=== PATIENT | female | born 1950 | race Caucasian/White ===

== ENCOUNTER 2018-01-06 13:26 | Outpatient (RCR) | payer MEDICARE, OTHER, SELFPAY ==
[2018-01-06] MEDS: Normal Saline Flush 10 ML SYR IVP (13:45)
[2018-01-06 13:49] LABS: Abs Immature Grans 0.01 k/cumm (0.0-0.09); Absolute Basophil Count 0.04 k/cumm (0.0-0.2); Absolute Eosinophil Count 0.12 k/cumm (0.0-0.7); Absolute Lymphocyte Count 2.13 k/cumm (1.2-3.4); Absolute Monocyte Count 0.65 k/cumm (0.11-0.7); Absolute Neutrophil Count 2.18 k/cumm (1.2-6.7); Basophils % 0.8; Eosinophils % 2.3; HCT 39.6 % (36.0-46.0); HGB 12.9 g/dL (12.0-15.5); Immature Grans % 0.2; Lymphocytes % 41.5; Mean Corp. HGB Concentration 32.6 g/dL (32.0-36.0); Mean Corpuscular Volume 98.3 fL (80-95); Monocytes % 12.7; Neutrophils % 42.5; Platelet Count 333 x1000/uL (130-400); RBC 4.03 m/cumm (4.00-5.20); RBC Distribution Width 14.2 % (11.7-14.6); White Blood Cell Count 5.13 k/cumm (4.4-10.8)
[2018-01-06 14:01] LABS: ALT 20 U/L (12-78); AST 14 U/L (15-37); Albumin 3.8 g/dL (3.4-5.0); Alkaline Phosphatase 64 U/L (46-116); Anion Gap 8.3 mmol/L (3-11); BUN 12 mg/dL (7-18); Bilirubin, Total 0.4 mg/dL (0.2-1.0); CO2 28.7 mmol/L (21.0-32.0); CREATININE 0.87 mg/dL (0.55-1.02); Chloride 105 mmol/L (98-107); Glucose 98 mg/dL (70-100); Sodium 142 mmol/L (136-145); Total Protein 7.3 g/dL (6.4-8.2)
== END 2018-01-30 ==
LOC: INF 13:26
PROVIDERS: PCP Nurse Practitioner; Visit Provider Internal Medicine Medical Oncology
DX: C34.2 Malignant neoplasm of middle lobe, bronchus or lung (principal); Z45.2 Encounter for adjustment and management of vascular access device
CPT/HCPCS: 36591; 80053; 85025

== ENCOUNTER 2018-02-26 01:37 | Outpatient (RCR) | payer MEDICARE, OTHER, SELFPAY ==
[2018-02-05] MEDS: Normal Saline Flush 10 ML SYR IVP (07:55)
[2018-02-05 08:24] LABS: Abs Immature Grans 0.01 k/cumm (0.0-0.09); Absolute Basophil Count 0.03 k/cumm (0.0-0.2); Absolute Eosinophil Count 0.26 k/cumm (0.0-0.7); Absolute Lymphocyte Count 2.38 k/cumm (1.2-3.4); Absolute Monocyte Count 0.54 k/cumm (0.11-0.7); Basophils % 0.5; Eosinophils % 4.6; HCT 40.7 % (36.0-46.0); HGB 13.2 g/dL (12.0-15.5); Immature Grans % 0.2; Lymphocytes % 42.3; Mean Corp. HGB Concentration 32.4 g/dL (32.0-36.0); Mean Corpuscular Hemoglobin 32.4 pg (27.0-33.0); Mean Corpuscular Volume 99.8 fL (80-95); Mean Platelet Volume 11.1 fL (8.0-11.0); Monocytes % 9.6; Neutrophils % 42.8; Platelet Count 269 x1000/uL (130-400); RBC 4.08 m/cumm (4.00-5.20); RBC Distribution Width 14.1 % (11.7-14.6); White Blood Cell Count 5.62 k/cumm (4.4-10.8)
[2018-02-05 08:36] LABS: ALT 18 U/L (12-78); AST 14 U/L (15-37); Albumin 3.7 g/dL (3.4-5.0); Alkaline Phosphatase 68 U/L (46-116); Anion Gap 6.4 mmol/L (3-11); BUN 12 mg/dL (7-18); Bilirubin, Total 0.4 mg/dL (0.2-1.0); CO2 28.6 mmol/L (21.0-32.0); CREATININE 0.97 mg/dL (0.55-1.02); Calcium 8.8 mg/dL (8.5-10.1); Chloride 105 mmol/L (98-107); Estimated GFR 56.94 (mL/min/1.73m2); Glucose 133 mg/dL (70-100); Potassium 3.7 mmol/L (3.5-5.1); Sodium 140 mmol/L (136-145); Total Protein 7.3 g/dL (6.4-8.2)
[2018-02-26] MEDS: Normal Saline Flush 10 ML SYR IVP (09:25)
[2018-02-26 09:44] LABS: Abs Immature Grans 0.01 k/cumm (0.0-0.09); Absolute Basophil Count 0.04 k/cumm (0.0-0.2); Absolute Eosinophil Count 0.15 k/cumm (0.0-0.7); Absolute Lymphocyte Count 2.06 k/cumm (1.2-3.4); Absolute Monocyte Count 0.52 k/cumm (0.11-0.7); Absolute Neutrophil Count 2.44 k/cumm (1.2-6.7); Basophils % 0.8; Eosinophils % 2.9; HCT 39.3 % (36.0-46.0); HGB 12.8 g/dL (12.0-15.5); Immature Grans % 0.2; Lymphocytes % 39.5; Mean Corp. HGB Concentration 32.6 g/dL (32.0-36.0); Mean Corpuscular Hemoglobin 32.4 pg (27.0-33.0); Mean Corpuscular Volume 99.5 fL (80-95); Mean Platelet Volume 10.7 fL (8.0-11.0); Neutrophils % 46.6; Platelet Count 382 x1000/uL (130-400); RBC 3.95 m/cumm (4.00-5.20); RBC Distribution Width 13.7 % (11.7-14.6); White Blood Cell Count 5.22 k/cumm (4.4-10.8)
[2018-02-26 10:08] LABS: ALT 18 U/L (12-78); AST 16 U/L (15-37); Albumin 3.7 g/dL (3.4-5.0); Alkaline Phosphatase 64 U/L (46-116); Anion Gap 8.2 mmol/L (3-11); BUN 13 mg/dL (7-18); Bilirubin, Total 0.5 mg/dL (0.2-1.0); CO2 28.8 mmol/L (21.0-32.0); CREATININE 1.06 mg/dL (0.55-1.02); Calcium 8.9 mg/dL (8.5-10.1); Chloride 105 mmol/L (98-107); Estimated GFR 51.25 (mL/min/1.73m2); Glucose 126 mg/dL (70-100); Potassium 3.9 mmol/L (3.5-5.1); Sodium 142 mmol/L (136-145); Total Protein 7.2 g/dL (6.4-8.2)
== END 2018-03-01 23:59 | disposition home or self-care (01) ==
LOC: INF 01:37
PROVIDERS: PCP Nurse Practitioner; Visit Provider Internal Medicine Medical Oncology
DX: C34.2 Malignant neoplasm of middle lobe, bronchus or lung (principal); Z45.2 Encounter for adjustment and management of vascular access device
CPT/HCPCS: 36591; 80053; 85025

== ENCOUNTER 2018-03-19 01:59 | Outpatient (RCR) | payer MEDICARE, SELFPAY ==
[2018-03-19] MEDS: Normal Saline Flush 10 ML SYR IVP (08:40)
[2018-03-19 09:12] LABS: Abs Immature Grans 0.08 k/cumm (0.0-0.09); Absolute Basophil Count 0.03 k/cumm (0.0-0.2); Absolute Eosinophil Count 0.04 k/cumm (0.0-0.7); Absolute Lymphocyte Count 3.18 k/cumm (1.2-3.4); Absolute Neutrophil Count 8.49 k/cumm (1.2-6.7); Basophils % 0.2; Eosinophils % 0.3; HCT 39.7 % (36.0-46.0); HGB 12.9 g/dL (12.0-15.5); Immature Grans % 0.6; Lymphocytes % 24.8; Mean Corp. HGB Concentration 32.5 g/dL (32.0-36.0); Mean Corpuscular Hemoglobin 32.2 pg (27.0-33.0); Mean Platelet Volume 11.1 fL (8.0-11.0); Monocytes % 7.8; Neutrophils % 66.3; Platelet Count 373 x1000/uL (130-400); RBC 4.01 m/cumm (4.00-5.20); RBC Distribution Width 14.3 % (11.7-14.6); White Blood Cell Count 12.81 k/cumm (4.4-10.8)
[2018-03-19 09:31] LABS: ALT 22 U/L (12-78); AST 11 U/L (15-37); Albumin 3.4 g/dL (3.4-5.0); Alkaline Phosphatase 57 U/L (46-116); Anion Gap 10.2 mmol/L (3-11); BUN 21 mg/dL (7-18); Bilirubin, Total 0.3 mg/dL (0.2-1.0); CO2 29.8 mmol/L (21.0-32.0); CREATININE 0.92 mg/dL (0.55-1.02); Calcium 9.1 mg/dL (8.5-10.1); Chloride 103 mmol/L (98-107); Glucose 128 mg/dL (70-100); Potassium 3.2 mmol/L (3.5-5.1); Sodium 143 mmol/L (136-145); Total Protein 6.8 g/dL (6.4-8.2)
== END 2018-04-01 23:59 | disposition home or self-care (01) ==
LOC: INF 01:59
PROVIDERS: PCP Nurse Practitioner; Visit Provider Internal Medicine Medical Oncology
DX: C34.2 Malignant neoplasm of middle lobe, bronchus or lung (principal); Z45.2 Encounter for adjustment and management of vascular access device
CPT/HCPCS: 36591; 80053; 85025

== ENCOUNTER 2018-04-30 02:08 | Outpatient (RCR) | payer MEDICARE, SELFPAY ==
[2018-04-09] MEDS: Normal Saline Flush 10 ML SYR IVP (07:55)
[2018-04-09 08:11] LABS: Abs Immature Grans 0.01 k/cumm (0.0-0.09); Absolute Basophil Count 0.02 k/cumm (0.0-0.2); Absolute Eosinophil Count 0.16 k/cumm (0.0-0.7); Absolute Lymphocyte Count 1.79 k/cumm (1.2-3.4); Absolute Monocyte Count 0.45 k/cumm (0.11-0.7); Absolute Neutrophil Count 1.46 k/cumm (1.2-6.7); Basophils % 0.5; Eosinophils % 4.1; HGB 13.1 g/dL (12.0-15.5); Immature Grans % 0.3; Mean Corp. HGB Concentration 32.8 g/dL (32.0-36.0); Mean Corpuscular Hemoglobin 32.8 pg (27.0-33.0); Mean Corpuscular Volume 100.3 fL (80-95); Mean Platelet Volume 10.7 fL (8.0-11.0); Monocytes % 11.6; Neutrophils % 37.5; Platelet Count 313 x1000/uL (130-400); RBC 3.99 m/cumm (4.00-5.20); RBC Distribution Width 14.2 % (11.7-14.6); White Blood Cell Count 3.89 k/cumm (4.4-10.8)
[2018-04-09 08:23] LABS: ALT 22 U/L (12-78); AST 16 U/L (15-37); Albumin 3.7 g/dL (3.4-5.0); Alkaline Phosphatase 63 U/L (46-116); Anion Gap 11.2 mmol/L (3-11); BUN 15 mg/dL (7-18); Bilirubin, Total 0.4 mg/dL (0.2-1.0); CO2 27.8 mmol/L (21.0-32.0); CREATININE 1.08 mg/dL (0.55-1.02); Chloride 104 mmol/L (98-107); Estimated GFR 50.16 (mL/min/1.73m2); Glucose 145 mg/dL (70-100); Potassium 3.6 mmol/L (3.5-5.1); Sodium 143 mmol/L (136-145); Total Protein 7.1 g/dL (6.4-8.2)
[2018-04-30] MEDS: Normal Saline Flush 10 ML SYR IVP (10:25)
[2018-04-30 10:45] LABS: Abs Immature Grans 0.01 k/cumm (0.0-0.09); Absolute Basophil Count 0.04 k/cumm (0.0-0.2); Absolute Eosinophil Count 0.09 k/cumm (0.0-0.7); Absolute Lymphocyte Count 1.96 k/cumm (1.2-3.4); Absolute Monocyte Count 0.55 k/cumm (0.11-0.7); Absolute Neutrophil Count 2.69 k/cumm (1.2-6.7); Basophils % 0.7; Eosinophils % 1.7; HCT 41.6 % (36.0-46.0); HGB 13.5 g/dL (12.0-15.5); Immature Grans % 0.2; Lymphocytes % 36.7; Mean Corp. HGB Concentration 32.5 g/dL (32.0-36.0); Mean Corpuscular Hemoglobin 32.5 pg (27.0-33.0); Mean Platelet Volume 10.9 fL (8.0-11.0); Monocytes % 10.3; Neutrophils % 50.4; Platelet Count 319 x1000/uL (130-400); RBC 4.16 m/cumm (4.00-5.20); RBC Distribution Width 14.3 % (11.7-14.6); White Blood Cell Count 5.34 k/cumm (4.4-10.8)
[2018-04-30 11:00] LABS: ALT 22 U/L (12-78); AST 19 U/L (15-37); Albumin 3.8 g/dL (3.4-5.0); Alkaline Phosphatase 64 U/L (46-116); Anion Gap 10.4 mmol/L (3-11); BUN 16 mg/dL (7-18); Bilirubin, Total 0.3 mg/dL (0.2-1.0); CO2 28.6 mmol/L (21.0-32.0); CREATININE 0.94 mg/dL (0.55-1.02); Calcium 9.6 mg/dL (8.5-10.1); Chloride 104 mmol/L (98-107); Estimated GFR 58.87 (mL/min/1.73m2); Glucose 123 mg/dL (70-100); Potassium 3.7 mmol/L (3.5-5.1); Sodium 143 mmol/L (136-145); Total Protein 7.5 g/dL (6.4-8.2)
== END 2018-05-01 23:59 | disposition home or self-care (01) ==
LOC: INF 02:08
PROVIDERS: PCP Nurse Practitioner; Visit Provider Internal Medicine Medical Oncology
DX: C34.2 Malignant neoplasm of middle lobe, bronchus or lung (principal); Z45.2 Encounter for adjustment and management of vascular access device
CPT/HCPCS: 36591; 80053; 85025

== ENCOUNTER 2018-05-21 02:41 | Outpatient (RCR) | payer MEDICARE, SELFPAY ==
[2018-05-21 11:30] LABS: Abs Immature Grans 0.01 k/cumm (0.0-0.09); Absolute Basophil Count 0.03 k/cumm (0.0-0.2); Absolute Eosinophil Count 0.11 k/cumm (0.0-0.7); Absolute Lymphocyte Count 1.92 k/cumm (1.2-3.4); Absolute Monocyte Count 0.64 k/cumm (0.11-0.7); Absolute Neutrophil Count 2.17 k/cumm (1.2-6.7); Basophils % 0.6; Eosinophils % 2.3; HCT 40.5 % (36.0-46.0); HGB 13.2 g/dL (12.0-15.5); Immature Grans % 0.2; Lymphocytes % 39.3; Mean Corp. HGB Concentration 32.6 g/dL (32.0-36.0); Mean Corpuscular Hemoglobin 32.4 pg (27.0-33.0); Mean Corpuscular Volume 99.3 fL (80-95); Mean Platelet Volume 11.1 fL (8.0-11.0); Monocytes % 13.1; Neutrophils % 44.5; Platelet Count 324 x1000/uL (130-400); RBC 4.08 m/cumm (4.00-5.20); RBC Distribution Width 14.5 % (11.7-14.6); White Blood Cell Count 4.88 k/cumm (4.4-10.8)
[2018-05-21] MEDS: Normal Saline Flush 10 ML SYR IVP (11:39)
[2018-05-21 12:01] LABS: ALT 20 U/L (12-78); AST 19 U/L (15-37); Albumin 3.8 g/dL (3.4-5.0); Alkaline Phosphatase 67 U/L (46-116); Anion Gap 11.1 mmol/L (3-11); BUN 9 mg/dL (7-18); Bilirubin, Total 0.4 mg/dL (0.2-1.0); CO2 28.9 mmol/L (21.0-32.0); CREATININE 0.96 mg/dL (0.55-1.02); Calcium 9.6 mg/dL (8.5-10.1); Chloride 104 mmol/L (98-107); Estimated GFR 57.46 (mL/min/1.73m2); Glucose 77 mg/dL (70-100); Potassium 3.9 mmol/L (3.5-5.1); Sodium 144 mmol/L (136-145); Total Protein 7.3 g/dL (6.4-8.2)
== END 2018-06-01 23:59 | disposition home or self-care (01) ==
LOC: INF 02:41
PROVIDERS: PCP Nurse Practitioner; Visit Provider Internal Medicine Hematology & Oncology
DX: C34.2 Malignant neoplasm of middle lobe, bronchus or lung (principal); Z45.2 Encounter for adjustment and management of vascular access device
CPT/HCPCS: 36591; 80053; 85025

== ENCOUNTER 2018-06-04 02:58 | Outpatient (CLI) | payer MEDICARE, SELFPAY ==
[2018-06-04 10:49] LABS: CREATININE 1.08 mg/dL (0.55-1.02); Estimated GFR 50.16 (mL/min/1.73m2)
--- NOTE | 2018-06-04 11:39 | DI.CT_ITS ---
SYMPTOMS/DIAGNOSIS: F/U LUNG CANCER, C34.2, MALIGNANT NEOPLASM OF MIDDLE LOBE OF RT LUNG CT SCAN OF THE CHEST: CT scan of the chest was performed following the uneventful administration of intravenous contrast material. Comparison chest x-ray is 03/31/15. The thoracic aorta is of normal caliber. The heart size is within normal limits. No significant pericardial effusion is present. No thoracic adenopathy or pleural effusion is seen. There are central lobar emphysematous changes in the lungs. There is a soft tissue mass seen in the medial aspect of the right middle lobe measuring 3.1 cm AP x 3.1 cm transverse x 2.6 cm craniocaudally. This compares with 2.3 cm AP x 2.4 cm transverse x 2.2 cm craniocaudally on the examination from 03/31/15. The nodular density previously noted in the left upper lobe was not visualized on the current examination. No other pulmonary nodules are seen. The tracheobronchial tree is unremarkable. No acute abnormalities are seen in the upper abdomen. Degenerative changes are seen in the spine. There is an area of sclerosis in the anterolateral aspect of the left fifth rib. Orthopedic hardware is again seen in the left proximal humerus. There are thyroid nodules present. The largest is seen in the left lobe. IMPRESSION: 1. Interval increase in size of the right middle lobe mass since 03/31/15. 2. Central lobular emphysema. 3. Sclerotic focus involving the anterolateral aspect of the left fifth rib. Bone scan may be considered for further evaluation.
[2018-06-04] MEDS: Omnipaque 350 MG/ML 100 ML BTL 70 ML IJ (11:42)
== END 2018-06-04 03:18 ==
PROVIDERS: PCP Nurse Practitioner; Visit Provider Internal Medicine Hematology & Oncology
DX: C34.2 Malignant neoplasm of middle lobe, bronchus or lung (principal); C79.89 Secondary malignant neoplasm of other specified sites; J43.9 Emphysema, unspecified; E04.2 Nontoxic multinodular goiter; R93.7 Abnormal findings on diagnostic imaging of other parts of musculoskeletal system
CPT/HCPCS: 36591; 71260; 82565; J3490

== ENCOUNTER 2018-07-02 01:30 | Outpatient (RCR) | payer MEDICARE, SELFPAY ==
[2018-06-04] MEDS: Normal Saline Flush 10 ML SYR IVP (10:25)
[2018-06-04] MEDS: Heparin 500 UNITS/5 ML SYRINGE IV (10:25)
[2018-06-11] MEDS: Normal Saline Flush 10 ML SYR IVP (10:30)
[2018-06-11 10:39] LABS: Abs Immature Grans 0.01 k/cumm (0.0-0.09); Absolute Basophil Count 0.04 k/cumm (0.0-0.2); Absolute Eosinophil Count 0.16 k/cumm (0.0-0.7); Absolute Lymphocyte Count 2.16 k/cumm (1.2-3.4); Absolute Monocyte Count 0.78 k/cumm (0.11-0.7); Basophils % 0.6; Eosinophils % 2.4; HCT 40.2 % (36.0-46.0); HGB 13.2 g/dL (12.0-15.5); Immature Grans % 0.2; Lymphocytes % 32.5; Mean Corp. HGB Concentration 32.8 g/dL (32.0-36.0); Mean Corpuscular Hemoglobin 32.8 pg (27.0-33.0); Mean Platelet Volume 10.5 fL (8.0-11.0); Monocytes % 11.7; Neutrophils % 52.6; Platelet Count 403 x1000/uL (130-400); RBC 4.02 m/cumm (4.00-5.20); RBC Distribution Width 13.9 % (11.7-14.6); White Blood Cell Count 6.65 k/cumm (4.4-10.8)
[2018-06-11 10:49] LABS: ALT 18 U/L (12-78); AST 15 U/L (15-37); Albumin 3.7 g/dL (3.4-5.0); Alkaline Phosphatase 69 U/L (46-116); Anion Gap 10.9 mmol/L (3-11); BUN 10 mg/dL (7-18); Bilirubin, Total 0.4 mg/dL (0.2-1.0); CO2 29.1 mmol/L (21.0-32.0); CREATININE 1.08 mg/dL (0.55-1.02); Calcium 9.7 mg/dL (8.5-10.1); Chloride 102 mmol/L (98-107); Estimated GFR 50.16 (mL/min/1.73m2); Glucose 107 mg/dL (70-100); Potassium 3.8 mmol/L (3.5-5.1); Sodium 142 mmol/L (136-145); Total Protein 7.5 g/dL (6.4-8.2)
[2018-07-02] MEDS: Normal Saline Flush 10 ML SYR IVP (11:45)
[2018-07-02 12:09] LABS: Abs Immature Grans 0.01 k/cumm (0.0-0.09); Absolute Basophil Count 0.02 k/cumm (0.0-0.2); Absolute Eosinophil Count 0.33 k/cumm (0.0-0.7); Absolute Lymphocyte Count 1.53 k/cumm (1.2-3.4); Absolute Monocyte Count 0.84 k/cumm (0.11-0.7); Absolute Neutrophil Count 3.51 k/cumm (1.2-6.7); Basophils % 0.3; Eosinophils % 5.3; HCT 38.6 % (36.0-46.0); HGB 12.7 g/dL (12.0-15.5); Immature Grans % 0.2; Lymphocytes % 24.5; Mean Corp. HGB Concentration 32.9 g/dL (32.0-36.0); Mean Corpuscular Hemoglobin 32.6 pg (27.0-33.0); Mean Platelet Volume 10.7 fL (8.0-11.0); Monocytes % 13.5; Neutrophils % 56.2; Platelet Count 365 x1000/uL (130-400); RBC Distribution Width 13.6 % (11.7-14.6); White Blood Cell Count 6.24 k/cumm (4.4-10.8)
[2018-07-02 12:22] LABS: ALT 17 U/L (12-78); AST 17 U/L (15-37); Albumin 3.5 g/dL (3.4-5.0); Alkaline Phosphatase 72 U/L (46-116); Anion Gap 9.4 mmol/L (3-11); BUN 11 mg/dL (7-18); Bilirubin, Total 0.4 mg/dL (0.2-1.0); CO2 29.6 mmol/L (21.0-32.0); Calcium 9.6 mg/dL (8.5-10.1); Chloride 103 mmol/L (98-107); Glucose 116 mg/dL (70-100); Potassium 3.7 mmol/L (3.5-5.1); Sodium 142 mmol/L (136-145); Total Protein 7.7 g/dL (6.4-8.2)
== END 2018-07-02 23:59 | disposition home or self-care (01) ==
LOC: INF 01:30
PROVIDERS: PCP Nurse Practitioner; Visit Provider Internal Medicine Hematology & Oncology
DX: C34.2 Malignant neoplasm of middle lobe, bronchus or lung (principal); Z45.2 Encounter for adjustment and management of vascular access device
CPT/HCPCS: 36591; 80053; 85025

== ENCOUNTER 2018-07-23 00:53 | Outpatient (RCR) | payer MEDICARE, SELFPAY ==
[2018-07-23 12:13] LABS: Abs Immature Grans 0.01 k/cumm (0.0-0.09); Absolute Basophil Count 0.04 k/cumm (0.0-0.2); Absolute Lymphocyte Count 1.82 k/cumm (1.2-3.4); Absolute Monocyte Count 0.68 k/cumm (0.11-0.7); Absolute Neutrophil Count 2.62 k/cumm (1.2-6.7); Basophils % 0.7; Eosinophils % 3.7; HCT 38.3 % (36.0-46.0); HGB 12.5 g/dL (12.0-15.5); Immature Grans % 0.2; Lymphocytes % 33.9; Mean Corp. HGB Concentration 32.6 g/dL (32.0-36.0); Mean Corpuscular Hemoglobin 32.4 pg (27.0-33.0); Mean Corpuscular Volume 99.2 fL (80-95); Mean Platelet Volume 10.9 fL (8.0-11.0); Monocytes % 12.7; Neutrophils % 48.8; Platelet Count 361 x1000/uL (130-400); RBC 3.86 m/cumm (4.00-5.20); RBC Distribution Width 14.1 % (11.7-14.6); White Blood Cell Count 5.37 k/cumm (4.4-10.8)
[2018-07-23] MEDS: Normal Saline Flush 10 ML SYR IVP (12:22)
[2018-07-23 12:23] LABS: ALT 17 U/L (12-78); AST 16 U/L (15-37); Albumin 3.5 g/dL (3.4-5.0); Alkaline Phosphatase 68 U/L (46-116); Anion Gap 10.5 mmol/L (3-11); BUN 15 mg/dL (7-18); Bilirubin, Total 0.4 mg/dL (0.2-1.0); CO2 27.5 mmol/L (21.0-32.0); Calcium 9.3 mg/dL (8.5-10.1); Chloride 106 mmol/L (98-107); Glucose 91 mg/dL (70-100); Potassium 3.7 mmol/L (3.5-5.1); Sodium 144 mmol/L (136-145); Total Protein 7.4 g/dL (6.4-8.2)
== END 2018-07-30 23:59 | disposition home or self-care (01) ==
LOC: INF 00:53
PROVIDERS: PCP Nurse Practitioner; Visit Provider Internal Medicine Hematology & Oncology
DX: C34.2 Malignant neoplasm of middle lobe, bronchus or lung (principal); Z45.2 Encounter for adjustment and management of vascular access device
CPT/HCPCS: 36591; 80053; 85025

== ENCOUNTER 2018-08-13 01:49 | Outpatient (RCR) | payer MEDICARE, SELFPAY ==
[2018-08-13] MEDS: Normal Saline Flush 10 ML SYR IVP (09:55)
[2018-08-13 10:18] LABS: Abs Immature Grans 0.01 k/cumm (0.0-0.09); Absolute Basophil Count 0.02 k/cumm (0.0-0.2); Absolute Eosinophil Count 0.16 k/cumm (0.0-0.7); Absolute Lymphocyte Count 1.54 k/cumm (1.2-3.4); Absolute Monocyte Count 0.59 k/cumm (0.11-0.7); Basophils % 0.5; Eosinophils % 3.8; HCT 39.3 % (36.0-46.0); HGB 12.9 g/dL (12.0-15.5); Immature Grans % 0.2; Lymphocytes % 36.5; Mean Corp. HGB Concentration 32.8 g/dL (32.0-36.0); Mean Corpuscular Hemoglobin 32.7 pg (27.0-33.0); Mean Corpuscular Volume 99.7 fL (80-95); Mean Platelet Volume 10.9 fL (8.0-11.0); Platelet Count 349 x1000/uL (130-400); RBC 3.94 m/cumm (4.00-5.20); RBC Distribution Width 14.4 % (11.7-14.6); White Blood Cell Count 4.22 k/cumm (4.4-10.8)
[2018-08-13 10:29] LABS: ALT 20 U/L (12-78); AST 16 U/L (15-37); Albumin 3.7 g/dL (3.4-5.0); Alkaline Phosphatase 69 U/L (46-116); Anion Gap 12.9 mmol/L (3-11); BUN 15 mg/dL (7-18); Bilirubin, Total 0.4 mg/dL (0.2-1.0); CO2 28.1 mmol/L (21.0-32.0); CREATININE 0.96 mg/dL (0.55-1.02); Calcium 9.4 mg/dL (8.5-10.1); Chloride 104 mmol/L (98-107); Estimated GFR 57.46 (mL/min/1.73m2); Glucose 131 mg/dL (70-100); Potassium 3.4 mmol/L (3.5-5.1); Sodium 145 mmol/L (136-145); Total Protein 7.5 g/dL (6.4-8.2)
== END 2018-08-30 23:59 | disposition home or self-care (01) ==
LOC: INF 01:49
PROVIDERS: PCP Nurse Practitioner; Visit Provider Internal Medicine Hematology & Oncology
DX: C34.2 Malignant neoplasm of middle lobe, bronchus or lung (principal); Z45.2 Encounter for adjustment and management of vascular access device
CPT/HCPCS: 36591; 80053; 85025

== ENCOUNTER 2018-09-24 02:15 | Outpatient (RCR) | payer MEDICARE, SELFPAY ==
[2018-09-03] MEDS: Normal Saline Flush 10 ML SYR IVP (12:20)
[2018-09-03 12:49] LABS: Abs Immature Grans 0.01 k/cumm (0.0-0.09); Absolute Basophil Count 0.03 k/cumm (0.0-0.2); Absolute Eosinophil Count 0.11 k/cumm (0.0-0.7); Absolute Lymphocyte Count 1.91 k/cumm (1.2-3.4); Absolute Monocyte Count 0.59 k/cumm (0.11-0.7); Absolute Neutrophil Count 2.88 k/cumm (1.2-6.7); Basophils % 0.5; HCT 40.7 % (36.0-46.0); HGB 13.2 g/dL (12.0-15.5); Immature Grans % 0.2; Lymphocytes % 34.5; Mean Corp. HGB Concentration 32.4 g/dL (32.0-36.0); Mean Corpuscular Hemoglobin 32.6 pg (27.0-33.0); Mean Corpuscular Volume 100.5 fL (80-95); Mean Platelet Volume 10.5 fL (8.0-11.0); Monocytes % 10.7; Neutrophils % 52.1; Platelet Count 406 x1000/uL (130-400); RBC 4.05 m/cumm (4.00-5.20); RBC Distribution Width 15.2 % (11.7-14.6); White Blood Cell Count 5.53 k/cumm (4.4-10.8)
[2018-09-03 13:00] LABS: ALT 28 U/L (12-78); AST 25 U/L (15-37); Albumin 3.8 g/dL (3.4-5.0); Alkaline Phosphatase 83 U/L (46-116); Anion Gap 10.7 mmol/L (3-11); BUN 11 mg/dL (7-18); Bilirubin, Total 0.4 mg/dL (0.2-1.0); CO2 28.3 mmol/L (21.0-32.0); CREATININE 0.99 mg/dL (0.55-1.02); Calcium 9.5 mg/dL (8.5-10.1); Chloride 102 mmol/L (98-107); Estimated GFR 55.45 (mL/min/1.73m2); Glucose 107 mg/dL (70-100); Potassium 3.7 mmol/L (3.5-5.1); Sodium 141 mmol/L (136-145); Total Protein 7.7 g/dL (6.4-8.2)
[2018-09-24] MEDS: Normal Saline Flush 10 ML SYR IVP (12:10)
[2018-09-24 12:35] LABS: ALT 19 U/L (12-78); AST 15 U/L (15-37); Albumin 3.4 g/dL (3.4-5.0); Alkaline Phosphatase 76 U/L (46-116); Anion Gap 9.2 mmol/L (3-11); BUN 11 mg/dL (7-18); Bilirubin, Total 0.4 mg/dL (0.2-1.0); CO2 28.8 mmol/L (21.0-32.0); Calcium 9.5 mg/dL (8.5-10.1); Chloride 104 mmol/L (98-107); Estimated GFR 54.81 (mL/min/1.73m2); Glucose 99 mg/dL (70-100); Potassium 3.8 mmol/L (3.5-5.1); Sodium 142 mmol/L (136-145); Total Protein 7.3 g/dL (6.4-8.2)
[2018-09-24 12:40] LABS: Abs Immature Grans 0.01 k/cumm (0.0-0.09); Absolute Basophil Count 0.03 k/cumm (0.0-0.2); Absolute Eosinophil Count 0.12 k/cumm (0.0-0.7); Absolute Lymphocyte Count 1.72 k/cumm (1.2-3.4); Absolute Monocyte Count 0.61 k/cumm (0.11-0.7); Absolute Neutrophil Count 2.59 k/cumm (1.2-6.7); Basophils % 0.6; Eosinophils % 2.4; HCT 39.3 % (36.0-46.0); HGB 12.6 g/dL (12.0-15.5); Immature Grans % 0.2; Lymphocytes % 33.9; Mean Corp. HGB Concentration 32.1 g/dL (32.0-36.0); Mean Corpuscular Hemoglobin 31.8 pg (27.0-33.0); Mean Corpuscular Volume 99.2 fL (80-95); Mean Platelet Volume 11.1 fL (8.0-11.0); Neutrophils % 50.9; Platelet Count 339 x1000/uL (130-400); RBC 3.96 m/cumm (4.00-5.20); RBC Distribution Width 14.4 % (11.7-14.6); White Blood Cell Count 5.08 k/cumm (4.4-10.8)
== END 2018-09-29 23:59 | disposition home or self-care (01) ==
LOC: INF 02:15
PROVIDERS: PCP Nurse Practitioner; Visit Provider Internal Medicine Hematology & Oncology
DX: C34.2 Malignant neoplasm of middle lobe, bronchus or lung (principal); Z45.2 Encounter for adjustment and management of vascular access device
CPT/HCPCS: 36591; 80053; 85025

== ENCOUNTER 2018-10-02 14:01 | Emergency (ER) | payer MEDICARE, SELFPAY ==
[2018-10-02 14:04] VITALS: BP 137/69; PULSE 68; RESP 16; TEMP 36.2; O2SAT 98
[2018-10-02 14:25] VITALS: RESP 16
--- NOTE | 2018-10-02 14:27 | ED.GENADUL_ITS ---
Discharge Plan Disposition Patient Disposition: HOME Condition: Improving Discharge Details Chief Complaint: Dizzy/Sync Clinical Impression: Peripheral vertigo Primary Care Provider: Clara Shipman ED Provider: Delfino Vivar Home Meds and New Rx's Prescriptions: Continued meclizine 12.5 mg tablet 12.5 mg PO TID PRNRF: 0 multivitamin [Daily Multi-Vitamin] 1 EACH tablet 1 ea PO DAILY RF: 0 levetiracetam [Roweepra] 500 MG tablet 500 mg PO BID RF: 0 lamotrigine 25 MG tablet 50 mg PO BID RF: 0 cannabis TID RF: 0 tumeric RF: 0 vitamin b6 50 mg PO DAILY RF: 0 calcium carbonate-vitamin D3 1 EACH tablet 1 ea PO DAILY RF: 0 esomeprazole magnesium [Nexium] 20 MG capsule,delayed release(DR/EC) 20 mg PO DAILY@0730 RF: 0 docusate sodium [Colace] 100 MG capsule 500 mg PO DAILY RF: 0 diltiazem HCl 240 MG capsule,ext.rel 24h degradable 120 mg PO DAILY RF: 0 ascorbate calcium 500 MG tablet 240 mg PO DAILY RF: 0 cranberry 400 MG capsule 500 mg PO DAILY RF: 0 folic acid 1 MG tablet 1 mg PO DAILY RF: 0 cholecalciferol (vitamin D3) [Vitamin D3] 2,000 UNIT capsule 2,000 unit PO DAILY RF: 0 magnesium oxide 400 MG capsule 500 mg PO DAILY RF: 0 Probiotic 1 EACH capsule, sprinkle 1 cap PO DAILY RF: 0 cyanocobalamin (vitamin B-12) 2,500 MCG tablet,chewable 1,000 mcg PO DAILY RF: 0 aspirin [Aspirin Low Dose] 81 mg Tablet,Delayed Release (Dr/Ec) 81 mg PO DAILY RF: 0 folic acid 1 mg Tablet 1 mg PO DAILY RF: 0 diphenhydramine-acetaminophen [Tylenol PM Extra Strength] 25-500 mg Tablet 1 tab PO QHS PRNRF: 0 Discharge Instructions Additional Instructions: Please follow-up with physical therapy for teaching of repositioning exercises for your vertigo. Sleep with head of the bed elevated 2-3 pillows for the next 2 nights. May continue to use of meclizine, as previously prescribed, if needed. Small, frequent sips of fluids to maintain hydration. Your levetiracetam level was a send out and should be followed up at your next appointment in clinic with Dr. Hays. Return to the emergency department for any acute concerns. Please follow-up with [facility] as planned. Medical Decision Making 68-year-old female with a history of vertigo, actively undergoing maintenance chemotherapy for lung cancer, states she has had 5 days of vertiginous symptoms that seem to improve with position and home Nicolasa maneuvers. Last night while looking at her tablet she had transient visual field changes of the left eye which she describes as similar to the aura of a migraine. It lasted approximate 20 minutes and dissipated on its own and has not recurred. She arrives to the emergency department normal vital signs. Cranial nerves are intact without deficit and her visual son are intact to confrontation. Differential diagnosis includes breakthrough partial focal seizure, brain mass or bleed, vertigo, migrainous vertigo. Patient IV access established, given 0.5 mg of Ativan, referred for screening laboratories and CT scan of the head. CT does not reveal any acute intracranial findings. Labs reveal leukopenia which she has had pre-standing, no neutropenia. Chemistries are unremarkable. Following intervention and a period of observation, the patient is nearly completely improved. Discussed with her home management. She requested referral to physical therapy for repositioning exercises of possible otoliths. She is stable and improved, appropriate for discharge home at this time. She has pre-standing follow-up in optometry October 07. Lab Data Lab results reviewed: Yes I reviewed the patient's lab results. Laboratory Results - last 24 hr 10/02/18 10/02/18 14:45 14:45 WBC 3.73 L RBC 3.97 L Hgb 12.8 Hct 39.1 MCV 98.5 H MCH 32.2 MCHC 32.7 RDW 13.9 Plt Count 284 MPV 10.7 Immature Gran % 0.3 Neutrophils % 49.9 Lymphocytes % 34.0 Monocytes % 13.7 Eosinophils % 1.6 Basophils % 0.5 Absolute Neutrophils 1.86 Absolute Lymphocytes 1.27 Absolute Monocytes 0.51 Absolute Eosinophils 0.06 Absolute Basophils 0.02 Sodium 140 Potassium 3.5 Chloride 103 Carbon Dioxide 28.2 Anion Gap 8.8 BUN 14 Creatinine 1.00 Estimated GFR/1.73 m2 54.81 Glucose 130 H Calcium 9.4 HPI General Mode of arrival: ambulatory . Date/Time Provider Initiated Documentation: 10/02/18 14:02 . Limitations to Documentation: no limitations . Information obtained by: patient and family . History of Present Illness 68 year old F presents to the emergency department with the chief complaint of Vertigo, transient left vision changes that are improved, described as mild and similar to prior episodes, Quality is described as dull and constant, and is localized to the head. Patient reports no radiation. Patient started experiencing this day(s) and it has been intermittent. No relieving factors improve symptom(s), No exacerbating factors reported . Patient notes denies fever/chills, headaches, loss of appetite, nausea/vomiting and syncope. Patient did receive the following treatments prior to arrival, other (Meclizine) Related Data Home Medications Medication Instructions Recorded Confirmed calcium carbonate-vitamin D3 1 ea PO DAILY 08/03/12 10/02/18 docusate sodium [Colace] 500 mg PO DAILY 05/17/16 10/02/18 esomeprazole magnesium [Nexium] 20 mg PO DAILY@0730 05/17/16 10/02/18 Probiotic 1 cap PO DAILY 05/10/17 10/02/18 ascorbate calcium 240 mg PO DAILY 05/10/17 10/02/18 cholecalciferol (vitamin D3) 2,000 unit PO DAILY 05/10/17 10/02/18 [Vitamin D3] cranberry 500 mg PO DAILY 05/10/17 10/02/18 cyanocobalamin (vitamin B-12) 1,000 mcg PO DAILY 05/10/17 10/02/18 diltiazem HCl 120 mg PO DAILY 05/10/17 10/02/18 folic acid 1 mg PO DAILY 05/10/17 10/02/18 magnesium oxide 500 mg PO DAILY 05/10/17 10/02/18 Cannabis TID 11/11/17 05/12/18 Tumeric 11/11/17 05/12/18 Vitamin B6 50 mg PO DAILY 11/11/17 10/02/18 lamotrigine 50 mg PO BID 11/11/17 10/02/18 levetiracetam [Roweepra] 500 mg PO BID 11/11/17 10/02/18 multivitamin [Daily Multi-Vitamin] 1 ea PO DAILY 11/11/17 10/02/18 meclizine 12.5 mg tablet 12.5 mg PO TID PRN 05/12/18 10/02/18 aspirin [Aspirin Low Dose] 81 mg PO DAILY 10/02/18 10/02/18 diphenhydramine-acetaminophen 1 tab PO QHS PRN 10/02/18 10/02/18 [Tylenol PM Extra Strength] folic acid 1 mg PO DAILY 10/02/18 10/02/18 Allergies Allergy/AdvReac Type Severity Reaction Status Date / Time codeine [Codeine] AdvReac Intermediate Nausea Unverified 11/11/17 10:55 tramadol AdvReac Intermediate delerium Unverified 05/10/17 16:44 General Stated Complaint: Dizzy/Sync VIVEK: 3 Review of Systems Review of Systems No recent fall or injury. Currently on chemotherapy for lung cancer. 8 systems reviewed and otherwise negative [facility] Medical History Dizziness (Acute) Seizures (Acute) Essential hypertension History of lung cancer History of ovarian cancer History of pulmonary embolism Hyperlipidemia Surgical History Abdominal hysterectomy Appendectomy Arthroscopy, Shoulder Colonoscopy - IV Sedation Colonoscopy - MAC (07/26/16) Oophrectomy, Left Reduction mammoplasty Family History Other Diabetes Heart disease Social History Smoking/Tobacco Use Status: Former Tobacco Use Alcohol Intake: current Alcohol Intake frequency: holidays/special occasions only Drug use: Daily Substance use type: marijuana Details: daily medical marijuana Caregiver/Support person: Yes Household members: spouse Housing: house What is your relationship status?: How often do you talk on the phone with friends or family?: three or more times per week How often do you get together with friends or relatives?: three or more times per week Panel score (0-1 are the most socially isolated patients): 2 What type of physical activity do you participate in: walking Do you feel safe at home: Yes Do you feel safe in your relationship?: Yes Exam Narrative Exam Narrative: GEN: awake, alert, oriented 3. Pleasant, well groomed, interactive. HEAD: Normocephalic, atraumatic ENT: Mucous membranes moist, oropharynx unremarkable, External ear exam unremarkable EYES: PERRL, EOMI. visual son intact to confrontation in all quadrants. NECK: Full ROM, no LE, no menigismus CHEST/RESP: Nontender, clear to auscultation bilateral, no wheeze/rhonchi/rales CARDIOVASCULAR: RRR, no murmur, rub enedina. 2+ Rad pulse bilateral ABDOMEN: Soft, nontender, no mass. +Bowel sounds EXT: Full ROM, no edema, no rash Neuro: Grossly normal neurologic exam, cranial nerves II through XII intact, conversant, interactive. Psych: Speech fluent, thoughts congruent, affect normal Course Vital Signs Temperature 36.2 C L 10/02/18 14:04 Pulse 68 10/02/18 14:04 Respiratory Rate 16 10/02/18 14:04 Blood Pressure 137/69 10/02/18 14:04 Pulse Oximetry 98 10/02/18 14:04 Temperature 36.2 C L 10/02/18 14:04 Temperature Source Skin 10/02/18 14:04 Pulse 68 10/02/18 14:04 Respiratory Rate 16 10/02/18 14:04 Respiratory Effort Non-Labored 10/02/18 14:09 Blood Pressure 137/69 10/02/18 14:04 Blood Pressure Position Sitting 10/02/18 14:04 Pulse Oximetry 98 10/02/18 14:04 Oxygen Delivery Method Room Air 10/02/18 14:04 Oxygen Flow Rate 0 10/02/18 14:04
[2018-10-02 14:58] LABS: Abs Immature Grans 0.01 k/cumm (0.0-0.09); Absolute Basophil Count 0.02 k/cumm (0.0-0.2); Absolute Eosinophil Count 0.06 k/cumm (0.0-0.7); Absolute Lymphocyte Count 1.27 k/cumm (1.2-3.4); Absolute Monocyte Count 0.51 k/cumm (0.11-0.7); Absolute Neutrophil Count 1.86 k/cumm (1.2-6.7); Basophils % 0.5; Eosinophils % 1.6; HCT 39.1 % (36.0-46.0); HGB 12.8 g/dL (12.0-15.5); Immature Grans % 0.3; Mean Corp. HGB Concentration 32.7 g/dL (32.0-36.0); Mean Corpuscular Hemoglobin 32.2 pg (27.0-33.0); Mean Corpuscular Volume 98.5 fL (80-95); Mean Platelet Volume 10.7 fL (8.0-11.0); Monocytes % 13.7; Neutrophils % 49.9; Platelet Count 284 x1000/uL (130-400); RBC 3.97 m/cumm (4.00-5.20); RBC Distribution Width 13.9 % (11.7-14.6); White Blood Cell Count 3.73 k/cumm (4.4-10.8)
--- NOTE | 2018-10-02 15:05 | DI.CT_ITS ---
SYMPTOMS/DIAGNOSIS: VERTIGO, PREVIOUS CEREBROVASCULAR ACCIDENT, LEFT VISION CHANGES CRANIAL CT: A noncontrast cranial CT was performed. The ventricular system is normal in appearance. There is no evidence of an intracranial mass lesion. There is no evidence of a subdural or epidural hematoma. No focal areas of decreased attenuation are seen. CONCLUSION: Normal noncontrast cranial CT.
[2018-10-02 15:11] LABS: Anion Gap 8.8 mmol/L (3-11); BUN 14 mg/dL (7-18); CO2 28.2 mmol/L (21.0-32.0); Calcium 9.4 mg/dL (8.5-10.1); Chloride 103 mmol/L (98-107); Estimated GFR 54.81 (mL/min/1.73m2); Glucose 130 mg/dL (70-100); Potassium 3.5 mmol/L (3.5-5.1); Sodium 140 mmol/L (136-145)
[2018-10-02 15:38] VITALS: BP 128/60; PULSE 56; RESP 12; O2SAT 98
[2018-10-05 13:57] LABS: Levetiracetam 29.6 mcg/mL
== END 2018-10-02 16:04 | disposition home or self-care (01) ==
PROVIDERS: Emergency Provider Emergency Medicine; PCP Nurse Practitioner
DX: H81.392 Other peripheral vertigo, left ear (principal); D72.9 Disorder of white blood cells, unspecified; I10 Essential (primary) hypertension
CPT/HCPCS: 80048; 96374; 99284; 70450; 80177; 85025

== ENCOUNTER 2018-10-23 00:28 | Outpatient (CLI) | payer MEDICARE, SELFPAY ==
--- NOTE | 2018-10-23 13:35 | DI.CT_ITS ---
SYMPTOMS/DIAGNOSIS: RIGHT LUNG CA, C34.2, RESTAGING EXAM CHEST CT: Comparison is made with June,. A post contrast exam was performed. There has been no significant change in size or appearance of the previously noted mass adjacent to the right heart border, in the right middle lobe. The mass abuts the pleura and extends to the hilar vessels. There has been interval increase in size of the right lower lobe nodule abutting the major fissure, now measuring 1.8 x 0.8 cm. There are now multiple nodules seen posteriorly and above the right diaphragm, along with irregular pleural thickening and tiny right pleural effusion. A few other tiny nodules are seen, one on the right upper lobe above the minor fissure and a few other tiny nodules seen laterally in the right middle lobe. There are multiple small nodules seen below the main mass in the epicardial fat. No pleural effusion is seen. There is no hilar or mediastinal adenopathy. No axillary adenopathy is seen. There is a port over the right chest. There is some nodular pleural thickening seen posteriorly in the left lower lobe, which appears new when compared with the previous exam. Underlying emphysematous changes are again noted. The nodular pleural thickening extends medially to the spine; however, there is no bony erosion. No suspicious bony abnormalities are seen. The previously questioned area of sclerosis in the anterior left 5th rib is no longer seen. The visualized portions of the upper abdominal organs are unremarkable. IMPRESSION: Interval increase in number of multiple small pulmonary nodules, as well as multiple pleural-based nodules and pleural thickening seen mainly at the right lung base. There has been no significant change in size of the main mass, measuring 3 cm in diameter adjacent to the right heart border.
[2018-10-23] MEDS: Omnipaque 350 MG/ML 100 ML BTL IJ (13:50)
== END 2018-10-23 00:48 ==
PROVIDERS: PCP Nurse Practitioner; Visit Provider Internal Medicine Hematology & Oncology
DX: C34.2 Malignant neoplasm of middle lobe, bronchus or lung (principal); R91.8 Other nonspecific abnormal finding of lung field
CPT/HCPCS: 80053; 96523; 71260; 85025; J3490

== ENCOUNTER 2018-10-23 00:48 | Outpatient (RCR) | payer MEDICARE, SELFPAY ==
[2018-10-15] MEDS: Normal Saline Flush 10 ML SYR IVP (12:05)
[2018-10-15 12:25] LABS: Absolute Basophil Count 0.03 k/cumm (0.0-0.2); Absolute Eosinophil Count 0.14 k/cumm (0.0-0.7); Absolute Lymphocyte Count 1.61 k/cumm (1.2-3.4); Absolute Monocyte Count 0.52 k/cumm (0.11-0.7); Absolute Neutrophil Count 2.99 k/cumm (1.2-6.7); Basophils % 0.6; Eosinophils % 2.6; HCT 39.4 % (36.0-46.0); HGB 12.7 g/dL (12.0-15.5); Lymphocytes % 30.4; Mean Corp. HGB Concentration 32.2 g/dL (32.0-36.0); Mean Corpuscular Volume 99.2 fL (80-95); Mean Platelet Volume 11.1 fL (8.0-11.0); Monocytes % 9.8; Neutrophils % 56.6; Platelet Count 336 x1000/uL (130-400); RBC 3.97 m/cumm (4.00-5.20); RBC Distribution Width 13.9 % (11.7-14.6); White Blood Cell Count 5.29 k/cumm (4.4-10.8)
[2018-10-15 12:47] LABS: ALT 24 U/L (12-78); AST 16 U/L (15-37); Albumin 3.6 g/dL (3.4-5.0); Alkaline Phosphatase 76 U/L (46-116); Anion Gap 10.2 mmol/L (3-11); BUN 10 mg/dL (7-18); Bilirubin, Total 0.4 mg/dL (0.2-1.0); CO2 27.8 mmol/L (21.0-32.0); CREATININE 1.03 mg/dL (0.55-1.02); Calcium 9.4 mg/dL (8.5-10.1); Chloride 105 mmol/L (98-107); Estimated GFR 52.98 (mL/min/1.73m2); Glucose 111 mg/dL (70-100); Potassium 3.8 mmol/L (3.5-5.1); Sodium 143 mmol/L (136-145); Total Protein 7.4 g/dL (6.4-8.2)
[2018-10-23 13:11] LABS: Absolute Basophil Count 0.02 k/cumm (0.0-0.2); Absolute Lymphocyte Count 1.66 k/cumm (1.2-3.4); Absolute Monocyte Count 0.41 k/cumm (0.11-0.7); Absolute Neutrophil Count 1.15 k/cumm (1.2-6.7); Basophils % 0.6; HCT 37.5 % (36.0-46.0); HGB 12.3 g/dL (12.0-15.5); Lymphocytes % 49.7; Mean Corp. HGB Concentration 32.8 g/dL (32.0-36.0); Mean Corpuscular Hemoglobin 32.7 pg (27.0-33.0); Mean Corpuscular Volume 99.7 fL (80-95); Mean Platelet Volume 10.9 fL (8.0-11.0); Monocytes % 12.3; Neutrophils % 34.4; Platelet Count 246 x1000/uL (130-400); RBC 3.76 m/cumm (4.00-5.20); RBC Distribution Width 13.5 % (11.7-14.6); White Blood Cell Count 3.34 k/cumm (4.4-10.8)
[2018-10-23 13:28] LABS: ALT 23 U/L (12-78); AST 19 U/L (15-37); Albumin 3.6 g/dL (3.4-5.0); Alkaline Phosphatase 72 U/L (46-116); Anion Gap 9.7 mmol/L (3-11); BUN 17 mg/dL (7-18); Bilirubin, Total 0.3 mg/dL (0.2-1.0); CO2 28.3 mmol/L (21.0-32.0); CREATININE 0.95 mg/dL (0.55-1.02); Calcium 9.4 mg/dL (8.5-10.1); Chloride 104 mmol/L (98-107); Estimated GFR 58.16 (mL/min/1.73m2); Glucose 117 mg/dL (70-100); Potassium 3.8 mmol/L (3.5-5.1); Sodium 142 mmol/L (136-145); Total Protein 7.5 g/dL (6.4-8.2)
== END 2018-10-30 23:59 | disposition home or self-care (01) ==
LOC: INF 00:48
PROVIDERS: PCP Nurse Practitioner; Visit Provider Internal Medicine Hematology & Oncology
DX: C34.2 Malignant neoplasm of middle lobe, bronchus or lung (principal); Z45.2 Encounter for adjustment and management of vascular access device
CPT/HCPCS: 36591; 80053; 96523; 85025

== ENCOUNTER 2018-11-26 01:18 | Outpatient (RCR) | payer MEDICARE, SELFPAY ==
[2018-11-05] MEDS: Normal Saline Flush 10 ML SYR IVP (09:50)
[2018-11-05 10:27] LABS: Abs Immature Grans 0.01 k/cumm (0.0-0.09); Absolute Basophil Count 0.03 k/cumm (0.0-0.2); Absolute Eosinophil Count 0.13 k/cumm (0.0-0.7); Absolute Lymphocyte Count 1.55 k/cumm (1.2-3.4); Absolute Monocyte Count 0.69 k/cumm (0.11-0.7); Basophils % 0.7; Eosinophils % 3.1; HCT 38.3 % (36.0-46.0); HGB 12.9 g/dL (12.0-15.5); Immature Grans % 0.2; Lymphocytes % 37.3; Mean Corp. HGB Concentration 33.7 g/dL (32.0-36.0); Mean Corpuscular Hemoglobin 33.1 pg (27.0-33.0); Mean Corpuscular Volume 98.2 fL (80-95); Mean Platelet Volume 10.9 fL (8.0-11.0); Monocytes % 16.6; Neutrophils % 42.1; Platelet Count 391 x1000/uL (130-400); RBC Distribution Width 14.1 % (11.7-14.6); White Blood Cell Count 4.15 k/cumm (4.4-10.8)
[2018-11-05 10:35] LABS: Absolute Neutrophil Count 1.75 k/cumm (1.2-6.7)
[2018-11-05 10:42] LABS: ALT 19 U/L (12-78); AST 14 U/L (15-37); Albumin 3.6 g/dL (3.4-5.0); Alkaline Phosphatase 71 U/L (46-116); BUN 17 mg/dL (7-18); Bilirubin, Total 0.3 mg/dL (0.2-1.0); CREATININE 1.01 mg/dL (0.55-1.02); Calcium 9.3 mg/dL (8.5-10.1); Chloride 102 mmol/L (98-107); Estimated GFR 54.19 (mL/min/1.73m2); Glucose 123 mg/dL (70-100); Potassium 4.1 mmol/L (3.5-5.1); Sodium 140 mmol/L (136-145); Total Protein 7.5 g/dL (6.4-8.2)
[2018-11-26] MEDS: Normal Saline Flush 10 ML SYR IVP (10:00)
[2018-11-26 10:25] LABS: Abs Immature Grans 0.01 k/cumm (0.0-0.09); Absolute Basophil Count 0.03 k/cumm (0.0-0.2); Absolute Eosinophil Count 0.13 k/cumm (0.0-0.7); Absolute Monocyte Count 0.61 k/cumm (0.11-0.7); Absolute Neutrophil Count 2.87 k/cumm (1.2-6.7); Basophils % 0.6; Eosinophils % 2.4; HCT 39.5 % (36.0-46.0); Immature Grans % 0.2; Lymphocytes % 31.8; Mean Corp. HGB Concentration 32.9 g/dL (32.0-36.0); Mean Corpuscular Hemoglobin 32.7 pg (27.0-33.0); Mean Corpuscular Volume 99.2 fL (80-95); Mean Platelet Volume 11.1 fL (8.0-11.0); Monocytes % 11.4; Neutrophils % 53.6; Platelet Count 328 x1000/uL (130-400); RBC 3.98 m/cumm (4.00-5.20); RBC Distribution Width 14.4 % (11.7-14.6); White Blood Cell Count 5.35 k/cumm (4.4-10.8)
[2018-11-26 10:40] LABS: ALT 17 U/L (12-78); AST 12 U/L (15-37); Albumin 3.6 g/dL (3.4-5.0); Alkaline Phosphatase 77 U/L (46-116); Anion Gap 10.8 mmol/L (3-11); BUN 11 mg/dL (7-18); Bilirubin, Total 0.5 mg/dL (0.2-1.0); CO2 28.2 mmol/L (21.0-32.0); Calcium 9.4 mg/dL (8.5-10.1); Chloride 105 mmol/L (98-107); Estimated GFR 54.81 (mL/min/1.73m2); Glucose 123 mg/dL (70-100); Sodium 144 mmol/L (136-145); Total Protein 7.5 g/dL (6.4-8.2)
== END 2018-11-29 23:59 | disposition home or self-care (01) ==
LOC: INF 01:18
PROVIDERS: PCP Nurse Practitioner; Visit Provider Internal Medicine Hematology & Oncology
DX: C34.2 Malignant neoplasm of middle lobe, bronchus or lung (principal); Z45.2 Encounter for adjustment and management of vascular access device
CPT/HCPCS: 36591; 80053; 85025

== ENCOUNTER 2018-12-17 01:36 | Outpatient (RCR) | payer MEDICARE, SELFPAY ==
[2018-12-17] MEDS: Normal Saline Flush 10 ML SYR IVP (10:37)
[2018-12-17 10:55] LABS: Absolute Basophil Count 0.02 k/cumm (0.0-0.2); Absolute Eosinophil Count 0.13 k/cumm (0.0-0.7); Absolute Lymphocyte Count 1.51 k/cumm (1.2-3.4); Absolute Monocyte Count 0.52 k/cumm (0.11-0.7); Absolute Neutrophil Count 2.42 k/cumm (1.2-6.7); Basophils % 0.4; Eosinophils % 2.8; HCT 38.4 % (36.0-46.0); HGB 12.4 g/dL (12.0-15.5); Lymphocytes % 32.8; Mean Corp. HGB Concentration 32.3 g/dL (32.0-36.0); Mean Corpuscular Hemoglobin 32.1 pg (27.0-33.0); Mean Corpuscular Volume 99.5 fL (80-95); Monocytes % 11.3; Neutrophils % 52.7; Platelet Count 350 x1000/uL (130-400); RBC 3.86 m/cumm (4.00-5.20); RBC Distribution Width 14.4 % (11.7-14.6)
[2018-12-17 11:16] LABS: ALT 23 U/L (12-78); AST 20 U/L (15-37); Albumin 3.6 g/dL (3.4-5.0); Alkaline Phosphatase 74 U/L (46-116); Anion Gap 9.4 mmol/L (3-11); BUN 18 mg/dL (7-18); Bilirubin, Total 0.4 mg/dL (0.2-1.0); CO2 27.6 mmol/L (21.0-32.0); Calcium 9.2 mg/dL (8.5-10.1); Chloride 106 mmol/L (98-107); Glucose 104 mg/dL (70-100); Sodium 143 mmol/L (136-145); Total Protein 7.1 g/dL (6.4-8.2)
== END 2018-12-30 23:59 | disposition home or self-care (01) ==
LOC: INF 01:36
PROVIDERS: PCP Nurse Practitioner; Visit Provider Internal Medicine Hematology & Oncology
DX: C34.2 Malignant neoplasm of middle lobe, bronchus or lung (principal); C34.91 Malignant neoplasm of unspecified part of right bronchus or lung; Z45.2 Encounter for adjustment and management of vascular access device
CPT/HCPCS: 36591; 80053; 85025

== ENCOUNTER 2019-01-07 02:04 | Outpatient (RCR) | payer MEDICARE, SELFPAY ==
[2019-01-07] MEDS: Normal Saline Flush 10 ML SYR IVP (09:30)
[2019-01-07 09:57] LABS: Abs Immature Grans 0.02 k/cumm (0.0-0.09); Absolute Basophil Count 0.02 k/cumm (0.0-0.2); Absolute Lymphocyte Count 1.65 k/cumm (1.2-3.4); Absolute Monocyte Count 0.69 k/cumm (0.11-0.7); Absolute Neutrophil Count 5.61 k/cumm (1.2-6.7); Basophils % 0.2; Eosinophils % 2.4; HCT 39.4 % (36.0-46.0); HGB 12.8 g/dL (12.0-15.5); Immature Grans % 0.2; Lymphocytes % 20.1; Mean Corp. HGB Concentration 32.5 g/dL (32.0-36.0); Mean Corpuscular Hemoglobin 32.2 pg (27.0-33.0); Mean Corpuscular Volume 99.2 fL (80-95); Mean Platelet Volume 10.7 fL (8.0-11.0); Monocytes % 8.4; Neutrophils % 68.7; Platelet Count 385 x1000/uL (130-400); RBC 3.97 m/cumm (4.00-5.20); RBC Distribution Width 14.7 % (11.7-14.6); White Blood Cell Count 8.19 k/cumm (4.4-10.8)
[2019-01-07 10:04] LABS: ALT 21 U/L (12-78); AST 16 U/L (15-37); Albumin 3.7 g/dL (3.4-5.0); Alkaline Phosphatase 78 U/L (46-116); Anion Gap 10.7 mmol/L (3-11); BUN 15 mg/dL (7-18); Bilirubin, Total 0.5 mg/dL (0.2-1.0); CO2 27.3 mmol/L (21.0-32.0); CREATININE 1.07 mg/dL (0.55-1.02); Calcium 9.2 mg/dL (8.5-10.1); Chloride 104 mmol/L (98-107); Glucose 128 mg/dL (70-100); Potassium 3.9 mmol/L (3.5-5.1); Sodium 142 mmol/L (136-145); Total Protein 7.5 g/dL (6.4-8.2)
== END 2019-01-30 23:59 | disposition home or self-care (01) ==
LOC: INF 02:04
PROVIDERS: PCP Nurse Practitioner; Visit Provider Internal Medicine Hematology & Oncology
DX: C34.2 Malignant neoplasm of middle lobe, bronchus or lung (principal); Z45.2 Encounter for adjustment and management of vascular access device
CPT/HCPCS: 36591; 80053; 85025

== ENCOUNTER 2019-01-07 10:06 | Outpatient (CLI) | payer MEDICARE, SELFPAY ==
[2019-01-07 10:50] LABS: Bilirubin Negative (Negative); Blood Trace-intact (Negative); Clarity Sl Cloudy (Clear); Glucose Negative (Negative); Ketones Negative (Negative); Leukocyte Esterase Moderate (Negative); Nitrite Negative (Negative); Specific Gravity 1.015 (1.005-1.025); Urobilinogen 0.2 EU/dL (Up TO 0.2)
[2019-01-07 11:45] LABS: Bacteria Few HPF (Negative); C & S Indicated? Yes; Casts Negative LPF (Negative); Crystals Negative HPF (Negative); Epithelial Cells Negative HPF (Negative); Mucus Negative (Negative); RBC 0-2 (0-2); WBC 20-50 HPF (0-5)
== END 2019-01-07 10:26 ==
PROVIDERS: PCP Nurse Practitioner; Visit Provider Internal Medicine Hematology & Oncology
DX: C34.2 Malignant neoplasm of middle lobe, bronchus or lung (principal); Z87.440 Personal history of urinary (tract) infections
CPT/HCPCS: 36591; 80053; 81003; 81015; 85025; 87086

== ENCOUNTER 2019-02-25 10:04 | Outpatient (RCR) | payer MEDICARE, SELFPAY ==
[2019-02-04] MEDS: Normal Saline Flush 10 ML SYR IVP (10:00)
[2019-02-04 10:21] LABS: Abs Immature Grans 0.01 k/cumm (0.0-0.09); Absolute Basophil Count 0.04 k/cumm (0.0-0.2); Absolute Eosinophil Count 0.24 k/cumm (0.0-0.7); Absolute Lymphocyte Count 1.69 k/cumm (1.2-3.4); Absolute Monocyte Count 0.57 k/cumm (0.11-0.7); Absolute Neutrophil Count 3.03 k/cumm (1.2-6.7); Basophils % 0.7; Eosinophils % 4.3; HCT 39.2 % (36.0-46.0); HGB 12.8 g/dL (12.0-15.5); Immature Grans % 0.2; Lymphocytes % 30.3; Mean Corp. HGB Concentration 32.7 g/dL (32.0-36.0); Mean Corpuscular Hemoglobin 32.8 pg (27.0-33.0); Mean Corpuscular Volume 100.5 fL (80-95); Mean Platelet Volume 11.3 fL (8.0-11.0); Monocytes % 10.2; Neutrophils % 54.3; Platelet Count 332 x1000/uL (130-400); RBC Distribution Width 14.2 % (11.7-14.6); White Blood Cell Count 5.58 k/cumm (4.4-10.8)
[2019-02-04 10:35] LABS: ALT 18 U/L (14-59); AST 17 U/L (15-37); Albumin 3.7 g/dL (3.4-5.0); Alkaline Phosphatase 82 U/L (46-116); Anion Gap 7.6 mmol/L (3-11); BUN 14 mg/dL (7-18); Bilirubin, Total 0.3 mg/dL (0.2-1.0); CO2 27.4 mmol/L (21.0-32.0); CREATININE 0.98 mg/dL (0.55-1.02); Calcium 9.1 mg/dL (8.5-10.1); Chloride 106 mmol/L (98-107); Estimated GFR 56.11 (mL/min/1.73m2); Glucose 112 mg/dL (70-100); Sodium 141 mmol/L (136-145); Total Protein 7.3 g/dL (6.4-8.2)
[2019-02-25] MEDS: Normal Saline Flush 10 ML SYR IVP (10:38)
[2019-02-25 10:51] LABS: Absolute Basophil Count 0.04 k/cumm (0.0-0.2); Absolute Eosinophil Count 0.25 k/cumm (0.0-0.7); Absolute Lymphocyte Count 1.93 k/cumm (1.2-3.4); Absolute Monocyte Count 0.66 k/cumm (0.11-0.7); Absolute Neutrophil Count 3.29 k/cumm (1.2-6.7); Basophils % 0.6; Eosinophils % 4.1; HCT 39.7 % (36.0-46.0); HGB 12.9 g/dL (12.0-15.5); Lymphocytes % 31.3; Mean Corp. HGB Concentration 32.5 g/dL (32.0-36.0); Mean Corpuscular Hemoglobin 32.3 pg (27.0-33.0); Mean Corpuscular Volume 99.3 fL (80-95); Mean Platelet Volume 11.2 fL (8.0-11.0); Monocytes % 10.7; Neutrophils % 53.3; Platelet Count 433 x1000/uL (130-400); RBC Distribution Width 13.9 % (11.7-14.6); White Blood Cell Count 6.17 k/cumm (4.4-10.8)
[2019-02-25 11:07] LABS: ALT 19 U/L (14-59); AST 17 U/L (15-37); Albumin 3.7 g/dL (3.4-5.0); Alkaline Phosphatase 77 U/L (46-116); Anion Gap 9.4 mmol/L (3-11); BUN 17 mg/dL (7-18); Bilirubin, Total 0.5 mg/dL (0.2-1.0); CO2 26.6 mmol/L (21.0-32.0); CREATININE 1.04 mg/dL (0.55-1.02); Calcium 9.3 mg/dL (8.5-10.1); Chloride 104 mmol/L (98-107); Estimated GFR 52.24 (mL/min/1.73m2); Glucose 112 mg/dL (70-100); Potassium 3.9 mmol/L (3.5-5.1); Sodium 140 mmol/L (136-145); Total Protein 7.5 g/dL (6.4-8.2)
== END 2019-03-01 23:59 | disposition home or self-care (01) ==
LOC: INF 10:04
PROVIDERS: PCP Nurse Practitioner; Visit Provider Internal Medicine Hematology & Oncology
DX: C34.2 Malignant neoplasm of middle lobe, bronchus or lung (principal); Z45.2 Encounter for adjustment and management of vascular access device
CPT/HCPCS: 36591; 80053; 85025

== ENCOUNTER 2019-03-08 01:01 | Outpatient (CLI) | payer MEDICARE, SELFPAY ==
--- NOTE | 2019-03-08 10:14 | DI.RAD_ITS ---
EXAM: XR CHEST 2V PA LATERAL INDICATION: F/U METS TO RT LUNG, C34.2. COMPARISON: LEFT RIBS TO INCLUDE CXR from 11/23/2015 ABD FLAT UPRIGHT PA CHEST from 05/17/2016 TECHNIQUE: 2D digital imaging was performed. FINDINGS: PA and lateral views were obtained. There is Port-A-Cath the tip of which lies in the superior portio n of the SVC. The heart is not enlarged. Lungs appear grossly clear except for previously noted right medial infrahilar mass seen on prior chest CT.. No pleural effusion seen. IMPRESSION: No evidence of acute process. Previously noted lung mass should be evaluated by CT if you wish to jo luate progress.
== END 2019-03-08 01:21 ==
PROVIDERS: PCP Nurse Practitioner; Visit Provider Internal Medicine Hematology & Oncology
DX: C34.2 Malignant neoplasm of middle lobe, bronchus or lung (principal)
CPT/HCPCS: 71046

== ENCOUNTER 2019-03-18 00:52 | Outpatient (RCR) | payer MEDICARE, SELFPAY ==
[2019-03-18] MEDS: Normal Saline Flush 10 ML SYR IVP (09:30)
[2019-03-18 09:45] LABS: Absolute Basophil Count 0.04 k/cumm (0.0-0.2); Absolute Eosinophil Count 0.28 k/cumm (0.0-0.7); Absolute Lymphocyte Count 1.62 k/cumm (1.2-3.4); Absolute Monocyte Count 0.54 k/cumm (0.11-0.7); Absolute Neutrophil Count 3.38 k/cumm (1.2-6.7); Basophils % 0.7; Eosinophils % 4.8; HCT 39.5 % (36.0-46.0); Lymphocytes % 27.6; Mean Corp. HGB Concentration 32.9 g/dL (32.0-36.0); Mean Corpuscular Hemoglobin 32.7 pg (27.0-33.0); Mean Corpuscular Volume 99.5 fL (80-95); Mean Platelet Volume 10.7 fL (8.0-11.0); Monocytes % 9.2; Neutrophils % 57.7; Platelet Count 371 x1000/uL (130-400); RBC 3.97 m/cumm (4.00-5.20); RBC Distribution Width 13.7 % (11.7-14.6); White Blood Cell Count 5.86 k/cumm (4.4-10.8)
[2019-03-18 09:58] LABS: ALT 15 U/L (14-59); AST 16 U/L (15-37); Albumin 3.7 g/dL (3.4-5.0); Alkaline Phosphatase 83 U/L (46-116); Anion Gap 8.1 mmol/L (3-11); BUN 15 mg/dL (7-18); Bilirubin, Total 0.5 mg/dL (0.2-1.0); CO2 28.9 mmol/L (21.0-32.0); CREATININE 1.08 mg/dL (0.55-1.02); Calcium 9.2 mg/dL (8.5-10.1); Chloride 105 mmol/L (98-107); Estimated GFR 50.01 (mL/min/1.73m2); Glucose 118 mg/dL (70-100); Potassium 3.9 mmol/L (3.5-5.1); Sodium 142 mmol/L (136-145); Total Protein 7.8 g/dL (6.4-8.2)
== END 2019-04-01 23:59 | disposition home or self-care (01) ==
LOC: INF 00:52
PROVIDERS: PCP Nurse Practitioner; Visit Provider Internal Medicine Hematology & Oncology
DX: C34.2 Malignant neoplasm of middle lobe, bronchus or lung (principal); Z45.2 Encounter for adjustment and management of vascular access device
CPT/HCPCS: 36591; 80053; 85025

== ENCOUNTER 2019-04-22 02:34 | Outpatient (RCR) | payer MEDICARE, SELFPAY ==
[2019-04-08 10:17] LABS: Abs Immature Grans 0.01 k/cumm (0.0-0.09); Absolute Basophil Count 0.04 k/cumm (0.0-0.2); Absolute Eosinophil Count 0.21 k/cumm (0.0-0.7); Absolute Lymphocyte Count 1.61 k/cumm (1.2-3.4); Absolute Monocyte Count 0.59 k/cumm (0.11-0.7); Absolute Neutrophil Count 2.61 k/cumm (1.2-6.7); Basophils % 0.8; Eosinophils % 4.1; HCT 38.5 % (36.0-46.0); HGB 12.5 g/dL (12.0-15.5); Immature Grans % 0.2; Lymphocytes % 31.8; Mean Corp. HGB Concentration 32.5 g/dL (32.0-36.0); Mean Corpuscular Hemoglobin 32.4 pg (27.0-33.0); Mean Corpuscular Volume 99.7 fL (80-95); Mean Platelet Volume 10.8 fL (8.0-11.0); Monocytes % 11.6; Neutrophils % 51.5; Platelet Count 405 x1000/uL (130-400); RBC 3.86 m/cumm (4.00-5.20); RBC Distribution Width 13.8 % (11.7-14.6); White Blood Cell Count 5.07 k/cumm (4.4-10.8)
[2019-04-08 10:31] LABS: ALT 19 U/L (14-59); AST 16 U/L (15-37); Albumin 3.8 g/dL (3.4-5.0); Alkaline Phosphatase 77 U/L (46-116); Anion Gap 9.4 mmol/L (3-11); BUN 14 mg/dL (7-18); Bilirubin, Total 0.4 mg/dL (0.2-1.0); CO2 27.6 mmol/L (21.0-32.0); CREATININE 0.96 mg/dL (0.55-1.02); Calcium 9.2 mg/dL (8.5-10.1); Chloride 105 mmol/L (98-107); Estimated GFR 57.29 (mL/min/1.73m2); Glucose 94 mg/dL (70-100); Sodium 142 mmol/L (136-145); Total Protein 7.6 g/dL (6.4-8.2)
[2019-04-08] MEDS: Normal Saline Flush 10 ML SYR IVP (11:07)
== END 2019-05-01 23:59 | disposition home or self-care (01) ==
LOC: INF 02:34
PROVIDERS: PCP Nurse Practitioner; Visit Provider Internal Medicine Hematology & Oncology
DX: C34.2 Malignant neoplasm of middle lobe, bronchus or lung (principal); Z45.2 Encounter for adjustment and management of vascular access device
CPT/HCPCS: 36591; 80053; 85025

== ENCOUNTER 2019-05-06 02:07 | Outpatient (RCR) | payer MEDICARE, SELFPAY ==
[2019-05-06] MEDS: Normal Saline Flush 10 ML SYR IVP (08:35)
[2019-05-06 08:47] LABS: Absolute Basophil Count 0.04 k/cumm (0.0-0.2); Absolute Eosinophil Count 0.21 k/cumm (0.0-0.7); Absolute Lymphocyte Count 1.61 k/cumm (1.2-3.4); Absolute Monocyte Count 0.44 k/cumm (0.11-0.7); Absolute Neutrophil Count 2.88 k/cumm (1.2-6.7); Basophils % 0.8; Eosinophils % 4.1; HGB 12.9 g/dL (12.0-15.5); Lymphocytes % 31.1; Mean Corp. HGB Concentration 33.1 g/dL (32.0-36.0); Mean Corpuscular Hemoglobin 32.8 pg (27.0-33.0); Mean Corpuscular Volume 99.2 fL (80-95); Mean Platelet Volume 10.6 fL (8.0-11.0); Monocytes % 8.5; Neutrophils % 55.5; Platelet Count 344 x1000/uL (130-400); RBC 3.93 m/cumm (4.00-5.20); RBC Distribution Width 13.7 % (11.7-14.6); White Blood Cell Count 5.18 k/cumm (4.4-10.8)
[2019-05-06 08:59] LABS: ALT 15 U/L (14-59); AST 18 U/L (15-37); Albumin 3.6 g/dL (3.4-5.0); Alkaline Phosphatase 80 U/L (46-116); Anion Gap 8.3 mmol/L (3-11); BUN 16 mg/dL (7-18); Bilirubin, Total 0.4 mg/dL (0.2-1.0); CO2 28.7 mmol/L (21.0-32.0); Calcium 9.4 mg/dL (8.5-10.1); Chloride 106 mmol/L (98-107); Estimated GFR 48.96 (mL/min/1.73m2); Glucose 122 mg/dL (74-106); Potassium 3.8 mmol/L (3.5-5.1); Sodium 143 mmol/L (136-145); Total Protein 7.5 g/dL (6.4-8.2)
== END 2019-06-01 23:59 | disposition home or self-care (01) ==
LOC: INF 02:07
PROVIDERS: PCP Nurse Practitioner; Visit Provider Internal Medicine Hematology & Oncology
DX: C34.2 Malignant neoplasm of middle lobe, bronchus or lung (principal); Z45.2 Encounter for adjustment and management of vascular access device
CPT/HCPCS: 36591; 80053; 85025

== ENCOUNTER 2019-06-23 11:22 | Outpatient (CLI) | payer MEDICARE, SELFPAY ==
--- NOTE | 2019-06-23 11:04 | DI.RAD_ITS ---
EXAM: XR SHOULDER LT COMPLETE 2+V INDICATION: LT SHOULDER PAIN M25.512. COMPARISON: LEFT SHOULDER COMPLETE from 01/24/2013 LEFT RIBS TO INCLUDE CXR from 11/23/2015 XR CHEST 2V PA LATERAL from 03/08/2019 TECHNIQUE: 2D digital imaging was performed. FINDINGS: There are again seen side plates and screws in the proximal left humerus. No change in alignment of the orthopedic hardware is seen. No evidence of hardware failure is present. There are degenerative changes seen in the acromioclavicular joint and the glenohumeral joint. The bones appear osteopenic . The soft tissues are unremarkable. IMPRESSION: Degenerative changes of the left shoulder as described above.
== END 2019-06-23 11:42 ==
PROVIDERS: PCP Nurse Practitioner; Visit Provider Nurse Practitioner
DX: M25.512 Pain in left shoulder (principal); M85.88 Other specified disorders of bone density and structure, other site; M19.012 Primary osteoarthritis, left shoulder; Z47.89 Encounter for other orthopedic aftercare
CPT/HCPCS: 73030

== ENCOUNTER 2019-06-24 01:47 | Outpatient (RCR) | payer MEDICARE, SELFPAY ==
[2019-06-03 08:24] LABS: Abs Immature Grans 0.01 k/cumm (0.0-0.09); Absolute Basophil Count 0.02 k/cumm (0.0-0.2); Absolute Eosinophil Count 0.32 k/cumm (0.0-0.7); Absolute Lymphocyte Count 2.05 k/cumm (1.2-3.4); Absolute Monocyte Count 0.65 k/cumm (0.11-0.7); Absolute Neutrophil Count 3.38 k/cumm (1.2-6.7); Basophils % 0.3; HCT 40.9 % (36.0-46.0); HGB 13.3 g/dL (12.0-15.5); Immature Grans % 0.2; Lymphocytes % 31.9; Mean Corp. HGB Concentration 32.5 g/dL (32.0-36.0); Mean Corpuscular Hemoglobin 32.6 pg (27.0-33.0); Mean Corpuscular Volume 100.2 fL (80-95); Mean Platelet Volume 10.4 fL (8.0-11.0); Monocytes % 10.1; Neutrophils % 52.5; Platelet Count 368 x1000/uL (130-400); RBC 4.08 m/cumm (4.00-5.20); White Blood Cell Count 6.43 k/cumm (4.4-10.8)
[2019-06-03] MEDS: Normal Saline Flush 10 ML SYR IVP (08:26)
[2019-06-03 09:02] LABS: ALT 14 U/L (14-59); AST 16 U/L (15-37); Albumin 3.7 g/dL (3.4-5.0); Alkaline Phosphatase 84 U/L (46-116); BUN 15 mg/dL (7-18); Bilirubin, Total 0.4 mg/dL (0.2-1.0); CREATININE 0.95 mg/dL (0.55-1.02); Calcium 9.6 mg/dL (8.5-10.1); Chloride 104 mmol/L (98-107); Estimated GFR 57.99 (mL/min/1.73m2); Glucose 121 mg/dL (74-106); Potassium 3.8 mmol/L (3.5-5.1); Sodium 142 mmol/L (136-145); Total Protein 7.7 g/dL (6.4-8.2)
[2019-06-24 08:21] LABS: Abs Immature Grans 0.01 k/cumm (0.0-0.09); Absolute Basophil Count 0.03 k/cumm (0.0-0.2); Absolute Eosinophil Count 0.17 k/cumm (0.0-0.7); Absolute Lymphocyte Count 1.89 k/cumm (1.2-3.4); Absolute Monocyte Count 0.64 k/cumm (0.11-0.7); Absolute Neutrophil Count 2.83 k/cumm (1.2-6.7); Basophils % 0.5; Eosinophils % 3.1; HCT 39.5 % (36.0-46.0); HGB 12.8 g/dL (12.0-15.5); Immature Grans % 0.2 %; Lymphocytes % 33.9; Mean Corp. HGB Concentration 32.4 g/dL (32.0-36.0); Mean Corpuscular Hemoglobin 32.5 pg (27.0-33.0); Mean Corpuscular Volume 100.3 fL (80-95); Mean Platelet Volume 10.3 fL (8.0-11.0); Monocytes % 11.5; Neutrophils % 50.8; Platelet Count 482 x1000/uL (130-400); RBC 3.94 m/cumm (4.00-5.20); White Blood Cell Count 5.57 k/cumm (4.4-10.8)
[2019-06-24 08:41] LABS: ALT 18 U/L (14-59); AST 20 U/L (15-37); Albumin 3.8 g/dL (3.4-5.0); Alkaline Phosphatase 82 U/L (46-116); Anion Gap 10.8 mmol/L (3-11); BUN 26 mg/dL (7-18); Bilirubin, Total 0.4 mg/dL (0.2-1.0); CO2 28.2 mmol/L (21.0-32.0); CREATININE 1.01 mg/dL (0.55-1.02); Calcium 8.8 mg/dL (8.5-10.1); Chloride 105 mmol/L (98-107); Estimated GFR 54.03 (mL/min/1.73m2); Glucose 116 mg/dL (74-106); Sodium 144 mmol/L (136-145); Total Protein 7.5 g/dL (6.4-8.2)
[2019-06-24] MEDS: Normal Saline Flush 10 ML SYR IVP (08:52)
== END 2019-07-02 23:59 | disposition home or self-care (01) ==
LOC: INF 01:47
PROVIDERS: PCP Nurse Practitioner; Visit Provider Internal Medicine Hematology & Oncology
DX: C34.2 Malignant neoplasm of middle lobe, bronchus or lung (principal); Z45.2 Encounter for adjustment and management of vascular access device
CPT/HCPCS: 36591; 80053; 85025

== ENCOUNTER 2019-08-02 08:58 | Outpatient (REF) | payer MEDICARE, SELFPAY ==
[2019-08-02 13:51] LABS: C-Reactive Protein 1.21 mg/dL (0.0-0.3); TSH (W/Ref FT4) 3.81 uIU/mL (0.36-3.74)
[2019-08-02 14:22] LABS: FREE T4 1.39 ng/dL (0.76-1.46)
[2019-08-02 14:49] LABS: ESR 53 mm/hr (0-30)
[2019-08-02 21:40] LABS: Rheumatoid Factor <8.6 IU/mL (<12.0)
[2019-08-03 14:20] LABS: ANA Interpretation Negative (Negative)
== END 2019-08-02 09:18 ==
LOC: NCHCN 08:58
PROVIDERS: PCP Nurse Practitioner; Visit Provider Nurse Practitioner
DX: M25.50 Pain in unspecified joint (principal); I10 Essential (primary) hypertension
CPT/HCPCS: 85652; 84439; 84443; 86038; 86140; 86431

== ENCOUNTER 2019-08-03 02:11 | Outpatient (CLI) | payer MEDICARE, SELFPAY ==
--- NOTE | 2019-08-03 | DI.RAD_ITS ---
EXAM: XR HIP RT COMPLETE AP PELVIS INDICATION: RT HIP PAIN M25.551. COMPARISON: No exams were available for comparison TECHNIQUE: 2D digital imaging was performed. FINDINGS: There is mild bilateral acetabular spurring. The joint spaces are well maintained. There is mild de generative change at the SI joints. Advanced degenerative changes are seen in the lower lumbar spine . IMPRESSION: Mild degenerative changes of both hips. DATA REPOSITORY: RADIATION DOSE DELIVERED:
== END 2019-08-03 02:31 ==
PROVIDERS: PCP Nurse Practitioner; Visit Provider Nurse Practitioner
DX: M25.551 Pain in right hip (principal); M53.3 Sacrococcygeal disorders, not elsewhere classified; M16.0 Bilateral primary osteoarthritis of hip
CPT/HCPCS: 73502

== ENCOUNTER 2019-08-06 11:00 | Emergency (ER) | payer MEDICARE, SELFPAY ==
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
[2019-08-06 11:12] VITALS: BP 135/75; PULSE 72; RESP 18; TEMP 36.4; O2SAT 96
--- NOTE | 2019-08-06 11:15 | DI.CT_ITS ---
EXAM: CT CERVICAL SPINE WO CLINICAL HISTORY: fall, 3 months ago, worsening left sided pain TECHNIQUE: Noncontrast COMPARISON: No exams were available for comparison FINDINGS: There is a mass seen on the left side of the neck low laterally at the C4-C5 level measuring approxi mately 2 cm. There is bony destruction of the left facet at C4 and some erosion into the superior f acet of C5. There is no extension into the central canal or neural foramen. There is expansion and abnormal increased lucency of the transverse process of C7 on the left. No enlarged lymph nodes are seen. No fractures are identified. There are mild degenerative disc changes. Facet degenerative sarmad nges are also present. The parotid and submandibular glands are unremarkable. The airway appears int act. IMPRESSION: 2 centimeter mass at the left lamina of C4 and C5 causing bony destruction but no extension into the central canal. Additional metastatic lesion to the left transverse process at C7.
--- NOTE | 2019-08-06 12:00 | DI.CT_ITS ---
EXAM: CT CHEST/ABD/PEL W CLINICAL HISTORY: Recommended by oncology for reassessment of cancer TECHNIQUE: Post IV contrast. Without oral contrast. COMPARISON: ABD PELVIS WITH CONTRAST from 05/17/2016 CT CHEST ABDOMEN PELVIS W CONTRAST (GENERIC) from 10/24/2016 CT CHEST W from 02/24/2018 CT CHEST W from 10/23/2018 CT CERVICAL SPINE WO from 08/06/2019 FINDINGS: Chest CT: A port is seen over the right pectoral muscle. The pulmonary arteries are well opacified with IV contrast and no pulmonary artery filling defects are seen. There is no evidence of aortic d issection. There is a left shoulder prosthesis causing some artifact. There has been interval decre ase in size of previously noted mass near the right heart border, in the right middle lobe, now measu ring 2.3 x 2.8 cm compared with 3 cm on the previous exam. Multiple small nodules are again noted pe ripherally in the right lung base. There are linear areas of scarring. No new masses are identified . There has been interval increase in size of a right pleural effusion, small. There are underlying emphysematous changes. No new masses are seen. The bones appear osteoporotic. There are flowing osteophytes. There is a new lytic lesion seen in the left side of the T12 vertebral body extending in to the left transverse process and proximal portion of the left rib. An additional mass is seen on th e right side of the T12 vertebral body. Additional metastatic lesion is seen involving the lateral le ft 7th rib. Abdomen and pelvic CT: There is a stable tiny hypodensity in the superior aspect of the liver. Galls tones are again noted. There is no gallbladder thickening or biliary dilatation. The spleen, pancre as and adrenals are unremarkable. There are bilateral renal cysts. The bladder is unremarkable. Th ere is no bowel dilatation or inflammatory change. A fatty containing hernia is noted in the lower a bdominal wall. This appears unchanged. The aorta shows calcification and is normal in diameter. A l esion with soft tissue component is seen at S2. IMPRESSION: Interval decrease in size of right middle lobe mass. Mild interval increase in small right pleural e ffusion. New bony metastatic lesions to the left 7th rib, T12 and left transverse process as well as S2.
[2019-08-06 12:09] LABS: Abs Immature Grans 0.02 k/cumm (0.0-0.09); Absolute Basophil Count 0.02 k/cumm (0.0-0.2); Absolute Eosinophil Count 0.22 k/cumm (0.0-0.7); Absolute Monocyte Count 1.19 k/cumm (0.11-0.7); Absolute Neutrophil Count 7.17 k/cumm (1.2-6.7); Basophils % 0.2; Eosinophils % 1.9; HCT 39.3 % (36.0-46.0); HGB 12.7 g/dL (12.0-15.5); Immature Grans % 0.2 %; Lymphocytes % 25.8; Mean Corp. HGB Concentration 32.3 g/dL (32.0-36.0); Mean Corpuscular Hemoglobin 32.6 pg (27.0-33.0); Mean Platelet Volume 10.2 fL (8.0-11.0); Monocytes % 10.2; Neutrophils % 61.7; Platelet Count 367 x1000/uL (130-400); RBC 3.89 m/cumm (4.00-5.20); RBC Distribution Width 14.5 % (11.7-14.6); White Blood Cell Count 11.62 k/cumm (4.4-10.8)
[2019-08-06] MEDS: Lidocaine 5% Patch 1 PATCH TP (12:19)
[2019-08-06 12:26] LABS: ALT 17 U/L (14-59); AST 10 U/L (15-37); Albumin 3.3 g/dL (3.4-5.0); Alkaline Phosphatase 75 U/L (46-116); Anion Gap 7.8 mmol/L (3-11); BUN 25 mg/dL (7-18); Bilirubin, Total 0.3 mg/dL (0.2-1.0); CO2 30.2 mmol/L (21.0-32.0); CREATININE 0.93 mg/dL (0.55-1.02); Calcium 8.8 mg/dL (8.5-10.1); Chloride 105 mmol/L (98-107); Estimated GFR 59.43 (mL/min/1.73m2); Glucose 97 mg/dL (74-106); Lipase 185 U/L (73-393); Potassium 3.5 mmol/L (3.5-5.1); Sodium 143 mmol/L (136-145)
[2019-08-06 12:29] LABS: Troponin I < 0.05 ng/Ml (<0.06)
[2019-08-06 12:39] VITALS: RESP 18
[2019-08-06 13:07] VITALS: BP 154/61; PULSE 64; RESP 18; TEMP 36.5; O2SAT 99
[2019-08-06] MEDS: Omnipaque 350 MG/ML 100 ML BTL IJ (14:12)
[2019-08-06 14:13] VITALS: BP 151/67; PULSE 57; RESP 16; TEMP 36.6; O2SAT 99
[2019-08-06] MEDS: Acetaminophen 500 MG TAB 1000 MG PO (15:22)
[2019-08-06 15:39] VITALS: BP 139/70; PULSE 54; RESP 20; TEMP 36.6; O2SAT 95
[2019-08-06 16:36] VITALS: BP 129/61; PULSE 66; RESP 18; TEMP 36.4; O2SAT 97
[2019-08-06] MEDS: Heparin 500 UNITS/5 ML SYRINGE (16:36)
== END 2019-08-06 16:37 | disposition home or self-care (01) ==
PROVIDERS: Emergency Provider Student in an Organized Health Care Education/Training Program; PCP Nurse Practitioner
DX: M54.2 Cervicalgia (principal); C79.51 Secondary malignant neoplasm of bone; M79.2 Neuralgia and neuritis, unspecified; R93.7 Abnormal findings on diagnostic imaging of other parts of musculoskeletal system; Z95.828 Presence of other vascular implants and grafts; I10 Essential (primary) hypertension; C34.90 Malignant neoplasm of unspecified part of unspecified bronchus or lung; Z79.899 Other long term (current) drug therapy
CPT/HCPCS: 36591; 74177; 80053; 83690; 93005; 99285; 71260; 72125; 84484; 85025; 93010; J3490

== ENCOUNTER 2019-08-26 01:19 | Outpatient (RCR) | payer MEDICARE, SELFPAY ==
[2019-08-05 10:45] LABS: Abs Immature Grans 0.05 k/cumm (0.0-0.09); Absolute Basophil Count 0.02 k/cumm (0.0-0.2); Absolute Eosinophil Count 0.05 k/cumm (0.0-0.7); Absolute Lymphocyte Count 1.49 k/cumm (1.2-3.4); Absolute Monocyte Count 0.37 k/cumm (0.11-0.7); Absolute Neutrophil Count 13.59 k/cumm (1.2-6.7); Basophils % 0.1; Eosinophils % 0.3; HCT 41.8 % (36.0-46.0); HGB 13.5 g/dL (12.0-15.5); Immature Grans % 0.3 %; Lymphocytes % 9.6; Mean Corp. HGB Concentration 32.3 g/dL (32.0-36.0); Mean Corpuscular Hemoglobin 32.3 pg (27.0-33.0); Mean Platelet Volume 10.5 fL (8.0-11.0); Monocytes % 2.4; Neutrophils % 87.3; Platelet Count 387 x1000/uL (130-400); RBC 4.18 m/cumm (4.00-5.20); RBC Distribution Width 14.4 % (11.7-14.6); White Blood Cell Count 15.57 k/cumm (4.4-10.8)
[2019-08-05] MEDS: Normal Saline Flush 10 ML SYR IVP (10:53)
[2019-08-05 11:16] LABS: ALT 16 U/L (14-59); AST 12 U/L (15-37); Albumin 3.7 g/dL (3.4-5.0); Alkaline Phosphatase 82 U/L (46-116); Anion Gap 11.5 mmol/L (3-11); BUN 21 mg/dL (7-18); Bilirubin, Total 0.4 mg/dL (0.2-1.0); CO2 25.5 mmol/L (21.0-32.0); CREATININE 1.09 mg/dL (0.55-1.02); Calcium 9.2 mg/dL (8.5-10.1); Chloride 105 mmol/L (98-107); Estimated GFR 49.48 (mL/min/1.73m2); Glucose 171 mg/dL (74-106); Potassium 3.6 mmol/L (3.5-5.1); Sodium 142 mmol/L (136-145); Total Protein 7.8 g/dL (6.4-8.2)
== END 2019-08-31 23:59 | disposition home or self-care (01) ==
LOC: INF 01:19
PROVIDERS: PCP Nurse Practitioner; Visit Provider Internal Medicine Hematology & Oncology
DX: C34.2 Malignant neoplasm of middle lobe, bronchus or lung (principal)
CPT/HCPCS: 36591; 80053; 85025

== ENCOUNTER 2019-09-30 01:00 | Outpatient (RCR) | payer MEDICARE, SELFPAY ==
[2019-09-23] MEDS: Normal Saline Flush 10 ML SYR IVP (14:14)
[2019-09-23] MEDS: Heparin 500 UNITS/5 ML SYRINGE IV (14:14)
[2019-09-23 14:18] LABS: Abs Immature Grans 0.01 k/cumm (0.0-0.09); Absolute Basophil Count 0.01 k/cumm (0.0-0.2); Absolute Eosinophil Count 0.03 k/cumm (0.0-0.7); Absolute Lymphocyte Count 0.94 k/cumm (1.2-3.4); Absolute Monocyte Count 0.48 k/cumm (0.11-0.7); Absolute Neutrophil Count 2.14 k/cumm (1.2-6.7); Basophils % 0.3; Eosinophils % 0.8; HCT 39.7 % (36.0-46.0); HGB 13.8 g/dL (12.0-15.5); Immature Grans % 0.3 %; Mean Corp. HGB Concentration 34.8 g/dL (32.0-36.0); Mean Corpuscular Hemoglobin 35.1 pg (27.0-33.0); Mean Platelet Volume 9.3 fL (8.0-11.0); Monocytes % 13.3; Neutrophils % 59.3; Platelet Count 323 x1000/uL (130-400); RBC 3.93 m/cumm (4.00-5.20); RBC Distribution Width 15.9 % (11.7-14.6); White Blood Cell Count 3.61 k/cumm (4.4-10.8)
[2019-09-23 14:31] LABS: ALT 22 U/L (14-59); AST 15 U/L (15-37); Albumin 2.9 g/dL (3.4-5.0); Alkaline Phosphatase 76 U/L (46-116); Anion Gap 8.2 mmol/L (3-11); BUN 12 mg/dL (7-18); Bilirubin, Total 0.3 mg/dL (0.2-1.0); CO2 27.8 mmol/L (21.0-32.0); CREATININE 0.73 mg/dL (0.55-1.02); Calcium 8.9 mg/dL (8.5-10.1); Chloride 105 mmol/L (98-107); Glucose 113 mg/dL (74-106); Potassium 3.8 mmol/L (3.5-5.1); Sodium 141 mmol/L (136-145); Total Protein 6.8 g/dL (6.4-8.2)
[2019-09-30 09:14] LABS: Abs Immature Grans 0.09 k/cumm (0.0-0.09); Absolute Basophil Count 0.02 k/cumm (0.0-0.2); Absolute Eosinophil Count 0.03 k/cumm (0.0-0.7); Absolute Lymphocyte Count 1.31 k/cumm (1.2-3.4); Absolute Monocyte Count 0.69 k/cumm (0.11-0.7); Basophils % 0.4; Eosinophils % 0.6; HCT 41.8 % (36.0-46.0); HGB 13.8 g/dL (12.0-15.5); Immature Grans % 1.8 %; Lymphocytes % 26.5; Mean Corpuscular Hemoglobin 34.1 pg (27.0-33.0); Mean Corpuscular Volume 103.2 fL (80-95); Mean Platelet Volume 9.3 fL (8.0-11.0); Neutrophils % 56.7; Platelet Count 460 x1000/uL (130-400); RBC 4.05 m/cumm (4.00-5.20); RBC Distribution Width 16.8 % (11.7-14.6); White Blood Cell Count 4.94 k/cumm (4.4-10.8)
[2019-09-30 09:26] LABS: ALT 18 U/L (14-59); AST 17 U/L (15-37); Albumin 2.9 g/dL (3.4-5.0); Alkaline Phosphatase 87 U/L (46-116); Anion Gap 11.1 mmol/L (3-11); BUN 13 mg/dL (7-18); Bilirubin, Total 0.4 mg/dL (0.2-1.0); CO2 24.9 mmol/L (21.0-32.0); CREATININE 0.89 mg/dL (0.55-1.02); Calcium 9.4 mg/dL (8.5-10.1); Chloride 103 mmol/L (98-107); Glucose 126 mg/dL (74-106); Potassium 3.9 mmol/L (3.5-5.1); Sodium 139 mmol/L (136-145)
[2019-09-30] MEDS: Normal Saline Flush 10 ML SYR IVP (09:28)
== END 2019-09-30 23:59 | disposition home or self-care (01) ==
LOC: INF 01:00
PROVIDERS: PCP Nurse Practitioner; Visit Provider Internal Medicine Hematology & Oncology
DX: C34.2 Malignant neoplasm of middle lobe, bronchus or lung (principal); Z45.2 Encounter for adjustment and management of vascular access device
CPT/HCPCS: 36591; 80053; 96523; 85025

== ENCOUNTER 2019-10-28 03:02 | Outpatient (RCR) | payer MEDICARE, SELFPAY ==
[2019-10-07] MEDS: Normal Saline Flush 10 ML SYR IVP (10:35)
[2019-10-07 10:44] LABS: Abs Immature Grans 0.02 k/cumm (0.0-0.09); Absolute Basophil Count 0.01 k/cumm (0.0-0.2); Absolute Eosinophil Count 0.01 k/cumm (0.0-0.7); Absolute Monocyte Count 0.28 k/cumm (0.11-0.7); Absolute Neutrophil Count 2.74 k/cumm (1.2-6.7); Basophils % 0.2; Eosinophils % 0.2; HCT 37.2 % (36.0-46.0); HGB 12.7 g/dL (12.0-15.5); Immature Grans % 0.5 %; Lymphocytes % 24.6; Mean Corp. HGB Concentration 34.1 g/dL (32.0-36.0); Mean Corpuscular Hemoglobin 34.8 pg (27.0-33.0); Mean Corpuscular Volume 101.9 fL (80-95); Mean Platelet Volume 9.8 fL (8.0-11.0); Monocytes % 6.9; Neutrophils % 67.6; Platelet Count 315 x1000/uL (130-400); RBC 3.65 m/cumm (4.00-5.20); RBC Distribution Width 15.6 % (11.7-14.6); White Blood Cell Count 4.06 k/cumm (4.4-10.8)
[2019-10-07 11:06] LABS: ALT 20 U/L (14-59); AST 20 U/L (15-37); Albumin 2.8 g/dL (3.4-5.0); Alkaline Phosphatase 77 U/L (46-116); BUN 14 mg/dL (7-18); Bilirubin, Total 0.4 mg/dL (0.2-1.0); CREATININE 0.93 mg/dL (0.55-1.02); Calcium 9.3 mg/dL (8.5-10.1); Chloride 100 mmol/L (98-107); Estimated GFR 59.43 (mL/min/1.73m2); Glucose 122 mg/dL (74-106); Potassium 3.7 mmol/L (3.5-5.1); Sodium 138 mmol/L (136-145)
[2019-10-14 09:25] LABS: Abs Immature Grans 0.15 k/cumm (0.0-0.09); HCT 38.6 % (36.0-46.0); HGB 12.6 g/dL (12.0-15.5); Mean Corp. HGB Concentration 32.6 g/dL (32.0-36.0); Mean Corpuscular Hemoglobin 34.3 pg (27.0-33.0); Mean Corpuscular Volume 105.2 fL (80-95); Mean Platelet Volume 9.5 fL (8.0-11.0); Platelet Count 337 x1000/uL (130-400); RBC 3.67 m/cumm (4.00-5.20); RBC Distribution Width 16.9 % (11.7-14.6); White Blood Cell Count 3.13 k/cumm (4.4-10.8)
[2019-10-14 09:37] LABS: ALT 17 U/L (14-59); AST 13 U/L (15-37); Albumin 2.9 g/dL (3.4-5.0); Alkaline Phosphatase 71 U/L (46-116); Anion Gap 6.7 mmol/L (3-11); BUN 12 mg/dL (7-18); Bilirubin, Total 0.2 mg/dL (0.2-1.0); CO2 26.3 mmol/L (21.0-32.0); CREATININE 0.88 mg/dL (0.55-1.02); Calcium 8.9 mg/dL (8.5-10.1); Chloride 105 mmol/L (98-107); Glucose 122 mg/dL (74-106); Potassium 3.6 mmol/L (3.5-5.1); Sodium 138 mmol/L (136-145); Total Protein 6.7 g/dL (6.4-8.2)
[2019-10-14 09:39] LABS: Absolute Lymphocyte Count 1.19 k/cumm (1.2-3.4); Absolute Monocyte Count 0.53 k/cumm (0.11-0.7); Absolute Neutrophil Count 1.28 k/cumm (1.2-6.7); Atypical Lymphocytes % 3
[2019-10-14 09:40] LABS: Anisocytosis 2+; Diff Comment Manual Differential; Macrocytosis 2+; Nucleated RBC 1 /100WBC; Polychromasia Present
[2019-10-14] MEDS: Normal Saline Flush 10 ML SYR IVP (10:55)
[2019-10-21] MEDS: Normal Saline Flush 10 ML SYR IVP (08:25)
[2019-10-21 08:47] LABS: Abs Immature Grans 0.08 k/cumm (0.0-0.09); Absolute Basophil Count 0.02 k/cumm (0.0-0.2); Absolute Eosinophil Count 0.02 k/cumm (0.0-0.7); Absolute Lymphocyte Count 1.09 k/cumm (1.2-3.4); Absolute Monocyte Count 0.25 k/cumm (0.11-0.7); Basophils % 0.4; Eosinophils % 0.4; HGB 11.4 g/dL (12.0-15.5); Immature Grans % 1.6 %; Lymphocytes % 22.4; Mean Corp. HGB Concentration 32.6 g/dL (32.0-36.0); Mean Corpuscular Hemoglobin 34.3 pg (27.0-33.0); Mean Corpuscular Volume 105.4 fL (80-95); Mean Platelet Volume 9.9 fL (8.0-11.0); Monocytes % 5.1; Neutrophils % 70.1; Platelet Count 240 x1000/uL (130-400); RBC 3.32 m/cumm (4.00-5.20); RBC Distribution Width 16.1 % (11.7-14.6); White Blood Cell Count 4.86 k/cumm (4.4-10.8)
[2019-10-21 08:51] LABS: ALT 19 U/L (14-59); AST 14 U/L (15-37); Alkaline Phosphatase 67 U/L (46-116); Anion Gap 8.9 mmol/L (3-11); BUN 18 mg/dL (7-18); Bilirubin, Total 0.3 mg/dL (0.2-1.0); CO2 26.1 mmol/L (21.0-32.0); CREATININE 1.01 mg/dL (0.55-1.02); Calcium 9.1 mg/dL (8.5-10.1); Chloride 103 mmol/L (98-107); Estimated GFR 54.03 (mL/min/1.73m2); Glucose 106 mg/dL (74-106); Potassium 4.2 mmol/L (3.5-5.1); Sodium 138 mmol/L (136-145); Total Protein 6.7 g/dL (6.4-8.2)
[2019-10-21 10:35] LABS: Magnesium 1.7 mg/dL (1.8-2.4)
[2019-10-21 12:29] LABS: FREE T4 1.03 ng/dL (0.76-1.46)
[2019-10-28] MEDS: Normal Saline Flush 10 ML SYR IVP (09:12)
[2019-10-28 09:21] LABS: Absolute Basophil Count 0.01 k/cumm (0.0-0.2); Absolute Eosinophil Count 0.03 k/cumm (0.0-0.7); Absolute Neutrophil Count 0.62 k/cumm (1.2-6.7); Basophils % 0.5; Eosinophils % 1.6; HCT 33.8 % (36.0-46.0); HGB 11.1 g/dL (12.0-15.5); Lymphocytes % 59.1; Mean Corp. HGB Concentration 32.8 g/dL (32.0-36.0); Mean Corpuscular Hemoglobin 34.5 pg (27.0-33.0); Mean Platelet Volume 10.4 fL (8.0-11.0); Monocytes % 5.4; Neutrophils % 33.4; Platelet Count 244 x1000/uL (130-400); RBC 3.22 m/cumm (4.00-5.20); RBC Distribution Width 15.5 % (11.7-14.6)
[2019-10-28 09:42] LABS: White Blood Cell Count 1.86 k/cumm (4.4-10.8)
[2019-10-28 09:44] LABS: ALT 18 U/L (14-59); AST 12 U/L (15-37); Albumin 3.1 g/dL (3.4-5.0); Alkaline Phosphatase 58 U/L (46-116); BUN 13 mg/dL (7-18); Bilirubin, Total 0.4 mg/dL (0.2-1.0); CREATININE 0.82 mg/dL (0.55-1.02); Calcium 9.3 mg/dL (8.5-10.1); Chloride 104 mmol/L (98-107); Glucose 91 mg/dL (74-106); Sodium 138 mmol/L (136-145); Total Protein 6.6 g/dL (6.4-8.2)
[2019-10-28 09:46] LABS: Diff Comment Agrees w/ Instrument
[2019-10-28 09:47] LABS: RBC Morphology Normal
== END 2019-10-31 23:59 | disposition home or self-care (01) ==
LOC: INF 03:02
PROVIDERS: PCP Nurse Practitioner; Visit Provider Internal Medicine Hematology & Oncology
DX: C34.2 Malignant neoplasm of middle lobe, bronchus or lung (principal); Z45.2 Encounter for adjustment and management of vascular access device
CPT/HCPCS: 36591; 80053; 83735; 84439; 84443; 85025

== ENCOUNTER 2019-11-22 09:45 | Emergency (ER) | payer MEDICARE, SELFPAY ==
[2019-11-22] VITALS (20 sets, daily range): BP systolic 109–138; BP diastolic 54–88; PULSE 69–119; RESP 13–26; TEMP 36.4; O2SAT 97–99
--- NOTE | 2019-11-22 10:17 | ED.GENADUL_ITS ---
Discharge Plan Disposition Patient Disposition: HOME Condition: Stable Discharge Details Chief Complaint: GenMedical Clinical Impression: Hypomagnesemia, Acute UTI, General weakness Primary Care Provider: Clara Shipman ED Provider: Jose Hutton Home Meds and New Rx's Prescriptions: New magnesium hydroxide 400 mg/5 mL suspension 5 ml PO DAILY Qty: 3840 RF: 0 nitrofurantoin monohyd/m-cryst [Macrobid] 100 mg capsule 100 mg PO Q12H 5 Days Qty: 10 RF: 0 Continued cannabis TID RF: 0 calcium carbonate-vitamin D3 1 EACH tablet 1 ea PO DAILY RF: 0 ascorbate calcium (vitamin C) 500 MG tablet 240 mg PO DAILY RF: 0 cholecalciferol (vitamin D3) [Vitamin D3] 2,000 UNIT capsule 2,000 unit PO DAILY RF: 0 No Action meclizine 25 mg tablet 25 mg PO TID PRN (Reason: dizziness) Qty: 90 RF: 0 oxycodone 5 mg tablet 5 mg PO Q4H PRNRF: 0 fentanyl 12 mcg/hr patch 72 hour 1 patch TD Q72H MDD 24 mcg Qty: 10 RF: 0 multivitamin [Daily Multi-Vitamin] 1 EACH tablet 1 ea PO DAILY RF: 0 levetiracetam [Roweepra] 500 MG tablet 500 mg PO BID RF: 0 lamotrigine 25 MG tablet 50 mg PO BID RF: 0 tumeric RF: 0 vitamin b6 50 mg PO DAILY RF: 0 esomeprazole magnesium [Nexium] 20 MG capsule,delayed release(DR/EC) 20 mg PO DAILY@0730 RF: 0 docusate sodium [Colace] 100 MG capsule 500 mg PO DAILY RF: 0 cranberry 400 MG capsule 500 mg PO DAILY RF: 0 magnesium oxide 400 MG capsule 500 mg PO DAILY RF: 0 Probiotic 1 EACH capsule, sprinkle 1 cap PO DAILY RF: 0 cyanocobalamin (vitamin B-12) 2,500 MCG tablet,chewable 1,000 mcg PO DAILY RF: 0 folic acid 1 mg Tablet 1 mg PO DAILY RF: 0 diphenhydramine-acetaminophen [Tylenol PM Extra Strength] 25-500 mg Tablet 1 tab PO QHS PRNRF: 0 tramadol 50 mg Tablet 50 mg PO DAILY RF: 0 lidocaine [Lidoderm] 1 PATCH patch 1 patch Topical Q24H Qty: 4 RF: 0 Discharge Instructions Instructions: Urinary Tract Infection in Women (ED), Hypomagnesemia (ED) Additional Instructions: follow up with your oncologist as soon as possible if you feel more ill, have fevers, difficulty breathing or severe chest or abdominal pain return to the emergency department Medical Decision Making 69 yo female with hx of lung cancer with mets undergoing chemotherapy who comes in with several weeks of lack of appetite and general weakness. She denies fevers, dyspnea, chest pain, headaches, abdominal pain or n/v. She has no focal deficits, CN II-XII intact, soft nontender abdomen. I suspect her symptoms are primarily due to deconditioning and lack of oral intake. Will evaluate for anemia, electrolyte abnormalities and give IVF and also check UA for uti. Given lack of focal deficits and headaches do not feel head imaging indicated pt remains hd stable. she has evidence of uti and low magnesium on labs which is consistent with lack of oral intake. Discussed findings with pt and has stable exam. AFter discussion patient prefers outpatient tx for uti and follow up with oncology, return precautions given Differential Diagnosis Differential Diagnosis: anemia, deconditioning, chemotherapy side effects, electrolyte abnormalitie Medical Records Medical records reviewed: Yes I reviewed the patient's medical records. Lab Data Lab results reviewed: Yes I reviewed the patient's lab results. HPI General Mode of arrival: ambulatory . Date/Time Provider Initiated Documentation: 11/22/19 10:06 . Limitations to Documentation: no limitations . Information obtained by: patient . History of Present Illness 69 year old F presents to the emergency department with the chief complaint of weakness, described as moderate, and it has been constant. No relieving factors improve symptom(s), No exacerbating factors reported . Related Data Home Medications Medication Instructions Recorded Confirmed calcium carbonate-vitamin D3 1 ea PO DAILY 08/03/12 11/22/19 docusate sodium [Colace] 500 mg PO DAILY 05/17/16 11/22/19 esomeprazole magnesium [Nexium] 20 mg PO DAILY@0730 05/17/16 11/22/19 Probiotic 1 cap PO DAILY 05/10/17 11/22/19 ascorbate calcium (vitamin C) 240 mg PO DAILY 05/10/17 11/22/19 cholecalciferol (vitamin D3) 2,000 unit PO DAILY 05/10/17 11/22/19 [Vitamin D3] cranberry 500 mg PO DAILY 05/10/17 11/22/19 cyanocobalamin (vitamin B-12) 1,000 mcg PO DAILY 05/10/17 11/22/19 magnesium oxide 500 mg PO DAILY 05/10/17 11/22/19 Cannabis TID 11/11/17 11/09/19 Tumeric 11/11/17 11/09/19 Vitamin B6 50 mg PO DAILY 11/11/17 11/22/19 lamotrigine 50 mg PO BID 11/11/17 11/22/19 levetiracetam [Roweepra] 500 mg PO BID 11/11/17 11/22/19 multivitamin [Daily Multi-Vitamin] 1 ea PO DAILY 11/11/17 11/22/19 diphenhydramine-acetaminophen 1 tab PO QHS PRN 10/02/18 11/22/19 [Tylenol PM Extra Strength] folic acid 1 mg PO DAILY 10/02/18 11/22/19 meclizine 25 mg tablet 25 mg PO TID PRN #90 tab 05/11/19 11/22/19 lidocaine [Lidoderm] 1 patch TOPICAL Q24H #4 patch 08/06/19 11/22/19 tramadol 50 mg PO DAILY 08/06/19 11/09/19 fentanyl 12 mcg/hr transdermal 1 patch TD Q72H #10 each MDD 24 mcg 11/09/19 11/22/19 patch oxycodone 5 mg tablet 5 mg PO Q4H PRN 11/09/19 11/22/19 magnesium hydroxide 5 ml PO DAILY #3840 ml 11/22/19 nitrofurantoin monohyd/m-cryst 100 mg PO Q12H 5 Days #10 cap 11/22/19 [Macrobid] Previous Rx's Medication Instructions Recorded meclizine 25 mg tablet 25 mg PO TID PRN #90 tab 05/11/19 lidocaine [Lidoderm] 1 patch TOPICAL Q24H #4 patch 08/06/19 fentanyl 12 mcg/hr transdermal 1 patch TD Q72H #10 each MDD 24 mcg 11/09/19 patch magnesium hydroxide 5 ml PO DAILY #3840 ml 11/22/19 nitrofurantoin monohyd/m-cryst 100 mg PO Q12H 5 Days #10 cap 11/22/19 [Macrobid] Allergies Allergy/AdvReac Type Severity Reaction Status Date / Time codeine [Codeine] AdvReac Intermediate Nausea Verified 11/22/19 10:10 tramadol AdvReac Intermediate delerium Verified 11/22/19 10:10 General Stated Complaint: GenMedical VIVEK: 2 Review of Systems All systems reviewed & are unremarkable except as noted in HPI and below Constitutional Constitutional: Denies chills and Denies fever(s) Cardiovascular Cardiovascular: Denies chest pain and Denies dyspnea Respiratory Respiratory: Denies dyspnea Gastrointestinal Gastrointestinal: Denies abdominal pain, Denies nausea and Denies vomiting Integumentary/Breasts Skin/Breast: Denies rash [facility] Medical History (Updated 11/22/19 @ 11:34 by Jose Hutton MD) Anxiety associated with cancer diagnosis (Acute) Bone metastases (Acute) from lung ca axial skeleton, ribs, pelvis Cancer related pain (Acute) Colitis (Acute) Dizziness (Acute) Essential hypertension Ex-smoker (Chronic) History of lung cancer History of ovarian cancer History of pulmonary embolism History of radiation therapy (Acute) Hyperlipidemia Infectious gastroenteritis and colitis (Acute) Lung cancer (Chronic) Medical marijuana use (Chronic) Odynophagia (Acute) Palliative care patient (Chronic) Seizures (Acute) Tubulovillous adenoma (Acute 07/26/16) Unintentional weight loss (Acute) Vertigo (Acute) Surgical History Abdominal hysterectomy Appendectomy Arthroscopy, Shoulder Colonoscopy - IV Sedation Colonoscopy - MAC (07/26/16) Oophrectomy, Left Reduction mammoplasty Social History (Updated 11/09/19 @ 20:00 by Rhona Boucher MD) Smoking/Tobacco Use Status: Former Tobacco Use Tobacco: How many years used: 40 Alcohol Intake: current Alcohol Intake frequency: holidays/special occasions only Drug use: Daily Substance use type: marijuana Details: daily medical marijuana Caregiver/Support person: Yes Household members: spouse Housing: house Number of Children: 2 number of grandchildren: 4 Communication Needs: Corrective Lenses Education Level: high school Do you need help understanding health information?: Rarely current occupation: retired Pets and animals: Yes What is your relationship status?: How often do you talk on the phone with friends or family?: three or more times per week How often do you get together with friends or relatives?: three or more times per week Panel score (0-1 are the most socially isolated patients): 2 What type of physical activity do you participate in: walking Duration: < 15 minutes/day Frequency: 3-4 times per week Agree to transfusion: Yes Seatbelt use: always Working smoke detector in home: Yes Fire extinguisher in home: Yes Do you feel safe at home: Yes Do you feel safe in your relationship?: Yes Additional Social history: Very close and loving relationship with spouse. Bhavani still reeling about her cancer recurrence. Thought her remission would last years. Now back on chemo and new to immunotherapy. Anxious. Wants her cancer to go away. Discussed cancer as a chronic disease. To be managed rather than cured. Exam Const General: no acute distress Orientation: alert HENMT Head: normal to inspection Ears: external ears normal General nose exam: external nose normal Mouth: moist mucous membranes Eyes General: appearance normal, both eyes and all related structures Neck Neck: normal visual inspection Resp Effort & Inspection: normal respiratory effort and able to speak in complete sentences Cardio Rate: regular rate GI Palpation: soft and nontender Skin General skin exam: no rashes or lesions noted Neuro General: patient alert and patient oriented x3 Extrem General: normal to inspection Psych Mental Status: mental status grossly normal Course Vital Signs Vital signs: Vital Signs Temperature 36.4 C L 11/22/19 10:02 Pulse 115 H 11/22/19 10:02 Respiratory Rate 26 H 11/22/19 10:02 Blood Pressure 122/88 11/22/19 10:02 Pulse Oximetry 98 11/22/19 10:02 Temperature 36.4 C L 11/22/19 10:02 Temperature Source Skin 11/22/19 10:02 Pulse 115 H 11/22/19 10:02 Respiratory Rate 26 H 11/22/19 10:02 Respiratory Effort Non-Labored 11/22/19 10:02 Blood Pressure 122/88 11/22/19 10:02 Blood Pressure Position Supine 11/22/19 10:02 Pulse Oximetry 98 11/22/19 10:02 Oxygen Delivery Method Room Air 11/22/19 10:02 Oxygen Flow Rate 0 11/22/19 10:02 Pain Level 5 11/22/19 10:02 Comment 11/22/19 10:02
[2019-11-22] MEDS: Normal Saline 1,000 ML 1000 ML IV (10:30)
[2019-11-22 10:34] LABS: Bilirubin Negative (Negative); Blood Trace-lysed (Negative); Clarity Sl Cloudy (Clear); Glucose Negative (Negative); Ketones Negative (Negative); Leukocyte Esterase Moderate (Negative); Nitrite Negative (Negative); Specific Gravity 1.025 (1.005-1.025); Urobilinogen 0.2 EU/dL (Up TO 0.2); pH 5.5 (5-8)
[2019-11-22 10:44] LABS: Crystals Negative HPF (Negative); Epithelial Cells Few HPF (Negative); Mucus Trace (Negative); WBC >50 HPF (0-5)
[2019-11-22 10:45] LABS: C & S Indicated? Yes
[2019-11-22 10:48] LABS: Lactate 1.6 mmol/L (0.6-1.4)
[2019-11-22 10:49] LABS: BE (Venous) -0.8 mmol/L (-3-3); HCO3 (Venous) 24 mmol/L (22-28); O2 Sat (Venous) 67 % (70-80); TCO2 (Venous) 23 mmol/L (22-29); pCO2 (Venous) 40 mm/Hg (34-47); pH (Venous) 7.39 (7.35-7.45); pO2 (Venous) 37 mm/Hg (28-44)
[2019-11-22 10:54] LABS: Absolute Basophil Count 0.01 k/cumm (0.0-0.2); Absolute Eosinophil Count 0.05 k/cumm (0.0-0.7); Absolute Lymphocyte Count 0.48 k/cumm (1.2-3.4); Absolute Monocyte Count 0.13 k/cumm (0.11-0.7); Absolute Neutrophil Count 2.85 k/cumm (1.2-6.7); Basophils % 0.3; Eosinophils % 1.4; HCT 32.3 % (36.0-46.0); HGB 10.4 g/dL (12.0-15.5); Lymphocytes % 13.6; Mean Corp. HGB Concentration 32.2 g/dL (32.0-36.0); Mean Corpuscular Hemoglobin 35.3 pg (27.0-33.0); Mean Corpuscular Volume 109.5 fL (80-95); Mean Platelet Volume 10.1 fL (8.0-11.0); Monocytes % 3.7; Platelet Count 330 x1000/uL (130-400); RBC 2.95 m/cumm (4.00-5.20); RBC Distribution Width 14.5 % (11.7-14.6); White Blood Cell Count 3.52 k/cumm (4.4-10.8)
[2019-11-22] MEDS: Normal Saline Flush 10 ML SYR IVP (10:57)
[2019-11-22 11:04] LABS: INR 1.1 (0.9-1.1); PTT Activated 38.1 sec (21.0-31.4); Prothrombin Time 11.1 sec (9.3-11.0)
[2019-11-22 11:12] LABS: ALT 9 U/L (14-59); AST 14 U/L (15-37); Albumin 2.9 g/dL (3.4-5.0); Alkaline Phosphatase 73 U/L (46-116); Anion Gap 11.7 mmol/L (3-11); BUN 12 mg/dL (7-18); Bilirubin, Total 0.7 mg/dL (0.2-1.0); CO2 24.3 mmol/L (21.0-32.0); CREATININE 0.75 mg/dL (0.55-1.02); Chloride 103 mmol/L (98-107); Creatine Kinase 29 U/L (26-192); Glucose 116 mg/dL (74-106); Magnesium 1.3 mg/dL (1.8-2.4); Potassium 3.4 mmol/L (3.5-5.1); Sodium 139 mmol/L (136-145); TSH (W/Ref FT4) 2.45 uIU/mL (0.36-3.74); Total Protein 6.4 g/dL (6.4-8.2)
[2019-11-22 11:23] LABS: Diff Comment RBC Morph Reviewed
[2019-11-22 11:24] LABS: Macrocytosis 1+
[2019-11-22] MEDS: MacroBID 100 MG CAP PO (11:35)
[2019-11-22] MEDS: Heparin 500 UNITS/5 ML SYRINGE (11:40)
== END 2019-11-22 11:49 | disposition home or self-care (01) ==
PROVIDERS: Emergency Provider Emergency Medicine; PCP Nurse Practitioner
DX: N39.0 Urinary tract infection, site not specified (principal); B95.2 Enterococcus as the cause of diseases classified elsewhere; E83.42 Hypomagnesemia; R53.1 Weakness; Z95.828 Presence of other vascular implants and grafts; C34.90 Malignant neoplasm of unspecified part of unspecified bronchus or lung; Z79.899 Other long term (current) drug therapy; I10 Essential (primary) hypertension
CPT/HCPCS: 36591; 80053; 82550; 82805; 87077; 96360; 99284; 81003; 81015; 83605; 83735; 84443; 85025; 85610; 85730; 87086; 87186

== ENCOUNTER 2019-11-25 02:02 | Outpatient (RCR) | payer MEDICARE, SELFPAY ==
[2019-11-04] MEDS: Normal Saline Flush 10 ML SYR IVP (09:25)
[2019-11-04 09:42] LABS: Abs Immature Grans 0.03 k/cumm (0.0-0.09); Absolute Basophil Count 0.01 k/cumm (0.0-0.2); Absolute Eosinophil Count 0.02 k/cumm (0.0-0.7); Absolute Lymphocyte Count 1.53 k/cumm (1.2-3.4); Absolute Monocyte Count 0.82 k/cumm (0.11-0.7); Absolute Neutrophil Count 0.65 k/cumm (1.2-6.7); Basophils % 0.3; Eosinophils % 0.7; HCT 37.1 % (36.0-46.0); HGB 12.2 g/dL (12.0-15.5); Mean Corp. HGB Concentration 32.9 g/dL (32.0-36.0); Mean Corpuscular Volume 106.3 fL (80-95); Mean Platelet Volume 9.6 fL (8.0-11.0); Monocytes % 26.8; Neutrophils % 21.2; Platelet Count 372 x1000/uL (130-400); RBC 3.49 m/cumm (4.00-5.20); RBC Distribution Width 16.1 % (11.7-14.6); White Blood Cell Count 3.06 k/cumm (4.4-10.8)
[2019-11-04 09:53] LABS: ALT 14 U/L (14-59); AST 16 U/L (15-37); Albumin 3.2 g/dL (3.4-5.0); Alkaline Phosphatase 77 U/L (46-116); Anion Gap 12.1 mmol/L (3-11); BUN 13 mg/dL (7-18); Bilirubin, Total 0.5 mg/dL (0.2-1.0); CO2 23.9 mmol/L (21.0-32.0); CREATININE 1.15 mg/dL (0.55-1.02); Calcium 9.4 mg/dL (8.5-10.1); Chloride 102 mmol/L (98-107); Estimated GFR 46.52 (mL/min/1.73m2); Glucose 143 mg/dL (74-106); Potassium 3.9 mmol/L (3.5-5.1); Sodium 138 mmol/L (136-145); Total Protein 6.9 g/dL (6.4-8.2)
[2019-11-04 10:02] LABS: Diff Comment Agrees w/ Instrument; Macrocytosis 2+; Polychromasia Present
[2019-11-11 09:12] LABS: Abs Immature Grans 0.09 k/cumm (0.0-0.09); Absolute Basophil Count 0.03 k/cumm (0.0-0.2); Absolute Eosinophil Count 0.03 k/cumm (0.0-0.7); Absolute Lymphocyte Count 1.28 k/cumm (1.2-3.4); Absolute Monocyte Count 0.75 k/cumm (0.11-0.7); Absolute Neutrophil Count 2.97 k/cumm (1.2-6.7); Basophils % 0.6; Eosinophils % 0.6; HCT 34.3 % (36.0-46.0); HGB 11.8 g/dL (12.0-15.5); Immature Grans % 1.7 %; Lymphocytes % 24.9; Mean Corp. HGB Concentration 34.4 g/dL (32.0-36.0); Mean Corpuscular Hemoglobin 36.4 pg (27.0-33.0); Mean Corpuscular Volume 105.9 fL (80-95); Mean Platelet Volume 9.1 fL (8.0-11.0); Monocytes % 14.6; Neutrophils % 57.6; Platelet Count 361 x1000/uL (130-400); RBC 3.24 m/cumm (4.00-5.20); RBC Distribution Width 16.3 % (11.7-14.6); White Blood Cell Count 5.15 k/cumm (4.4-10.8)
[2019-11-11] MEDS: Normal Saline Flush 10 ML SYR IVP (09:25)
[2019-11-11 09:27] LABS: ALT 13 U/L (14-59); AST 16 U/L (15-37); Albumin 2.8 g/dL (3.4-5.0); Alkaline Phosphatase 76 U/L (46-116); Anion Gap 10.3 mmol/L (3-11); BUN 12 mg/dL (7-18); Bilirubin, Total 0.3 mg/dL (0.2-1.0); CO2 25.7 mmol/L (21.0-32.0); CREATININE 0.91 mg/dL (0.55-1.02); Calcium 8.9 mg/dL (8.5-10.1); Chloride 102 mmol/L (98-107); Glucose 100 mg/dL (74-106); Potassium 3.7 mmol/L (3.5-5.1); Sodium 138 mmol/L (136-145); Total Protein 6.5 g/dL (6.4-8.2)
[2019-11-11 10:15] LABS: FREE T4 1.13 ng/dL (0.76-1.46); TSH 2.44 uIU/mL (0.36-3.74)
[2019-11-18] MEDS: Normal Saline Flush 10 ML SYR IVP (09:11)
[2019-11-18 09:24] LABS: Abs Immature Grans 0.08 k/cumm (0.0-0.09); Absolute Basophil Count 0.02 k/cumm (0.0-0.2); Absolute Lymphocyte Count 1.43 k/cumm (1.2-3.4); Absolute Monocyte Count 0.41 k/cumm (0.11-0.7); Absolute Neutrophil Count 3.16 k/cumm (1.2-6.7); Basophils % 0.4; Eosinophils % 3.8; HCT 34.3 % (36.0-46.0); HGB 11.3 g/dL (12.0-15.5); Immature Grans % 1.5 %; Mean Corp. HGB Concentration 32.9 g/dL (32.0-36.0); Mean Corpuscular Hemoglobin 35.8 pg (27.0-33.0); Mean Corpuscular Volume 108.5 fL (80-95); Mean Platelet Volume 10.2 fL (8.0-11.0); Monocytes % 7.7; Neutrophils % 59.6; Platelet Count 391 x1000/uL (130-400); RBC 3.16 m/cumm (4.00-5.20); RBC Distribution Width 14.8 % (11.7-14.6)
[2019-11-18 09:29] LABS: ALT 8 U/L (14-59); AST 13 U/L (15-37); Alkaline Phosphatase 80 U/L (46-116); Anion Gap 14.4 mmol/L (3-11); BUN 12 mg/dL (7-18); Bilirubin, Total 0.4 mg/dL (0.2-1.0); CO2 23.6 mmol/L (21.0-32.0); CREATININE 1.12 mg/dL (0.55-1.02); Calcium 9.1 mg/dL (8.5-10.1); Chloride 100 mmol/L (98-107); Estimated GFR 47.96 (mL/min/1.73m2); Glucose 142 mg/dL (74-106); Potassium 3.8 mmol/L (3.5-5.1); Sodium 138 mmol/L (136-145); Total Protein 6.9 g/dL (6.4-8.2)
[2019-11-18 10:04] LABS: Diff Comment RBC Morph Reviewed; Macrocytosis 2+; Poikilocytes 1+
[2019-11-25] MEDS: Normal Saline Flush 10 ML SYR IVP (09:17)
[2019-11-25 09:19] LABS: Abs Immature Grans 0.04 k/cumm (0.0-0.09); Absolute Basophil Count 0.02 k/cumm (0.0-0.2); Absolute Eosinophil Count 0.06 k/cumm (0.0-0.7); Absolute Lymphocyte Count 1.14 k/cumm (1.2-3.4); Absolute Monocyte Count 0.31 k/cumm (0.11-0.7); Absolute Neutrophil Count 1.33 k/cumm (1.2-6.7); Basophils % 0.7; Eosinophils % 2.1; HCT 34.2 % (36.0-46.0); HGB 10.9 g/dL (12.0-15.5); Immature Grans % 1.4 %; Lymphocytes % 39.3; Mean Corp. HGB Concentration 31.9 g/dL (32.0-36.0); Monocytes % 10.7; Neutrophils % 45.8; Platelet Count 445 x1000/uL (130-400); RBC 3.11 m/cumm (4.00-5.20); RBC Distribution Width 14.7 % (11.7-14.6)
[2019-11-25 09:38] LABS: ALT 10 U/L (14-59); AST 10 U/L (15-37); Albumin 3.1 g/dL (3.4-5.0); Alkaline Phosphatase 76 U/L (46-116); Anion Gap 14.5 mmol/L (3-11); BUN 7 mg/dL (7-18); Bilirubin, Total 0.4 mg/dL (0.2-1.0); CO2 23.5 mmol/L (21.0-32.0); CREATININE 1.02 mg/dL (0.55-1.02); Calcium 9.4 mg/dL (8.5-10.1); Chloride 103 mmol/L (98-107); Estimated GFR 53.42 (mL/min/1.73m2); Glucose 125 mg/dL (74-106); Potassium 3.8 mmol/L (3.5-5.1); Sodium 141 mmol/L (136-145); Total Protein 6.6 g/dL (6.4-8.2)
[2019-11-25 09:49] LABS: Diff Comment RBC Morph Reviewed; Macrocytosis 2+; Polychromasia Present
== END 2019-11-30 23:59 | disposition home or self-care (01) ==
LOC: INF 02:02
PROVIDERS: PCP Nurse Practitioner; Visit Provider Internal Medicine Hematology & Oncology
DX: C34.2 Malignant neoplasm of middle lobe, bronchus or lung (principal); Z45.2 Encounter for adjustment and management of vascular access device; E03.2 Hypothyroidism due to medicaments and other exogenous substances
CPT/HCPCS: 36591; 80053; 84439; 84443; 85025

== ENCOUNTER 2019-12-27 18:18 | Outpatient (REF) | payer MEDICARE, SELFPAY | END 2019-12-27 18:38 | LOC: NCHCN 18:18 | PROVIDERS: PCP Nurse Practitioner; Visit Provider Nurse Practitioner Family | DX: R82.998 Other abnormal findings in urine (principal) | CPT/HCPCS: 87077; 87086; 87186 ==

== ENCOUNTER 2019-12-30 01:58 | Outpatient (RCR) | payer MEDICARE, SELFPAY ==
[2019-12-02 09:20] LABS: Abs Immature Grans 0.06 k/cumm (0.0-0.09); Absolute Basophil Count 0.02 k/cumm (0.0-0.2); Absolute Eosinophil Count 0.01 k/cumm (0.0-0.7); Absolute Lymphocyte Count 1.03 k/cumm (1.2-3.4); Absolute Monocyte Count 0.34 k/cumm (0.11-0.7); Absolute Neutrophil Count 2.26 k/cumm (1.2-6.7); Basophils % 0.5; Eosinophils % 0.3; Immature Grans % 1.6 %; Lymphocytes % 27.7; Mean Corp. HGB Concentration 31.4 g/dL (32.0-36.0); Mean Corpuscular Hemoglobin 34.8 pg (27.0-33.0); Mean Corpuscular Volume 110.8 fL (80-95); Monocytes % 9.1; Neutrophils % 60.8; Platelet Count 469 x1000/uL (130-400); RBC 3.16 m/cumm (4.00-5.20); White Blood Cell Count 3.72 k/cumm (4.4-10.8)
[2019-12-02] MEDS: Normal Saline Flush 10 ML SYR IVP (09:29)
[2019-12-02 09:41] LABS: ALT 11 U/L (14-59); AST 13 U/L (15-37); Alkaline Phosphatase 75 U/L (46-116); Anion Gap 10.3 mmol/L (3-11); BUN 9 mg/dL (7-18); Bilirubin, Total 0.4 mg/dL (0.2-1.0); CO2 24.7 mmol/L (21.0-32.0); CREATININE 0.91 mg/dL (0.55-1.02); Calcium 9.4 mg/dL (8.5-10.1); Chloride 104 mmol/L (98-107); FREE T4 1.18 ng/dL (0.76-1.46); Glucose 118 mg/dL (74-106); Potassium 3.7 mmol/L (3.5-5.1); Sodium 139 mmol/L (136-145); TSH 1.93 uIU/mL (0.36-3.74); Total Protein 6.6 g/dL (6.4-8.2)
[2019-12-02 10:33] LABS: Diff Comment Diff Reviewed; Macrocytosis 2+; Polychromasia Present
[2019-12-09 09:40] LABS: Abs Immature Grans 0.05 k/cumm (0.0-0.09); Absolute Basophil Count 0.01 k/cumm (0.0-0.2); Absolute Eosinophil Count 0.03 k/cumm (0.0-0.7); Absolute Lymphocyte Count 0.89 k/cumm (1.2-3.4); Absolute Monocyte Count 0.27 k/cumm (0.11-0.7); Absolute Neutrophil Count 1.44 k/cumm (1.2-6.7); Basophils % 0.4; Eosinophils % 1.1; HCT 33.5 % (36.0-46.0); HGB 10.6 g/dL (12.0-15.5); Immature Grans % 1.9 %; Lymphocytes % 33.1; Mean Corp. HGB Concentration 31.6 g/dL (32.0-36.0); Mean Corpuscular Hemoglobin 35.5 pg (27.0-33.0); Mean Platelet Volume 9.7 fL (8.0-11.0); Neutrophils % 53.5; Platelet Count 402 x1000/uL (130-400); RBC 2.99 m/cumm (4.00-5.20); RBC Distribution Width 14.9 % (11.7-14.6); White Blood Cell Count 2.69 k/cumm (4.4-10.8)
[2019-12-09] MEDS: Normal Saline Flush 10 ML SYR IVP (09:44)
[2019-12-09 09:52] LABS: ALT 11 U/L (14-59); AST 13 U/L (15-37); Albumin 2.9 g/dL (3.4-5.0); Alkaline Phosphatase 68 U/L (46-116); Anion Gap 11.9 mmol/L (3-11); BUN 8 mg/dL (7-18); Bilirubin, Total 0.3 mg/dL (0.2-1.0); CO2 22.1 mmol/L (21.0-32.0); CREATININE 0.75 mg/dL (0.55-1.02); Chloride 104 mmol/L (98-107); Glucose 104 mg/dL (74-106); Potassium 3.9 mmol/L (3.5-5.1); Sodium 138 mmol/L (136-145); Total Protein 6.4 g/dL (6.4-8.2)
[2019-12-16] MEDS: Normal Saline Flush 10 ML SYR IVP (09:02)
[2019-12-16 09:13] LABS: Abs Immature Grans 0.04 k/cumm (0.0-0.09); Absolute Basophil Count 0.03 k/cumm (0.0-0.2); Absolute Eosinophil Count 0.03 k/cumm (0.0-0.7); Absolute Lymphocyte Count 0.77 k/cumm (1.2-3.4); Absolute Monocyte Count 0.26 k/cumm (0.11-0.7); Absolute Neutrophil Count 0.66 k/cumm (1.2-6.7); Basophils % 1.7; Eosinophils % 1.7; HCT 32.3 % (36.0-46.0); HGB 10.3 g/dL (12.0-15.5); Immature Grans % 2.2 %; Mean Corp. HGB Concentration 31.9 g/dL (32.0-36.0); Mean Corpuscular Hemoglobin 35.9 pg (27.0-33.0); Mean Corpuscular Volume 112.5 fL (80-95); Mean Platelet Volume 9.9 fL (8.0-11.0); Monocytes % 14.5; Neutrophils % 36.9; Platelet Count 389 x1000/uL (130-400); RBC 2.87 m/cumm (4.00-5.20); RBC Distribution Width 14.9 % (11.7-14.6)
[2019-12-16 09:27] LABS: ALT 9 U/L (14-59); AST 13 U/L (15-37); Albumin 2.7 g/dL (3.4-5.0); Alkaline Phosphatase 71 U/L (46-116); BUN 7 mg/dL (7-18); Bilirubin, Total 0.2 mg/dL (0.2-1.0); CREATININE 0.81 mg/dL (0.55-1.02); Calcium 8.3 mg/dL (8.5-10.1); Chloride 106 mmol/L (98-107); Glucose 104 mg/dL (74-106); Potassium 3.9 mmol/L (3.5-5.1); Sodium 141 mmol/L (136-145)
[2019-12-16 09:33] LABS: Diff Comment Diff Reviewed; Macrocytosis 3+; Polychromasia Present; White Blood Cell Count 1.79 k/cumm (4.4-10.8)
[2019-12-23 08:10] LABS: Abs Immature Grans 0.01 k/cumm (0.0-0.09); Absolute Basophil Count 0.01 k/cumm (0.0-0.2); Absolute Eosinophil Count 0.05 k/cumm (0.0-0.7); Absolute Lymphocyte Count 1.06 k/cumm (1.2-3.4); Absolute Monocyte Count 0.66 k/cumm (0.11-0.7); Absolute Neutrophil Count 1.38 k/cumm (1.2-6.7); Basophils % 0.3; Eosinophils % 1.6; HCT 35.7 % (36.0-46.0); HGB 11.1 g/dL (12.0-15.5); Immature Grans % 0.3 %; Lymphocytes % 33.4; Mean Corp. HGB Concentration 31.1 g/dL (32.0-36.0); Mean Corpuscular Hemoglobin 34.6 pg (27.0-33.0); Mean Corpuscular Volume 111.2 fL (80-95); Mean Platelet Volume 9.8 fL (8.0-11.0); Monocytes % 20.8; Neutrophils % 43.6; Platelet Count 424 x1000/uL (130-400); RBC 3.21 m/cumm (4.00-5.20); RBC Distribution Width 15.1 % (11.7-14.6); White Blood Cell Count 3.17 k/cumm (4.4-10.8)
[2019-12-23 08:24] LABS: Anisocytosis 2+; Diff Comment RBC Morph Reviewed; Hypochromasia 1+; Macrocytosis 3+; Polychromasia Present
[2019-12-23] MEDS: Normal Saline Flush 10 ML SYR IVP (08:30)
[2019-12-23 08:44] LABS: ALT 10 U/L (14-59); AST 14 U/L (15-37); Albumin 2.6 g/dL (3.4-5.0); Alkaline Phosphatase 77 U/L (46-116); Anion Gap 13.3 mmol/L (3-11); BUN 9 mg/dL (7-18); Bilirubin, Total 0.3 mg/dL (0.2-1.0); CO2 22.7 mmol/L (21.0-32.0); CREATININE 0.84 mg/dL (0.55-1.02); Calcium 8.4 mg/dL (8.5-10.1); Chloride 104 mmol/L (98-107); FREE T4 1.01 ng/dL (0.76-1.46); Glucose 102 mg/dL (74-106); Potassium 3.6 mmol/L (3.5-5.1); Sodium 140 mmol/L (136-145); TSH 4.55 uIU/mL (0.36-3.74); Total Protein 5.9 g/dL (6.4-8.2)
[2019-12-30] MEDS: Normal Saline Flush 10 ML SYR IVP (09:30)
[2019-12-30 10:01] LABS: Abs Immature Grans 0.08 10^3/uL (0.0-0.06); Absolute Basophil Count 0.03 10^3/uL (0.0-0.2); Absolute Eosinophil Count 0.07 10^3/uL (0.0-0.7); Absolute Lymphocyte Count 0.55 10^3/uL (1.2-3.4); Absolute Monocyte Count 0.29 10^3/uL (0.1-0.8); Absolute Neutrophil Count 3.75 10^3/uL (1.2-6.7); Basophils % 0.6; Eosinophils % 1.5; HGB 10.9 g/dL (11.2-15.7); Immature Grans % 1.7; Lymphocytes % 11.5; MCH 35.4 pg (27.0-33.0); MCHC 32.1 % (32.0-36.0); MCV 110.4 fL (80-95); MPV 10.4 fL (8.0-11.0); Monocytes % 6.1; Neutrophils % 78.6; Platelet Count 314 10^3/uL (130-400); RBC 3.08 10^6/uL (3.93-5.22); RDW 14.6 % (11.7-14.6); RDW-SD 59.5 fL; WBC 4.77 10^3/uL (4.4-10.8)
[2019-12-30 10:34] LABS: ALT 10 U/L (14-59); AST 15 U/L (15-37); Albumin 2.8 g/dL (3.4-5.0); Alkaline Phosphatase 70 U/L (46-116); Anion Gap 10.5 mmol/L (3-11); BUN 8 mg/dL (7-18); Bilirubin, Total 0.3 mg/dL (0.2-1.0); CO2 24.5 mmol/L (21.0-32.0); CREATININE 0.79 mg/dL (0.55-1.02); Calcium 8.8 mg/dL (8.5-10.1); Chloride 104 mmol/L (98-107); Glucose 106 mg/dL (74-106); Potassium 4.1 mmol/L (3.5-5.1); Sodium 139 mmol/L (136-145); Total Protein 6.2 g/dL (6.4-8.2)
[2019-12-30 10:37] LABS: Diff Comment RBC Morph Reviewed; Macrocytosis 2+
== END 2019-12-31 23:59 | disposition home or self-care (01) ==
LOC: INF 01:58
PROVIDERS: PCP Nurse Practitioner; Visit Provider Internal Medicine Hematology & Oncology
DX: C34.2 Malignant neoplasm of middle lobe, bronchus or lung (principal); Z45.2 Encounter for adjustment and management of vascular access device; E03.2 Hypothyroidism due to medicaments and other exogenous substances
CPT/HCPCS: 36591; 80053; 84439; 84443; 85025

== ENCOUNTER 2020-01-27 04:08 | Outpatient (RCR) | payer MEDICARE, SELFPAY ==
[2020-01-06] MEDS: Normal Saline Flush 10 ML SYR IVP (09:30)
[2020-01-06 09:55] LABS: Abs Immature Grans 0.03 10^3/uL (0.0-0.06); Absolute Basophil Count 0.02 10^3/uL (0.0-0.2); Absolute Eosinophil Count 0.04 10^3/uL (0.0-0.7); Absolute Lymphocyte Count 0.81 10^3/uL (1.2-3.4); Absolute Monocyte Count 0.24 10^3/uL (0.1-0.8); Absolute Neutrophil Count 1.39 10^3/uL (1.2-6.7); Basophils % 0.8; Eosinophils % 1.6; HCT 35.5 % (36.0-46.0); HGB 11.2 g/dL (11.2-15.7); Immature Grans % 1.2; MCH 35.1 pg (27.0-33.0); MCHC 31.5 % (32.0-36.0); MCV 111.3 fL (80-95); MPV 10.5 fL (8.0-11.0); Monocytes % 9.5; Neutrophils % 54.9; Nucleated RBC 0 %; Platelet Count 374 10^3/uL (130-400); RBC 3.19 10^6/uL (3.93-5.22); RDW 14.2 % (11.7-14.6); RDW-SD 58.4 fL; WBC 2.53 10^3/uL (4.4-10.8)
[2020-01-06 10:16] LABS: ALT 10 U/L (14-59); AST 17 U/L (15-37); Albumin 2.9 g/dL (3.4-5.0); Alkaline Phosphatase 68 U/L (46-116); Anion Gap 11.4 mmol/L (3-11); BUN 8 mg/dL (7-18); Bilirubin, Total 0.3 mg/dL (0.2-1.0); CO2 24.6 mmol/L (21.0-32.0); CREATININE 0.84 mg/dL (0.55-1.02); Calcium 8.9 mg/dL (8.5-10.1); Chloride 103 mmol/L (98-107); FREE T4 1.15 ng/dL (0.76-1.46); Glucose 111 mg/dL (74-106); Potassium 3.9 mmol/L (3.5-5.1); Sodium 139 mmol/L (136-145); TSH 2.52 uIU/mL (0.36-3.74); Total Protein 6.4 g/dL (6.4-8.2)
[2020-01-13 09:22] LABS: Abs Immature Grans 0.04 10^3/uL (0.0-0.06); Absolute Basophil Count 0.02 10^3/uL (0.0-0.2); Absolute Eosinophil Count 0.03 10^3/uL (0.0-0.7); Absolute Lymphocyte Count 0.91 10^3/uL (1.2-3.4); Absolute Monocyte Count 0.27 10^3/uL (0.1-0.8); Absolute Neutrophil Count 1.76 10^3/uL (1.2-6.7); Basophils % 0.7; HCT 34.9 % (36.0-46.0); HGB 11.2 g/dL (11.2-15.7); Immature Grans % 1.3; MCH 35.7 pg (27.0-33.0); MCHC 32.1 % (32.0-36.0); MCV 111.1 fL (80-95); MPV 10.2 fL (8.0-11.0); Monocytes % 8.9; Neutrophils % 58.1; Nucleated RBC 0 %; Platelet Count 365 10^3/uL (130-400); RBC 3.14 10^6/uL (3.93-5.22); RDW 14.2 % (11.7-14.6); RDW-SD 57.6 fL; WBC 3.03 10^3/uL (4.4-10.8)
[2020-01-13] MEDS: Normal Saline Flush 10 ML SYR IVP (09:31)
[2020-01-13 09:44] LABS: ALT 11 U/L (14-59); AST 16 U/L (15-37); Alkaline Phosphatase 68 U/L (46-116); Anion Gap 10.7 mmol/L (3-11); BUN 6 mg/dL (7-18); Bilirubin, Total 0.3 mg/dL (0.2-1.0); CO2 24.3 mmol/L (21.0-32.0); CREATININE 0.82 mg/dL (0.55-1.02); Calcium 8.5 mg/dL (8.5-10.1); Chloride 103 mmol/L (98-107); FREE T4 1.13 ng/dL (0.76-1.46); Glucose 128 mg/dL (74-106); Potassium 3.9 mmol/L (3.5-5.1); Sodium 138 mmol/L (136-145); TSH 3.87 uIU/mL (0.36-3.74); Total Protein 6.4 g/dL (6.4-8.2)
[2020-01-20 09:13] LABS: Abs Immature Grans 0.03 10^3/uL (0.0-0.06); Absolute Basophil Count 0.02 10^3/uL (0.0-0.2); Absolute Eosinophil Count 0.03 10^3/uL (0.0-0.7); Absolute Lymphocyte Count 0.67 10^3/uL (1.2-3.4); Absolute Monocyte Count 0.21 10^3/uL (0.1-0.8); Basophils % 0.7; Eosinophils % 1.1; HCT 34.6 % (36.0-46.0); HGB 10.8 g/dL (11.2-15.7); Immature Grans % 1.1; Lymphocytes % 24.3; MCHC 31.2 % (32.0-36.0); Monocytes % 7.6; Neutrophils % 65.2; Nucleated RBC 0 %; Platelet Count 295 10^3/uL (130-400); RBC 3.09 10^6/uL (3.93-5.22); RDW 14.6 % (11.7-14.6); RDW-SD 59.5 fL; WBC 2.76 10^3/uL (4.4-10.8)
[2020-01-20] MEDS: Normal Saline Flush 10 ML SYR IVP (09:21)
[2020-01-20 09:44] LABS: Diff Comment RBC Morph Reviewed; Macrocytosis 2+
[2020-01-20 09:45] LABS: Polychromasia Present
[2020-01-20 09:49] LABS: ALT 10 U/L (14-59); AST 14 U/L (15-37); Albumin 2.7 g/dL (3.4-5.0); Alkaline Phosphatase 63 U/L (46-116); Anion Gap 10.4 mmol/L (3-11); BUN 7 mg/dL (7-18); Bilirubin, Total 0.3 mg/dL (0.2-1.0); CO2 24.6 mmol/L (21.0-32.0); CREATININE 0.83 mg/dL (0.55-1.02); Calcium 8.4 mg/dL (8.5-10.1); Chloride 105 mmol/L (98-107); Glucose 96 mg/dL (74-106); Potassium 4.1 mmol/L (3.5-5.1); Sodium 140 mmol/L (136-145); TSH 3.48 uIU/mL (0.36-3.74); Total Protein 5.9 g/dL (6.4-8.2)
[2020-01-27] MEDS: Normal Saline Flush 10 ML SYR IVP (09:24)
[2020-01-27 09:33] LABS: Abs Immature Grans 0.05 10^3/uL (0.0-0.06); Absolute Basophil Count 0.02 10^3/uL (0.0-0.2); Absolute Eosinophil Count 0.03 10^3/uL (0.0-0.7); Absolute Lymphocyte Count 0.94 10^3/uL (1.2-3.4); Absolute Monocyte Count 0.26 10^3/uL (0.1-0.8); Absolute Neutrophil Count 0.93 10^3/uL (1.2-6.7); Basophils % 0.9; Eosinophils % 1.3; HCT 36.3 % (36.0-46.0); HGB 11.5 g/dL (11.2-15.7); Immature Grans % 2.2; Lymphocytes % 42.2; MCHC 31.7 % (32.0-36.0); MCV 110.3 fL (80-95); MPV 10.6 fL (8.0-11.0); Monocytes % 11.7; Neutrophils % 41.7; Nucleated RBC 0 %; Platelet Count 409 10^3/uL (130-400); RBC 3.29 10^6/uL (3.93-5.22); RDW 14.5 % (11.7-14.6); RDW-SD 58.8 fL; WBC 2.23 10^3/uL (4.4-10.8)
[2020-01-27 09:45] LABS: ALT 7 U/L (14-59); AST 13 U/L (15-37); Albumin 2.9 g/dL (3.4-5.0); Alkaline Phosphatase 67 U/L (46-116); Anion Gap 14.2 mmol/L (3-11); BUN 8 mg/dL (7-18); Bilirubin, Total 0.3 mg/dL (0.2-1.0); CO2 21.8 mmol/L (21.0-32.0); CREATININE 1.01 mg/dL (0.55-1.02); Calcium 8.6 mg/dL (8.5-10.1); Chloride 104 mmol/L (98-107); Estimated GFR 54.03 (mL/min/1.73m2); Glucose 131 mg/dL (74-106); Potassium 3.8 mmol/L (3.5-5.1); Sodium 140 mmol/L (136-145); Total Protein 6.3 g/dL (6.4-8.2)
[2020-01-27 10:06] LABS: Diff Comment Agrees w/ Instrument
[2020-01-27 10:07] LABS: Macrocytosis 2+; Polychromasia Present
[2020-01-27 10:08] LABS: Poikilocytes 1+
== END 2020-01-31 23:59 | disposition home or self-care (01) ==
LOC: INF 04:08
PROVIDERS: PCP Nurse Practitioner; Visit Provider Internal Medicine Hematology & Oncology
DX: C34.2 Malignant neoplasm of middle lobe, bronchus or lung (principal); Z45.2 Encounter for adjustment and management of vascular access device
CPT/HCPCS: 36591; 80053; 84439; 84443; 85025

== ENCOUNTER 2020-02-09 12:19 | Outpatient (REF) | payer MEDICARE, SELFPAY | END 2020-02-09 12:39 | LOC: NCHCN 12:19 | PROVIDERS: PCP Nurse Practitioner; Visit Provider Nurse Practitioner | DX: N39.0 Urinary tract infection, site not specified (principal) | CPT/HCPCS: 87077; 87086; 87186 ==

== ENCOUNTER 2020-02-24 02:24 | Outpatient (RCR) | payer MEDICARE, SELFPAY ==
[2020-02-03] MEDS: Normal Saline Flush 10 ML SYR IVP (09:00)
[2020-02-03 09:21] LABS: Abs Immature Grans 0.05 10^3/uL (0.0-0.06); Absolute Basophil Count 0.02 10^3/uL (0.0-0.2); Absolute Eosinophil Count 0.04 10^3/uL (0.0-0.7); Absolute Lymphocyte Count 0.81 10^3/uL (1.2-3.4); Absolute Monocyte Count 0.26 10^3/uL (0.1-0.8); Absolute Neutrophil Count 2.13 10^3/uL (1.2-6.7); Basophils % 0.6; Eosinophils % 1.2; HCT 34.8 % (36.0-46.0); HGB 11.2 g/dL (11.2-15.7); Immature Grans % 1.5; Lymphocytes % 24.5; MCHC 32.2 % (32.0-36.0); MCV 108.8 fL (80-95); MPV 10.5 fL (8.0-11.0); Monocytes % 7.9; Neutrophils % 64.3; Nucleated RBC 0 %; Platelet Count 370 10^3/uL (130-400); RDW 14.7 % (11.7-14.6); RDW-SD 58.8 fL; WBC 3.31 10^3/uL (4.4-10.8)
[2020-02-03 09:36] LABS: Diff Comment RBC Morph Reviewed; Macrocytosis 2+
[2020-02-03 09:48] LABS: ALT 9 U/L (14-59); AST 18 U/L (15-37); Albumin 2.8 g/dL (3.4-5.0); Alkaline Phosphatase 60 U/L (46-116); Anion Gap 11.8 mmol/L (3-11); BUN 4 mg/dL (7-18); Bilirubin, Total 0.3 mg/dL (0.2-1.0); CO2 23.2 mmol/L (21.0-32.0); CREATININE 0.87 mg/dL (0.55-1.02); Calcium 7.9 mg/dL (8.5-10.1); Chloride 104 mmol/L (98-107); FREE T4 1.26 ng/dL (0.76-1.46); Glucose 111 mg/dL (74-106); Potassium 3.5 mmol/L (3.5-5.1); Sodium 139 mmol/L (136-145); TSH 2.57 uIU/mL (0.36-3.74); Total Protein 6.3 g/dL (6.4-8.2)
[2020-02-10] MEDS: Normal Saline Flush 10 ML SYR IVP (09:35)
[2020-02-10 09:46] LABS: Abs Immature Grans 0.37 10^3/uL (0.0-0.06); Absolute Basophil Count 0.02 10^3/uL (0.0-0.2); Absolute Eosinophil Count 0.02 10^3/uL (0.0-0.7); Absolute Lymphocyte Count 0.81 10^3/uL (1.2-3.4); Basophils % 0.4; Eosinophils % 0.4; HCT 32.3 % (36.0-46.0); HGB 10.2 g/dL (11.2-15.7); MCH 35.1 pg (27.0-33.0); MCHC 31.6 % (32.0-36.0); MPV 10.3 fL (8.0-11.0); Nucleated RBC 2 %; Platelet Count 303 10^3/uL (130-400); RBC 2.91 10^6/uL (3.93-5.22); RDW 15.8 % (11.7-14.6); RDW-SD 63.7 fL; WBC 4.51 10^3/uL (4.4-10.8)
[2020-02-10 10:08] LABS: ALT 14 U/L (14-59); AST 15 U/L (15-37); Albumin 2.7 g/dL (3.4-5.0); Alkaline Phosphatase 50 U/L (46-116); Anion Gap 6.1 mmol/L (3-11); BUN 8 mg/dL (7-18); Bilirubin, Total 0.3 mg/dL (0.2-1.0); CO2 27.9 mmol/L (21.0-32.0); CREATININE 0.85 mg/dL (0.55-1.02); Calcium 8.3 mg/dL (8.5-10.1); Chloride 104 mmol/L (98-107); FREE T4 1.02 ng/dL (0.76-1.46); Glucose 81 mg/dL (74-106); Potassium 3.6 mmol/L (3.5-5.1); Sodium 138 mmol/L (136-145); TSH 2.38 uIU/mL (0.36-3.74); Total Protein 5.5 g/dL (6.4-8.2)
[2020-02-10 10:12] LABS: Absolute Neutrophil Count 3.16 10^3/uL (1.2-6.7); Bands % 4
[2020-02-10 10:13] LABS: Absolute Monocyte Count 0.27 10^3/uL (0.1-0.8)
[2020-02-10 10:14] LABS: Diff Comment Manual Differential; Macrocytosis 2+; Metamyelocytes % 2; Myelocytes % 2; Polychromasia Present; Promyelocytes % 1
[2020-02-17] MEDS: Normal Saline Flush 10 ML SYR IVP (08:18)
[2020-02-17 08:22] LABS: Abs Immature Grans 0.47 10^3/uL (0.0-0.06); HCT 33.9 % (36.0-46.0); HGB 10.7 g/dL (11.2-15.7); MCH 34.9 pg (27.0-33.0); MCHC 31.6 % (32.0-36.0); MCV 110.4 fL (80-95); MPV 10.6 fL (8.0-11.0); Platelet Count 324 10^3/uL (130-400); RBC 3.07 10^6/uL (3.93-5.22); RDW 15.9 % (11.7-14.6); RDW-SD 64.6 fL; WBC 6.95 10^3/uL (4.4-10.8)
[2020-02-17 08:44] LABS: ALT 18 U/L (14-59); AST 11 U/L (15-37); Albumin 3.1 g/dL (3.4-5.0); Alkaline Phosphatase 46 U/L (46-116); Anion Gap 8.9 mmol/L (3-11); BUN 13 mg/dL (7-18); Bilirubin, Total 0.3 mg/dL (0.2-1.0); CO2 25.1 mmol/L (21.0-32.0); CREATININE 0.87 mg/dL (0.55-1.02); Calcium 8.5 mg/dL (8.5-10.1); Chloride 103 mmol/L (98-107); FREE T4 0.98 ng/dL (0.76-1.46); Glucose 116 mg/dL (74-106); Potassium 4.1 mmol/L (3.5-5.1); Sodium 137 mmol/L (136-145); TSH 0.88 uIU/mL (0.36-3.74); Total Protein 5.9 g/dL (6.4-8.2)
[2020-02-17 08:53] LABS: Absolute Lymphocyte Count 0.97 10^3/uL (1.2-3.4); Absolute Neutrophil Count 4.93 10^3/uL (1.2-6.7); Bands % 1; Metamyelocytes % 3; Myelocytes % 2; Nucleated RBC 2 %
[2020-02-17 08:54] LABS: Diff Comment Manual Differential; Macrocytosis 3+; Poikilocytes 1+; Polychromasia Present
[2020-02-24] MEDS: Normal Saline Flush 10 ML SYR IVP (08:55)
[2020-02-24 09:04] LABS: Absolute Basophil Count 0.03 10^3/uL (0.0-0.2); Absolute Lymphocyte Count 0.79 10^3/uL (1.2-3.4); Absolute Monocyte Count 0.49 10^3/uL (0.1-0.8); Absolute Neutrophil Count 6.51 10^3/uL (1.2-6.7); Basophils % 0.4; HGB 11.3 g/dL (11.2-15.7); Immature Grans % 4.9; Lymphocytes % 9.6; MCH 34.7 pg (27.0-33.0); MCHC 31.4 % (32.0-36.0); MCV 110.4 fL (80-95); MPV 10.5 fL (8.0-11.0); Neutrophils % 79.1; Nucleated RBC 1 %; Platelet Count 273 10^3/uL (130-400); RBC 3.26 10^6/uL (3.93-5.22); RDW 15.8 % (11.7-14.6); RDW-SD 64.5 fL; WBC 8.22 10^3/uL (4.4-10.8)
[2020-02-24 09:24] LABS: ALT 25 U/L (14-59); AST 13 U/L (15-37); Albumin 3.3 g/dL (3.4-5.0); Alkaline Phosphatase 41 U/L (46-116); Anion Gap 9.7 mmol/L (3-11); BUN 14 mg/dL (7-18); Bilirubin, Total 0.4 mg/dL (0.2-1.0); CO2 25.3 mmol/L (21.0-32.0); CREATININE 0.76 mg/dL (0.55-1.02); Calcium 8.1 mg/dL (8.5-10.1); Chloride 103 mmol/L (98-107); Glucose 119 mg/dL (74-106); Potassium 4.2 mmol/L (3.5-5.1); Sodium 138 mmol/L (136-145); TSH 0.84 uIU/mL (0.36-3.74)
[2020-02-24 09:57] LABS: Anisocytosis 1+; Diff Comment RBC Morph Reviewed
[2020-02-24 09:58] LABS: Macrocytosis 3+; Polychromasia Present
[2020-02-24 09:59] LABS: Poikilocytes 1+
== END 2020-03-01 23:59 | disposition home or self-care (01) ==
LOC: INF 02:24
PROVIDERS: PCP Nurse Practitioner; Visit Provider Internal Medicine Hematology & Oncology
DX: E03.2 Hypothyroidism due to medicaments and other exogenous substances (principal); C34.2 Malignant neoplasm of middle lobe, bronchus or lung; Z45.2 Encounter for adjustment and management of vascular access device
CPT/HCPCS: 36591; 80053; 84439; 84443; 85025

== ENCOUNTER 2020-03-19 18:59 | Inpatient (IN) | payer MEDICARE, SELFPAY ==
[2020-03-19] VITALS (32 sets, daily range): BP systolic 126–150; BP diastolic 74–99; PULSE 52–67; RESP 30; TEMP 36.4; O2SAT 93–100
--- NOTE | 2020-03-19 19:30 | ED.GENADUL_ITS ---
Discharge Plan Discharge Details Chief Complaint: GenMedical Admit Date/Time: 03/19/20 23:32 Admit Provider: Babatunde Menchaca Attending Provider: Babatunde Menchaca Primary Care Provider: Clara Shipman ED Provider: Whitney Mcqueen Discharge Data Discharge Date/Time-TO BE ENTERED AT DEPARTURE: 03/20/20 01:20 Medical Decision Making 70-year-old female presents to the ED via EMS for right hip pain. Patient does have a history of stage 4 lung cancer with bone metastases with a history of tumor to the right hip area. She is undergoing chemotherapy at this time last dose was on . She reports that yesterday she began to have increased severe right hip pain, she stated that she thought that her hip was going to give out and it was painful to walk on. She reports that today she is unable to ambulate due to pain onto the hip. She did go to physical therapy on Friday and reports that she was sore at that time. She denies any falls or any other concerns to me. She does have a baseline of peripheral neuropathy to her bilateral lower extremities, she does state that this is somewhat worsened since the hip pain began yesterday and has increased to her right thigh. She is a palliative care patient and sees Dr. Rhona boucher, she is currently undergoing imm unotherapy. Exam: CT Abdomen And Pelvis With Contrast Exam date and time: 03/19/2020 9:01 PM Age: 70 years old Clinical indication: Pain and condition or disease; Cancer; Other: Lung, bone mets; Abdominal pain; Generalized; Primary cancer: Lung, metastases to bone; Prior surgery; Surgery date: 6+ months; Surgery type: Hysterectomy, appendectomy, tubal ligation; Patient HX: R hip pain, HX of lung CA with metastases to bone TECHNIQUE: COMPARISON: CT CHEST/ABD/PEL W 08/06/2019 1:47 PM FINDINGS: Lungs: A partially visualized nodule is seen along the right heart border, image 1. Liver: Stable subcentimeter hypodensity in the left hepatic lobe, image 13. There is fatty infiltration of the liver. Gallbladder and bile ducts: Cholelithiasis. The gallbladder is mildly distended. Pancreas: Unremarkable. Spleen: Unremarkable. Adrenals: Unremarkable. Kidneys and ureters: No hydronephrosis. There are multiple renal cysts. Stomach and bowel: No bowel obstruction. There is a moderate amount of stool w ithin the colon. Appendix: The appendix is not seen. Intraperitoneal space: No free air. No significant fluid collection. Vasculature: No aortic aneurysm. No aortic dissection. There are atherosclerotic calcifications of the aorta. Prominent left gonadal vein is similar to prior. Lymph nodes: No pathologically enlarged lymph nodes. Urinary bladder: The bladder is mildly distended. Reproductive: Prior hysterectomy. Bones/joints: There is increased sclerosis of the previously seen lesions in the ribs, spine and pelvis . There is a 2.5 cm blastic lesion in the right femoral head and neck, previou sly 2.1 cm. A linear lucency is seen along the inferior surface of the femoral neck (coronal image 48). This may represent a nondisplaced fracture. Soft tissues: Stable fat containing ventral hernia. IMPRESSION: 1. Multifocal osseous metastatic disease. Mild increase in size of a blastic lesion in the proximal right femur. Possible nondisplaced fracture of the right femoral neck. 2. Right lung nodule, partially visualized. 3. Cholelithiasis. 4. No other acute abnormality identified. 5. Additional incidental/non-emergent findings, as above. Thank you for allowing us to participate in the care of your patient. Dictated and Authenticated by: Luis Antonio Peck MD Discussed CT results with patient and family who verbalized understanding. elementary reading specialist health and wellness sales consultant Dr. Menchaca paged regarding possible pathologic hip fracture of right femoral neck. Discussed possible admission versus discharge at this time. Patient does have a walker at home, they do have about 5 steps to get up to their home which the states that he can get her up into the house. She does see Dr. Lynn with [facility] in [place]. Since patient stay in the ED she was able to transfer to bedside commode with assistance. 2236: Spoke with Dr. Menchaca orthopedic surgeon on-call regarding CT results, he states that he would like to speak with patient's oncologist tomorrow and discuss plan of care and options, he could schedule her for surgery as soon as Friday. I will discuss options of discharge home versus admission to the hospital with patient and . 2245: Discussed this with patient and family patient is requesting to be admitted due to fear of falling or reinjuring or injuring her hip more. Due to patient's complex medical history of metastatic bone cancer will page hospitalist for admission acceptance. At this time Dr. Menchaca orthopedic recommends admission for pain control, coordination of care with oncology and Ortho and possibly surgery. Hospitalist paged. 2315: Hospitalist Dr. White at this time does not feel there is any medical reason to admit patient in the hospital and is requesting this patient be admitted under the service of orthopedics. Relayed this information to Dr. Menchaca who is not in agreement. This patient does have comorbidities and is over the age of 65, she does require oncology consult, pain control and possible surgical intervention. 2330: I advised Dr. Krishnamurthy to speak with Dr. Menchaca directly or to come evaluate patient in person. He reports that he is not in the house at this time . I was informed that Dr. Menchaca will take as accepting physician. Preliminary admission orders in place. 0045: Patient transferred to floor by staff air tactical officer via stretcher. HPI General Mode of arrival: EMS . Date/Time Provider Initiated Documentation: 03/19/20 19:05 . Limitations to Documentation: no limitations . Information obtained by: patient . HPI Narrative: 70-year-old female presents to the ED via EMS for right hip pain. Patient does have a history of stage 4 lung cancer with bone metastases with a history of tumor to the right hip area. She is undergoing chemotherapy at this time last dose was on . She reports that yesterday she began to have increased severe right hip pain, she stated that she thought that her hip was going to give out and it was painful to walk on. She reports that today she is unable to ambulate due to pain onto the hip. She did go to physical therapy on Friday and reports that she was sore at that time. She denies any falls or any other concerns to me. She does have a baseline of peripheral neuropathy to her bilateral lower extremities, she does state that this is somewhat worsened since the hip pain began yesterday and has increased to her right thigh. She is a palliative care patient and sees Dr. Rhona boucher, she is currently undergoing immunotherapy. Related Data Home Medications Medication Instructions Recorded Confirmed docusate sodium [Colace] 500 mg PO DAILY PRN 05/17/16 03/19/20 Probiotic 1 cap PO DAILY 05/10/17 03/19/20 ascorbate calcium (vitamin C) 250 mg PO DAILY 05/10/17 03/19/20 cholecalciferol (vitamin D3) 2,000 unit PO DAILY 05/10/17 03/19/20 [Vitamin D3] cranberry 500 mg PO BID 05/10/17 03/19/20 magnesium oxide 500 mg PO BID 05/10/17 03/19/20 Cannabis PO HS 11/11/17 03/14/20 Tumeric 11/11/17 03/14/20 lamotrigine 50 mg PO BID 11/11/17 03/19/20 levetiracetam [Roweepra] 500 mg PO BID 11/11/17 03/19/20 multivitamin [Daily Multi-Vitamin] 1 ea PO DAILY 11/11/17 03/19/20 lidocaine [Lidoderm] 1 patch TOPICAL Q24H #4 patch 08/06/19 03/14/20 dexamethasone 4 mg tablet 4 mg PO DAILY 03/14/20 03/19/20 acetaminophen 500 mg PO Q6H PRN 03/19/20 03/19/20 esomeprazole magnesium [Nexium] 20 mg PO DAILY 03/19/20 03/19/20 gabapentin 100 mg PO HS 03/19/20 03/19/20 meclizine 25 mg PO DAILY 03/19/20 03/19/20 Previous Rx's Medication Instructions Recorded lidocaine [Lidoderm] 1 patch TOPICAL Q24H #4 patch 08/06/19 Allergies Allergy/AdvReac Type Severity Reaction Status Date / Time codeine [Codeine] AdvReac Intermediate Nausea Verified 03/14/20 13:01 fentanyl AdvReac Intermediate [place]/Vomi Verified 03/14/20 13:01 ting oxycodone AdvReac Intermediate Nausea Unverified 03/19/20 19:06 tramadol AdvReac Intermediate delerium Verified 03/14/20 13:01 General Stated Complaint: GenMedical VIVEK: 3 Review of Systems Narrative: Constitutional: Negative for weight loss, alert and oriented, well groomed, normal body habitus, appears comfortable. History of lung metastasized cancer to bones. HEENT: Denies trauma, headaches, blurry vision, nasal discharge, sore throat, trouble swallowing. Chest: Denies chest pain, palpitations, irregular rhythm, hypertension. Respiratory: Denies Shortness of breath, cough, hemoptysis. GI: Denies abdominal pain, nausea, vomiting, diarrhea, constipation. : Denies dysuria, hematuria, flank pain, rectal bleeding. Musculoskeletal: Right hip pain inability to ambulate. Neuro: Denies dizziness, blurry vision, weakness, syncope, headache or facial numbness. Hematologic: Denies easy bruising, intolerance to heat or cold, hair loss. [facility] Medical History (Updated 03/21/20 @ 21:11 by Rhona Boucher MD) Anxiety associated with cancer 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, ribs, pelvis Cancer related pain Colitis Dizziness DNI (do not intubate) DNR (do not resuscitate) Essential hypertension Ex-smoker Goals of care, counseling/discussion History of lung cancer History of ovarian cancer History of pulmonary embolism History of radiation therapy Hyperlipidemia Immunotherapy Infectious gastroenteritis and colitis Lung cancer Medical marijuana use helps with her appetitei Neuropathy due to chemotherapeutic drug Odynophagia Palliative care patient Physical deconditioning POLST (Physician Orders for Life-Sustaining Treatment) DNR/DNI 03/21/20 Seizure disorder Seizures Stage 4 lung cancer 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 Mother , from COPD End stage COPD Other Diabetes Heart disease Social History Smoking/Tobacco Use Status: Former Tobacco Use Tobacco: How many years used: 40 Alcohol Intake: current Alcohol Intake frequency: holidays/special occasions only Drug use: Daily Substance use type: marijuana Details: daily medical marijuana Caregiver/Support person: Yes Household members: spouse Housing: house Number of Children: 2 number of grandchildren: 4 Communication Needs: Corrective Lenses Education Level: high school Do you need help understanding health information?: Rarely current occupation: retired Pets and animals: Yes What is your relationship status?: How often do you talk on the phone with friends or family?: three or more times per week How often do you get together with friends or relatives?: three or more times per week Panel score (0-1 are the most socially isolated patients): 2 What type of physical activity do you participate in: walking Duration: < 15 minutes/day Frequency: 3-4 times per week Agree to transfusion: Yes Seatbelt use: always Working smoke detector in home: Yes Fire extinguisher in home: Yes Do you feel safe at home: Yes Do you feel safe in your relationship?: Yes Additional Social history: Very close and loving relationship with spouse. Bhavani still reeling about her cancer recurrence. Thought her remission would last years. Now back on chemo and new to immunotherapy. Anxious. Wants her cancer to go away. Discussed cancer as a chronic disease. To be managed rather than cured. Exam Narrative Exam Narrative: Constitutional: Alert and oriented x3. Appears stated age. Normal body habitus. Head: Normocephalic, no trauma. Eyes: Pupils PERRLA, Red reflex noted, EOM's intact. Eyelids symmetrical without lesions, discharge, or swelling. ENT: Bilateral TM's WNL, External ear normal to inspection, no mastoid TTP, swelling, or erythema, Nasal turbinates WNL, no nasal discharge. Normal dentition, Posterior pharynx WNL, no exudate. Chest: RRR, Normal S1, S2, distal pulses intact. Port-A-Cath noted to right anterior chest. Resp: Lungs clear to auscultation bilaterally, no wheezes, rales, or rhonchi. Musculoskeletal: Unable to assess gait at this time. Complaining of right hip pain. Anterior lateral tenderness with palpation. No obvious instability or deformity. Skin: No suspicious rashes or lesions. Capillary refill less than 2 sec. Neurologic: Cranial nerves II-XII intact. Alert and oriented x 3. DTR's intact. Hematologic/Lymphatic: No ecchymosis, no lymphadenopathy. Course Vital Signs Vital signs: Vital Signs Temperature 36.4 C L 03/19/20 18:58 Pulse 66 03/19/20 18:58 Respiratory Rate 30 H 03/19/20 18:58 Blood Pressure 130/77 03/19/20 18:58 Pulse Oximetry 100 03/19/20 18:58 Temperature 36.4 C L 03/19/20 18:58 Temperature Source Skin 03/19/20 18:58 Pulse 66 03/19/20 18:58 Respiratory Rate 30 H 03/19/20 18:58 Respiratory Effort 03/19/20 19:04 Blood Pressure 130/77 03/19/20 18:58 Blood Pressure Position Sitting 03/19/20 18:58 Pulse Oximetry 100 03/19/20 18:58 Oxygen Delivery Method Room Air 03/19/20 18:58 Oxygen Flow Rate 0 03/19/20 18:58 Pain Level 8 03/19/20 18:58
[2020-03-19] MEDS: HYDROmorphone 2 MG/ML VIAL 0.5 MG IVP (19:55)
[2020-03-19] MEDS: Normal Saline Flush 10 ML SYR IVP ×2 (19:55→21:23)
[2020-03-19 19:57] LABS: Abs Immature Grans 0.05 10^3/uL (0.0-0.06); Absolute Lymphocyte Count 0.49 10^3/uL (1.2-3.4); Absolute Monocyte Count 0.23 10^3/uL (0.1-0.8); Absolute Neutrophil Count 4.39 10^3/uL (1.2-6.7); HCT 34.6 % (36.0-46.0); HGB 11.2 g/dL (11.2-15.7); Lymphocytes % 9.5; MCH 34.9 pg (27.0-33.0); MCHC 32.4 % (32.0-36.0); MCV 107.8 fL (80-95); MPV 10.7 fL (8.0-11.0); Monocytes % 4.5; Nucleated RBC 1 %; Platelet Count 183 10^3/uL (130-400); RBC 3.21 10^6/uL (3.93-5.22); RDW 15.9 % (11.7-14.6); WBC 5.16 10^3/uL (4.4-10.8)
[2020-03-19 20:13] LABS: ALT 20 U/L (14-59); AST 13 U/L (15-37); Albumin 3.3 g/dL (3.4-5.0); Alkaline Phosphatase 40 U/L (46-116); Anion Gap 9.8 mmol/L (3-11); BUN 13 mg/dL (7-18); Bilirubin, Total 0.6 mg/dL (0.2-1.0); CO2 25.2 mmol/L (21.0-32.0); CREATININE 0.76 mg/dL (0.55-1.02); Calcium 8.8 mg/dL (8.5-10.1); Chloride 105 mmol/L (98-107); Glucose 122 mg/dL (74-106); Potassium 3.7 mmol/L (3.5-5.1); Sodium 140 mmol/L (136-145); Total Protein 5.9 g/dL (6.4-8.2)
[2020-03-19] MEDS: Ondansetron 4 MG/2 ML VIAL (20:53)
--- NOTE | 2020-03-19 21:15 | DI.CT_ITS ---
EXAM: CT ABDOMEN PELVIS W CLINICAL HISTORY: Hx of CA, Right hip pain. TECHNIQUE: Imaging Protocol: Axial computed tomography images with coronal and sagittal reformatted images were created and reviewed CONTRAST MATERIAL: Intravenous: Omnipaque 350 Contrast volume:84 cc Oral: no COMPARISON: CT CT CHEST/ABD/PEL W from 08/06/2019 CR,XR XR FEMUR RT from 03/19/2020 FINDINGS: ABDOMEN: Lung Bases: Partially visualized nodule near the right heart border. Resolution of previously noted right pleural effusion. Liver: Normal density. Stable tiny hypodensity in the superior left lobe. Gallbladder and biliary tract: Cholelithiasis. No gallbladder wall thickening or biliary dilatation. Pancreas: Normal density, no abnormal calcifications or inflammatory process. Spleen: Normal. Kidneys: Normal size, contour and axis. No radiodense stones or obstructive uropathy. Multiple cysts. Adrenal glands: No masses seen. Abdominal Aorta: Abdominal portion non-dilated. Stable fat containing ventral hernia. PELVIS: Bladder: Symmetric distention, no gross wall thickening. Bowel: No obstruction or bowel wall thickening. Peritoneal cavity: No ascites, collection or mesenteric inflammatory response. Bones: Increasing sclerosis in previously noted lesions in the lower ribs, spine and pelvis. Increas ed size of the lesion in the right femoral neck. Question of a nondisplaced fracture adjacent to the lesion. Reproductive organs: Status post hysterectomy. Lymph nodes: Unremarkable. Impression: Question a nondisplaced fracture adjacent to the previously noted sclerotic lesion in the right femor al neck. Interval increase in size of sclerotic bony lesions. RADIATION DOSE DELIVERED: 807.26mGy.cm Total DLP DATA REPOSITORY: All CT scans at this facility are submitted to the National Radiology Data Registry (NRDR) Dose Index Registry (DIR) with the [employer] ([employer]). RADIATION OPTIMIZATION: All CT scans at this facility use at least one of these dose optimization te chniques: automated exposure control; mA and/or kV adjustment per patient size (includes targeted exa ms where dose is matched to clinical indication); or iterative reconstruction.
[2020-03-19] MEDS: Omnipaque 350 MG/ML 100 ML BTL IJ (21:21)
[2020-03-19] MEDS: Normal Saline - Diluent 50 ML VIAL IV (21:23)
[2020-03-19 21:30] LABS: Bilirubin Negative (Negative); Blood Negative (Negative); Clarity Clear (Clear); Glucose Negative (Negative); Ketones Negative (Negative); Leukocyte Esterase Trace (Negative); Nitrite Negative (Negative); Specific Gravity <= 1.005 (1.005-1.025); Urobilinogen 0.2 EU/dL (Up TO 0.2)
[2020-03-19 21:43] LABS: Bacteria Rare HPF (Negative); C & S Indicated? Yes; Crystals Few Amorphous HPF (Negative); Epithelial Cells Negative HPF (Negative); Mucus Negative (Negative); Other Cells Rare Transitional (Negative); RBC Negative HPF (0-2)
[2020-03-19] MEDS: Ondansetron 4 MG/2 ML VIAL IVP (21:50)
--- NOTE | 2020-03-19 21:50 | DI.VRAD_ITS ---
PROCEDURE INFORMATION: Exam: CT Abdomen And Pelvis With Contrast Exam date and time: 03/19/2020 9:01 PM Age: 70 years old Clinical indication: Pain and condition or disease; Cancer; Other: Lung, bone mets; Abdominal pain; Generalized; Primary cancer: Lung, metastases to bone; Prior surgery; Surgery date: 6+ months; Surgery type: Hysterectomy, appendectomy, tubal ligation; Patient HX: R hip pain, HX of lung CA with metastases to bone TECHNIQUE: Imaging protocol: Computed tomography of the abdomen and pelvis with intravenous contrast. Radiation optimization: All CT scans at this facility use at least one of these dose optimization techniques: automated exposure control; mA and/or kV adjustment per patient size (includes targeted exams where dose is matched to clinical indication); or iterative reconstruction. Contrast material: OMNIPAQUE 350; Contrast volume: 84 ml; Contrast route: INTRAVENOUS (IV); COMPARISON: CT CHEST/ABD/PEL W 08/06/2019 1:47 PM FINDINGS: Lungs: A partially visualized nodule is seen along the right heart border, image 1. Liver: Stable subcentimeter hypodensity in the left hepatic lobe, image 13. There is fatty infiltration of the liver. Gallbladder and bile ducts: Cholelithiasis. The gallbladder is mildly distended. Pancreas: Unremarkable. Spleen: Unremarkable. Adrenals: Unremarkable. Kidneys and ureters: No hydronephrosis. There are multiple renal cysts. Stomach and bowel: No bowel obstruction. There is a moderate amount of stool within the colon. Appendix: The appendix is not seen. Intraperitoneal space: No free air. No significant fluid collection. Vasculature: No aortic aneurysm. No aortic dissection. There are atherosclerotic calcifications of the aorta. Prominent left gonadal vein is similar to prior. Lymph nodes: No pathologically enlarged lymph nodes. Urinary bladder: The bladder is mildly distended. Reproductive: Prior hysterectomy. Bones/joints: There is increased sclerosis of the previously seen lesions in the ribs, spine and pelvis . There is a 2.5 cm blastic lesion in the right femoral head and neck, previously 2.1 cm. A linear lucency is seen along the inferior surface of the femoral neck (coronal image 48). This may represent a nondisplaced fracture. Soft tissues: Stable fat containing ventral hernia. IMPRESSION: 1. Multifocal osseous metastatic disease. Mild increase in size of a blastic lesion in the proximal right femur. Possible nondisplaced fracture of the right femoral neck. 2. Right lung nodule, partially visualized. 3. Cholelithiasis. 4. No other acute abnormality identified. 5. Additional incidental/non-emergent findings, as above. Dictated and Authenticated by: Luis Antonio Peck MD. Ordering:LUC Olson MD
--- NOTE | 2020-03-19 22:30 | DI.RAD_ITS ---
EXAM: XR FEMUR RT CLINICAL HISTORY: fall, R/O fracture. TECHNIQUE: 2D digital imaging was performed. COMPARISON: CT CT ABDOMEN PELVIS W from 03/19/2020 FINDINGS: BONES: No acute fracture is present. There is a sclerotic area in the femoral neck region. There is a lytic lesion in the mid right femur. There are mild degenerative changes of the hip and knee. There is contrast in the bladder region related to recent CT. IMPRESSION: Bony metastases in the femoral neck and mid femoral shaft. No evidence of fracture. DATA REPOSITORY: RADIATION DOSE DELIVERED:
--- NOTE | 2020-03-19 23:27 | DI.VRAD_ITS ---
PROCEDURE INFORMATION: Exam: XR Right Femur Exam date and time: 03/19/2020 10:58 PM Age: 70 years old Clinical indication: Injury or trauma; Blunt trauma; Thigh or upper leg; Right; Injury date: 03/19/20; Injury details: Fall, pain, R/O FX, cancer PT. TECHNIQUE: Imaging protocol: XR Right femur. Views: 2 views. COMPARISON: No relevant prior studies available. FINDINGS: Bones/joints: There is generalized osteopenia. Sclerotic lesion is seen in the right femoral neck. There is a lytic lesion in the mid right femur with mild adjacent periosteal reaction. There is no displaced fracture or dislocation. The previously described possible nondisplaced femoral neck fracture is not visualized. Soft tissues: Unremarkable. Organs: There is contrast within the bladder. IMPRESSION: 1. Osseous metastatic disease. 2. No radiographic evidence of fracture. Dictated and Authenticated by: Luis Antonio Peck MD. Ordering:LUC Olson MD
[2020-03-19] MEDS: Ketorolac 15 MG/ML VIAL IVP (23:42)
[2020-03-20] VITALS (10 sets, daily range): BP systolic 105–156; BP diastolic 62–82; PULSE 51–73; RESP 16–20; TEMP 35.6–36.8; O2SAT 97–99
--- NOTE | 2020-03-20 | DI.RAD_ITS ---
EXAM: XR HIP RT 1V CLINICAL HISTORY: SIngle AP for surgical planning. TECHNIQUE: 2D digital imaging was performed. COMPARISON: CR,XR XR FEMUR RT from 03/19/2020 FINDINGS: Sclerosis is again noted in the femoral neck region. No fracture is visible which was question on CT . A lytic lesion is again noted in the cortex of the mid femoral shaft. DATA REPOSITORY: RADIATION DOSE DELIVERED:
[2020-03-20] MEDS: Normal Saline Flush 10 ML SYR IVP ×4 (01:10→20:21)
[2020-03-20] MEDS: HYDROmorphone 2 MG/ML VIAL 0.5 MG IVP ×2 (01:11→20:20)
--- NOTE | 2020-03-20 07:15 | OCONE_ITS ---
Date of service: 03/20/20 Time of Service: 07:15 History of Present Illness History of Present Illness Chief Complaint: Right Hip Pain, Difficulty Ambulating Narrative: Latha is a 70-year-old who has known stage IV lung adenocarcinoma. She has been making some progress in the last few months with a new treatment of atezolizumab and Abraxane. She has been developing some increasing neuropathy as a side effect in her dosing has been changed but otherwise was seemingly to do well. Her most recent PET scan done 1 year ago showed some improvements. She has started back with physical therapy as she is try to be more mobile. At one point she was limited to minimal ambulation and wheelchair transfers. However, she has made some improvements. She had a infusion on which went well. She then went to physical therapy on Friday where she noted to be more sore than she had been. However, on Friday she had increasing right hip pain with any weightbearing. On Friday, she was unable to bear weight on the right side and thus presented to the emergency department. She denies any specific trauma or falls. She has had a known lesion of her right femoral neck in addition to her cervical and thoracic spine as well as ribs. It seems like previous studies have identified a midshaft femur lesion as well although she w as not aware of this. She had received some radiation treatment with these were first diagnosed in August 2019. Since that time she has had some persistent right hip pain but is always been manageable and actually has improved with the most recent treatment that she has been going under. When she thinks about it, she feels that she has actually had some gradual pain about the right hip, groin, and thigh for the last 2 weeks slowly building until Friday through the weekend. She is a palliative care patient and meets regularly with Dr. Boucher in addition to her oncologist, Dr. Zaragoza, and Dali Sim. Consult Reason Pathologic fracture of right femoral neck with lytic femoral shaft lesion Assessment and Plan Assessment and plan (1) Pathologic fracture of neck of right femur: Status: Acute Qualifiers: Encounter type: initial encounter Qualified Code(s): M84.451A - Pathological fracture, right femur, initial encounter for fracture (2) Lytic bone lesion of right femur: Status: Acute Assessment and plan: Latha is a 70-year-old who has known stage IV lung adenocarcinoma. She has has a progressive right hip pain which has gotten to the point where she is unable to bear weight. Her CT scan of the right hip does show that she has an incomplete fracture through this blastic lesion of the femoral neck which have been previously irradiated. This is not a complete fracture but will fail with continued weightbearing. Therefore, she should be toe-touch weightbearing. She should use an assistive device. She is unable to manage these weightbearing restrictions on her own at home and due to pain was admitted for observation and surgical planning. I did discuss her case with her oncologist, Dr. Zaragoza, who thinks that she is as ready for surgery as possible. I also reviewed the PET scan which did show some decreased activity of the lesions throughout her body including that of the right femur. The lytic lesion of the right femoral shaft was present though in previous imaging although Latha is not aware of that lesion. This likely happened simply due to osteopenia and the lesion being in this area with radiation. The bone is likely more brittle and this represents a stress type fracture of the femoral neck. Nevertheless, it will fail with continued weightbearing which would require more urgent fixation with a complete hip fracture. The recommended fixation of this would be a cemented hemiarthroplasty, removing the femoral head with this lesion. However, the lytic lesion in the shaft of the femur presents a complication. The standard stem lengths would end just proximal to this lesion. She does have pain at the level of this lesion and based on Chele's criteria this would score at least an 8 which would indicate consideration of prophylactic fixation. Therefore, I think the best plan would be a long cemented stem hemiarthroplasty. Unfortunately, long stems do carry a slightly higher risk of intraoperative complications related to cementing the majority of the femur. I will reach out to [facility] to get opinions from the orthopedic oncology team. However, in order to allow Latha to return to weightbearing this needs to be done. We do have some time to make sure all of our options are examined and we move forward safely with surgery. I will consult palliative care as well as hospitalist team. We will consult physical therapy to go ahead and start with mobilization with toe-touch weightbearing of the right side. I will have to order in the long cemented stems. I reviewed the surgery in detail with Latha. I discussed the risk of the procedure to include bleeding, infection, pain, stiffness, dislocation or instability, fracture, need for repe at procedures, complications related to cementing including rash, cardiopulmonary demise, stroke, as well as blood clot and worsening of femoral lesions. I think is also reasonable to consider radiation treatment to the femoral shaft lesion since it has not been radiated in the past. Cementing this hemiarthroplasty would allow immediate weightbearing and radiation treatment. Latha does want to get back to walking and once her pain improved from the right hip. She asked appropriate questions and they were answered. After I discussed this case in more detail with her team at [facility] as well as orthopedic oncologist, I will further discuss this case but currently plan on proceeding to surgery on . This will allow enough time to obtain appropriate equipment. In the interim, we will work on pain control as this is challenging given her multiple medication sensitivities. Review of Systems All systems reviewed & are unremarkable except as noted in HPI and below PFSH Medical History Anxiety associated with cancer 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, ribs, pelvis Cancer related pain Colitis Dizziness Essential hypertension Ex-smoker History of lung cancer History of ovarian cancer History of pulmonary embolism History of radiation therapy Hyperlipidemia Immunotherapy Infectious gastroenteritis and colitis Lung cancer Medical marijuana use helps with her appetitei Neuropathy due to chemotherapeutic drug Odynophagia Palliative care patient Physical deconditioning Seizure disorder Seizures Stage 4 lung cancer 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 Mother , from COPD End stage COPD Other Diabetes Heart disease Social History Smoking/Tobacco Use Status: Former Tobacco Use Tobacco: How many years used: 40 Alcohol Intake: current Alcohol Intake frequency: holidays/special occasions only Drug use: Daily Substance use type: marijuana Details: daily medical marijuana Caregiver/Support person: Yes Household members: spouse Housing: house Number of Children: 2 number of grandchildren: 4 Communication Needs: Corrective Lenses Education Level: high school Do you need help understanding health information?: Rarely current occupation: retired Pets and animals: Yes What is your relationship status?: How often do you talk on the phone with friends or family?: three or more times per week How often do you get together with friends or relatives?: three or more times per week Panel score (0-1 are the most socially isolated patients): 2 What type of physical activity do you participate in: walking Duration: < 15 minutes/day Frequency: 3-4 times per week Agree to transfusion: Yes Seatbelt use: always Working smoke detector in home: Yes Fire extinguisher in home: Yes Do you feel safe at home: Yes Do you feel safe in your relationship?: Yes Additional Social history: Very close and loving relationship with spouse. Bhavani still reeling about her cancer recurrence. Thought her remission would last years. Now back on chemo and new to immunotherapy. Anxious. Wants her cancer to go away. Discussed cancer as a chronic disease. To be managed rather than cured. Exam Narrative Exam Narrative: Resting in the supine position up in the hospital bed. No acute distress. Alert on x3. Evaluation of the right lower extremity shows no overlying skin masses or lesions. No excoriations. The leg is normal appearance and positioning in the bed itself. She does tolerate some motion of the hip without significant pain. When I get her past 80 degrees of flexion she does report some pain in the posterior lateral aspect of hip as well as some in the groin. She also compl ains of pain with anterior aspect the thigh. However, this motion does not create the pain that she experienced when she weightbears, she reports. Attentive straight leg raise against resistance causes pain within the groin and the buttock. She has no pain to palpation around the knee. She has very mild pain distally in the thigh however, the midshaft, she does have pain with deep palpation. She is able to actively flex and abduct the hip although with some mild pain. She has intact ankle dorsiflexion, plantarflexion, great toe extension and great toe flexion. Sensation is diminished in the foot but still intact to light touch over the deep and superficial peroneal nerve and tibial ne rve. Intact PT and DP pulses. Results Last Vital Signs Temp 36.5 C 03/20/20 05:39 Pulse 61 03/20/20 05:39 Resp 16 03/20/20 05:39 BP 130/69 03/20/20 05:39 Pulse Ox 98 03/20/20 05:39 Labs Result diagrams: 03/19/20 19:43 03/19/20 19:43 Labs: Laboratory Results - last 24 hr 03/19/20 03/19/20 03/19/20 19:43 19:43 21:18 WBC 5.16 RBC 3.21 L Hgb 11.2 Hct 34.6 L MCV 107.8 H MCH 34.9 H MCHC 32.4 RDW 15.9 H Plt Count 183 MPV 10.7 Immature Gran % 1.0 Neutrophils % 85.0 Lymphocytes % 9.5 Monocytes % 4.5 Eosinophils % 0.0 Basophils % 0.0 Nucleated RBC % 1 Absolute Neutrophils 4.39 Absolute Lymphocytes 0.49 L Absolute Monocytes 0.23 Absolute Eosinophils 0.00 Absolute Basophils 0.00 Sodium 140 Potassium 3.7 Chloride 105 Carbon Dioxide 25.2 Anion Gap 9.8 BUN 13 Creatinine 0.76 Estimated GFR/1.73 m2 >= 60.00 Glucose 122 H Calcium 8.8 Total Bilirubin 0.6 AST 13 L ALT 20 Alkaline Phosphatase 40 L Total Protein 5.9 L Albumin 3.3 L Urine Color Yellow Urine Clarity Clear Urine pH 6.0 Ur Specific [place] <= 1.005 Urine Protein Negative Urine Ketones Negative Urine Blood Negative Urine Nitrite Negative Urine Bilirubin Negative Urine Urobilinogen 0.2 Ur Leukocyte Esterase Trace H Urine RBC Negative Urine WBC 5-10 Ur Epithelial Cells Negative Urine Crystals Few amorphous Urine Bacteria Rare Urine Mucus Negative Urine Other Rare transitional Ur Culture Indicated? Yes Urine Glucose Negative Imaging Imaging Studies: Imaging was reviewed both here from [facility] as well as [facility]. X-ray of the right femur shows a lytic lesion in the midportion of the right femoral shaft. There is also previously seen mixed blastic lesion seen at the head neck junction over the inferior femoral neck cortex. This seems largely unchanged from previous CT scans. The midshaft lesion is lytic in nature involving just over one third of the cortical width but without fracture. CT scan of the right femur and hip show a breach of the inferior cortex of the femoral neck extending into the distal aspect of the femoral neck lesion. This crack is seen both on the axial cuts as well as the coronal cuts and at this point is incomplete.
[2020-03-20] MEDS: Dexamethasone 4 MG TAB PO (08:24)
[2020-03-20] MEDS: levETIRAcetam 500 MG TAB PO ×2 (08:24→20:22)
[2020-03-20] MEDS: Magnesium Oxide 400 MG TAB PO ×2 (08:24→20:22)
[2020-03-20] MEDS: Esomeprazole 20 MG CAPCR PO (08:24)
[2020-03-20] MEDS: Lactobacillus Acidophilus CAP 1 CAP PO (08:24)
[2020-03-20] MEDS: Multivitamin TAB 1 TAB PO (08:24)
[2020-03-20] MEDS: Cholecalciferol (Vitamin D3) 1,000 UNIT TAB 2000 UNITS PO (08:24)
[2020-03-20] MEDS: Ascorbic Acid 500 MG TAB PO (08:24)
[2020-03-20] MEDS: lamoTRIgine 25 MG TAB 50 MG PO ×2 (08:25→20:21)
[2020-03-20] MEDS: Ketorolac 15 MG/ML VIAL IVP ×2 (08:36→20:20)
--- NOTE | 2020-03-20 08:52 | IN_ITS ---
Date of service: 03/20/20 Time of Service: 08:52 PT Notes Visit Reasons: RIGHT HIP FRACTURE Physical Therapy Inpatient Initial Evaluation Date: 03/20/2020 Referring Doctor: Babatunde Menchaca MD PT Orders: PT CONSULT: Right Pathologic Hip Fracture, TTWB R LE Precautions: Fall. Standard. TTWB R LE. Patient Profile/Admitting Diagnosis: Latha is a 70-year-old female with known stage 4 lung adenocarcinoma with bony metastases to the right hip area who presented to the ED on 03/19/2020 with complaints of inability to walk due to pain and sensation of giving out in the right hip. Patient is diagnosed with pathologic fracture of the right femoral neck with lytic bone lesion of R femur. 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 He states that they have a rampt as well. Melvin takes care of meals and all house chores. Bhavani is CGA with single point cane for indoor and outdoor ambulation. PACKING ROOM WORKER by for transfers and short distance ambulation. Supervision with bathing and set up with dressing with occasional hand held assist from who is always there with her every time she is out of bed. Prior PT services: Started OP PT services as referred by oncologist for core strengthening and balance retraining. Has had 4 PT sessions as of 03/06/2020. Equipment Owned/DME: FWW, SPC Subjective: Latha is agreeable to mobility assessment, education, and training on safe techniques while awaiting potential surgery. She states that she has 5- 6/10 pain in the R hip at rest and with movement. She denies headache, dizziness, and chest pain throughout session. She indicated that her last dose of chemotherapy at [facility] was last and that she was able to attend her 4th physical therapy session last Friday but was a little shaky right after. It was on Friday morning while she was walking that she felt significant pain in her R hip right after hearing something snap. Her MELVIN insisted that she went to the ED same day. Bhavani and are anxious about the decision over whether she is going to have surgery and where it will be done. They both stated that Dr. Menchaca is working on it and that they will be updated as soon as he has something. Objective: General Observation: Supine in bed. Antithromboembolic pumps to B legs. Mental Status: Alert and oriented x 4 Pain: 5?6/10 in the right hip with rest and with movement ROM: Right Upper Extremity: Shoulder Flexion WFL. Shoulder abduction WFL. Elbow flexion WFL. Wrist flexion WFL. Opening and closing of hand WFL. Left Upper Extremity: Shoulder Flexion WFL. Shoulder abduction WFL. Elbow flexion WFL. Wrist flexion WFL. Opening and closing of hand WFL. Right Lower Extremity: Hip flexion has 50% available range of motion limited by pain. Hip abduction has 50% available range of motion limited by pain. Knee flexion WFL. Ankle dorsiflexion WFL. Ankle plantarflexion WFL. Left Lower Extremity: Hip flexion WFL. Hip abduction WFL. Knee flexion WFL. Ankle dorsiflexion WFL. Ankle plantarflexion WFL. Strength: Right Upper Extremity: Shoulder flexors 4-/5. Shoulder abductors 4-/5. Elbow flexors 4-/5. Elbow extensors 4-/5. Protective Services Social Worker strong. Left Upper Extremity: Shoulder flexors 4-/5. Shoulder abductors 4-/5. Elbow flexors 4-/5. Elbow extensors 4-/5. Protective Services Social Worker strong. Right Lower Extremity: Hip flexors 3-/5. Hip abductors 3-/5. Knee flexors 3+/5. Knee extensors 3+/5. Ankle dorsiflexors 3/5. Ankle plantarflexors 4-/5. Left Lower Extremity: Hip flexors 3/5. Hip abductors 4-/5. Knee flexors 3+/5. Knee extensors 3+/5. Ankle dorsiflexors 3/5. Ankle plantarflexors 4-/5. Sensation: Since a month ago, complains of numbness in toes in B sides that spreads to fingers in B hands at night. Bed Mobility/Transfers: Rolling standby assist Supine to sit standby assist Sit to supine standby assist Sit to stand contact-guard assist Stand to sit standby assist Bed to chair contact-guard assist Chair to bed contact-guard assist Gait: Contact-guard assist for 3-5 steps from bedside to bedside commode and vice versa using front wheeled walker with minimal verbal cueing required for placement and toe touch weight bearing precaution for the R LE. No increase in left pain reported. Balance: Static Sitting: Normal Dynamic Sitting: Normal Static Standing: Fair Dynamic Standing: Fair Special Tests: Mobility Limitations Standardized Measure [facility] 6 clicks Basic Mobility Inpatient Short Form: Raw Score: 18 CMS Score: 47% deficit ASSESSMENT: Latha demonstrates generalized weakness in B UE/LE with LE<<UE, core weakness, balance impairment, decreased activity tolerance, and increased risk for falls due to pathologic fracture of the right femoral neck with lytic bone lesion of R femur impacting her ability to perform mobility ADLs safely and limit ability to return home. Will plan on educating and training patient with safe transfer technique and will re-evaluate for re-initiation of services once surgery is performed and another order for PT is requested. Latha presents with clinical signs and symptoms consistent with current/admitting diagnoses that have resulted to mobility limitations, gait instability, generalized weakness, and impairment of motor control as demonstrated by the following impairment level findings: 1. Decreased ROM on R LE due to pathologic fracture of R femoral neck and lytic lesion of the R femur 2. Decreased strength to B UE/LE major muscle groups 2. Impaired standing balance 3. TTWB precaution on the R LE per orthopod 4. Impaired activity tolerance 5. Decreased core strength Impairments are continuing to contribute to the following functional limitations: 1. Inability to safely ambulate without assistive device and physical assistance 2. Increase completion time for mobility ADL performance 3. Increased fall risk 4. Inability to negotiate steps alone safely 5. Dependent transfers Patient is assessed as a 08809 high complexity based on the following: History: 70-year-old female with impairment level findings, functional limitations, and past medical history as indicated above Examination: Demonstrable impairment in strength, balance, and mobility level wi th underlying impairments and functional limitations as documented above Presentation:Evolving Decision Makin high complexity Goals: N/A. PT eval and 1 treatment session only with patient and for safe transfers using front-wheeled walker bedside<>commode and bedside<>bedside chair. Plan of Care/Treatment Plan: N/A. Will plan to re-evaluate patient after surgery and when new referral for services are received. DISCHARGE RECOMMENDATIONS: No skilled services are needed at this time as patient has good awareness of WB precaution during all transfer techniques using the FWW. Patient to be assisted by one nursing staff for all bed<>bedside commode transfers and bed<>chair transfers with toe-touch weight bearing and contact guard assist. Up on the chair only for meals or for toileting tasks until surgery date. TREATMENT CODE/TIME: 96076 x 33 minutes beginning at 8:52 AM. Thank you for the opportunity to participate in the care of this patient. Carole Anna PT, DPT, CLT [facility] [place], [place]
--- NOTE | 2020-03-20 10:16 | INITIAL_ITS ---
- If Service Date Differs Date of service: 03/20/20 Time of Service: 10:16 Care Management Initial Assess REASON FOR HOSPITALIZATION:: Right Hip Fracture PAST MEDICAL HISTORY/PAST SURGICAL HISTORY:: Medical History. Anxiety associated with cancer diagnosis. Bone metastases. from lung ca. axial skeleton, ribs, pelvis. Cancer related pain. Colitis. Dizziness. Essential hypertension. Ex-smoker. History of lung cancer. History of ovarian cancer. History of pulmonary embolism. History of radiation therapy. Hyperlipidemia. Immunotherapy. Infectious gastroenteritis and colitis. Lung cancer. Medical marijuana use. helps with her appetitei. Neuropathy due to chemotherapeutic drug. Odynophagia. Palliative care patient. Physical deconditioning. Seizure disorder. Seizures. Stage 4 lung cancer. 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 Unintentional weight loss. Vertigo. Weight loss of more than 10% body weight. lost 27 lbs in last 6 months. holding steady now. Surgical History. Abdominal hysterectomy. Appendectomy. Arthroscopy, Shoulder. Colonoscopy - IV Sedation. Colonoscopy - MAC (07/26/16). Oophrectomy, Left. Reduction mammoplasty PREVIOUS FUNCTIONAL STATUS/SOCIAL/FAMILY SUPPORTS:: Latha lives with her , Melvin in [facility]. They have been for 37 years. Pt retired at age 60 from [employer]. The couple has three children, one of which lives locally. They also have 4 grandchildren who they adore. Pt is very independent, still drives and manages ADLs with her . CURRENT FUNCTIONAL STATUS:: Latha was sitting up in her chair when CM met with her. Her Melvin was in the room visiting. She reported that she was feeling ok, but she is not able to put any weight on her right leg at this time. She is working with PT to transfer while awaiting a determination regarding surgery. She reported that the surgeon will be discussing her [place] [facility] [place] will impact her plan of care. She is pleasant and engaged, and awaiting news from the MD. CM will continue to follow. ADVANCE DIRECTIVES:: None on file. CM will offer blank forms, if agreeable. Has patient been provided with info about the portal/API?: Yes Did the patient sign up for the portal?: No CODE STATUS:: Full Code INSURANCE COVERAGE / FINANCIAL ISSUES:: [facility] [place] CURRENT HOME/COMMUNITY SERVICES/EQUIPMENT:: FWW, Cane, crutches. No current services. PRIMARY CARE PHYSICIAN:: Clara Shipman POTENTIAL DISCHARGE NEEDS:: Evaluations for further needs, follow up appointments PATIENT/FAMILY EDUCATION NEEDS:: Review discharge instructions regarding activity levels and medications, discussion of self care needs including ask me three. ANTICIPATED BARRIERS TO DISCHARGE:: None identified at this time. TRANSPORTATION:: Via private vehicle by family. PLAN:: Latha is waiting to hear if she will have surgery at [facility] [place]. Anticipate Latha will return home when medically cleared, services to be determined by further evaluation. She will be driven home via private vehicle when ready. She will follow up with her PCP and discharge plan of care. CM will continue to follow.
[2020-03-20] MEDS: Acetaminophen 500 MG TAB PO ×2 (11:21→20:22)
[2020-03-20] MEDS: Docusate Sodium 100 MG CAP 500 MG PO (11:26)
[2020-03-20 13:06] LABS: COVID-19 RT-PCR UVMMC Result Negative (Negative)
--- NOTE | 2020-03-20 14:47 | CHAPLAIN ---
Latha was resting in bed when I visited. She opened her eyes when I knocked. I introduced myself and explained my role. Latha was looking like she wanted to sleep and I offered to return later. She said she hadn't slept much last night after being admitted. I will visit another time.
--- NOTE | 2020-03-20 15:27 | W.MEDCONSULT ---
Date of service: 03/20/20 Time of Service: 15:28 Assessment and Plan Assessment and plan (1) Pathologic fracture of neck of right femur: Status: Acute Assessment and plan: Per my discussion with Dr. Menchaca he intended to discuss her case with her oncologist Dr. Rodrigez but intends to perform surgery this . She apparently has not only a pathologic fracture of her femoral neck but also has a lytic lesion in the mid femur and therefore will need complicated repair to stabilize both areas. Presently her pain seems to be reasonably controlled with ketorolac and hydromorphone. Qualifiers: Encounter type: initial encounter Qualified Code(s): M84.451A - Pathological fracture, right femur, initial encounter for fracture (2) Neuropathy due to chemotherapeutic drug: Status: Acute Assessment and plan: Continue her gabapentin 100 mg nightly. (3) Stage 4 lung cancer: Status: Acute (4) Constipation: Status: Acute Assessment and plan: Patient's been started on Colace. I have added senna and will give her MiraLAX as well. If she is not having an adequate bowel movement then I will try magnesium citrate and also consider Relistor. (5) DVT prophylaxis: Status: Acute Assessment and plan: Patient is not currently on any DVT prophylaxis. I will start her on enoxaparin since her surgery will be for a couple more days. History of Present Illness History of Present Illness Chief Complaint: right hip pain; pathologic fracture Narrative: 70-year-old female with metastatic adenocarcinoma of the lung first diagnosed in May 2015 treated with chemotherapy with Alimta and reportedly had been stable until August 2019 when she was found to have progressive disease with bone metastasis to C2 and T12 and right femoral head for which she received radiation therapy in September 2019 and since that time was treated with carboplatinum, dexamethasone, Abraxane and atezolizumab. Carboplatinum was discontinued after cycle 2 due to infusional reaction. Follow-up PET scan in February 2020 showed improvement in her disease burden. 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 In spite of this she had been doing reasonably well recently even returning to physical therapy but noted that she was more sore in her right thigh on Friday when she went to therapy. She presented to the emergency department at [facility] last night because of severe right hip pain and inability to ambulate the began Friday morning and when she was unable to ambulate all weekend her urged her to come to the emergency department. Work-up last night in the emergency department included a CT scan of her abdomen and pelvis and a right femur x-ray. X-ray of her right femur demonstrated bony metastasis in the femoral neck and mid femoral shaft with lytic lesion in the right mid femur and sclerotic area in the femoral neck region but no overt fracture was seen. Therefore CT scan was performed this demonstrated increased sclerosis and previously noted lesions in her lower ribs spine and pelvis and an increased size of the lesion in her right femoral neck and a question of a nondisplaced fracture adjacent to the lesion. Patient was admitted to the hospital for pain control and orthopedic consultation for surgical stabilization of her pathologic fracture. Dr. Menchaca admitted the patient last night and spoke with me this morning requesting hospital consultation. Per my discussion with the patient she has had no chronic lung disease. She is a former smoker who quit smoking in 1994. Her lung cancer was discussed discovered incidentally in May 2015. Her cancer came out of remission and August 2019 at which time she began treatment as noted above. She denies any COPD and has no exertional dyspnea. She denies any underlying coronary heart disease or cardiac arrhythmias or congestive heart failure and has had no symptoms referrable to the same. Her other medical issues include hypertension hyperlipidemia and remote pulmonary embolism as well as previous history of colitis and remote history of ovarian cancer. She has a remote history of a subdural hemorrhage that she sustained in a fall that led to seizures. However she has had no active seizures and she is currently followed by neurologist in [facility]. Her seizures have been under control with Keppra and Lamictal. Her oncologist recently started on gabapentin to help with her peripheral neuropathy. Review of Systems All systems reviewed & are unremarkable except as noted in HPI and below Constitutional Constitutional: Denies body ache(s), Denies chills, Denies fever(s) and Reports poor appetite Cardiovascular Cardiovascular: Reports system reviewed and no additional complaints, except as documented Respiratory Respiratory: Reports system reviewed and no additional complaints, except as documented Gastrointestinal Gastrointestinal: Denies abdominal pain and Reports constipation (Reportedly no bowel movement since March 17, 2020) Genitourinary Genitourinary: Reports system reviewed and no additional complaints, except as documented Musculoskeletal Musculoskeletal: Reports as per HPI Neurologic Neurologic: Reports sensory deficit and Reports paresthesias (Fingers of both hands, toes of both feet, dorsum of both feet) Endocrine Endocrine: Reports system reviewed and no additional complaints, except as documented Hematologic/Lymphatic Hematologic/Lymphatic: Reports system reviewed and no additional complaints, except as documented PFSH Medical History Anxiety associated with cancer 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, ribs, pelvis Cancer related pain Colitis Dizziness Essential hypertension Ex-smoker History of lung cancer History of ovarian cancer History of pulmonary embolism History of radiation therapy Hyperlipidemia Immunotherapy Infectious gastroenteritis and colitis Lung cancer Medical marijuana use helps with her appetitei Neuropathy due to chemotherapeutic drug Odynophagia Palliative care patient Physical deconditioning Seizure disorder Seizures Stage 4 lung cancer 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 Mother , from COPD End stage COPD Other Diabetes Heart disease Social History Smoking/Tobacco Use Status: Former Tobacco Use Tobacco: How many years used: 40 Alcohol Intake: current Alcohol Intake frequency: holidays/special occasions only Drug use: Daily Substance use type: marijuana Details: daily medical marijuana Caregiver/Support person: Yes Household members: spouse Housing: house Number of Children: 2 number of grandchildren: 4 Communication Needs: Corrective Lenses Education Level: high school Do you need help understanding health information?: Rarely current occupation: retired Pets and animals: Yes What is your relationship status?: How often do you talk on the phone with friends or family?: three or more times per week How often do you get together with friends or relatives?: three or more times per week Panel score (0-1 are the most socially isolated patients): 2 What type of physical activity do you participate in: walking Duration: < 15 minutes/day Frequency: 3-4 times per week Agree to transfusion: Yes Seatbelt use: always Working smoke detector in home: Yes Fire extinguisher in home: Yes Do you feel safe at home: Yes Do you feel safe in your relationship?: Yes Additional Social history: Very close and loving relationship with spouse. Bhavani still reeling about her cancer recurrence. Thought her remission would last years. Now back on chemo and new to immunotherapy. Anxious. Wants her cancer to go away. Discussed cancer as a chronic disease. To be managed rather than cured. Exam Narrative Exam Narrative: female alert and oriented person place time circumstance. Sitting up in bed talking with her . HEENT is unremarkable. Neck is supple nontender no thyromegaly no cervical lymphadenopathy no JVD Lungs are clear to auscultation Heart is regular rate and rhythm without murmur rub or gallop. Abdomen is soft and nontender nondistended normal bowel sounds. Right hip is tender to palpation of the femoral neck. I did not do range of motion testing as this is already been done both by the ER attending as well as Dr. Menchaca. Examination of the rest of her lower extremities reveals no calf tenderness or swelling no pedal edema. She has normal pedal pulses. She does have diminished sensation over the dorsum of both feet and her toes but is able to feel light touch. Results Last Vital Signs Temp 36.4 C L 03/20/20 11:18 Pulse 73 03/20/20 11:18 Resp 20 03/20/20 11:18 BP 119/69 03/20/20 11:18 Pulse Ox 98 03/20/20 11:18 Labs Result diagrams: 03/19/20 19:43 03/19/20 19:43 Labs: Laboratory Results - last 24 hr 03/19/20 03/19/20 03/19/20 19:43 19:43 21:18 WBC 5.16 RBC 3.21 L Hgb 11.2 Hct 34.6 L MCV 107.8 H MCH 34.9 H MCHC 32.4 RDW 15.9 H Plt Count 183 MPV 10.7 Immature Gran % 1.0 Neutrophils % 85.0 Lymphocytes % 9.5 Monocytes % 4.5 Eosinophils % 0.0 Basophils % 0.0 Nucleated RBC % 1 Absolute Neutrophils 4.39 Absolute Lymphocytes 0.49 L Absolute Monocytes 0.23 Absolute Eosinophils 0.00 Absolute Basophils 0.00 Sodium 140 Potassium 3.7 Chloride 105 Carbon Dioxide 25.2 Anion Gap 9.8 BUN 13 Creatinine 0.76 Estimated GFR/1.73 m2 >= 60.00 Glucose 122 H Calcium 8.8 Total Bilirubin 0.6 AST 13 L ALT 20 Alkaline Phosphatase 40 L Total Protein 5.9 L Albumin 3.3 L Urine Color Yellow Urine Clarity Clear Urine pH 6.0 Ur Specific Adkins <= 1.005 Urine Protein Negative Urine Ketones Negative Urine Blood Negative Urine Nitrite Negative Urine Bilirubin Negative Urine Urobilinogen 0.2 Ur Leukocyte Esterase Trace H Urine RBC Negative Urine WBC 5-10 Ur Epithelial Cells Negative Urine Crystals Few amorphous Urine Bacteria Rare Urine Mucus Negative Urine Other Rare transitional Ur Culture Indicated? Yes Urine Glucose Negative COVID-19 PCR Nasopharyn COVID-19 PCR Ref Test Perform Site 03/19/20 22:41 WBC RBC Hgb Hct MCV MCH MCHC RDW Plt Count MPV Immature Gran % Neutrophils % Lymphocytes % Monocytes % Eosinophils % Basophils % Nucleated RBC % Absolute Neutrophils Absolute Lymphocytes Absolute Monocytes Absolute Eosinophils Absolute Basophils Sodium Potassium Chloride Carbon Dioxide Anion Gap BUN Creatinine Estimated GFR/1.73 m2 Glucose Calcium Total Bilirubin AST ALT Alkaline Phosphatase Total Protein Albumin Urine Color Urine Clarity Urine pH Ur Specific Adkins Urine Protein Urine Ketones Urine Blood Urine Nitrite Urine Bilirubin Urine Urobilinogen Ur Leukocyte Esterase Urine RBC Urine WBC Ur Epithelial Cells Urine Crystals Urine Bacteria Urine Mucus Urine Other Ur Culture Indicated? Urine Glucose COVID-19 PCR Negative Nasopharyn COVID-19 PCR Not Applicable Ref Test Perform Site [facility]
[2020-03-20] MEDS: Polyethylene Glycol 3350 17 GM PACKET PO (17:40)
[2020-03-20] MEDS: Enoxaparin 40 MG/0.4 ML SYR SC (17:40)
[2020-03-20] MEDS: Bisacodyl 10 MG SUPP PR (17:41)
[2020-03-20] MEDS: Magnesium Citrate 300 ML BTL 150 ML PO (19:09)
--- NOTE | 2020-03-20 20:23 | W.PALLCONSUL ---
Date of service: 03/20/20 Time of Service: 18:23 History of Present Illness Narrative: Latha is a 70-year-old woman with stage IV lung cancer. She has presently 5 years with this diagnosis. She is on immunotherapy which she seems to be responding to very well. Unfortunately she does have some lytic lesions one was in her right hip. Recently she started developing hip pain and then was found to have a hip fracture. She was admitted to the hospital for further care. She has met with Dr. Menchaca who has looked critically at her hip fracture, he has consulted her oncologist and other colleagues etc. and plans to repair her hip with the hip replacement . I am meeting with Latha and her to discuss their thoughts about his repair and any concerns that they may have. Both Latha and her were couple of characters who made me laugh most of my time with them. She was very upbeat, did not appear here to be in any pain, and wants to move forward with this operation. Her is in good agreement with this. She does state that she is quite constipated and does need help in this department. Latha is a palliative patient of Dr Boucher. I am seeing her today in Dr Boucher's absence, but anticipate Dr Boucher will see Latha in the future. They have a long relationship. Consults Consult date: 03/20/20 Requesting physician: Babatunde Menchaca Assessment and Plan Assessment and plan (1) Lytic bone lesion of right femur: Status: Acute (2) Constipation: Status: Acute (3) Stage 4 lung cancer: Status: Acute (4) Bone metastases: Status: Acute (5) Palliative care patient: Status: Chronic Assessment and plan: Patient is very comfortable undergoing surgery. She feels she is in good hands with Dr. Menchaca. She is anticipating an excellent outcome and feels comfortable with her pain and waiting until . Constipation I did discuss with nursing within the need to increase her meds to include the milk of magnesia and daily polyethylene glycol. She does not have an enema ordered. I would recommend that this be considered if the other agents do not produce results CODE STATUS?I see that she has advanced directive. She clearly states that in the advance directive that she does want CPR and chest compressions. When I asked her she was equally as clear stating that she did not want to be resuscitated. I did not see any COLST form in her file. Tomorrow Dr. Dave who knows her well will be back. I would recommend that she and the patient complete a POLST form to better clarify her CODE STATUS. As I am writing this her CODE STATUS changed from full code to DNR/DNI. This seems to be more in keeping with what Latha told me. Still I think that a COLST form should be completed.I will pass this on to Dr Boucher. (I called Med Surg and was told Dr Menchaca changed her CODE STATUS tonight) Her pain appears to be adequately controlled at this time. Thank you very much for this consult. Dr Boucher will see Latha Friday or Fri. I have spent more than 50% of time in counseling with this patient. All questions were answered. Review of Systems Narrative: Her main concern is that she is constipated right now. She feels that she will do fine with the operation and that she will come through it with flying colors. She anticipates the time of rehab but also does plan to return to her previous life. Her right hip hurts if it is moved. She is able to cross her left leg over her right leg without pain Constitutional Constitutional: Reports weakness Cardiovascular Cardiovascular: Denies chest pain Gastrointestinal Gastrointestinal: Reports change in bowel habits and Reports constipation Musculoskeletal Musculoskeletal: Reports myalgias Neurologic Neurologic: Reports weakness Psychiatric Comments: states she has a positive outlook which helps her to handle her lung cancer [facility] Medical History Anxiety associated with cancer 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, ribs, pelvis Cancer related pain Colitis Dizziness Essential hypertension Ex-smoker History of lung cancer History of ovarian cancer History of pulmonary embolism History of radiation therapy Hyperlipidemia Immunotherapy Infectious gastroenteritis and colitis Lung cancer Medical marijuana use helps with her appetitei Neuropathy due to chemotherapeutic drug Odynophagia Palliative care patient Physical deconditioning Seizure disorder Seizures Stage 4 lung cancer 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 Mother , from COPD End stage COPD Other Diabetes Heart disease Social History Smoking/Tobacco Use Status: Former Tobacco Use Tobacco: How many years used: 40 Alcohol Intake: current Alcohol Intake frequency: holidays/special occasions only Drug use: Daily Substance use type: marijuana Details: daily medical marijuana Caregiver/Support person: Yes Household members: spouse Housing: house Number of Children: 2 number of grandchildren: 4 Communication Needs: Corrective Lenses Education Level: high school Do you need help understanding health information?: Rarely current occupation: retired Pets and animals: Yes What is your relationship status?: How often do you talk on the phone with friends or family?: three or more times per week How often do you get together with friends or relatives?: three or more times per week Panel score (0-1 are the most socially isolated patients): 2 What type of physical activity do you participate in: walking Duration: < 15 minutes/day Frequency: 3-4 times per week Agree to transfusion: Yes Seatbelt use: always Working smoke detector in home: Yes Fire extinguisher in home: Yes Do you feel safe at home: Yes Do you feel safe in your relationship?: Yes Additional Social history: Very close and loving relationship with spouse. Bhavani still reeling about her cancer recurrence. Thought her remission would last years. Now back on chemo and new to immunotherapy. Anxious. Wants her cancer to go away. Discussed cancer as a chronic disease. To be managed rather than cured. Exam Narrative Exam Narrative: Patient is a 70-year-old woman sitting on her bed. She and her obviously enjoy each other's company. She was upbeat, and laughed often. HENMT Ears: hearing grossly normal bilaterally and external ears normal Resp Effort & Inspection: normal respiratory effort and able to speak in complete sentences Auscultation: abnormal I/E ratio Cardio Rhythm: regular rhythm Heart Sounds: murmur GI Palpation: soft and no hepatosplenomegaly Auscultation: normal bowel sounds Psych Appearance: grossly normal Mental Status: mental status grossly normal Speech and Movement: speech clear and slowed movement Mood: congruent mood Affect: normal affect Attitude: cooperative Thought Process: normal Thought Content: normal Insight: insight good Judgment: judgment good Results Last Vital Signs Temp 97.7 F 03/20/20 15:30 Pulse 64 03/20/20 15:30 Resp 20 03/20/20 15:30 BP 119/79 03/20/20 15:30 Pulse Ox 97 03/20/20 15:30 Labs Result diagrams: 03/19/20 19:43 03/19/20 19:43 Labs: Laboratory Results - last 24 hr 03/19/20 03/19/20 21:18 22:41 Urine Color Yellow Urine Clarity Clear Urine pH 6.0 Ur Specific [place] <= 1.005 Urine Protein Negative Urine Ketones Negative Urine Blood Negative Urine Nitrite Negative Urine Bilirubin Negative Urine Urobilinogen 0.2 Ur Leukocyte Esterase Trace H Urine RBC Negative Urine WBC 5-10 Ur Epithelial Cells Negative Urine Crystals Few amorphous Urine Bacteria Rare Urine Mucus Negative Urine Other Rare transitional Ur Culture Indicated? Yes Urine Glucose Negative COVID-19 PCR Negative Nasopharyn COVID-19 PCR Not Applicable Ref Test Perform Site [facility] lab
[2020-03-20] MEDS: Senna TAB 1 TAB PO (20:56)
[2020-03-20] MEDS: Gabapentin 100 MG CAP PO (20:56)
[2020-03-21] VITALS (10 sets, daily range): BP systolic 70–137; BP diastolic 47–78; PULSE 73–93; RESP 17–20; TEMP 36.3–37.4; O2SAT 96–99
[2020-03-21] MEDS: Acetaminophen 500 MG TAB PO ×4 (00:42→17:21)
[2020-03-21] MEDS: HYDROmorphone 2 MG/ML VIAL 0.5 MG IVP (00:45)
[2020-03-21] MEDS: Normal Saline Flush 10 ML SYR IVP ×2 (00:46→08:07)
[2020-03-21] MEDS: Polyethylene Glycol 3350 17 GM PACKET PO (04:54)
--- NOTE | 2020-03-21 08:00 | RT.EKG_ITS ---
APPROVED REPORT Exam: Resting ECG Patient Location: I HR:72 bpm ECG Measurements Heart Rate 72 AXIS NV 132 P 58 QRSd 79 QRS -23 QT 472 T -43 QTc 515 Conclusion Sinus rhythm...normal P axis, V-rate 60- 99 Low voltage, precordial leads...precordial leads <1.0mV Nonspecific T abnrm, anterolateral leads...T <-0.10mV, I aVL V2-V6 Prolonged QT interval...QTc >500mS
[2020-03-21] MEDS: lamoTRIgine 25 MG TAB 50 MG PO ×2 (08:02→19:38)
[2020-03-21] MEDS: Magnesium Oxide 400 MG TAB PO ×2 (08:03→19:38)
[2020-03-21] MEDS: levETIRAcetam 500 MG TAB PO ×2 (08:03→19:39)
[2020-03-21] MEDS: Lactobacillus Acidophilus CAP 1 CAP PO (08:03)
[2020-03-21] MEDS: Docusate Sodium 100 MG CAP 500 MG PO (08:03)
[2020-03-21] MEDS: Dexamethasone 4 MG TAB PO (08:04)
[2020-03-21] MEDS: Cholecalciferol (Vitamin D3) 1,000 UNIT TAB 2000 UNITS PO (08:04)
[2020-03-21] MEDS: Multivitamin TAB 1 TAB PO (08:04)
[2020-03-21] MEDS: Esomeprazole 20 MG CAPCR PO (08:04)
[2020-03-21] MEDS: Ascorbic Acid 500 MG TAB PO (08:04)
[2020-03-21] MEDS: Ketorolac 15 MG/ML VIAL IVP (08:05)
[2020-03-21] MEDS: Bisacodyl 10 MG SUPP PR (08:08)
[2020-03-21] MEDS: Enoxaparin 40 MG/0.4 ML SYR SC (08:08)
[2020-03-21] MEDS: Normal Saline 500 ML 1000 ML IV (10:16)
[2020-03-21 10:34] LABS: Abs Immature Grans 0.07 10^3/uL (0.0-0.06); HCT 33.2 % (36.0-46.0); HGB 10.6 g/dL (11.2-15.7); Lactate 4.4 mmol/L (0.6-1.4); MCH 35.6 pg (27.0-33.0); MCHC 31.9 % (32.0-36.0); MCV 111.4 fL (80-95); MPV 10.3 fL (8.0-11.0); RBC 2.98 10^6/uL (3.93-5.22); RDW 16.1 % (11.7-14.6); RDW-SD 65.8 fL; WBC 3.78 10^3/uL (4.4-10.8)
[2020-03-21 10:51] LABS: ALT 21 U/L (14-59); AST 12 U/L (15-37); Albumin 2.7 g/dL (3.4-5.0); Alkaline Phosphatase 36 U/L (46-116); Anion Gap 9.2 mmol/L (3-11); BUN 28 mg/dL (7-18); Bilirubin, Total 0.7 mg/dL (0.2-1.0); CO2 24.8 mmol/L (21.0-32.0); CREATININE 1.04 mg/dL (0.55-1.02); Calcium 8.2 mg/dL (8.5-10.1); Chloride 102 mmol/L (98-107); Estimated GFR 52.09 (mL/min/1.73m2); Glucose 140 mg/dL (74-106); Potassium 3.8 mmol/L (3.5-5.1); Sodium 136 mmol/L (136-145)
[2020-03-21 11:05] LABS: Absolute Lymphocyte Count 0.38 10^3/uL (1.2-3.4); Absolute Monocyte Count 0.19 10^3/uL (0.1-0.8); Bands % 6; Nucleated RBC 0 %
[2020-03-21 11:06] LABS: Diff Comment Manual Differential; Macrocytosis 3+; Metamyelocytes % 2; Myelocytes % 1
[2020-03-21 11:07] LABS: Poikilocytes 1+; Polychromasia Present
[2020-03-21] MEDS: Normal Saline 1,000 ML 250 ML IV (11:39)
[2020-03-21] MEDS: Hydrocortisone SOD SUC. 100 MG VIAL IVP (11:56)
--- NOTE | 2020-03-21 12:15 | PGE_ITS ---
Date of Service Date of service: 03/21/20 Time of Service: 10:00 Assessment and Plan Assessment and plan (1) Hypotension: Status: Acute Assessment and plan: Hypotension seems to be improving with IV fluid hydration. Patient will be covered with IV hydrocortisone at stress dose levels for the perioperative period. Because of the elevated blood lactate I obtain blood cultures and urine cultures however the lactate may be elevated secondary to her cancer or it may just be secondary to dehydration. I rechecked her blood lactate after she has been fluid resuscitated. Qualifiers: Hypotension type: hypotension due to hypovolemia Qualified Code(s): I95.89 - Other hypotension; E86.1 - Hypovolemia (2) Prerenal azotemia: Status: Acute (3) Stage 4 lung cancer: Status: Acute (4) Neuropathy due to chemotherapeutic drug: Status: Acute Assessment and plan: Continue her gabapentin 100 mg nightly. (5) Constipation: Status: Resolved Assessment and plan: Continued scheduled doses of MiraLAX and senna and Colace to prevent constipation (6) DVT prophylaxis: Status: Acute Assessment and plan: Enoxaparin 40 mg subcutaneously was continued through today but is now ended. It is anticipated she will have her surgery tomorrow and DVT prophylaxis will be resumed postoperatively (7) Pathologic fracture of neck of right femur: Status: Acute Assessment and plan: It is anticipated patient will undergo operative repair tomorrow. Pain seems to be pretty well controlled with as needed use of ketorolac and small doses of hydromorphone. Qualifiers: Encounter type: initial encounter Qualified Code(s): M84.451A - Pathological fracture, right femur, initial encounter for fracture Subjective Subjective Interval history since last seen: Patient developed hypotension this morning with systolic pressures in the 70s. This was accompanied by a relative increase in her heart rate into the 90s from her baseline heart rate of 55-60. It appears her heart rate started to increase around 4:00 this morning and her blood pressure appears to have started dropping this morning around 4 AM. Patient denies any chest pain or shortness of breath and while in bed she is not lightheaded or dizzy although she felt weak when she got up to the bedside commode. She remains alert and oriented and talkative to me and her and denies any discomfort or pain. She is afebrile. There were no morning labs to check therefore I ordered a stat CMP, CBC, blood lactate and a type and screen. Fluid bolus of 500 mL was given followed by a second bolus of 500 mL and her blood pressure as of 11:44 AM is now up to 91/57. The low blood pressure readings were confirmed with manual cuffs in both arms. Her lowest blood pressure reading was 70/55. Her oxygen saturations 98% on room air and she is not tachypneic. Since I began evaluating her and treating her for her hypotension we got her labs back and her hemoglobin is 10.6 g which is close to her baseline. Her white cell count is 3700 which is slightly down from her last reading of 5000 couple days ago but it appears to be consistent with her previous readings after her chemotherapy. Her CMP suggest that she is prerenal azotemic with a BUN of 28 creatinine 1.0. Her baseline BUN is 13 and creatinine 0.76 from a couple days ago. Liver enzymes are low to normal. She had a TSH and free T4 5 days ago that were normal. Patient's been chronically on prednisone which is been gradually weaned down to 4 mg a day. However her states that the last time the dose was reduced was about 2 weeks ago. She is currently on Decadron 4 mg daily. I ordered a cortisol level on her but I will go ahead and give her stress dose hydrocortisone 100 mg and continue to rehydrate her with IV fluids. Exam Narrative Exam Narrative: Alert and oriented to person place time circumstance sitting up in her bed talking with her . Lungs are clear to auscultation Heart regular rate and rhythm. Chest wall is nontender, IV port in the right infraclavicular area does not appear to be indurated and there is no erythema around the port. Abdomen soft minimal tenderness however the patient states that she had a tremendous bowel movement after being constipated for 3 days. Objective Last Vital Signs Temp 37.1 C 03/21/20 11:44 Pulse 84 03/21/20 11:44 Resp 18 03/21/20 11:44 BP 91/57 L 03/21/20 11:44 Pulse Ox 98 03/21/20 11:44 Laboratory Results - last 24 hr 03/19/20 03/21/20 03/21/20 22:41 10:26 10:26 WBC 3.78 L RBC 2.98 L Hgb 10.6 L Hct 33.2 L MCV 111.4 H MCH 35.6 H MCHC 31.9 L RDW 16.1 H Plt Count MPV 10.3 Immature Gran % See Differential Neutrophils % 76.0 Band Neutrophils % 6 Lymphocytes % 10.0 Monocytes % 5.0 Eosinophils % 0.0 Basophils % 0.0 Metamyelocytes % 2 Myelocytes % 1 Nucleated RBC % 0 Absolute Neutrophils 3.10 Absolute Lymphocytes 0.38 L Absolute Monocytes 0.19 Absolute Eosinophils 0.00 Absolute Basophils 0.00 RBC Morphology See below Polychromasia Present Poikilocytosis 1+ Macrocytosis 3+ VBG Lactate Sodium 136 Potassium 3.8 Chloride 102 Carbon Dioxide 24.8 Anion Gap 9.2 BUN 28 H D Creatinine 1.04 H Estimated GFR/1.73 m2 52.09 Glucose 140 H Calcium 8.2 L Total Bilirubin 0.7 AST 12 L ALT 21 Alkaline Phosphatase 36 L Total Protein 5.0 L Albumin 2.7 L COVID-19 PCR Negative Nasopharyn COVID-19 PCR Not Applicable Ref Test Perform Site [facility] lab Patient ABO/Rh Antibody Screen 03/21/20 03/21/20 10:26 10:26 WBC RBC Hgb Hct MCV MCH MCHC RDW Plt Count MPV Immature Gran % Neutrophils % Band Neutrophils % Lymphocytes % Monocytes % Eosinophils % Basophils % Metamyelocytes % Myelocytes % Nucleated RBC % Absolute Neutrophils Absolute Lymphocytes Absolute Monocytes Absolute Eosinophils Absolute Basophils RBC Morphology Polychromasia Poikilocytosis Macrocytosis VBG Lactate 4.4 H* Sodium Potassium Chloride Carbon Dioxide Anion Gap BUN Creatinine Estimated GFR/1.73 m2 Glucose Calcium Total Bilirubin AST ALT Alkaline Phosphatase Total Protein Albumin COVID-19 PCR Nasopharyn COVID-19 PCR Ref Test Perform Site Patient ABO/Rh A Positive Antibody Screen Negative
--- NOTE | 2020-03-21 12:50 | PHACLINREV_ITS ---
Pharmacy Admission Review - Admission Clinical Review (Last Reviewed 03/20/20 @ 08:18 by Babatunde Menchaca MD) Hypotension (Acute) Prerenal azotemia (Acute) DVT prophylaxis (Acute) Lytic bone lesion of right femur (Acute) Pathologic fracture of neck of right femur (Acute) Neuropathy due to chemotherapeutic drug (Acute) Stage 4 lung cancer (Acute) Bone metastases (Acute) codeine [Codeine] Adverse Reaction (Intermediate, Verified 03/14/20 13:01) Nausea fentanyl Adverse Reaction (Intermediate, Verified 03/14/20 13:01) [place]/Vomiting oxycodone Adverse Reaction (Intermediate, Unverified 03/19/20 19:06) Nausea tramadol Adverse Reaction (Intermediate, Verified 03/14/20 13:01) delerium Height 5 ft 4 in Weight 58.967 kg - Renal Dosing Renal Dosing: BUN 28 mg/dL (7-18) H D 03/21/20 10:26 Creatinine 1.04 mg/dL (0.55-1.02) H 03/21/20 10:26 Medications needing adjustments: Reviewed (CrCl ~) - Anticoagulation Anticoagulation: Hgb 10.6 g/dL (11.2-15.7) L 03/21/20 10:26 Hct 33.2 % (36.0-46.0) L 03/21/20 10:26 Plt Count 10^3/uL (130-400) 03/21/20 10:26 Creatinine 1.04 mg/dL (0.55-1.02) H 03/21/20 10:26 DVT Prohphylaxis: Reviewed Medications: Enoxaparin (dc'd as patient will go to the OR tomorrow, will resume post-op) Therapeutic Anticoagulation: N/A - Opiate Usage Evaluate Pain Scale/Pains Meds: Reviewed Scheduled Bowel Reg ordered if on Opiates?: Yes - Relevant Labs Sodium 136 mmol/L (136-145) 03/21/20 10:26 Potassium 3.8 mmol/L (3.5-5.1) 03/21/20 10:26 Chloride 102 mmol/L (98-107) 03/21/20 10:26 Electrolytes, C-Reactive P, ESR: Reviewed - DM Control DM Control: Glucose 140 mg/dL (74-106) H 03/21/20 10:26 Insulin Dosing: Reviewed (Receiving IV steroids) - Heart Failure/CO EF%, SABRINA's, B-Blockers, Diuretics: Reviewed - BP Control BP Control: Blood Pressure 91/57 Blood Pressure 77/47 Blood Pressure 70/55 Blood Pressure 75/50 Blood Pressure 89/57 Blood Pressure 98/66 If elevated: Reviewed List meds needing interventions: IV fluid hydration ordered, IV steroids at stress dose ordered - Qtc Review If Elevated: N/A - IV to PO Switch IV Medications: Reviewed - Home Meds Home Med List reviewed: Reviewed Relevent Home Meds Not ordered & why?: meclizine (prn, rx hx says up to TID prn) - Current meds Current Medication Order Review: Intervened (dc'd mag citrate ordered as MD specified to be only 1 dose to be given if other bowel meds do not work -- 1 do se was given 03/20 @1900 with successful outcome) - Comments Comments/Follow Ups: Urine culture grew gram + valeri 10-50,000 possible contaminate, blood cultures pending
[2020-03-21 13:57] LABS: Bilirubin Negative (Negative); Blood Negative (Negative); Clarity Clear (Clear); Glucose Negative (Negative); Ketones Negative (Negative); Leukocyte Esterase Trace (Negative); Nitrite Negative (Negative); Specific Gravity 1.015 (1.005-1.025); Urobilinogen 0.2 EU/dL (Up TO 0.2)
--- NOTE | 2020-03-21 14:02 | CMPROGNOTE_ITS ---
- If Service Date Differs Date of service: 03/21/20 Time of Service: 14:02 Care Management Progress Note S/O: Latha was sitting up in bed when CM met with her. She reported that she was feeling better, but earlier this morning she had low blood pressure, and she is still unsure why. She was very pleasant, and reported that her care at [facility] has been wonderful. She stated that she spoke with Dr. Briones yesterday. Dr. Boucher met with her today, who she has a long relationship with Bhavani. Together they filled out a COLST form. Latha will have surgery on , which she is anticipating. She will resume working with PT post surgically. CM will continue to follow. A: Latha is a 70 year old female admitted to [facility] on 03/19/20 with a right hip fracture. P: Latha will have surgery at [facility] on . She will remain at [facility] for pain management prior to her surgery. She may need new services upon discharge, if indicated. Her will drive her home via private vehicle. She will follow up with her oncologist, ortho, and her discharge plan of care. CM will continue to follow.
[2020-03-21 14:10] LABS: Bacteria Moderate HPF (Negative); C & S Indicated? Yes; Casts Negative LPF (Negative); Crystals Negative HPF (Negative); Epithelial Cells Few HPF (Negative); Mucus Negative (Negative); RBC 0-2 HPF (0-2)
[2020-03-21] MEDS: Normal Saline 1,000 ML 125 ML IV ×2 (14:52→21:35)
[2020-03-21 15:27] LABS: Lactate 1.8 mmol/L (0.6-1.4)
--- NOTE | 2020-03-21 16:46 | CHAPLAIN ---
Latha and her Evelio were very pleasant and easily engaged in conversation, telling me about they were raised here, didn't know each ot her as kids, and then met when Latha returned to [facility] after a 10 year time away. Their daughter lives in [facility] and a son lives in [place]. Latha's hip surgery was changed from to tomorrow (03/22) and she is happy about that, hoping she can go home on . Evelio showed me photos of scans done on Latha showing four tumors, two of which a caused the hairline fractures in her hip and leg, and then a photo from 14 weeks later, showing no tumors, he explained. I left when Latha received a phone call. I will check in with them tomorrow.
[2020-03-21] MEDS: Hydrocortisone SOD SUC. 100 MG VIAL 50 MG IVP ×2 (17:21→23:59)
--- NOTE | 2020-03-21 20:17 | W.PM.PROGNOT ---
Date of Service Date of service: 03/21/20 Time of Service: 14:17 Assessment and Plan Assessment and plan (1) Lytic bone lesion of right femur: Status: Chronic (2) Pathologic fracture of neck of right femur: Status: Acute Assessment and plan: Latha is a 70-year-old who has a pathologic fracture of the right femoral neck as well as a lytic lesion of the midshaft of the right femur. As per our previous discussion documented in the consultation note, the best treatment would be hemiarthroplasty. This would need to be extended past the lytic lesion to bypass that site which could fracture with a new stress of a hemiarthroplasty above it. This long cemented hemiarthroplasty would allow immediate weightbearing but does, some slightly high risk rather than a shorter stent hemiarthroplasty. These were previously reviewed with the patient. She has no more questions today. She is anxious to proceed with the surgery. I will be able to move the surgery up to tomorrow, 03/22/2020. She will be n.p.o. after midnight. We will use tranexamic acid just prior to incision and at the close the case. Scarlett for prophylactic antibiotics. All of her questions were answered. I appreciate the hospitalist medicine service assisting with the hypertension management. We will use stress dose steroids. Her CODE STATUS has been appropriately changed and appreciate palliative care input. Qualifiers: Encounter type: initial encounter Qualified Code(s): M84.451A - Pathological fracture, right femur, initial encounter for fracture Subjective Subjective Interval history since last seen: Latha reports to be doing well. She had some hypotension which has responded to fluids. Dr. Gottlieb from the hospitalist service has been attentive to this and is also made some changes with her chronic steroids in anticipation of upcoming surgery as well as the low blood pressure. He has reported increasing constipation which is not a unknown problem for her. She was given an enema. When she is not moving the pain is controlled. No fevers no chills. No cough or shortness of breath. Exam Narrative Exam Narrative: Sitting up in the bed. No acute distress. Alert and orient x3. Evaluation the right leg shows again no changes. No significant swelling. No ecchymosis. No overlying skin lesions about the buttock or femur. Intact ankle dorsiflexion, plantarflexion, EHL, FHL. Objective Last Vital Signs Temp 36.5 C 03/22/20 03:33 Pulse 64 03/22/20 03:33 Resp 17 03/22/20 03:33 BP 126/74 03/22/20 03:33 Pulse Ox 97 03/22/20 03:33 Laboratory Results - last 24 hr 03/21/20 03/21/20 03/21/20 10:26 10:26 10:26 WBC 3.78 L RBC 2.98 L Hgb 10.6 L Hct 33.2 L MCV 111.4 H MCH 35.6 H MCHC 31.9 L RDW 16.1 H Plt Count MPV 10.3 Immature Gran % See Differential Neutrophils % 76.0 Band Neutrophils % 6 Lymphocytes % 10.0 Monocytes % 5.0 Eosinophils % 0.0 Basophils % 0.0 Metamyelocytes % 2 Myelocytes % 1 Nucleated RBC % 0 Absolute Neutrophils 3.10 Absolute Lymphocytes 0.38 L Absolute Monocytes 0.19 Absolute Eosinophils 0.00 Absolute Basophils 0.00 RBC Morphology See below Polychromasia Present Poikilocytosis 1+ Macrocytosis 3+ VBG Lactate Sodium 136 Potassium 3.8 Chloride 102 Carbon Dioxide 24.8 Anion Gap 9.2 BUN 28 H D Creatinine 1.04 H Estimated GFR/1.73 m2 52.09 Glucose 140 H Calcium 8.2 L Total Bilirubin 0.7 AST 12 L ALT 21 Alkaline Phosphatase 36 L Total Protein 5.0 L Albumin 2.7 L Urine Color Urine Clarity Urine pH Ur Specific [place] Urine Protein Urine Ketones Urine Blood Urine Nitrite Urine Bilirubin Urine Urobilinogen Ur Leukocyte Esterase Urine RBC Urine WBC Ur Epithelial Cells Urine Crystals Urine Bacteria Urine Casts Urine Mucus Ur Culture Indicated? Urine Glucose Patient ABO/Rh A Positive Antibody Screen Negative 03/21/20 03/21/20 03/21/20 10:26 13:50 15:15 WBC RBC Hgb Hct MCV MCH MCHC RDW Plt Count MPV Immature Gran % Neutrophils % Band Neutrophils % Lymphocytes % Monocytes % Eosinophils % Basophils % Metamyelocytes % Myelocytes % Nucleated RBC % Absolute Neutrophils Absolute Lymphocytes Absolute Monocytes Absolute Eosinophils Absolute Basophils RBC Morphology Polychromasia Poikilocytosis Macrocytosis VBG Lactate 4.4 H* 1.8 H Sodium Potassium Chloride Carbon Dioxide Anion Gap BUN Creatinine Estimated GFR/1.73 m2 Glucose Calcium Total Bilirubin AST ALT Alkaline Phosphatase Total Protein Albumin Urine Color [place] Urine Clarity Clear Urine pH 6.0 Ur Specific [place] 1.015 Urine Protein Negative Urine Ketones Negative Urine Blood Negative Urine Nitrite Negative Urine Bilirubin Negative Urine Urobilinogen 0.2 Ur Leukocyte Esterase Trace H Urine RBC 0-2 Urine WBC 5-10 Ur Epithelial Cells Few Urine Crystals Negative Urine Bacteria Moderate Urine Casts Negative Urine Mucus Negative Ur Culture Indicated? Yes Urine Glucose Negative Patient ABO/Rh Antibody Screen
--- NOTE | 2020-03-21 20:50 | W.PALPGNOTE ---
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 Bhavani was told she should be able to wear weight soon after surgery. She would like to go home on , if all goes well. With HH. (2) Pathologic fracture of neck of right femur: Status: Acute Assessment and plan: Due to her bone mets. No fall. Bone just snapped and then she was in pain for a while (more than 24 hrs) before she agreed to come in for evaluation. Bhavani has high pain tolerance in general. Qualifiers: Encounter type: initial encounter Qualified Code(s): M84.451A - Pathological fracture, right femur, initial encounter for fracture (3) POLST (Physician Orders for Life-Sustaining Treatment): Status: Acute Assessment and plan: Reviewed and signed today. Still needs signed Health Care Agent form. DNR/DNI. (4) DNR (do not resuscitate): Status: Acute (5) DNI (do not intubate): Status: Acute (6) Stage 4 lung cancer: Status: Chronic Assessment and plan: Five months since diagnosis as of next month. Was in remission until last --though not diagnosed with recurrence right away. Weight has stabilized since starting her immunotherapy. Feeling better. (7) Bone metastases: Status: Acute (8) Goals of care, counseling/discussion: Status: Acute Assessment and plan: Clear about her wishes for DNR/DNI, but does want transfer, IVF, abx, limited treatement for now. 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 Subjective Subjective Patient reports: still having pain (with movement), pain is less, tolerating a regular diet and bowel movement Interval history since last seen: Due to have her hip surgery tomorrow with Dr Menchaca. Not much pain if not weight-bearing and lying still in bed. Not taking any narcotic pain relief. Usually does use medical marijana for pain control; advised that if her pain increases, not to hestitate to take something stronger than APAP. She does have a high pain tolerance. Had a large BM earlier today after strugglng with constipation. Expecting to go home by the end of the week, maybe , depending on ortho. Interested in filling out a COLST form. This was done today. Exam Narrative Exam Narrative: Patient is a 70-year-old woman lying in her bed. I woke her from a nap to examine her. She did not look to be in pain. No furrowed brown, no grimace. HENMT Ears: hearing grossly normal bilaterally and external ears normal Eyes Conjunctivae: conjunctivae normal Sclera: sclerae normal Resp Effort & Inspection: normal respiratory effort and able to speak in complete sentences Cardio Rhythm: regular rhythm Heart Sounds: murmur GI Palpation: soft and no hepatosplenomegaly Auscultation: normal bowel sounds Skin General skin exam: ecchymosis Neuro General: patient alert, patient awake and patient oriented x3 Cognition: normal cognition Speech: speech normal Psych Appearance: grossly normal Mental Status: mental status grossly normal Speech and Movement: speech clear and slowed movement Mood: congruent mood Affect: normal affect Attitude: cooperative Thought Process: normal Thought Content: normal Insight: insight good Judgment: judgment good Objective Last Vital Signs Temp 98.6 F 03/21/20 15:15 Pulse 82 03/21/20 15:15 Resp 19 03/21/20 15:15 BP 114/76 03/21/20 15:15 Pulse Ox 97 03/21/20 15:15 Laboratory Results - last 24 hr 03/21/20 03/21/20 03/21/20 10:26 10:26 10:26 WBC 3.78 L RBC 2.98 L Hgb 10.6 L Hct 33.2 L MCV 111.4 H MCH 35.6 H MCHC 31.9 L RDW 16.1 H Plt Count MPV 10.3 Immature Gran % See Differential Neutrophils % 76.0 Band Neutrophils % 6 Lymphocytes % 10.0 Monocytes % 5.0 Eosinophils % 0.0 Basophils % 0.0 Metamyelocytes % 2 Myelocytes % 1 Nucleated RBC % 0 Absolute Neutrophils 3.10 Absolute Lymphocytes 0.38 L Absolute Monocytes 0.19 Absolute Eosinophils 0.00 Absolute Basophils 0.00 RBC Morphology See below Polychromasia Present Poikilocytosis 1+ Macrocytosis 3+ VBG Lactate Sodium 136 Potassium 3.8 Chloride 102 Carbon Dioxide 24.8 Anion Gap 9.2 BUN 28 H D Creatinine 1.04 H Estimated GFR/1.73 m2 52.09 Glucose 140 H Calcium 8.2 L Total Bilirubin 0.7 AST 12 L ALT 21 Alkaline Phosphatase 36 L Total Protein 5.0 L Albumin 2.7 L Urine Color Urine Clarity Urine pH Ur Specific [place] Urine Protein Urine Ketones Urine Blood Urine Nitrite Urine Bilirubin Urine Urobilinogen Ur Leukocyte Esterase Urine RBC Urine WBC Ur Epithelial Cells Urine Crystals Urine Bacteria Urine Casts Urine Mucus Ur Culture Indicated? Urine Glucose Patient ABO/Rh A Positive Antibody Screen Negative 03/21/20 03/21/20 03/21/20 10:26 13:50 15:15 WBC RBC Hgb Hct MCV MCH MCHC RDW Plt Count MPV Immature Gran % Neutrophils % Band Neutrophils % Lymphocytes % Monocytes % Eosinophils % Basophils % Metamyelocytes % Myelocytes % Nucleated RBC % Absolute Neutrophils Absolute Lymphocytes Absolute Monocytes Absolute Eosinophils Absolute Basophils RBC Morphology Polychromasia Poikilocytosis Macrocytosis VBG Lactate 4.4 H* 1.8 H Sodium Potassium Chloride Carbon Dioxide Anion Gap BUN Creatinine Estimated GFR/1.73 m2 Glucose Calcium Total Bilirubin AST ALT Alkaline Phosphatase Total Protein Albumin Urine Color Jany Urine Clarity Clear Urine pH 6.0 Ur Specific [place] 1.015 Urine Protein Negative Urine Ketones Negative Urine Blood Negative Urine Nitrite Negative Urine Bilirubin Negative Urine Urobilinogen 0.2 Ur Leukocyte Esterase Trace H Urine RBC 0-2 Urine WBC 5-10 Ur Epithelial Cells Few Urine Crystals Negative Urine Bacteria Moderate Urine Casts Negative Urine Mucus Negative Ur Culture Indicated? Yes Urine Glucose Negative Patient ABO/Rh Antibody Screen
[2020-03-21] MEDS: Gabapentin 100 MG CAP PO (21:36)
[2020-03-21] MEDS: Senna TAB 1 TAB PO (21:36)
[2020-03-22] VITALS (11 sets, daily range): BP systolic 68–153; BP diastolic 53–88; PULSE 64–98; RESP 15–21; TEMP 35.7–37.1; O2SAT 90–100
[2020-03-22] MEDS: Normal Saline 1,000 ML 125 ML IV (05:14)
[2020-03-22] MEDS: Hydrocortisone SOD SUC. 100 MG VIAL 50 MG IVP ×4 (06:29→23:22)
[2020-03-22 07:00] LABS: Abs Immature Grans 0.06 10^3/uL (0.0-0.06); HCT 28.6 % (36.0-46.0); MCH 34.9 pg (27.0-33.0); MCHC 31.5 % (32.0-36.0); MCV 110.9 fL (80-95); MPV 10.9 fL (8.0-11.0); Nucleated RBC 0 %; Platelet Count 186 10^3/uL (130-400); RBC 2.58 10^6/uL (3.93-5.22); RDW 16.3 % (11.7-14.6); WBC 4.51 10^3/uL (4.4-10.8)
[2020-03-22 07:14] LABS: Anion Gap 6.5 mmol/L (3-11); BUN 15 mg/dL (7-18); CO2 24.5 mmol/L (21.0-32.0); CREATININE 0.54 mg/dL (0.55-1.02); Chloride 111 mmol/L (98-107); Glucose 111 mg/dL (74-106); Potassium 3.4 mmol/L (3.5-5.1); Sodium 142 mmol/L (136-145)
[2020-03-22 07:46] LABS: Absolute Basophil Count 0.09 10^3/uL (0.0-0.2); Absolute Eosinophil Count 0.05 10^3/uL (0.0-0.7); Absolute Lymphocyte Count 0.36 10^3/uL (1.2-3.4); Absolute Monocyte Count 0.14 10^3/uL (0.1-0.8); Absolute Neutrophil Count 3.79 10^3/uL (1.2-6.7); Bands % 4; Metamyelocytes % 1; Myelocytes % 1
[2020-03-22 07:47] LABS: Diff Comment Manual Differential; Macrocytosis 3+; Poikilocytes 1+; Polychromasia Present
[2020-03-22] MEDS: Esomeprazole 20 MG CAPCR PO (08:31)
[2020-03-22] MEDS: levETIRAcetam 500 MG TAB PO ×2 (08:31→19:46)
[2020-03-22] MEDS: Magnesium Oxide 400 MG TAB PO ×2 (08:31→19:46)
[2020-03-22] MEDS: Lactobacillus Acidophilus CAP 1 CAP PO (08:31)
[2020-03-22] MEDS: Multivitamin TAB 1 TAB PO (08:32)
[2020-03-22] MEDS: lamoTRIgine 25 MG TAB 50 MG PO ×2 (08:32→19:46)
[2020-03-22] MEDS: Cholecalciferol (Vitamin D3) 1,000 UNIT TAB 2000 UNITS PO (08:32)
[2020-03-22] MEDS: Ascorbic Acid 500 MG TAB PO (08:32)
[2020-03-22 10:45] LABS: Magnesium 2.5 mg/dL (1.8-2.4)
[2020-03-22] MEDS: POTASSIUM CHLORIDE/0.9% NACL 1,000 ML 125 MEQ IV (10:51)
[2020-03-22] MEDS: POTASSIUM CHLORIDE 20 MEQ/100 ML BAG 50 MEQ IVPB (10:52)
--- NOTE | 2020-03-22 11:07 | W.PM.PROGNOT ---
Date of Service Date of service: 03/22/20 Time of Service: 11:26 Assessment and Plan Assessment and plan (1) Pathologic fracture of neck of right femur: Status: Acute Assessment and plan: Patient scheduled for ORIF repair of her right femur this afternoon. Per Dr. Menchaca, patient will have intramedullary rodding of her femur. Qualifiers: Encounter type: initial encounter Qualified Code(s): M84.451A - Pathological fracture, right femur, initial encounter for fracture (2) Hypotension: Status: Resolved Assessment and plan: secondary to hypovolemia. However, due to her chronic steroid use (dexamethasone 4 mg daily), I have put her on stress dose hydrocortisone perioperatively. Postoperatively she can be transitioned back to her dexamethasone. If she returns home prior to 3 days of the stress level of hydrocortisone she can go on higher dose of dexamethasone for couple days Qualifiers: Hypotension type: hypotension due to hypovolemia Qualified Code(s): I95.89 - Other hypotension; E86.1 - Hypovolemia (3) Prerenal azotemia: Status: Resolved Assessment and plan: resolved w/ iv fluid hydration. 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 (6) Constipation: Status: Resolved Assessment and plan: Continued scheduled doses of MiraLAX and senna and Colace to prevent constipation (7) Hypokalemia: Status: Acute Assessment and plan: probably dilutional from her iv fluid resuscitation yesterday. Patient will receive potassium supplementation preoperatively (8) DVT prophylaxis: Status: Acute Assessment and plan: enoxaparin witheld pending surgery. will resume postoperatively. Subjective Subjective Patient reports: no new complaints and feels better Interval history since last seen: No pain Exam Narrative Exam Narrative: A&Ox3 Lungs: clear Heart: RRR, w/o murmur, rub or gallops Abdomen: soft, nontender Objective Last Vital Signs Temp 36.7 C 03/22/20 07:41 Pulse 71 03/22/20 07:41 Resp 21 03/22/20 07:41 BP 153/88 H 03/22/20 07:41 Pulse Ox 100 03/22/20 07:41 Laboratory Results - last 24 hr 03/21/20 03/21/20 03/21/20 10:26 10:26 10:26 WBC 3.78 L RBC 2.98 L Hgb 10.6 L Hct 33.2 L MCV 111.4 H MCH 35.6 H MCHC 31.9 L RDW 16.1 H Plt Count MPV 10.3 Immature Gran % Neutrophils % 76.0 Band Neutrophils % 6 Lymphocytes % 10.0 Monocytes % 5.0 Eosinophils % 0.0 Basophils % 0.0 Metamyelocytes % 2 Myelocytes % 1 Nucleated RBC % 0 Absolute Neutrophils 3.10 Absolute Lymphocytes 0.38 L Absolute Monocytes 0.19 Absolute Eosinophils 0.00 Absolute Basophils 0.00 RBC Morphology See below Polychromasia Present Poikilocytosis 1+ Macrocytosis 3+ VBG Lactate Sodium Potassium Chloride Carbon Dioxide Anion Gap BUN Creatinine Estimated GFR/1.73 m2 Glucose Calcium Magnesium Cortisol 16 Urine Color Urine Clarity Urine pH Ur Specific [place] Urine Protein Urine Ketones Urine Blood Urine Nitrite Urine Bilirubin Urine Urobilinogen Ur Leukocyte Esterase Urine RBC Urine WBC Ur Epithelial Cells Urine Crystals Urine Bacteria Urine Casts Urine Mucus Ur Culture Indicated? Urine Glucose Path Cons Comment Patient ABO/Rh A Positive Antibody Screen Negative 03/21/20 03/21/20 03/22/20 13:50 15:15 06:30 WBC RBC Hgb Hct MCV MCH MCHC RDW Plt Count MPV Immature Gran % Neutrophils % Band Neutrophils % Lymphocytes % Monocytes % Eosinophils % Basophils % Metamyelocytes % Myelocytes % Nucleated RBC % Absolute Neutrophils Absolute Lymphocytes Absolute Monocytes Absolute Eosinophils Absolute Basophils RBC Morphology Polychromasia Poikilocytosis Macrocytosis VBG Lactate 1.8 H Sodium 142 Potassium 3.4 L Chloride 111 H Carbon Dioxide 24.5 Anion Gap 6.5 BUN 15 D Creatinine 0.54 L D Estimated GFR/1.73 m2 >= 60.00 Glucose 111 H Calcium 7.0 L Magnesium Cortisol Urine Color Jany Urine Clarity Clear Urine pH 6.0 Ur Specific [place] 1.015 Urine Protein Negative Urine Ketones Negative Urine Blood Negative Urine Nitrite Negative Urine Bilirubin Negative Urine Urobilinogen 0.2 Ur Leukocyte Esterase Trace H Urine RBC 0-2 Urine WBC 5-10 Ur Epithelial Cells Few Urine Crystals Negative Urine Bacteria Moderate Urine Casts Negative Urine Mucus Negative Ur Culture Indicated? Yes Urine Glucose Negative Path Cons Comment Patient ABO/Rh Antibody Screen 03/22/20 03/22/20 06:30 06:30 WBC 4.51 RBC 2.58 L Hgb 9.0 L Hct 28.6 L MCV 110.9 H MCH 34.9 H MCHC 31.5 L RDW 16.3 H Plt Count 186 MPV 10.9 Immature Gran % 0.0 Neutrophils % 80.0 Band Neutrophils % 4 Lymphocytes % 8.0 Monocytes % 3.0 Eosinophils % 1.0 Basophils % 2.0 Metamyelocytes % 1 Myelocytes % 1 Nucleated RBC % 0 Absolute Neutrophils 3.79 Absolute Lymphocytes 0.36 L Absolute Monocytes 0.14 Absolute Eosinophils 0.05 Absolute Basophils 0.09 RBC Morphology See below Polychromasia Present Poikilocytosis 1+ Macrocytosis 3+ VBG Lactate Sodium Potassium Chloride Carbon Dioxide Anion Gap BUN Creatinine Estimated GFR/1.73 m2 Glucose Calcium Magnesium 2.5 H Cortisol Urine Color Urine Clarity Urine pH Ur Specific [place] Urine Protein Urine Ketones Urine Blood Urine Nitrite Urine Bilirubin Urine Urobilinogen Ur Leukocyte Esterase Urine RBC Urine WBC Ur Epithelial Cells Urine Crystals Urine Bacteria Urine Casts Urine Mucus Ur Culture Indicated? Urine Glucose Path Cons Comment Patient ABO/Rh Antibody Screen
--- NOTE | 2020-03-22 11:18 | W.PM.PROGNOT ---
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 She is scheduled to undergo long cemented hemiarthroplasty today. I once again reviewed the surgical details. I discussed the risk of the procedure to include bleeding, infection, pain, stiffness, hardware failure, hardware loosening, refracture, cardiopulmonary demise, embolic phenomenon, stroke, leg length inequality, blood clot. Despite these risk, Latha agrees to proceed. N.p.o. for surgery today. Qualifiers: Encounter type: initial encounter Qualified Code(s): M84.451A - Pathological fracture, right femur, initial encounter for fracture Subjective Subjective Interval history since last seen: Blood pressure has been much better. She has no complaints. Her pain is been controlled with oral agents. The hospitalist team has been closely monitoring her vital signs as well as her lab results in preparation for upcoming surgery. No acute issues overnight or through the day yesterday. Exam Narrative Exam Narrative: Sitting comfortably in the bed. No acute distress. Alert and orient x3. Breathing without difficulty. No audible wheezing or distress. Right lower extremity is evaluated once again and marked. No signs of overlying skin changes. No masses. No signs of infection. Objective Laboratory Results - last 24 hr 03/21/20 03/22/20 03/22/20 10:26 06:30 06:30 WBC 4.51 RBC 2.58 L Hgb 9.0 L Hct 28.6 L MCV 110.9 H MCH 34.9 H MCHC 31.5 L RDW 16.3 H Plt Count 186 MPV 10.9 Immature Gran % 0.0 Neutrophils % 80.0 Band Neutrophils % 4 Lymphocytes % 8.0 Monocytes % 3.0 Eosinophils % 1.0 Basophils % 2.0 Metamyelocytes % 1 Myelocytes % 1 Nucleated RBC % 0 Absolute Neutrophils 3.79 Absolute Lymphocytes 0.36 L Absolute Monocytes 0.14 Absolute Eosinophils 0.05 Absolute Basophils 0.09 RBC Morphology See below Polychromasia Present Poikilocytosis 1+ Macrocytosis 3+ Sodium 142 Potassium 3.4 L Chloride 111 H Carbon Dioxide 24.5 Anion Gap 6.5 BUN 15 D Creatinine 0.54 L D Estimated GFR/1.73 m2 >= 60.00 Glucose 111 H Calcium 7.0 L Magnesium Path Cons Comment 03/22/20 06:30 WBC RBC Hgb Hct MCV MCH MCHC RDW Plt Count MPV Immature Gran % Neutrophils % Band Neutrophils % Lymphocytes % Monocytes % Eosinophils % Basophils % Metamyelocytes % Myelocytes % Nucleated RBC % Absolute Neutrophils Absolute Lymphocytes Absolute Monocytes Absolute Eosinophils Absolute Basophils RBC Morphology Polychromasia Poikilocytosis Macrocytosis Sodium Potassium Chloride Carbon Dioxide Anion Gap BUN Creatinine Estimated GFR/1.73 m2 Glucose Calcium Magnesium 2.5 H Path Cons Comment
[2020-03-22] MEDS: Normal Saline Flush 10 ML SYR IVP (12:22)
[2020-03-22] MEDS: Lactated Ringers 1,000 ML 50 ML IV (13:52)
--- NOTE | 2020-03-22 14:50 | BONE_PTH ---
PATIENT: Latha Mejía LOC: U#:[id number] AGE/SX: 70/F ROOM: 229 RE03/19/[address]: Babatunde Menchaca MD : [id number] BED: A DIS: 03/27/2020 SPEC #: [id number] RECD: 03/22/20 17:55 STATUS: NICHELLE REQ #: [id number] MICHELLE: 03/22/20 14:[address]: Babatunde Menchaca DEPT: Surgical Specimen RECD BY: Rachele Driver ENTERED: 03/22/20 17:56 SP TYPE: Bone OTHR DR: Clara Shipman Tissues: 1 - FEMORAL HEAD Procedures: IMMUNOPEROXIDASE STAIN GROSS AND MICRO LEVEL 3 DECALCIFICATION Comments: [id number]
[2020-03-22] MEDS: Bupivacaine 0.25% Pres-Free 30 ML VIAL (15:03)
[2020-03-22] MEDS: Ketorolac 30 MG/ML VIAL (15:05)
--- NOTE | 2020-03-22 15:05 | NUR.NOTE ---
Nursing Note: I have reviewed the documentation of Joanne Alcazar RN, and find it complete and accurate.
--- NOTE | 2020-03-22 16:18 | PDOC.CMPRO ---
- If Service Date Differs Date of service: 03/22/20 Time of Service: 16:18 Care Management Progress Note S/O: Ltaha was sitting up in bed when CM met with her. Per report, her surgery was moved up to this afternoon, which she is happy about. She stated that she had just met with Dr. Menchaca, and he would be taking her to surgery soon. She stated that her expectation is to return home tomorrow with no additional services, as her is her caregiver who will be with her all of the time. CM will continue to follow. A: Latha is a 70 year old female admitted to [facility] on 03/19/20 with a right hip fracture. P: Latha went to the OR today. She may need new services upon discharge, if indicated, although she does not feel that this is necessary. Her will drive her home via private vehicle. She will follow up with her oncologist, ortho, and her discharge plan of care. CM will continue to follow.
--- NOTE | 2020-03-22 17:20 | DI.RAD_ITS ---
EXAM: XR FEMUR RT INDICATION: IN PACU. s/p R hip long stemmed angel. COMPARISON: CR XR HIP RT 1V from 03/20/2020 TECHNIQUE: 2D digital imaging was performed. FINDINGS: The patient is status post placement of a hip prosthesis. Components appear well aligned. There is a long shaft femoral component extending to the distal femoral metadiaphysis. A lytic lesion of the mid femoral cortex is again noted. There is residual postsurgical air in the soft tissues.. DATA REPOSITORY: RADIATION DOSE DELIVERED:
[2020-03-22] MEDS: Lactated Ringers 1,000 ML 100 ML IV (21:00)
[2020-03-22] MEDS: Gabapentin 100 MG CAP PO (23:19)
[2020-03-22] MEDS: Senna TAB 1 TAB PO (23:22)
[2020-03-22] MEDS: Acetaminophen 500 MG TAB PO (23:28)
[2020-03-22] MEDS: Ketorolac 15 MG/ML VIAL IVP (23:28)
[2020-03-23] MEDS: HYDROmorphone 2 MG/ML VIAL 0.5 MG IVP ×2 (01:01→06:43)
[2020-03-23 03:15] VITALS: BP 122/82; PULSE 86; RESP 19; TEMP 36.5; O2SAT 94
[2020-03-23] MEDS: Hydrocortisone SOD SUC. 100 MG VIAL 50 MG IVP ×4 (06:32→23:49)
[2020-03-23 06:33] LABS: Abs Immature Grans 0.31 10^3/uL (0.0-0.06); HCT 25.5 % (36.0-46.0); HGB 8.2 g/dL (11.2-15.7); MCH 35.7 pg (27.0-33.0); MCHC 32.2 % (32.0-36.0); MCV 110.9 fL (80-95); MPV 10.9 fL (8.0-11.0); Platelet Count 161 10^3/uL (130-400); RDW 16.6 % (11.7-14.6); RDW-SD 67.9 fL; WBC 5.81 10^3/uL (4.4-10.8)
--- NOTE | 2020-03-23 06:44 | NUR.NOTE ---
Nursing Note: pt insisting on having benitez cath out. 400mls of benitez emptied. Pt having pain in stomach/bladder area. Pt insisting benitez cath not emptying which is why she wanted it out. cath taken out and pt bladder scanned for 15mls of urine. Dilaudid given for pain.
[2020-03-23 06:45] LABS: Anion Gap 6.9 mmol/L (3-11); BUN 14 mg/dL (7-18); CO2 24.1 mmol/L (21.0-32.0); Calcium 6.8 mg/dL (8.5-10.1); Chloride 112 mmol/L (98-107); Glucose 118 mg/dL (74-106); Potassium 3.9 mmol/L (3.5-5.1); Sodium 143 mmol/L (136-145)
[2020-03-23 07:23] LABS: Absolute Eosinophil Count 0.23 10^3/uL (0.0-0.7); Absolute Lymphocyte Count 0.46 10^3/uL (1.2-3.4); Absolute Monocyte Count 0.35 10^3/uL (0.1-0.8); Absolute Neutrophil Count 4.65 10^3/uL (1.2-6.7); Anisocytosis 1+; Diff Comment Manual Differential; Macrocytosis 3+; Metamyelocytes % 1; Myelocytes % 1; Nucleated RBC 0 %
[2020-03-23 07:24] LABS: Polychromasia Present
--- NOTE | 2020-03-23 07:27 | ROE_ITS ---
Date of service: 03/22/20 Time of Service: 16:27 Operative Note Operative Note DATE OF PROCEDURE: 03/22/20 PRE-OP DIAGNOSIS: Pathologic Right Femoral Neck Fracture with Femoral Shaft Lytic Lesion POST-OP DIAGNOSIS: same PROCEDURE: Long cemented hemiarthroplasty of the right hip SURGEON: Babatunde Menchaca LANDFILL GRADER: Nida Malhotra ANESTHESIA: spinal ESTIMATED BLOOD LOSS: 150 PATHOLOGY: other (Femoral head and neck was sent for pathology) TOURNIQUET TIME: 0 COMPLICATIONS: None Patient was transported to: PACU Patient's condition: stable Implants: Depuy Endurance Size 3 300mm Bowed Femoral Stem Depuy 47mm Unipolar Femoral Head with +0 neck Indications: Latha is a 70-year-old who has known metastatic lung cancer. She developed the inability to bear weight on her right leg and was found to have a incomplete fracture of the femoral neck through the base of a blastic lesion. She also had a lytic lesion seen in the femoral shaft. Given the inability to ambulate and her pain, I recommended treatment for the blastic lesion the neck as well as prophylactic treatment for the lesion in the shaft with a long cemented hemiarthroplasty. I discussed the risk of this procedure. These included but were not limited to bleeding, infection, pain, stiffness, damage to nerves and vessels, damage to muscles and tendons, fracture, cement induced embolic phenomenon, cardiopulmonary demise, stroke, blood clot, . After thorough discussion, all of her questions were answered and she agreed to proceed. Findings: A fracture was seen of the inferior aspect of the femoral neck. It was incomplete. There was some notable change in the bone in this area but overall bone quality was good without any other defects seen. A long cemented hemiarthroplasty was placed without difficulty. Procedure Description: Latha was greeted in the preoperative holding area. Her identity was confirmed and the correct side was previously marked. The consent was reviewed the patient earlier and signed previously on the floor. She was taken to the operating room and administered a spinal anesthetic. After successful spinal, she was then positioned to the left lateral decubitus position and held there, secured onto the table with padded posts. All bony promises well-padded. An axillary roll was placed. Bony prominences of the down leg and down arm were also padded. Prophylactic antibiotics in the form of cefazolin were administered. 1 g of tranexamic acid was also given. The left leg was prepped with ChloraPrep and draped in a standard fashion. A timeout was performed for safe surgery. A standard curvilinear incision was made over the lateral hip. This was carried down through the skin and subcutaneous tissue to identify the fascia of the gluteus lazara as well as iliotibial band. This was cleared for better visualization. Retractors were placed. Bleeding was stopped with electrocautery. The iliotibial band was incised with a knife and extended p roximally into the gluteus lazara fascia and muscle fibers with blunt dissection. A Charnley retractor was placed deep in this area for better exposure. Some mild bursal tissue was removed from the posterior lateral aspect of the greater trochanter for visualization. The leg was brought into some slight internal rotation to better expose the short external rotators and the posterior capsular tissues. Retractors placed underneath the gluteus minimus and over the capsule of the hip. Using a Bovie I then released the short external rotators as well as the quadratus for Armaan onto the capsule and to the neck of the femur. This was carried around posteriorly and the hip was unsuccessfully dislocated with flexion and internal rotation. The proximal femur was exposed with retractors and inspected. There was a crack seen over the anterior aspect of the cortex. Otherwise the bone appeared to be in good quality. A neck cut was made 1 fingerbreadth above the lesser trochanter without difficulty. The head neck specimen was then sent to pathology. There still was a small amount of disease type tissue which could be palpated within the neck but it was a very small amount with no surrounding bony changes. The abductor tendons were protected and I use a starting reamer to identify the canal and then began broaching from a starting 0 to the size 3, necessary for the long cemented stem. The size 3 did not seem to seat as far down as I would prefer. Therefore, I proceeded with reaming the canal. This started a size 10 mm reamer and was reamed to a size 13.5 mm. After this I then went back to broaching and was able to broach the size 3 down onto the proposed neck cut level. The bone quality was quite good we had no concerns of fracture. Once the stem is in place I then placed a trial +0 neck with a 47 mm unipolar head. This was trialed. Reduction was able to be obtained and it was stable. Is possible is a slightly bit long but there was good tension of the tissues and I was able to reapproximate the posterior capsule. Hip was then dislocated. The trial components were removed. I then placed the trial 300 mm stem into the canal to ensure that I was able to pass it without difficulty. Intraoperative x-ray was also obtained to make sure it was long enough, passing the lytic lesion, and not jeopardizing the cortex in positioning. This x-ray was performe d with excellent positioning of the stem. The canal was then irrigated with a pulse lavage. It was dried using a canal suction device. Ray-Esteban sponges placed into the acetabulum. 3 batches of anti biotic laden medium viscosity cement were then prepared under vacuum assistance. After this was ready it was then injected into the canal of the right femur. It was pressurized by hand. I then inserted the size 3 endurance 300 mm stem slowly. There were no systemic events noted by anesthesia. Once it was in position anteversion was maintained at about 20 degrees. It was then held onto the cut surface of the neck for the entire curing process of about 15 minutes. There was a small dip in her blood pressure which was observed about 5 minutes after placement of the device but responded within 5 minutes without any necessary supportive measures. While the cement was curing excess cement was removed. After the cement had cured the unipolar head, 47 mm with a +0 neck was then inserted onto the stem of the hemiarthroplasty. This was then reduced without significant difficulty. It was noted be stable to flexion of 95 degrees internal Tatian of 45 degrees and some abduction. I was able to extend 5 degrees. The posterior capsule was then reapproximated with a #2 FiberWire. The short external rotators and piriformis were tied onto the posterior trochanter through 2 mm drill holes. Quadratus femoris was also placed onto the posterior portion of the greater trochanter. The wound was thoroughly irrigated with irrisept solution. The deep tissues and subtenons tissues were injected with a mixture of 0.25% bupivacaine with 20 cc of Exparel and 30 mg of ketorolac. The IT band and gluteus lazara fascia was then closed with a running strata fix, #2 suture. The deep tissues were closed with 0 and 2-0 Vicryl. The skin was closed with a running 3-0 Monocryl followed by skin glue and a Mepilex silver dressing. And then the case all counts are correct. She is placed into an abductor pillow and transferred over to the hospital bed suffering no notable complications. She was transferred to the PACU in stable condition. She will have an x-ray in the PACU to confirm appropriate positioning as well as reduction of the hemiarthroplasty component. She will be weightbearing as tolerated with modified posterior hip restrictions of knees wider than hips.
[2020-03-23 07:45] VITALS: BP 111/78; RESP 18; TEMP 35.7; O2SAT 95
[2020-03-23] MEDS: levETIRAcetam 500 MG TAB PO ×2 (08:09→20:38)
[2020-03-23] MEDS: Cholecalciferol (Vitamin D3) 1,000 UNIT TAB 2000 UNITS PO (08:09)
[2020-03-23] MEDS: Magnesium Oxide 400 MG TAB PO ×2 (08:10→20:38)
[2020-03-23] MEDS: Multivitamin TAB 1 TAB PO (08:10)
[2020-03-23] MEDS: lamoTRIgine 25 MG TAB 50 MG PO ×2 (08:10→20:38)
[2020-03-23] MEDS: Lactobacillus Acidophilus CAP 1 CAP PO (08:10)
[2020-03-23] MEDS: Esomeprazole 20 MG CAPCR PO (08:11)
[2020-03-23] MEDS: Ascorbic Acid 500 MG TAB PO (08:11)
[2020-03-23] MEDS: Lactated Ringers 1,000 ML 100 ML IV ×2 (08:19→18:27)
--- NOTE | 2020-03-23 08:52 | PT.INIE ---
Date of service: 03/23/20 Time of Service: 08:52 PT Notes Visit Reasons: RIGHT HIP FRACTURE Physical Therapy Inpatient Initial Evaluation Date: 03/23/2020 Referring Doctor: Babatunde Menchaca MD PT Orders: PT CONSULT: Status post Ortho surgery. Status post right hip hemiarthroplasty. Precautions: Fall. Standard. WBAT on right LE. Modified posterior hip cautions of keeping knees always wider than the hip at all times. Patient Profile/Admitting Diagnosis: Latha is a 70-year-old female with known stage 4 lung adenocarcinoma with bony metastases to the right hip area who presented to the ED on 03/19/2020 with complaints of inability to walk due to pain and sensation of giving out in the right hip. Patient is diagnosed with pathologic fracture of the right femoral neck with femoral shaft lytic bone lesion of R femur and S/P long cemented hemiarthroplasty of the R hip on postoperative day 1. 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 He states that they have a rampt as well. Melvin takes care of meals and all house chores. Bhavani is CGA with single point cane for indoor and outdoor ambulation. ASSOCIATE PRODUCER by for transfers and short distance ambulation. Supervision with bathing and set up with dressing with occasional hand held assist from who is always there with her every time she is out of bed. Prior PT services: Started OP PT services as referred by oncologist for core strengthening and balance retraining. Has had 4 PT sessions as of 03/06/2020. Equipment Owned/DME: [facility], [facility] Subjective: Reported being queasy, weak, and feels like she is going to throw up when sat up in bed. Complained of pain in the R hip and thigh 4-5/10 with standing up. Objective: General Observation: Supine in bed. Antithromboembolic pumps to B legs. Mental Status: Alert and oriented x 4 Pain: 5?6/10 in the right hip with rest and with movement ROM: Right Upper Extremity: Shoulder Flexion WFL. Shoulder abduction WFL. Elbow flexion WFL. Wrist flexion WFL. Opening and closing of hand WFL. Left Upper Extremity: Shoulder Flexion WFL. Shoulder abduction WFL. Elbow flexion WFL. Wrist flexion WFL. Opening and closing of hand WFL. Right Lower Extremity: Hip flexion has 50% available range of motion limited by pain. Hip abduction has 50% available range of motion limited by pain. Knee flexion WFL. Ankle dorsiflexion WFL. Ankle plantarflexion WFL. Left Lower Extremity: Hip flexion WFL. Hip abduction WFL. Knee flexion WFL. Ankle dorsiflexion WFL. Ankle plantarflexion WFL. Strength: Right Upper Extremity: Shoulder flexors 4-/5. Shoulder abductors 4-/5. Elbow flexors 4-/5. Elbow extensors 4-/5. Hide Spreader strong. Left Upper Extremity: Shoulder flexors 4-/5. Shoulder abductors 4-/5. Elbow flexors 4-/5. Elbow extensors 4-/5. Hide Spreader strong. Right Lower Extremity: Hip flexors 3-/5. Hip abductors 3-/5. Knee flexors 3+/5. Knee extensors 3+/5. Ankle dorsiflexors 3/5. Ankle plantarflexors 4-/5. Left Lower Extremity: Hip flexors 3/5. Hip abductors 4-/5. Knee flexors 3+/5. Knee extensors 3+/5. Ankle dorsiflexors 3/5. Ankle plantarflexors 4-/5. Sensation: Since a month ago, complains of numbness in toes in B sides that spreads to fingers in B hands at night. Bed Mobility/Transfers: Rolling minimal assist of 2 Supine to sit minimal assist of 2, requires moderate to maximal cueing for safe strategies Sit to supine minimal assist of 2, requires moderate to maximal cueing for safe strategies Sit to stand minimal assist of 2, requires moderate to maximal cueing for safe strategies Stand to sit minimal assist of 2, requires moderate to maximal cueing for safe strategies Bed to chair unable Chair to bed unable Gait: Unable Balance: Static Sitting: Good Dynamic Sitting: Fair Static Standing: Unable Dynamic Standing: Unable Special Tests: Mobility Limitations Standardized Measure [facility] 6 clicks Basic Mobility Inpatient Short Form: Raw Score: 9 CMS Score: 81% deficit ASSESSMENT: Latha has not had a good night's sleep and has not eaten well since return from surgery yesterday afternoon. Latha demonstrates generalized weakness in B UE/LE with LE<<UE, core weakness, balance impairment, decreased activity tolerance, and increased risk for falls due to postoperative status impacting her ability to perform mobility ADLs safely and limit ability to return home. She will require services in order to address underlying impairments and functional deficits listed below. Without skilled services, she is at risk for further functional decline, falls, increased burden of care, and decreased ability to return to home at prior level of function. Latha presents with clinical signs and symptoms consistent with current/admitting diagnoses that have resulted to mobility limitations, gait instability, generalized weakness, and impairment of motor control as demonstrated by the following impairment level findings: 1. Decreased ROM on R LE due to pathologic fracture of R femoral neck and lytic lesion of the R femur 2. Decreased strength to B UE/LE major muscle groups 2. Impaired standing balance 3. WBAT precaution on the R LE per orthopod 4. Impaired activity tolerance 5. Decreased core strength 7. Impaired safety awareness Impairments are continuing to contribute to the following functional limitations: 1. Decreased bed mobility sklls 2. Dependent with transfers 3. Inability to safely ambulate without assistive device and physical assistance 4. Increase completion time for mobility ADL performance 5. Increased fall risk 6. Inability to negotiate steps alone safely 7. Dependent transfers Patient is assessed as a 79471 high complexity based on the following: History: 70-year-old female with impairment level findings, functional limitations, and past medical history as indicated above Examination: Demonstrable impairment in strength, balance, and mobility level with underlying impairments and functional limitations as documented above Presentation: Evolving Decision Makin high complexity Goals: Goals X1 week 1. Supine-Sit independent 2. Sit-Supine independent 3. Sit-Stand independent 4. Stand-Sit independent 5. Bed-Chair independent 6. Chair-Bed independent 7. Independent gait on level surface with use of least restrictive device for at least 100 feet without report of pain nor dyspnea 8. Independent stair negotiation while holding onto bilateral rails for at least 5 steps without report of pain nor dyspnea 9. Good static and dynamic standing balance/tolerance Plan of Care/Treatment Plan: 1-2x/day, 7 days/week x 1 week. Plan of care has been reviewed with the OCCUPATIONAL THERAPIST REHAB MANAGER providing the service under Physical Therapy direction. Initiate Physical Therapy intervention for strengthening, bed mobility, transfers, gait, stairs, balance training, use of assistive device. DISCHARGE RECOMMENDATIONS: Patient will benefit from custodial facility placement for continued skilled physical therapy services in order to progress mobility level, strength, and balance in preparation for a safe discharge to home. TREATMENT CODE/TIME: 79558 x 35 minutes, 21762 x 13 minutes beginning at 8:52 AM. Thank you for the opportunity to participate in the care of this patient. Carole Anna PT, DPT, CLT [facility] [place], [place]
--- NOTE | 2020-03-23 10:15 | RT.EKG_ITS ---
APPROVED REPORT Exam: Resting ECG Patient Location: I HR:77 bpm ECG Measurements Heart Rate 77 AXIS LA 130 P 64 QRSd 76 QRS -28 QT 444 T -67 QTc 504 Conclusion Sinus rhythm...normal P axis, V-rate 60- 99 Low voltage, precordial leads...precordial leads <1.0mV Nonspecific T abnormalities, anterior leads...T <-0.10mV, V2-V4 Prolonged QT interval...QTc >500mS
--- NOTE | 2020-03-23 10:16 | PGE_ITS ---
Date of Service Date of service: 03/23/20 Time of Service: 10:16 Assessment and Plan Assessment and plan (1) Pathologic fracture of neck of right femur: Status: Acute Assessment and plan: Postop day #1 right femur intramedullary rodding. Pain seems to be managed. Qualifiers: Encounter type: initial encounter Qualified Code(s): M84.451A - Pathological fracture, right femur, initial encounter for fracture (2) Neuropathy due to chemotherapeutic drug: Status: Acute Assessment and plan: Continue home dose of gabapentin (3) Prerenal azotemia: Status: Resolved Assessment and plan: Resolved with IV fluid hydration preoperatively. Continue to monitor oral intake. Continue IV fluids until she is taking adequate oral intake. (4) Hypokalemia: Status: Resolved Assessment and plan: Potassium now 3.9 and her prerenal azotemia resolved with IV fluid hydration. Patient will be kept on potassium and magnesium supplementation and nutritional consults been requested. (5) Hypocalcemia: Status: Acute Assessment and plan: Despite her low calcium level of 6.8 when the level is adjusted based on her albumin level 2.2 her corrected calcium level is 8.24. Patient has no symptoms of hypocalcemia. EKG this morning shows nonspecific T wave abnormalities that were present preoperatively. Her QTC while it is prolonged at 504 ms is actually less than yesterday's 515 ms. I have sent off an intact parathyroid hormone level along with vitamin D levels and an ionized calcium level. I have asked for nutritional consult to work on her hypoproteinemia/hypoalbuminemia. I have ordered protein supplements to be given to her 3 times a day. She is already on vitamin D supplementation but I do not feel that she needs emergent correction of her hypocalcemia. Subjective Subjective Interval history since last seen: Patient is 1 day postoperative repair of pathologic right femur fracture. Patient underwent long cemented hemiarthrop lasty of her right hip yesterday by Dr. Babatunde Menchaca. Today the patient is very nauseated. She complains of some abdominal discomfort. Preoperatively the patient had some mild abdominal discomfort that was relieved by bowel movement. Review of her labs this morning show she is anemic with hemoglobin 8.2 g which is slightly down from yesterday's hemoglobin 9 g although she came in with a he moglobin around 10.6. There is been no evidence of overt bleeding. She had minimal blood loss perioperatively. Her vital signs remained stable she is afebrile and has no leukocytosis. However review of her basic metabolic profile shows that her mild hypocalcemia has worsened and her calcium is down to 6.8 mg/dL whereas her admission calcium had been 8.8. She is malnourished and has low protein levels. And even when her calcium was 8.2 when corrected for her hypoalbuminemia her calcium levels corrected to above 9. I have ordered PTH and vitamin D levels and ionized calcium level as well as a repeat albumin level and a lipase level. Examination failed to demonstrate any should Chovstek's or Trousseau's signs. Repeat ECG demonstrates normal sinus rhythm rate 77 bpm with diffuse nonspecific T wave abnormalities. Corrected QT interval is 504 ms. Exam Narrative Exam Narrative: Lethargic elderly female who awakens easily and is oriented. Lungs are clear to auscultation Heart regular rate and rhythm Abdomen with active bowel sounds soft but tender in the epigastrium and left upper quadrant without guarding or rebound tenderness. Percussion over the facial nerve did not elicit any trismus or fasciculations. Compression of her wrist with a pediatric blood pressure cuff for 2 minutes did not elicit any carpal spasm. Objective Last Vital Signs Temp 35.7 C L 03/23/20 07:45 Pulse 86 03/23/20 03:15 Resp 18 03/23/20 07:45 BP 111/78 03/23/20 07:45 Pulse Ox 95 03/23/20 07:45 Laboratory Results - last 24 hr 03/21/20 03/22/20 03/23/20 10:26 06:30 06:10 WBC RBC Hgb Hct MCV MCH MCHC RDW Plt Count MPV Immature Gran % Neutrophils % Lymphocytes % Monocytes % Eosinophils % Basophils % Metamyelocytes % Myelocytes % Nucleated RBC % Absolute Neutrophils Absolute Lymphocytes Absolute Monocytes Absolute Eosinophils Absolute Basophils RBC Morphology Polychromasia Anisocytosis Macrocytosis Sodium 143 Potassium 3.9 Chloride 112 H Carbon Dioxide 24.1 Anion Gap 6.9 BUN 14 Creatinine 0.50 L Estimated GFR/1.73 m2 >= 60.00 Glucose 118 H Calcium 6.8 L Magnesium 2.5 H Path Cons Comment 03/23/20 06:10 WBC 5.81 RBC 2.30 L Hgb 8.2 L Hct 25.5 L MCV 110.9 H MCH 35.7 H MCHC 32.2 RDW 16.6 H Plt Count 161 MPV 10.9 Immature Gran % See Differential Neutrophils % 80.0 Lymphocytes % 8.0 Monocytes % 6.0 Eosinophils % 4.0 Basophils % 0.0 Metamyelocytes % 1 Myelocytes % 1 Nucleated RBC % 0 Absolute Neutrophils 4.65 Absolute Lymphocytes 0.46 L Absolute Monocytes 0.35 Absolute Eosinophils 0.23 Absolute Basophils 0.00 RBC Morphology See below Polychromasia Present Anisocytosis 1+ Macrocytosis 3+ Sodium Potassium Chloride Carbon Dioxide Anion Gap BUN Creatinine Estimated GFR/1.73 m2 Glucose Calcium Magnesium Path Cons Comment
--- NOTE | 2020-03-23 10:22 | CMPROGNOTE_ITS ---
- If Service Date Differs Date of service: 03/23/20 Time of Service: 10:22 Care Management Progress Note S/O: Latha went to the OR yesterday to repair her fractured femur. Her pain is fairly well controlled but she is very nauseated today. She had a poor night according to her and was sleeping when CM came to see her. At her 's request, CM did not wake her up. Latha remains afebrile and her vital signs are stable after some mild hypotension post-operatively. A: Latha is a 70 year old female admitted to [facility] on 03/19/20 with a right hip fracture. P: Latha went to the OR yesterday to repair her fractured femur. The plan is for her to return home with her and transport via private vehicle, possibly tomorrow. She may need new services upon discharge, although she has indicated that she does not feel this will be necessary. Latha will follow up with her oncologist, orthopedic surgeon and her discharge plan of care. CM will continue to follow and to support patient and family and assess for discharge needs.
[2020-03-23] MEDS: Normal Saline Flush 10 ML SYR IVP (10:34)
--- NOTE | 2020-03-23 10:46 | W.NUTCONSULT ---
Date of service: 03/23/20 Time of Service: 10:46 Nutritional Consult ASSESSMENT: Met with Latha and today. Latha was very sleepy. Admitted with stage 4 lung cancer with bone mets with 22 lbs weight loss in last 6 months (-17% weight loss). Appears poorly nourished. Diet advanced to regular. At high risk for nutritional decline/ skin breakdown. Pallative consult pending. NUTRITIONAL DIAGNOSIS: Severe malnutrition in context of chronic illness INTERVENTION: Regular meal plan meal preferences ensure clear TID MONITORING AND EVALUATION: will continue to monitor po intake, labs and weight. Time Spent in Nutritional Counseling and Treatment: 5 min spent face to face
[2020-03-23 10:54] LABS: Albumin 2.2 g/dL (3.4-5.0)
[2020-03-23 11:35] LABS: Lipase 54 U/L (73-393)
[2020-03-23 12:04] LABS: Vitamin D 25 Total 32.3 ng/ml (30-100)
--- NOTE | 2020-03-23 14:30 | CHAPLAIN ---
Latha was sitting up in bed when I visited. Her , Evelio, is with her. She said her surgery went well yesterday, but she had an uncomfortable night, and is feeling better today. Dr. Menchaca stopped in while I was there and encouraged Latha to be patient with herself and reminded her that she just had major surgery yesterday and it may take a few days to feel better. Latha seems to be well supported by Evelio, and has an optimistic outlook on her diagnosis and prognosis. I will continue to visit.
[2020-03-23] MEDS: Protein Nutritional Supplement 16 GM 1 OUNCE PACKET 2 OUNCE PO ×2 (14:50→20:38)
[2020-03-23 15:00] VITALS: BP 95/66; PULSE 89; RESP 17; TEMP 36; O2SAT 98
[2020-03-23] MEDS: Acetaminophen 500 MG TAB PO (15:03)
[2020-03-23] MEDS: Ketorolac 15 MG/ML VIAL IVP (15:05)
--- NOTE | 2020-03-23 15:35 | PT.INTREAT ---
Date of service: 03/23/20 Time of Service: 15:35 PT Notes Visit Reasons: RIGHT HIP FRACTURE Inpatient Physical Therapy Treatment Note [facility] Date: 03/23/2020 PRECAUTIONS: Fall, WBAT on R SUBJECTIVE: Latha is pleasant and agreeable to participating in PT. reports that she was able to get in a nice long nap today, and that she feels much better. OBJECTIVE: PAIN: Patient complained of right hip pain with transfers BED MOBILITY/TRANSFERS Supine?sit: Min a with HOB at 30 degrees Sit?supine: Mod a with HOB flat Sit-stand: Min A x2 Stand-sit: CGA Bed-Chair: CGA x2 GAIT Assistive Device: FWW Weight bearing: WBAT R Assist: CGA x2 Distance: 4 steps to left +6 steps forward Deviation: Cueing to avoid internal rotation of R hip, held further gait training due to severe nausea THEREX: Patient was instructed in several lower extremity strengthening and stabilization exercises, while in a supine position, as per flow sheet. ASSESSMENT: Patient tolerated session with complaint of R hip pain with transfers, as well as severe nausea with gait training. Patient demonstrates need for global strengthening and bed mobility/transfer/gait training as symptoms allow. PLAN: Continue with global strengthening as well as mobility/transfers/gait training for improved mobility and ability to perform daily functional tasks. TREATMENT CODE/TIME: 40 minutes; 22302 x2, [id number]
--- NOTE | 2020-03-23 17:54 | PGE_ITS ---
Date of Service Date of service: 03/23/20 Time of Service: 12:54 Assessment and Plan Assessment and plan (1) Pathologic fracture of neck of right femur: Status: Acute Assessment and plan: Latha is a 70-year-old who is status post long cemented hemiarthroplasty for a pathologic right hip fracture as well as a lytic lesion of the femur. She does have some pain and has been nauseous today. She seems somewhat discouraged but I think she is doing fine. I think we underestimate how her body is beat down from the cancer and his multiple treatments. I do not find any issues with her examination today. She does have some anemia which is likely due to her chronic disease as well as blood loss from the surgery. I also thinks imperative we focus on her nutrition. I appr eciate the hospitalist team for involvement and following up with some of her lab abnormalities. I think we just need to be slow and persistent with the recovery process on expect that we will make gains in the days to come. As soon as she is able to transfer with minimal assistance I think she could discharge to home. I think will note more in the next day or 2. We will recheck lab work tomorrow. Qualifiers: Encounter type: initial encounter Qualified Code(s): M84.451A - Pathological fracture, right femur, initial encounter for fracture Subjective Subjective Interval history since last seen: Latha reports having significant nausea since the surgery. She did not sleep very well last night and when she tried to sit up and stand with physical therapy this morning she got quite shaky and nauseous. This did respond to Phenergan although it made her quite sleepy. She does not necessarily describe pain but when she does try to get up and move she does have pain about her right hip. She locates this area to the proximal aspect of the right hip both anteriorly and posteriorly. She also complains of pain down the thigh towards the knee. She does have a baseline numbness and tingling but does not feel any different than it was from before surgery. She denies chest pain or shortness of breath. She has had some lower abdominal discomfort after the Park catheter was removed but has been unable to void as of this note. She has had multiple bladder scans all showing minimal volume amounts. Exam Narrative Exam Narrative: Sitting up in the bed. No acute distress. Alert and oriented x3. Right thigh shows some swelling but no significant fluctuance. No signs of infection. Dressing is clean dry and intact. Mild pain with hip internal and external rotation. Leg is otherwise normal in appearance and positioning. She is able to actively dorsiflex and extend the great toe as well as nahomy and invert the foot. Objective Last Vital Signs Temp 36 C L 03/23/20 15:00 Pulse 89 03/23/20 15:00 Resp 17 03/23/20 15:00 BP 95/66 L 03/23/20 15:00 Pulse Ox 98 03/23/20 15:00 Laboratory Results - last 24 hr 03/23/20 03/23/20 03/23/20 06:10 06:10 06:10 WBC 5.81 RBC 2.30 L Hgb 8.2 L Hct 25.5 L MCV 110.9 H MCH 35.7 H MCHC 32.2 RDW 16.6 H Plt Count 161 MPV 10.9 Immature Gran % See Differential Neutrophils % 80.0 Lymphocytes % 8.0 Monocytes % 6.0 Eosinophils % 4.0 Basophils % 0.0 Metamyelocytes % 1 Myelocytes % 1 Nucleated RBC % 0 Absolute Neutrophils 4.65 Absolute Lymphocytes 0.46 L Absolute Monocytes 0.35 Absolute Eosinophils 0.23 Absolute Basophils 0.00 RBC Morphology See below Polychromasia Present Anisocytosis 1+ Macrocytosis 3+ Sodium 143 Potassium 3.9 Chloride 112 H Carbon Dioxide 24.1 Anion Gap 6.9 BUN 14 Creatinine 0.50 L Estimated GFR/1.73 m2 >= 60.00 Glucose 118 H Calcium 6.8 L Albumin 2.2 L Lipase 25-OH Vitamin D Total 03/23/20 03/23/20 10:37 10:37 WBC RBC Hgb Hct MCV MCH MCHC RDW Plt Count MPV Immature Gran % Neutrophils % Lymphocytes % Monocytes % Eosinophils % Basophils % Metamyelocytes % Myelocytes % Nucleated RBC % Absolute Neutrophils Absolute Lymphocytes Absolute Monocytes Absolute Eosinophils Absolute Basophils RBC Morphology Polychromasia Anisocytosis Macrocytosis Sodium Potassium Chloride Carbon Dioxide Anion Gap BUN Creatinine Estimated GFR/1.73 m2 Glucose Calcium Albumin Lipase 54 25-OH Vitamin D Total 32.3
[2020-03-23 17:57] LABS: Ionized Calcium 0.96 mmol/L (1.12-1.32)
[2020-03-23] MEDS: Normal Saline 50 ML 400 ML (18:49)
[2020-03-23 18:55] VITALS: BP 111/71; PULSE 83; RESP 18; TEMP 36.6; O2SAT 99
[2020-03-23] MEDS: Senna TAB 1 TAB PO (20:38)
[2020-03-23] MEDS: Gabapentin 100 MG CAP PO (20:38)
--- NOTE | 2020-03-23 22:24 | NUR.NOTE ---
Nursing Note: Bladder scanned at 2220 for 349mls. Pt has no urge to void, denies pain. made aware pt has not voided since benitez was removed.
[2020-03-23 23:21] VITALS: BP 112/77; PULSE 80; RESP 17; TEMP 35.9; O2SAT 97
[2020-03-24] VITALS (11 sets, daily range): BP systolic 119–152; BP diastolic 82–94; PULSE 84–102; RESP 12–18; TEMP 35.8–37; O2SAT 4–97
[2020-03-24] MEDS: Lactated Ringers 1,000 ML 100 ML IV (03:01)
[2020-03-24] MEDS: Hydrocortisone SOD SUC. 100 MG VIAL 50 MG IVP ×4 (06:10→23:44)
[2020-03-24 07:09] LABS: HCT 23.2 % (36.0-46.0); HGB 7.3 g/dL (11.2-15.7); MCH 35.1 pg (27.0-33.0); MCHC 31.5 % (32.0-36.0); MCV 111.5 fL (80-95); MPV 11.4 fL (8.0-11.0); Platelet Count 165 10^3/uL (130-400); RBC 2.08 10^6/uL (3.93-5.22); RDW 16.6 % (11.7-14.6); RDW-SD 67.2 fL; WBC 5.37 10^3/uL (4.4-10.8)
[2020-03-24 07:29] LABS: Anion Gap 4.2 mmol/L (3-11); BUN 20 mg/dL (7-18); CO2 26.8 mmol/L (21.0-32.0); CREATININE 0.55 mg/dL (0.55-1.02); Calcium 6.7 mg/dL (8.5-10.1); Chloride 110 mmol/L (98-107); Glucose 113 mg/dL (74-106); Potassium 3.6 mmol/L (3.5-5.1); Sodium 141 mmol/L (136-145)
[2020-03-24] MEDS: Ketorolac 15 MG/ML VIAL IVP (08:23)
[2020-03-24] MEDS: Multivitamin TAB 1 TAB PO (08:23)
[2020-03-24] MEDS: Protein Nutritional Supplement 16 GM 1 OUNCE PACKET 2 OUNCE PO ×3 (08:23→20:15)
[2020-03-24] MEDS: lamoTRIgine 25 MG TAB 50 MG PO ×2 (08:24→20:15)
[2020-03-24] MEDS: Cholecalciferol (Vitamin D3) 1,000 UNIT TAB 2000 UNITS PO (08:24)
[2020-03-24] MEDS: Magnesium Oxide 400 MG TAB PO ×2 (08:24→20:15)
[2020-03-24] MEDS: Esomeprazole 20 MG CAPCR PO (08:24)
[2020-03-24] MEDS: Acetaminophen 500 MG TAB PO (08:24)
[2020-03-24] MEDS: Ascorbic Acid 500 MG TAB PO (08:24)
[2020-03-24] MEDS: Lactobacillus Acidophilus CAP 1 CAP PO (08:24)
[2020-03-24] MEDS: levETIRAcetam 500 MG TAB PO ×2 (08:26→20:15)
[2020-03-24] MEDS: Calcium Carbonate *TUMS* 500 MG CHEW 1000 MG PO ×3 (09:15→20:15)
[2020-03-24 09:59] LABS: Parathyroid Hormone,Intact 645 pg/mL (19-88)
--- NOTE | 2020-03-24 11:53 | W.PM.PROGNOT ---
Date of Service Date of service: 03/24/20 Time of Service: 11:53 Assessment and Plan Assessment and plan (1) Pathologic fracture of neck of right femur: Status: Acute Assessment and plan: Postop day # 2 right femur intramedullary rodding. Pain seems to be managed. 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 I started on calcium carbonate and she is also on vitamin D supplementation. Will monitor. Currently asymptomatic (4) Anemia: Status: Chronic Assessment and plan: Multifactorial cause for anemia. I think she has a chronic anemia secondary to her cancer but I also feel that she has an acute worsening of her anemia due to combination of dilution as well as acute blood loss from her surgery. Estimated blood loss was only 150 mL from her surgery nevertheless she has had a further drop in her hemoglobin. I will transfuse her 1 unit of packed red cells and recheck her hemogram this afternoon Qualifiers: Anemia type: iron deficiency Iron deficiency anemia type: chronic blood loss Qualified Code(s): D50.0 - Iron deficiency anemia secondary to blood loss (chronic) Subjective Subjective Interval history since last seen: Overall patient feels much better today. However she was lightheaded and nauseated when she was moved from the bed to the bedside commode. Still has a Park catheter in place. Working to try to remove the catheter and give her a voiding trial. She is more anemic today with a hemoglobin of 7.3 g. I examined her right hip it does not appear to be significantly indurated or ecchymotic. Think there is a combination of delusional as well as blood loss from her surgery. Nevertheless she is willing to accept a transfusion. I will give her 1 unit of packed red blood cells and repeat her H&H this afternoon. As for her hypocalcemia her ionized calcium came back low at 0.96 confirming that she does have hypocalcemia even though she has low albumin levels. I have started on calcium carbonate giving her 1000 g 3 times a day with meals. She is already on vitamin D supplementation. Her vitamin D1, 25 dihydroxy vitamin D level is pending. Her PTH level is high at 645. Exam Narrative Exam Narrative: Alert and oriented person place time circumstance sitting up in her chair watching TV. Lungs are clear to auscultation Heart is regular rate and rhythm Abdomen soft and nontender Right hip is nontender. I did not take down the dressing but there is no erythema nor induration or ecchymosis around the bandage. Lower extremities are without edema Objective Last Vital Signs Temp 37 C 03/24/20 07:55 Pulse 91 H 03/24/20 07:55 Resp 12 03/24/20 07:55 BP 152/89 H 03/24/20 07:55 Pulse Ox 94 03/24/20 07:55 Laboratory Results - last 24 hr 03/21/20 03/23/20 03/23/20 10:26 10:37 10:37 WBC RBC Hgb Hct MCV MCH MCHC RDW Plt Count MPV Sodium Potassium Chloride Carbon Dioxide Anion Gap BUN Creatinine Estimated GFR/1.73 m2 Glucose Calcium Ionized Calcium 0.96 L 25-OH Vitamin D Total 32.3 PTH Intact Patient ABO/Rh A Positive Antibody Screen Negative Crossmatch See Detail 03/23/20 03/24/20 03/24/20 10:37 06:20 06:20 WBC 5.37 RBC 2.08 L Hgb 7.3 L Hct 23.2 L MCV 111.5 H MCH 35.1 H MCHC 31.5 L RDW 16.6 H Plt Count 165 MPV 11.4 H Sodium 141 Potassium 3.6 Chloride 110 H Carbon Dioxide 26.8 Anion Gap 4.2 BUN 20 H D Creatinine 0.55 Estimated GFR/1.73 m2 >= 60.00 Glucose 113 H Calcium 6.7 L Ionized Calcium 25-OH Vitamin D Total PTH Intact 645 H Patient ABO/Rh Antibody Screen Crossmatch
--- NOTE | 2020-03-24 13:05 | PT.INTREAT ---
Date of service: 03/24/20 Time of Service: 13:05 PT Notes Visit Reasons: RIGHT HIP FRACTURE Inpatient Physical Therapy Treatment Note [facility] Date: 03/24/2020 PRECAUTIONS: Fall, WBAT on R SUBJECTIVE: Latha is pleasant and agreeable to participating in PT. She states that she is feeling SOB and weak today. OBJECTIVE: Nursing updates PT that patient Hgb and Hct is low today, and patient is a candidate to receive blood transfusion later on today. PAIN: Minimal complaint of right hip pain with transfers BED MOBILITY/TRANSFERS Supine?sit: SBA with HOB at 40 degrees, patient requires extra time due to lightheadedness and fatigue Sit-stand: CGA Stand-sit: SBA Bed-Chair: CGA GAIT Assistive Device: FWW Weight bearing: WBAT R Assist: CGA Distance: 3 steps to left + 6' Deviation: Increased lightheadedness, SOB, and nausea (nursing aware) ASSESSMENT: Patient tolerated session with minimal complaint of R hip pain with transfers, as well as increased lightheadedness, SOB, and nausea with all activity. Patient demonstrates need for global strengthening and bed mobility/transfer/gait training as symptoms allow. PLAN: Continue with global strengthening as well as mobility/transfers/gait training for improved mobility and ability to perform daily functional tasks. TREATMENT CODE/TIME: 45 minutes; [id number] x3
--- NOTE | 2020-03-24 14:33 | PGE_ITS ---
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 I think she is doing well. She does have anemia which is likely a combination of blood loss as well as anemia of chronic disease. She also has some electrolyte abnormalities which are being managed and watched carefully by the hospitalist team. Appreciate their involvement in her care. She symptomatically is doing well and is making some improvements. I think it is imperative that she understands her body is weakened from the cancer and its treatments. She is making some progress, albeit slowly. However, I think is more than appropriate. We will continue with the blood today and recheck hemoglobin this evening to d ecide if we need another unit. I think she should continue with physical therapy and will be able to discharge home at some point. May have to consider swing bed status if necessary we will take this on a day by day basis. Continue with current pain medications. She did require Park replacement yesterday so we will leave this in place and take it out likely tomorrow and perform another voiding trial. It will be imperative that we keep up with I&Os after the catheter is removed. I am unable to find the current I&Os in the chart from around postop day #1 prior to Park catheter replacement Subjective Subjective Interval history since last seen: Latha reports to be doing better today than yesterday. She still has some nausea, mostly with activity. However, it is better than it was. She denies any lightheadedness but did have hemoglobin of 7.3 this morning and is currently receiving 1 unit of packed red cells. He was able to stand and take a few steps with physical therapy this morning with some improvement although she reports to be shaky. She does have some pain along the right hip and down towards the anteromedial aspect of the knee. She denies any worsening of her baseline neuropathy. Exam Narrative Exam Narrative: Sitting up in the chair. No acute distress. Alert and orient x3. In good spirits today. Evaluation of the right leg shows some mild swelling about the right hip wound. No significant tightness or area of fluctuant. Dressing is clean dry and intact. She tolerates gentle internal/external rotation of the leg. There is some pain about the medial aspect of the knee both with palpation and with some of attempted internal rotation. Objective Last Vital Signs Temp 36.6 C 03/24/20 13:50 Pulse 86 03/24/20 13:50 Resp 14 03/24/20 13:50 BP 146/90 H 03/24/20 13:50 Pulse Ox 96 03/24/20 13:50 Laboratory Results - last 24 hr 03/21/20 03/23/20 03/23/20 10:26 10:37 10:37 WBC RBC Hgb Hct MCV MCH MCHC RDW Plt Count MPV Sodium Potassium Chloride Carbon Dioxide Anion Gap BUN Creatinine Estimated GFR/1.73 m2 Glucose Calcium Ionized Calcium 0.96 L PTH Intact 645 H Patient ABO/Rh A Positive Antibody Screen Negative Crossmatch See Detail 03/24/20 03/24/20 06:20 06:20 WBC 5.37 RBC 2.08 L Hgb 7.3 L Hct 23.2 L MCV 111.5 H MCH 35.1 H MCHC 31.5 L RDW 16.6 H Plt Count 165 MPV 11.4 H Sodium 141 Potassium 3.6 Chloride 110 H Carbon Dioxide 26.8 Anion Gap 4.2 BUN 20 H D Creatinine 0.55 Estimated GFR/1.73 m2 >= 60.00 Glucose 113 H Calcium 6.7 L Ionized Calcium PTH Intact Patient ABO/Rh Antibody Screen Crossmatch
[2020-03-24 14:59] LABS: Reticulocyte 2.6 % (0.5-2.4)
[2020-03-24 16:14] LABS: Iron 31 ug/dL (50-170); Total Iron Binding Capacity 131 ug/dL (250-450); Transferrin Sat 24 % (15-50)
--- NOTE | 2020-03-24 16:20 | PT.INNT ---
Date of service: 03/24/20 Time of Service: 16:20 PT Notes Visit Reasons: RIGHT HIP FRACTURE 03/24/2020 Patient declines afternoon PT session, as she is waiting to be cleaned up with nursing, have her Park catheter removed, and have her bed remade. She states that she is feeling very tired. She would like to try again tomorrow morning. Will attempt to resume PT services tomorrow morning.
[2020-03-24 16:25] LABS: HCT 33.1 % (36.0-46.0); HGB 10.6 g/dL (11.2-15.7)
[2020-03-24 16:27] LABS: Ferritin 327 ng/mL (8-252)
--- NOTE | 2020-03-24 16:28 | CMPROGNOTE_ITS ---
- If Service Date Differs Date of service: 03/24/20 Time of Service: 16:28 Care Management Progress Note S/O: Latha was sitting up in her chair when CM met with her. She was receiving a unit of blood, which per MD was to be expected as she is on chemo. She was in good spirits, as usual. Dr. Menchaca stopped in the room while CM was visiting, and discussed her plan of care. She may need another unit of blood, and she will likely need a few more days working with PT prior to returning home. Latha is agreeable to remaining at [facility] for her post surgical care. CM will continue to follow. A: Latha is a 70 year old female admitted to [facility] on 03/19/20 with a right hip fracture. P: Latha remains acute as she recovers from the repair of her fractured femur. The plan is for her to return home with her and transport via private vehicle, possibly in a few days, depending on how quickly she recovers. She may need new services upon discharge, although she has indicated that she does not feel this will be necessary. Latha will follow up with her oncologist, orthopedic surgeon and her discharge plan of care. CM will continue to follow and to support patient and family and assess for discharge needs.
[2020-03-24] MEDS: Normal Saline Flush 10 ML SYR IVP ×2 (17:46→23:44)
[2020-03-24] MEDS: Senna TAB 1 TAB PO (21:51)
[2020-03-24] MEDS: Gabapentin 100 MG CAP PO (21:52)
[2020-03-25 03:15] VITALS: BP 144/103; PULSE 84; RESP 18; TEMP 36; O2SAT 92
[2020-03-25] MEDS: Acetaminophen 500 MG TAB PO ×2 (03:34→07:56)
[2020-03-25] MEDS: Normal Saline Flush 10 ML SYR IVP ×4 (07:28→23:43)
[2020-03-25] MEDS: Hydrocortisone SOD SUC. 100 MG VIAL 50 MG IVP (07:28)
[2020-03-25 07:53] VITALS: BP 132/90; PULSE 87; RESP 16; TEMP 36.8; O2SAT 98
[2020-03-25] MEDS: Lactobacillus Acidophilus CAP 1 CAP PO (07:55)
[2020-03-25] MEDS: Multivitamin TAB 1 TAB PO (07:56)
[2020-03-25] MEDS: lamoTRIgine 25 MG TAB 50 MG PO ×2 (07:56→19:39)
[2020-03-25] MEDS: levETIRAcetam 500 MG TAB PO ×2 (07:56→19:39)
[2020-03-25] MEDS: Esomeprazole 20 MG CAPCR PO (07:56)
[2020-03-25] MEDS: Ascorbic Acid 500 MG TAB PO (07:56)
[2020-03-25] MEDS: Cholecalciferol (Vitamin D3) 1,000 UNIT TAB 2000 UNITS PO (07:56)
[2020-03-25] MEDS: Magnesium Oxide 400 MG TAB PO ×2 (07:56→19:39)
[2020-03-25] MEDS: Calcium Carbonate *TUMS* 500 MG CHEW 1000 MG PO ×2 (07:56→19:39)
[2020-03-25] MEDS: Protein Nutritional Supplement 16 GM 1 OUNCE PACKET 2 OUNCE PO ×2 (07:57→19:40)
[2020-03-25 08:07] LABS: Anion Gap 7.5 mmol/L (3-11); BUN 31 mg/dL (7-18); CO2 26.5 mmol/L (21.0-32.0); CREATININE 0.59 mg/dL (0.55-1.02); Calcium 7.7 mg/dL (8.5-10.1); Chloride 111 mmol/L (98-107); Glucose 110 mg/dL (74-106); Sodium 145 mmol/L (136-145)
[2020-03-25 08:10] LABS: Abs Immature Grans 1.16 10^3/uL (0.0-0.06); HCT 34.3 % (36.0-46.0); HGB 11.1 g/dL (11.2-15.7); MCH 34.3 pg (27.0-33.0); MCHC 32.4 % (32.0-36.0); MCV 105.9 fL (80-95); MPV 11.4 fL (8.0-11.0); Platelet Count 201 10^3/uL (130-400); RBC 3.24 10^6/uL (3.93-5.22); RDW 19.6 % (11.7-14.6); RDW-SD 74.9 fL; WBC 7.88 10^3/uL (4.4-10.8)
[2020-03-25 08:15] LABS: Potassium 2.9 mmol/L (3.5-5.1)
[2020-03-25 08:29] LABS: Absolute Basophil Count 0.08 10^3/uL (0.0-0.2); Absolute Lymphocyte Count 0.87 10^3/uL (1.2-3.4); Absolute Monocyte Count 0.71 10^3/uL (0.1-0.8); Absolute Neutrophil Count 5.36 10^3/uL (1.2-6.7); Bands % 3; Metamyelocytes % 8; Myelocytes % 3; Nucleated RBC 7 %
[2020-03-25 08:30] LABS: Anisocytosis 2+; Diff Comment Manual Differential; Macrocytosis 2+; Poikilocytes 1+; Polychromasia Present
[2020-03-25] MEDS: Potassium Chloride 20 MEQ TABCR PO ×2 (11:14→19:39)
[2020-03-25 11:20] VITALS: BP 132/89; PULSE 76; RESP 17; TEMP 36.2; O2SAT 96
--- NOTE | 2020-03-25 11:26 | PT.INTREAT ---
PT Notes Visit Reasons: RIGHT HIP FRACTURE Inpatient Physical Therapy Treatment Note [facility] Date: 03/25/20 PRECAUTIONS: Knees are to be wider then hips at all times. SUBJECTIVE: Pt reports being tired today due to being up in the night. OBJECTIVE: Supine-sit: Minx2 Sit-stand: CGAx2 Stand-sit: CGAx2 GAIT Assistive Device: FWW Weight bearing: WBAT R LE Assist: CGAx2 Distance: 6 steps to the chiar from the bed ASSESSMENT: Pt tolerated today's session well for being tired. PLAN: Cont as per PT POC. TREATMENT CODE/TIME: (83) 10:45-11:10 TAx2
--- NOTE | 2020-03-25 12:11 | PGE_ITS ---
Date of Service Date of service: 03/25/20 Time of Service: 09:12 Assessment and Plan Assessment and plan (1) Anemia: Status: Chronic Assessment and plan: Responded well to one unit. Hgb is sable this AM. Qualifiers: Anemia type: iron deficiency Iron deficiency anemia type: chronic blood loss Qualified Code(s): D50.0 - Iron deficiency anemia secondary to blood loss (chronic) (2) Urinary retention: Status: Acute Assessment and plan: Park withdrawn yesterdayy and able to void overnight. Continue to follow I/O's (3) Pathologic fracture of neck of right femur: Status: Acute Assessment and plan: s/p hemiarthroplasty with long stemmed cemented implant. Pain is well controlled. Add on anti-inflammatory. WBAT with assistive devices. Dishcarge planning. Will need to be assist x 1 to be able to return home. Qualifiers: Encounter type: initial encounter Qualified Code(s): M84.451A - Pat hological fracture, right femur, initial encounter for fracture (4) Hypokalemia: Status: Resolved Assessment and plan: Start K-Dur today. Recheck in AM. Subjective Subjective Interval history since last seen: Bhavani reported that she was up most of the night last night and is getting a little tired. She feels well. She denies nausea or vomiting. No chest pain or SOB. She denies pain. She did have some diarrhea and a large void this morning. She did receive a unit of PRBC yesterday and tolerated it well. She required some Oxygen last night due to some low oxygenation levels and some subjective shortness of breath which is improved this morning. Exam Narrative Exam Narrative: Sitting up in the bed. NAD. AAOx3 Right hip dressing c/d/i No acute pain with hip ER/IR Minimal swelling +ADF/APF/EHL/FHL Objective Last Vital Signs Temp 36.8 C 03/25/20 07:53 Pulse 87 03/25/20 07:53 Resp 16 03/25/20 07:53 BP 132/90 03/25/20 07:53 Pulse Ox 98 03/25/20 07:53 Laboratory Results - last 24 hr 03/21/20 03/24/20 03/24/20 10:26 06:20 06:20 WBC RBC Hgb Hct MCV MCH MCHC RDW Plt Count MPV Reticulocyte % (Auto) Immature Gran % Neutrophils % Band Neutrophils % Lymphocytes % Monocytes % Eosinophils % Basophils % Metamyelocytes % Myelocytes % Nucleated RBC % Absolute Neutrophils Absolute Lymphocytes Absolute Monocytes Absolute Eosinophils Absolute Basophils RBC Morphology Polychromasia Poikilocytosis Anisocytosis Macrocytosis Sodium Potassium Chloride Carbon Dioxide Anion Gap BUN Creatinine Estimated GFR/1.73 m2 Glucose Calcium Iron 31 L TIBC 131 L Transferrin % Sat 24 Ferritin 327 H Crossmatch See Detail 03/24/20 03/24/20 03/25/20 06:20 16:20 07:40 WBC RBC Hgb 10.6 L D Hct 33.1 L D MCV MCH MCHC RDW Plt Count MPV Reticulocyte % (Auto) 2.6 H Immature Gran % Neutrophils % Band Neutrophils % Lymphocytes % Monocytes % Eosinophils % Basophils % Metamyelocytes % Myelocytes % Nucleated RBC % Absolute Neutrophils Absolute Lymphocytes Absolute Monocytes Absolute Eosinophils Absolute Basophils RBC Morphology Polychromasia Poikilocytosis Anisocytosis Macrocytosis Sodium 145 Potassium 2.9 L* Chloride 111 H Carbon Dioxide 26.5 Anion Gap 7.5 BUN 31 H D Creatinine 0.59 Estimated GFR/1.73 m2 >= 60.00 Glucose 110 H Calcium 7.7 L Iron TIBC Transferrin % Sat Ferritin Crossmatch 03/25/20 07:40 WBC 7.88 D RBC 3.24 L Hgb 11.1 L Hct 34.3 L MCV 105.9 H MCH 34.3 H MCHC 32.4 RDW 19.6 H Plt Count 201 MPV 11.4 H Reticulocyte % (Auto) Immature Gran % See Differential Neutrophils % 65.0 Band Neutrophils % 3 Lymphocytes % 11.0 Monocytes % 9.0 Eosinophils % 0.0 Basophils % 1.0 Metamyelocytes % 8 Myelocytes % 3 Nucleated RBC % 7 Absolute Neutrophils 5.36 Absolute Lymphocytes 0.87 L Absolute Monocytes 0.71 Absolute Eosinophils 0.00 Absolute Basophils 0.08 RBC Morphology See below Polychromasia Present Poikilocytosis 1+ Anisocytosis 2+ Macrocytosis 2+ Sodium Potassium Chloride Carbon Dioxide Anion Gap BUN Creatinine Estimated GFR/1.73 m2 Glucose Calcium Iron TIBC Transferrin % Sat Ferritin Crossmatch
[2020-03-25] MEDS: Hydrocortisone SOD SUC. 100 MG VIAL 25 MG IVP ×3 (12:55→23:42)
[2020-03-25 15:35] VITALS: BP 125/84; PULSE 78; RESP 16; TEMP 36.5; O2SAT 94
--- NOTE | 2020-03-25 16:39 | W.PM.PROGNOT ---
Date of Service Date of service: 03/25/20 Time of Service: 16:39 Assessment and Plan Assessment and plan (1) Hypokalemia: Status: Resolved Assessment and plan: Now on oral replacement Monitor (2) Constipation: Status: Resolved Assessment and plan: Resolved. 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 Pain controlled. PT (4) Pathologic fracture of neck of right femur: Status: Acute Assessment and plan: See above Qualifiers: Encounter type: initial encounter Qualified Code(s): M84.451A - Pathological fracture, right femur, initial encounter for fracture (5) Adventitious breath sounds: Status: Acute Assessment and plan: Crackles in bases. Volume overload vs atelectasis. Doubt PNA; no fever, elevated WBC count IS Lasix 20mg IV x 1. Supplemental O2 prn. (6) Hypocalcemia: Status: Acute Assessment and plan: Calcium improved to 7.7; corrected calcium in background of hypoalbuminemia is 9.14. Subjective Subjective Patient reports: no new complaints, feels better, pain is less, bowel movement, shortness of breath (mild), afebrile and fever; denies nausea and vomiting Exam Const General: cooperative and no acute distress Nutritional Appearance: average body habitus Orientation: alert and oriented x3 Resp Effort & Inspection: normal respiratory effort Auscultation: rales bilaterally in the lower lung son Cardio Jugular venous pressure: no JVD Rate: regular rate Rhythm: regular rhythm Heart Sounds: S1 normal and S2 normal Extrem General: no pedal edema and no calf tenderness Objective Last Vital Signs Temp 36.5 C 03/25/20 15:35 Pulse 78 03/25/20 15:35 Resp 16 03/25/20 15:35 BP 125/84 03/25/20 15:35 Pulse Ox 94 03/25/20 15:35 Laboratory Results - last 24 hr 03/25/20 03/25/20 07:40 07:40 WBC 7.88 D RBC 3.24 L Hgb 11.1 L Hct 34.3 L MCV 105.9 H MCH 34.3 H MCHC 32.4 RDW 19.6 H Plt Count 201 MPV 11.4 H Immature Gran % See Differential Neutrophils % 65.0 Band Neutrophils % 3 Lymphocytes % 11.0 Monocytes % 9.0 Eosinophils % 0.0 Basophils % 1.0 Metamyelocytes % 8 Myelocytes % 3 Nucleated RBC % 7 Absolute Neutrophils 5.36 Absolute Lymphocytes 0.87 L Absolute Monocytes 0.71 Absolute Eosinophils 0.00 Absolute Basophils 0.08 RBC Morphology See below Polychromasia Present Poikilocytosis 1+ Anisocytosis 2+ Macrocytosis 2+ Sodium 145 Potassium 2.9 L* Chloride 111 H Carbon Dioxide 26.5 Anion Gap 7.5 BUN 31 H D Creatinine 0.59 Estimated GFR/1.73 m2 >= 60.00 Glucose 110 H Calcium 7.7 L
--- NOTE | 2020-03-25 18:01 | PDOC.CMPRO ---
- If Service Date Differs Date of service: 03/25/20 Time of Service: 18:01 Care Management Progress Note S/O: Latha was sleeping when CM met with her today. Her , Melvin was in the room visiting. He reported that she didn't sleep well last night, which is why she has been sleeping a lot today. Otherwise, no complaints. CM will continue to follow. A: Latha is a 70 year old female admitted to [facility] on 03/19/20 with a right hip fracture. P: Latha remains acute as she recovers from the repair of her fractured femur. The plan is for her to return home with her and transport via private vehicle, possibly in a few days, depending on how quickly she recovers. She may need new services upon discharge, although she has indicated that she does not feel this will be necessary. Latha will follow up with her oncologist, orthopedic surgeon and her discharge plan of care. CM will continue to follow and to support patient and family and assess for discharge needs.
[2020-03-25 19:30] VITALS: BP 131/84; PULSE 81; RESP 16; TEMP 36.3; O2SAT 95
[2020-03-25] MEDS: Celecoxib 100 MG CAP PO (19:39)
[2020-03-25 20:24] LABS: Anion Gap 6.4 mmol/L (3-11); BUN 27 mg/dL (7-18); CO2 27.6 mmol/L (21.0-32.0); CREATININE 0.65 mg/dL (0.55-1.02); Calcium 7.6 mg/dL (8.5-10.1); Chloride 111 mmol/L (98-107); Glucose 122 mg/dL (74-106); Potassium 3.1 mmol/L (3.5-5.1); Sodium 145 mmol/L (136-145)
[2020-03-25] MEDS: Senna TAB 1 TAB PO (22:17)
[2020-03-25] MEDS: Gabapentin 100 MG CAP PO (22:17)
[2020-03-25] MEDS: Potassium Chloride 20 MEQ TABCR 40 MEQ PO (22:18)
[2020-03-25 23:10] VITALS: BP 132/87; PULSE 78; RESP 18; TEMP 36.3; O2SAT 97
[2020-03-26] VITALS (8 sets, daily range): BP systolic 138–155; BP diastolic 84–99; PULSE 69–84; RESP 17–19; TEMP 35.3–36.6; O2SAT 92–95
[2020-03-26] MEDS: Hydrocortisone SOD SUC. 100 MG VIAL 25 MG IVP ×4 (07:24→23:44)
[2020-03-26] MEDS: Normal Saline Flush 10 ML SYR IVP ×4 (07:25→20:04)
[2020-03-26] MEDS: Esomeprazole 20 MG CAPCR PO (07:25)
[2020-03-26 07:58] LABS: Anion Gap 3.9 mmol/L (3-11); BUN 30 mg/dL (7-18); CO2 30.1 mmol/L (21.0-32.0); CREATININE 0.49 mg/dL (0.55-1.02); Chloride 111 mmol/L (98-107); Glucose 92 mg/dL (74-106); Potassium 3.8 mmol/L (3.5-5.1); Sodium 145 mmol/L (136-145)
[2020-03-26] MEDS: Multivitamin TAB 1 TAB PO (08:32)
[2020-03-26] MEDS: Celecoxib 100 MG CAP PO ×2 (08:32→19:54)
[2020-03-26] MEDS: Calcium Carbonate *TUMS* 500 MG CHEW 1000 MG PO ×3 (08:32→19:53)
[2020-03-26] MEDS: Protein Nutritional Supplement 16 GM 1 OUNCE PACKET 2 OUNCE PO ×3 (08:32→19:58)
[2020-03-26] MEDS: Lactobacillus Acidophilus CAP 1 CAP PO (08:33)
[2020-03-26] MEDS: Cholecalciferol (Vitamin D3) 1,000 UNIT TAB 2000 UNITS PO (08:33)
[2020-03-26] MEDS: lamoTRIgine 25 MG TAB 50 MG PO ×2 (08:33→19:54)
[2020-03-26] MEDS: Magnesium Oxide 400 MG TAB PO ×2 (08:33→19:55)
[2020-03-26] MEDS: Aspirin E.C. 81 MG TABEC PO ×2 (08:33→19:57)
[2020-03-26] MEDS: Potassium Chloride 20 MEQ TABCR PO (08:33)
[2020-03-26] MEDS: levETIRAcetam 500 MG TAB PO ×2 (08:33→19:55)
[2020-03-26] MEDS: Ascorbic Acid 500 MG TAB PO (08:33)
--- NOTE | 2020-03-26 11:08 | PT.INTREAT ---
PT Notes Visit Reasons: RIGHT HIP FRACTURE Inpatient Physical Therapy Treatment Note [facility] Date: 03/26/20 PRECAUTIONS:WBAT R LE. Keep knees hip width apart. SUBJECTIVE: Pt reports that she slept better last night. OBJECTIVE: Supine-sit: Min Ax1 Sit-supine: [] Sit-stand: Min assist/CGAx1 Stand-sit: CGAx1 GAIT Assistive Device: FWW Weight bearing: WBAT R LE keeping knee hip width apart Assist: CGAx1 Distance: 6 steps to the chair. Pt also transfered to the commode. THEREX: [] STAIRS: Up and Down the first PT step x3 using both rails with CGAx1 and vc's. ASSESSMENT: Pt tolerated today's session well. Pt was able to ambulate with less effort today. PLAN: Cont as per PT POC. TREATMENT CODE/TIME: 9:20-9:30-9:50-10:05 (25)
--- NOTE | 2020-03-26 15:13 | PDOC.CMPRO ---
- If Service Date Differs Date of service: 03/26/20 Time of Service: 15:13 Care Management Progress Note S/O: Latha was sitting up in her chair when CM met with her. She reported that she slept well last night and was feeling much better today. She reported that she worked well with PT today, and was able to ambulate with 1 assist, and to travel up three stairs. She stated that per MD, she may be ready to return home tomorrow, depending on her progress. She is hoping to return home, as she has her to care for her and will be more comfortable at home. CM will continue to follow. A: Latha is a 70 year old female admitted to [facility] on 03/19/20 with a right hip fracture. P: Latha remains acute as she recovers from the repair of her fractured femur. The plan is for her to return home with her and transport via private vehicle, possibly in a few days, depending on how quickly she recovers. She may need new services upon discharge, although she has indicated that she does not feel this will be necessary. Latha will follow up with her oncologist, orthopedic surgeon and her discharge plan of care. CM will continue to follow and to support patient and family and assess for discharge needs.
--- NOTE | 2020-03-26 15:33 | W.PM.PROGNOT ---
Date of Service Date of service: 03/26/20 Time of Service: 09:33 Assessment and Plan Assessment and plan (1) Hypocalcemia: Status: Acute Assessment and plan: Improving. We will continue with the calcium carbonate supplementation. (2) Hypokalemia: Status: Resolved Assessment and plan: Improving. We will discontinue the potassium chloride orally at this point. (3) Pathologic fracture of neck of right femur: Status: Acute Assessment and plan: Status post long cemented hemiarthroplasty of the hip. Doing much better. She is now only requiring 1 assist for all transfers. Therefore, I think she is getting ready to be discharged to home hopefully in the next 1 to 2 days. We will continue with the acetaminophen and the Celebrex for pain control. We will also restart her home dexamethasone tomorrow. 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 She has not had any SOB. She has been able to mobilize with only one assist. She is not having any pain. She did receive an extra dose of potassium chloride yesterday and her lab levels have normalized this morning. Exam Narrative Exam Narrative: Sitting up in the bed. No acute distress. Alert and oriented x 3. Right hip has no significant pain to palpation. Mild swelling. Mild ecchymosis. Dressing is clean dry and intact. No pain with hip internal and external rotation. Sensation grossly intact to deep and superficial peroneal nerve and tibial nerve distributions. Objective Last Vital Signs Temp 36.6 C 03/26/20 11:32 Pulse 83 03/26/20 11:32 Resp 19 03/26/20 11:32 BP 147/88 H 03/26/20 11:32 Pulse Ox 93 03/26/20 11:32 Laboratory Results - last 24 hr 03/25/20 03/26/20 19:51 07:32 Sodium 145 145 Potassium 3.1 L 3.8 D Chloride 111 H 111 H Carbon Dioxide 27.6 30.1 Anion Gap 6.4 3.9 BUN 27 H 30 H Creatinine 0.65 0.49 L Estimated GFR/1.73 m2 >= 60.00 >= 60.00 Glucose 122 H 92 Calcium 7.6 L 8.0 L Magnesium 2.0
[2020-03-26] MEDS: Pramipexole 0.25 MG TAB 0.125 MG PO (21:46)
[2020-03-26] MEDS: Gabapentin 300 MG CAP PO (21:47)
[2020-03-26] MEDS: Senna TAB 1 TAB PO (21:47)
[2020-03-27 03:51] VITALS: BP 119/81; PULSE 73; RESP 16; TEMP 36.6; O2SAT 92
[2020-03-27] MEDS: Hydrocortisone SOD SUC. 100 MG VIAL 25 MG IVP (05:35)
[2020-03-27] MEDS: Normal Saline Flush 10 ML SYR IVP ×2 (05:36→14:27)
[2020-03-27 07:12] LABS: HCT 31.4 % (36.0-46.0); HGB 10.4 g/dL (11.2-15.7); MCHC 33.1 % (32.0-36.0); MCV 105.7 fL (80-95); MPV 11.5 fL (8.0-11.0); Platelet Count 171 10^3/uL (130-400); RBC 2.97 10^6/uL (3.93-5.22); RDW 19.2 % (11.7-14.6); RDW-SD 69.9 fL; WBC 6.74 10^3/uL (4.4-10.8)
[2020-03-27 07:18] LABS: Anion Gap 3.6 mmol/L (3-11); BUN 29 mg/dL (7-18); CO2 31.4 mmol/L (21.0-32.0); CREATININE 0.58 mg/dL (0.55-1.02); Calcium 8.1 mg/dL (8.5-10.1); Chloride 110 mmol/L (98-107); Glucose 93 mg/dL (74-106); Potassium 3.2 mmol/L (3.5-5.1); Sodium 145 mmol/L (136-145)
[2020-03-27 07:35] VITALS: BP 132/92; PULSE 75; RESP 18; TEMP 36.7; O2SAT 95
[2020-03-27] MEDS: Protein Nutritional Supplement 16 GM 1 OUNCE PACKET 2 OUNCE PO ×2 (08:45→14:26)
[2020-03-27 08:50] VITALS: O2SAT 94
[2020-03-27] MEDS: Cholecalciferol (Vitamin D3) 1,000 UNIT TAB 2000 UNITS PO (08:51)
[2020-03-27] MEDS: lamoTRIgine 25 MG TAB 50 MG PO (08:51)
[2020-03-27] MEDS: Esomeprazole 20 MG CAPCR PO (08:51)
[2020-03-27] MEDS: levETIRAcetam 500 MG TAB PO (08:52)
[2020-03-27] MEDS: Celecoxib 100 MG CAP PO (08:52)
[2020-03-27] MEDS: Calcium Carbonate *TUMS* 500 MG CHEW 1000 MG PO ×2 (08:52→14:26)
[2020-03-27] MEDS: Ascorbic Acid 500 MG TAB PO (08:52)
[2020-03-27] MEDS: Lactobacillus Acidophilus CAP 1 CAP PO (08:52)
[2020-03-27] MEDS: Aspirin E.C. 81 MG TABEC PO (08:52)
[2020-03-27] MEDS: Dexamethasone 4 MG TAB PO (08:53)
[2020-03-27] MEDS: Multivitamin TAB 1 TAB PO (08:53)
[2020-03-27] MEDS: Magnesium Oxide 400 MG TAB PO (08:53)
[2020-03-27 11:12] LABS: 1,25-Dihydroxyvitamin D 88 pg/mL (18-78)
[2020-03-27 11:57] VITALS: BP 120/86; PULSE 86; RESP 18; TEMP 36.7; O2SAT 94
--- NOTE | 2020-03-27 12:04 | DSE_ITS ---
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 There was also a lytic lesion of the midshaft of the femur. After complete imaging and discussion with the patient she underwent a cemented, long-stemmed hemiarthroplasty. She did well from this with no acute medical or surgical complications. SHe did have some issues with hypotension before the surgery which improved with hydration and increase in baseline steroids. After surgery she had some hypokalemia which improved with oral agents. She also had a drop in her hemoglobin, acute post-operative blood loss anemia. This was asymptomatic but due to the drop she was transfused one unit. She tolerated this well and had an appropriate increase in her hemoglobin. By POD#4 she was able to ambulate with assist x 1. She made great progress every day. She was voiding on her own and was having bowel movements. Her and her felt comfortable with discharging to home after working with PT and completing unassisted transfers and stairs. She was thus deemed stable and safe for discharge to home. Home Meds and New Rx's Prescriptions: New gabapentin 300 mg capsule 300 mg PO QHS Qty: 30 RF: 0 celecoxib 100 mg capsule 100 mg PO BID Qty: 60 RF: 0 Continued dexamethasone 4 mg tablet 4 mg PO DAILY RF: 0 multivitamin [Daily Multi-Vitamin] 1 EACH tablet 1 ea PO DAILY RF: 0 levetiracetam [Roweepra] 500 MG tablet 500 mg PO BID RF: 0 lamotrigine 25 MG tablet 50 mg PO BID RF: 0 tumeric RF: 0 docusate sodium [Colace] 100 MG capsule 500 mg PO DAILY PRNRF: 0 cranberry 400 MG capsule 500 mg PO BID RF: 0 cholecalciferol (vitamin D3) [Vitamin D3] 2,000 UNIT capsule 2,000 unit PO DAILY RF: 0 magnesium oxide 400 MG capsule 500 mg PO BID RF: 0 Probiotic 1 EACH capsule, sprinkle 1 cap PO DAILY RF: 0 lidocaine [Lidoderm] 1 PATCH patch 1 patch Topical Q24H Qty: 4 RF: 0 esomeprazole magnesium [Nexium] 20 mg Capsule,Delayed Release(Dr/Ec) 20 mg PO DAILY RF: 0 meclizine 25 mg tablet 25 mg PO DAILY RF: 0 Changed acetaminophen 500 mg Tablet 500 mg PO Q4H PRN PRNQty: 90 RF: 0 ascorbate calcium (vitamin C) 500 MG tablet 500 mg PO DAILY Qty: 0 RF: 0 Discontinued cannabis PO HS RF: 0 gabapentin 100 mg capsule 100 mg PO HS RF: 0 Discharge Instructions Instructions: Total Hip Replacement (GEN) Additional Instructions: Dr. Menchaca's Total Hip Discharge Instructions Activity: The most important activity is to walk. You should try to take short walks a few times a day. You have no formal restrictions on movement or positioning, but do not try to force what you do. You should try to keep the knees wider than the hips. You will find some stiffness and weakness with hip and knee movements, which is normal. Do not try to strengthen this too early, continue to practice walking and stairs and this will come. - You will have home health physical therapy to assist with mobilization, range of motion and strengthening. - You should wear the OFELIA hose on both legs for 2 weeks. You may remove those at night. These prevent blood pooling and swelling. Dressing: Keep the surgical dressing in place for at least one week, although it may stay in place untill follow-up. It may get wet after 3 days but avoid soaking the dressing. If it gets wet, just lightly pat dry. Most people prefer to cover the dressing with some ClingWrap, Saran Wrap, to keep it dry. After the first week it may be removed if desired and then replaced with light gauze and tape or nothing. Medications: - You should take Tylenol and an anti-inflammatory Celebrex as your primary pain control medications - You have also been prescribed a stomach acid reduction agent [Pantoprozole] to help reduce stomach acid and reflux. - Your dose of Gabapentin has been increased to 300mg at night. This is for neuropathy, nerve pain, and restlessness. - You will be taking Aspirin 81mg twice a day for DVT prevention unless instructed otherwise. - If you have constipation you should take Colace or Miralax (both [id number]). It takes most people 3-4 days to have a bowel movement. Follow-up: 1.5 weeks. If you have any acute concerns or questions, please do not hesitate to contact the office at [phone]. You may contact Dr. Menchaca with any questions after hours through the hospital at [phone] or on his cell phone at [phone]. 1. Encounter Date and Reason I certify that MIGUEL PARMAR was seen by Babatunde Menchaca MD on 03/27/20 and that I had a [id number] encounter with this patient that meets the physician face to face encounter requirements. 2. Clinical Findings Supporting Skilled Need and Homebound Status I certify that home health services are medically necessary, include either intermittent penitentiary and/or physical/speech therapy, and that this patient is homebound in that absences from the home require considerable and taxing effort and are infrequent or of short duration, or are attributable to the need to receive medical care. [X] (a) Attached documentation from encounter provides clinical findings supporting skilled need and homebound status (including what assistance patient requires to leave the home). The encounter with the patient was in whole, or in part, for the following medical condition, which is the primary reason for home health care: RIGHT HIP FRACTURE [facility]: Physical Therapy: Bhavani is s/p long-stemmed cemented hemiarthroplasty for a pathologic fracture of the right hip. This was done with a posterior approach. Only recommendation is to keep knees wider than hips to prevent dislocation and posterior capsular repair failure. Weigh-bearing as tolerated. She should use the walker at all times. Speech Therapy: Homebound: Bhavani is homebound due to significant weakness and gait abnormalities. She is unable to leave her home unassisted. 3. Certification and Authentication I certify that I composed the above information based on my clinical judgement relating to this patient's medical condition and, if applicable, clinical findings communicated to me by the NPP or inpatient physician who performed the Home Health Referral. All further orders will be obtained through Dr. Menchaca Stand Alone Forms: Nursing Discharge Form Referrals: Babatunde Menchaca MD [ [facility] STAFF PHYSICIAN] - 04/10/20 1:30 pm Activity:: Activity as Tolerated Equipment/Supplies:: Walker Diet:: As Tolerated Discharge Orders Discharge Orders: Discharge Order (Routine); Ordered 03/27/20 Ordered By: Babatunde Menchaca DS: Summary Status at Discharge Functional status at discharge: uses cane/walker Overall status at discharge: patient is progressing back to baseline Mental Status: mental status grossly normal Speech and Movement: speech and movement normal Mood: congruent mood Affect: normal affect Exam Psych Mental Status: mental status grossly normal Speech and Movement: speech and movement normal Mood: congruent mood Affect: normal affect DS: Data Vitals/I&O Vitals and I&O: Vital Signs Temperature 36.7 C 03/27/20 07:35 Temperature Source Tympanic 03/27/20 07:35 Pulse 75 03/27/20 07:35 Pulse Rhythm Regular 03/27/20 03:06 Respiratory Rate 18 03/27/20 07:35 Respiratory Effort Non-Labored 03/27/20 03:06 Respiratory Depth Normal 03/27/20 03:06 Respiratory Pattern Normal 03/27/20 03:06 Blood Pressure 132/92 H 03/27/20 07:35 Blood Pressure Mean 87 03/20/20 00:00 Blood Pressure Position Sitting 03/19/20 18:58 Pulse Oximetry 95 03/27/20 07:35 Respiratory End-tidal CO2 15 03/22/20 17:20 Oxygen Delivery Method Room Air 03/27/20 07:35 Oxygen Flow Rate 0 03/27/20 07:35 Pain Level 0 03/27/20 07:35 Comment 03/26/20 07:28 Intake & Output 03/26/20 03/27/20 03/27/20 23:59 11:59 23:59 Intake Total 720 / 1350 120 / 120 Output Total 1550 / 1550 Balance -830 / -200 120 / 120 Intake: Oral 720 / 1320 120 / 120 Output: Urine 1550 / 1550 Other: Urine Color Yellow Urine Appearance Clear Clear Voiding Methods Bedside Commode Data Completed and Pending Labs on day of discharge: Labs from last 24 hours 03/27/20 03/27/20 06:40 06:40 WBC 6.74 RBC 2.97 L Hgb 10.4 L Hct 31.4 L MCV 105.7 H MCH 35.0 H MCHC 33.1 RDW 19.2 H Plt Count 171 MPV 11.5 H Sodium 145 Potassium 3.2 L Chloride 110 H Carbon Dioxide 31.4 Anion Gap 3.6 BUN 29 H Creatinine 0.58 Estimated GFR/1.73 m2 >= 60.00 Glucose 93 Calcium 8.1 L PFSH Medical History Anxiety associated with cancer 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, ribs, pelvis Cancer related pain Colitis Dizziness DNI (do not intubate) DNR (do not resuscitate) Essential hypertension Ex-smoker Goals of care, counseling/discussion History of lung cancer History of ovarian cancer History of pulmonary embolism History of radiation therapy Hyperlipidemia Immunotherapy Infectious gastroenteritis and colitis Lung cancer Medical marijuana use helps with her appetitei Neuropathy due to chemotherapeutic drug Odynophagia Palliative care patient Physical deconditioning POLST (Physician Orders for Life-Sustaining Treatment) DNR/DNI 03/21/20 Seizure disorder Seizures Stage 4 lung cancer 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 Mother , from COPD End stage COPD Other Diabetes Heart disease Social History Smoking/Tobacco Use Status: Former Tobacco Use Tobacco: How many years used: 40 Alcohol Intake: current Alcohol Intake frequency: holidays/special occasions only Drug use: Daily Substance use type: marijuana Details: daily medical marijuana Caregiver/Support person: Yes Household members: spouse Housing: house Number of Children: 2 number of grandchildren: 4 Communication Needs: Corrective Lenses Education Level: high school Do you need help understanding health information?: Rarely current occupation: retired Pets and animals: Yes What is your relationship status?: How often do you talk on the phone with friends or family?: three or more times per week How often do you get together with friends or relatives?: three or more times per week Panel score (0-1 are the most socially isolated patients): 2 What type of physical activity do you participate in: walking Duration: < 15 minutes/day Frequency: 3-4 times per week Agree to transfusion: Yes Seatbelt use: always Working smoke detector in home: Yes Fire extinguisher in home: Yes Do you feel safe at home: Yes Do you feel safe in your relationship?: Yes Additional Social history: Very close and loving relationship with spouse. Bhavani still reeling about her cancer recurrence. Thought her remission would last years. Now back on chemo and new to immunotherapy. Anxious. Wants her cancer to go away. Discussed cancer as a chronic disease. To be managed rather than cured.
--- NOTE | 2020-03-27 13:18 | PTTR_ITS ---
Date of service: 03/27/20 Time of Service: 09:00 PT Notes Visit Reasons: RIGHT HIP FRACTURE Inpatient Physical Therapy Treatment Note [facility] Date: 03/27/2020 PRECAUTIONS: Fall, WBAT R, activity as tolerated SUBJECTIVE: Latha states that she is feeling better today, she reports that she is excited to be discharged home later today. OBJECTIVE: PAIN: No complaints of pain BED MOBILITY/TRANSFERS Sit-stand: SBA Stand-sit: SBA GAIT Assistive Device: FWW Weight bearing: WBAT R Assist: SBA Distance: 10' Deviation: Complains of increased fatigue THEREX: Patient was instructed in several lower extremity strengthening and s tabilization exercises, in a long sitting position, as per flow sheet. STAIRS:Up/down 3x4 and 2x6 utilizing B rails and a step to pattern with CGA ASSESSMENT: Patient demonstrates improved gait distance tolerance, although complains of significant fatigue following each activity. She would benefit from continued gait training as well as global strengthening for improved activity tolerance and improved ability to perform daily functional tasks. PLAN: Continue with gait and transfer training as well as global strengthening via home health PT TREATMENT CODE/TIME: 30 minutes; [id number], [id number]
[2020-03-27] MEDS: Heparin 500 UNITS/5 ML SYRINGE IVP (14:26)
--- NOTE | 2020-03-27 16:04 | PDOC.CMDIS ---
- If Service Date Differs Date of service: 03/27/20 Time of Service: 16:04 LACE Index Scoring Tool - Questions: Length of Stay (in days): 7 - 13 Acuity (Admit via E.D.?): Yes Comorbidities: Metastatic Solid Tumor E.D. Visits: 3 - Answers: Total Score: 16 Risk of Readmission: High Risk Care Management Discharge Reason for Hospitalization: Right Hip Fracture Discharge Plan: Latha will return home with new orders for PT. CM called [facility] to inform them of her discharge. Latha's will drive her home via private vehicle. She will follow up with Ortho and her discharge plan of care. She is happy to be going home. Patient/Family Education Needs: Review discharge instructions regarding activity levels and medications, discussion of self care needs and goals of care. Services Needed at Discharge: Home Health Care Services ([facility])
--- NOTE | 2020-03-27 16:23 | CHAPLAIN ---
When I visited Latha and Evelio this morning, Latha said she expected to be discharged today. She is looking forward to being home and with her dog. Evelio seems to be a strong support for Latha.
--- NOTE | 2020-03-30 12:01 | PT.INDS ---
Date of service: 03/30/20 PT Notes Visit Reasons: RIGHT HIP FRACTURE Physical Therapy Inpatient Discharge Summary Date: 03/30/2020 Dates of Services: 03/23/2020 through 03/27/2020 This is a clinical summary of care provided on the duration of dates listed above. No charge was made in the completion of this documentation. Referring Doctor: Babatunde Menchaca MD PT Orders: PT CONSULT: Status post Ortho surgery. Status post right hip hemiarthroplasty. Precautions: Fall. Standard. WBAT on right LE. Modified posterior hip cautions of keeping knees always wider than the hip at all times. Patient Profile/Admitting Diagnosis: Latha is a 70-year-old female with known stage 4 lung adenocarcinoma with bony metastases to the right hip area who presented to the ED on 03/19/2020 with complaints of inability to walk due to pain and sensation of giving out in the right hip. Patient is diagnosed with pathologic fracture of the right femoral neck with femoral shaft lytic bone lesion of R femur and S/P long cemented hemiarthroplasty of the R hip on postoperative day 1. 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 He states that they have a rampt as well. Melvin takes care of meals and all house chores. Bhavani is CGA with single point cane for indoor and outdoor ambulation. LINE INSTALLER TROLLEY by for transfers and short distance ambulation. Supervision with bathing and set up with dressing with occasional hand held assist from who is always there with her every time she is out of bed. Prior PT services: Started OP PT services as referred by oncologist for core strengthening and balance retraining. Has had 4 PT sessions as of 03/06/2020. Equipment Owned/DME: [facility], Subjective: NT. See most recent RECREATIONAL FACILITIES MOTEL MANAGER notes. Objective: General Observation: NT. See most recent RECREATIONAL FACILITIES MOTEL MANAGER notes. Mental Status: NT. See most recent RECREATIONAL FACILITIES MOTEL MANAGER notes. Pain: NT. See most recent RECREATIONAL FACILITIES MOTEL MANAGER notes. ROM: Right Upper Extremity: Shoulder Flexion WFL. Shoulder abduction WFL. Elbow flexion WFL. Wrist flexion WFL. Opening and closing of hand WFL. Left Upper Extremity: Shoulder Flexion WFL. Shoulder abduction WFL. Elbow flexion WFL. Wrist flexion WFL. Opening and closing of hand WFL. Right Lower Extremity: Hip flexion has 50% available range of motion limited by pain. Hip abduction has 50% available range of motion limited by pain. Knee flexion WFL. Ankle dorsiflexion WFL. Ankle plantarflexion WFL. Left Lower Extremity: Hip flexion WFL. Hip abduction WFL. Knee flexion WFL. Ankle dorsiflexion WFL. Ankle plantarflexion WFL. Strength: Right Upper Extremity: Shoulder flexors 4-/5. Shoulder abductors 4-/5. Elbow flexors 4-/5. Elbow extensors 4-/5. Lobby Porter strong. Left Upper Extremity: Shoulder flexors 4-/5. Shoulder abductors 4-/5. Elbow flexors 4-/5. Elbow extensors 4-/5. Lobby Porter strong. Right Lower Extremity: Hip flexors 3-/5. Hip abductors 3-/5. Knee flexors 3+/5. Knee extensors 3+/5. Ankle dorsiflexors 3/5. Ankle plantarflexors 4-/5. Left Lower Extremity: Hip flexors 3/5. Hip abductors 4-/5. Knee flexors 3+/5. Knee extensors 3+/5. Ankle dorsiflexors 3/5. Ankle plantarflexors 4-/5. Sensation: Since a month ago, complains of numbness in toes in B sides that spreads to fingers in B hands at night. Bed Mobility/Transfers: Rolling standby assist Supine to sit standby assist Sit to supine standby assist Sit to stand standby assist Stand to sit standby assist Bed to chair standby assist Chair to bed standby assist Gait: In feet using front wheeled walker with weightbearing as tolerated on the right LE requiring standby assist. Up-and-down three 4 inch steps and two 6 inch steps holding onto bilateral rails with step to gait pattern requiring contact-guard assist. Balance: Static Sitting: Good Dynamic Sitting: Good Static Standing: Fair Dynamic Standing: Fair ASSESSMENT: Latha has demonstrated improvement in functional as evidenced by current mobility level above and goal status below for this episode of care. Latha continues to present with clinical signs and symptoms consistent with current/admitting diagnoses that have resulted to mobility limitations, gait instability, generalized weakness, and impairment of motor control as demonstrated by the following impairment level findings: 1. Decreased ROM on R LE due to pathologic fracture of R femoral neck and lytic lesion of the R femur 2. Decreased strength to B UE/LE major muscle groups 2. Impaired standing balance 3. WBAT precaution on the R LE per orthopod 4. Impaired activity tolerance 5. Decreased core strength 7. Impaired safety awareness Impairments are continuing to contribute to the following functional limitations: 1. Decreased bed mobility sklls 2. Dependent with transfers 3. Inability to safely ambulate without assistive device and physical assistance 4. Increase completion time for mobility ADL performance 5. Increased fall risk 6. Inability to negotiate steps alone safely 7. Dependent transfers Goals: Goals X1 week 1. Supine-Sit independent NOT MET 2. Sit-Supine independent NOT MET 3. Sit-Stand independent NOT MET 4. Stand-Sit independent NOT MET 5. Bed-Chair independent NOT MET 6. Chair-Bed independent NOT MET 7. Independent gait on level surface with use of least restrictive device for at least 100 feet without report of pain nor dyspnea NOT MET 8. Independent stair negotiation while holding onto bilateral rails for at least 5 steps without report of pain nor dyspnea NOT MET 9. Good static and dynamic standing balance/tolerance NOT MET DISCHARGE RECOMMENDATIONS: Patient will benefit from home health PT services in order to progress mobility level using least restrictive assistive ambulatory device, assess home safety, identify additional equipment needs, and establish a functional maintenance program that will increase ability of patient to remain at home. TREATMENT CODE/TIME: VA. Thank you for the opportunity to participate in the care of this patient. Carole Anna PT, DPT, CLT [facility], [place]
== END 2020-03-27 15:56 | disposition home health service (06) | DRG 522 ==
LOC: ER 23:46 → MS 03-20 00:39
PROVIDERS: Family Medicine; Internal Medicine; Admitting Provider Student in an Organized Health Care Education/Training Program; Emergency Provider Registered Nurse Emergency; PCP Nurse Practitioner; Visit Provider Student in an Organized Health Care Education/Training Program
PROC: 0SRS0J9 Replacement of Left Hip Joint, Femoral Surface with Synthetic Substitute, Cemented, Open Approach (ICD-10-PCS; CPT 27125; principal; 2020-03-22 12:45)
DX: M84.551A Pathological fracture in neoplastic disease, right femur, initial encounter for fracture (principal); C34.11 Malignant neoplasm of upper lobe, right bronchus or lung; C79.51 Secondary malignant neoplasm of bone; K59.00 Constipation, unspecified; G62.0 Drug-induced polyneuropathy; T45.1X5A Adverse effect of antineoplastic and immunosuppressive drugs, initial encounter; Z87.891 Personal history of nicotine dependence; I10 Essential (primary) hypertension; Z85.43 Personal history of malignant neoplasm of ovary; Z86.711 Personal history of pulmonary embolism; Z92.3 Personal history of irradiation; E78.5 Hyperlipidemia, unspecified; R13.10 Dysphagia, unspecified; G40.909 Epilepsy, unspecified, not intractable, without status epilepticus; R53.81 Other malaise; R63.4 Abnormal weight loss; Z68.22 Body mass index [BMI] 22.0-22.9, adult; Z66 Do not resuscitate; Z51.5 Encounter for palliative care; I95.9 Hypotension, unspecified
CPT/HCPCS: 27236; 36415; 36591; 73552; 76000; 80048; 80053; 82306; 82533; 83690; 85027; 86850; 86900; 86901; 86920; 87040; 87077; 88305; 96374; 96375; 96376; 97110; 97163; 97530; 99222; 99231; 99232; 99233; 99253; 99254; 99255; 99285; 99308; J1650; NC; U0003; 73501; 74177; 81003; 81015; 82040; 82330; 82652; 82728; 83540; 83550; 83605; 83735; 83970; 85014; 85018; 85025; 85045; 87086; 87186; 88304; 88311; 88361; 93005; 93010; 99284; J0171; J0690; J1720; J1885; J2370; J2405; J3480; J3490; J8540; L1686; P9016

== ENCOUNTER 2020-03-23 03:05 | Outpatient (RCR) | payer MEDICARE, SELFPAY ==
[2020-03-02 09:22] LABS: HCT 34.1 % (36.0-46.0); HGB 10.9 g/dL (11.2-15.7); MCH 35.6 pg (27.0-33.0); MCV 111.4 fL (80-95); MPV 10.3 fL (8.0-11.0); Platelet Count 214 10^3/uL (130-400); RBC 3.06 10^6/uL (3.93-5.22); RDW 16.1 % (11.7-14.6); RDW-SD 65.6 fL; WBC 3.54 10^3/uL (4.4-10.8)
[2020-03-02] MEDS: Normal Saline Flush 10 ML SYR IVP (09:25)
[2020-03-02 09:46] LABS: ALT 27 U/L (14-59); AST 12 U/L (15-37); Alkaline Phosphatase 42 U/L (46-116); Anion Gap 7.1 mmol/L (3-11); BUN 13 mg/dL (7-18); Bilirubin, Total 0.4 mg/dL (0.2-1.0); CO2 26.9 mmol/L (21.0-32.0); CREATININE 0.79 mg/dL (0.55-1.02); Calcium 8.3 mg/dL (8.5-10.1); Chloride 106 mmol/L (98-107); FREE T4 1.18 ng/dL (0.76-1.46); Glucose 88 mg/dL (74-106); Potassium 3.8 mmol/L (3.5-5.1); Sodium 140 mmol/L (136-145); TSH 5.73 uIU/mL (0.36-3.74); Total Protein 5.7 g/dL (6.4-8.2)
[2020-03-02 10:02] LABS: Absolute Eosinophil Count 0.04 10^3/uL (0.0-0.7); Absolute Lymphocyte Count 0.71 10^3/uL (1.2-3.4); Absolute Monocyte Count 0.21 10^3/uL (0.1-0.8); Absolute Neutrophil Count 2.44 10^3/uL (1.2-6.7); Diff Comment Manual Differential; Myelocytes % 4; Nucleated RBC 1 %
[2020-03-02 10:03] LABS: Anisocytosis 1+; Hypochromasia 1+; Macrocytosis 2+; Polychromasia Present
[2020-03-09] MEDS: Normal Saline Flush 10 ML SYR IVP (10:15)
[2020-03-09 10:16] LABS: Abs Immature Grans 0.19 10^3/uL (0.0-0.06); Absolute Basophil Count 0.04 10^3/uL (0.0-0.2); Absolute Eosinophil Count 0.01 10^3/uL (0.0-0.7); Absolute Monocyte Count 0.31 10^3/uL (0.1-0.8); Absolute Neutrophil Count 2.65 10^3/uL (1.2-6.7); Eosinophils % 0.3; HGB 10.9 g/dL (11.2-15.7); Immature Grans % 4.9; Lymphocytes % 17.9; MCH 35.3 pg (27.0-33.0); MCHC 32.1 % (32.0-36.0); MPV 10.3 fL (8.0-11.0); Monocytes % 7.9; Nucleated RBC 1 %; Platelet Count 225 10^3/uL (130-400); RBC 3.09 10^6/uL (3.93-5.22); RDW 16.3 % (11.7-14.6); RDW-SD 65.3 fL
[2020-03-09 10:38] LABS: ALT 22 U/L (14-59); AST 13 U/L (15-37); Albumin 3.3 g/dL (3.4-5.0); Alkaline Phosphatase 41 U/L (46-116); Anion Gap 9.1 mmol/L (3-11); BUN 11 mg/dL (7-18); Bilirubin, Total 0.4 mg/dL (0.2-1.0); CO2 26.9 mmol/L (21.0-32.0); CREATININE 0.83 mg/dL (0.55-1.02); Calcium 8.5 mg/dL (8.5-10.1); Chloride 105 mmol/L (98-107); FREE T4 1.19 ng/dL (0.76-1.46); Glucose 94 mg/dL (74-106); Potassium 3.9 mmol/L (3.5-5.1); Sodium 141 mmol/L (136-145); TSH 2.88 uIU/mL (0.36-3.74); Total Protein 5.9 g/dL (6.4-8.2)
[2020-03-09 10:46] LABS: Macrocytosis 1+
[2020-03-16] MEDS: Normal Saline Flush 10 ML SYR IVP (07:38)
[2020-03-16 07:45] LABS: HCT 34.1 % (36.0-46.0); HGB 10.6 g/dL (11.2-15.7); MCH 34.9 pg (27.0-33.0); MCHC 31.1 % (32.0-36.0); MCV 112.2 fL (80-95); MPV 10.2 fL (8.0-11.0); Nucleated RBC 3 %; Platelet Count 225 10^3/uL (130-400); RBC 3.04 10^6/uL (3.93-5.22); RDW-SD 66.1 fL
[2020-03-16 08:08] LABS: ALT 18 U/L (14-59); AST 12 U/L (15-37); Absolute Basophil Count 0.05 10^3/uL (0.0-0.2); Absolute Neutrophil Count 2.65 10^3/uL (1.2-6.7); Albumin 3.3 g/dL (3.4-5.0); Alkaline Phosphatase 38 U/L (46-116); Anion Gap 9.6 mmol/L (3-11); BUN 15 mg/dL (7-18); Bands % 3; Bilirubin, Total 0.3 mg/dL (0.2-1.0); CO2 26.4 mmol/L (21.0-32.0); CREATININE 0.77 mg/dL (0.55-1.02); Calcium 8.5 mg/dL (8.5-10.1); Chloride 105 mmol/L (98-107); FREE T4 0.94 ng/dL (0.76-1.46); Glucose 88 mg/dL (74-106); Potassium 3.8 mmol/L (3.5-5.1); Sodium 141 mmol/L (136-145); TSH 2.95 uIU/mL (0.36-3.74); Total Protein 5.8 g/dL (6.4-8.2)
[2020-03-16 08:09] LABS: Anisocytosis 1+; Basophilic Stippling Present; Diff Comment Manual Differential; Macrocytosis 3+; Metamyelocytes % 7; Myelocytes % 3; Polychromasia Present
== END 2020-04-01 23:59 | disposition home or self-care (01) ==
LOC: INF 03:05
PROVIDERS: PCP Nurse Practitioner; Visit Provider Internal Medicine Hematology & Oncology
DX: E03.2 Hypothyroidism due to medicaments and other exogenous substances (principal); C34.2 Malignant neoplasm of middle lobe, bronchus or lung; Z45.2 Encounter for adjustment and management of vascular access device
CPT/HCPCS: 36591; 80053; 84439; 84443; 85025

== ENCOUNTER 2020-04-10 14:06 | Outpatient (CLI) | payer MEDICARE, SELFPAY ==
--- NOTE | 2020-04-10 13:45 | DI.RAD_ITS ---
EXAM: XR FEMUR RT CLINICAL HISTORY: f/u R hip angel for pathologic fracture TECHNIQUE: COMPARISON: CR XR FEMUR RT from 03/22/2020 FINDINGS: Four views were obtained. There is a hemiarthroplasty in place in the proximal right femur with a lo ng stem. Patient reportedly had a prior pathologic fracture. No change in alignment in comparison with examination of March 22. The femoral head prosthesis i s appropriately aligned in the acetabulum. IMPRESSION: RADIATION DOSE DELIVERED: Total DLP
== END 2020-04-10 14:26 ==
PROVIDERS: PCP Nurse Practitioner; Referring Provider Nurse Practitioner; Visit Provider Student in an Organized Health Care Education/Training Program
DX: Z47.89 Encounter for other orthopedic aftercare; M84.451D Pathological fracture, right femur, subsequent encounter for fracture with routine healing; M89.9 Disorder of bone, unspecified
CPT/HCPCS: 73552

== ENCOUNTER 2020-04-13 01:47 | Outpatient (RCR) | payer MEDICARE, SELFPAY ==
[2020-04-13] MEDS: Normal Saline Flush 10 ML SYR IVP (08:35)
[2020-04-13 08:59] LABS: Abs Immature Grans 0.04 10^3/uL (0.0-0.06); Absolute Basophil Count 0.02 10^3/uL (0.0-0.2); Absolute Eosinophil Count 0.14 10^3/uL (0.0-0.7); Absolute Lymphocyte Count 1.05 10^3/uL (1.2-3.4); Absolute Monocyte Count 0.84 10^3/uL (0.1-0.8); Absolute Neutrophil Count 7.43 10^3/uL (1.2-6.7); Basophils % 0.2; Eosinophils % 1.5; HCT 38.2 % (36.0-46.0); HGB 11.9 g/dL (11.2-15.7); Immature Grans % 0.4; MCH 33.8 pg (27.0-33.0); MCHC 31.2 % (32.0-36.0); MCV 108.5 fL (80-95); MPV 9.8 fL (8.0-11.0); Monocytes % 8.8; Neutrophils % 78.1; Nucleated RBC 0 %; Platelet Count 379 10^3/uL (130-400); RBC 3.52 10^6/uL (3.93-5.22); RDW 16.2 % (11.7-14.6); RDW-SD 66.3 fL; WBC 9.52 10^3/uL (4.4-10.8)
[2020-04-13 09:14] LABS: Diff Comment RBC Morph Reviewed
[2020-04-13 09:15] LABS: Macrocytosis 2+; Poikilocytes 1+
[2020-04-13 09:22] LABS: ALT 12 U/L (14-59); AST 13 U/L (15-37); Albumin 2.8 g/dL (3.4-5.0); Alkaline Phosphatase 77 U/L (46-116); Anion Gap 8.3 mmol/L (3-11); BUN 11 mg/dL (7-18); Bilirubin, Total 0.4 mg/dL (0.2-1.0); CO2 25.7 mmol/L (21.0-32.0); CREATININE 0.83 mg/dL (0.55-1.02); Calcium 8.2 mg/dL (8.5-10.1); Chloride 107 mmol/L (98-107); FREE T4 1.05 ng/dL (0.76-1.46); Glucose 110 mg/dL (74-106); Potassium 4.3 mmol/L (3.5-5.1); Sodium 141 mmol/L (136-145); Total Protein 6.1 g/dL (6.4-8.2)
== END 2020-05-01 23:59 | disposition home or self-care (01) ==
LOC: INF 01:47
PROVIDERS: PCP Nurse Practitioner; Visit Provider Internal Medicine Hematology & Oncology
DX: E03.2 Hypothyroidism due to medicaments and other exogenous substances (principal); C34.2 Malignant neoplasm of middle lobe, bronchus or lung; Z45.2 Encounter for adjustment and management of vascular access device
CPT/HCPCS: 36591; 80053; 84439; 84443; 85025

== ENCOUNTER 2020-05-22 01:37 | Outpatient (RCR) | payer MEDICARE, SELFPAY ==
[2020-05-04] MEDS: Normal Saline Flush 10 ML SYR IVP (08:20)
[2020-05-04 08:25] LABS: Abs Immature Grans 0.03 10^3/uL (0.0-0.06); Absolute Basophil Count 0.03 10^3/uL (0.0-0.2); Absolute Eosinophil Count 0.18 10^3/uL (0.0-0.7); Absolute Lymphocyte Count 1.48 10^3/uL (1.2-3.4); Absolute Monocyte Count 0.69 10^3/uL (0.1-0.8); Basophils % 0.5; Eosinophils % 2.9; HCT 39.7 % (36.0-46.0); HGB 12.4 g/dL (11.2-15.7); Immature Grans % 0.5; Lymphocytes % 24.2; MCHC 31.2 % (32.0-36.0); MCV 105.6 fL (80-95); MPV 9.9 fL (8.0-11.0); Monocytes % 11.3; Neutrophils % 60.6; Nucleated RBC 0 %; Platelet Count 370 10^3/uL (130-400); RBC 3.76 10^6/uL (3.93-5.22); RDW 14.9 % (11.7-14.6); RDW-SD 58.8 fL; WBC 6.11 10^3/uL (4.4-10.8)
[2020-05-04 08:46] LABS: ALT 7 U/L (14-59); AST 14 U/L (15-37); Alkaline Phosphatase 68 U/L (46-116); BUN 8 mg/dL (7-18); Bilirubin, Total 0.4 mg/dL (0.2-1.0); CREATININE 0.83 mg/dL (0.55-1.02); Calcium 8.4 mg/dL (8.5-10.1); Chloride 106 mmol/L (98-107); Glucose 104 mg/dL (74-106); Potassium 3.6 mmol/L (3.5-5.1); Sodium 142 mmol/L (136-145); TSH 4.38 uIU/mL (0.36-3.74); Total Protein 6.5 g/dL (6.4-8.2)
[2020-05-04 09:04] LABS: FREE T4 1.16 ng/dL (0.76-1.46)
[2020-05-04 09:13] LABS: Diff Comment RBC Morph Reviewed; Macrocytosis 1+
[2020-05-22] MEDS: Normal Saline Flush 10 ML SYR IVP (08:12)
[2020-05-22 08:16] LABS: Abs Immature Grans 0.02 10^3/uL (0.0-0.06); Absolute Basophil Count 0.03 10^3/uL (0.0-0.2); Absolute Eosinophil Count 0.14 10^3/uL (0.0-0.7); Absolute Lymphocyte Count 1.73 10^3/uL (1.2-3.4); Absolute Monocyte Count 0.86 10^3/uL (0.1-0.8); Absolute Neutrophil Count 5.66 10^3/uL (1.2-6.7); Basophils % 0.4; Eosinophils % 1.7; HCT 40.2 % (36.0-46.0); HGB 12.8 g/dL (11.2-15.7); Immature Grans % 0.2; Lymphocytes % 20.5; MCH 33.1 pg (27.0-33.0); MCHC 31.8 % (32.0-36.0); MCV 103.9 fL (80-95); MPV 9.8 fL (8.0-11.0); Monocytes % 10.2; Nucleated RBC 0 %; Platelet Count 363 10^3/uL (130-400); RBC 3.87 10^6/uL (3.93-5.22); RDW 14.8 % (11.7-14.6); WBC 8.44 10^3/uL (4.4-10.8)
[2020-05-22 08:40] LABS: ALT 9 U/L (14-59); AST 12 U/L (15-37); Albumin 2.9 g/dL (3.4-5.0); Alkaline Phosphatase 57 U/L (46-116); Anion Gap 8.7 mmol/L (3-11); BUN 12 mg/dL (7-18); Bilirubin, Total 0.4 mg/dL (0.2-1.0); CO2 25.3 mmol/L (21.0-32.0); CREATININE 0.89 mg/dL (0.55-1.02); Calcium 8.6 mg/dL (8.5-10.1); Chloride 106 mmol/L (98-107); FREE T4 1.12 ng/dL (0.76-1.46); Glucose 103 mg/dL (74-106); Potassium 3.9 mmol/L (3.5-5.1); Sodium 140 mmol/L (136-145); TSH 3.78 uIU/mL (0.36-3.74); Total Protein 6.2 g/dL (6.4-8.2)
== END 2020-06-01 23:59 | disposition home or self-care (01) ==
LOC: INF 01:37
PROVIDERS: PCP Nurse Practitioner; Visit Provider Internal Medicine Hematology & Oncology
DX: M84.451D Pathological fracture, right femur, subsequent encounter for fracture with routine healing; E03.2 Hypothyroidism due to medicaments and other exogenous substances; C34.2 Malignant neoplasm of middle lobe, bronchus or lung; Z45.2 Encounter for adjustment and management of vascular access device
CPT/HCPCS: 36591; 80053; 84439; 84443; 85025

== ENCOUNTER 2020-05-22 15:45 | Outpatient (CLI) | payer MEDICARE, SELFPAY | END 2020-05-22 16:05 | PROVIDERS: PCP Nurse Practitioner; Visit Provider Physician Assistant Surgical | DX: R69 Illness, unspecified (principal) ==

== ENCOUNTER 2020-06-15 02:19 | Outpatient (RCR) | payer MEDICARE, SELFPAY ==
[2020-06-15 09:27] LABS: Abs Immature Grans 0.01 10^3/uL (0.0-0.06); Absolute Basophil Count 0.02 10^3/uL (0.0-0.2); Absolute Eosinophil Count 0.09 10^3/uL (0.0-0.7); Absolute Lymphocyte Count 1.25 10^3/uL (1.2-3.4); Absolute Monocyte Count 0.58 10^3/uL (0.1-0.8); Absolute Neutrophil Count 2.92 10^3/uL (1.2-6.7); Basophils % 0.4; Eosinophils % 1.8; HCT 39.7 % (36.0-46.0); HGB 12.7 g/dL (11.2-15.7); Immature Grans % 0.2; Lymphocytes % 25.7; MCH 32.2 pg (27.0-33.0); MCV 100.5 fL (80-95); MPV 10.2 fL (8.0-11.0); Monocytes % 11.9; Nucleated RBC 0 %; Platelet Count 328 10^3/uL (130-400); RBC 3.95 10^6/uL (3.93-5.22); RDW 13.8 % (11.7-14.6); RDW-SD 50.8 fL; WBC 4.87 10^3/uL (4.4-10.8)
[2020-06-15 10:00] LABS: ALT 14 U/L (14-59); AST 17 U/L (15-37); Albumin 2.9 g/dL (3.4-5.0); Alkaline Phosphatase 52 U/L (46-116); BUN 13 mg/dL (7-18); Bilirubin, Total 0.4 mg/dL (0.2-1.0); CREATININE 0.92 mg/dL (0.55-1.02); Calcium 8.8 mg/dL (8.5-10.1); Chloride 104 mmol/L (98-107); FREE T4 1.08 ng/dL (0.76-1.46); Glucose 96 mg/dL (74-106); Potassium 3.8 mmol/L (3.5-5.1); Sodium 140 mmol/L (136-145); TSH 4.91 uIU/mL (0.36-3.74); Total Protein 6.2 g/dL (6.4-8.2)
[2020-06-15] MEDS: Normal Saline Flush 10 ML SYR IVP (10:20)
== END 2020-07-02 23:59 | disposition home or self-care (01) ==
LOC: INF 02:19
PROVIDERS: PCP Nurse Practitioner; Visit Provider Internal Medicine Hematology & Oncology
DX: C34.2 Malignant neoplasm of middle lobe, bronchus or lung (principal); E03.2 Hypothyroidism due to medicaments and other exogenous substances; Z45.2 Encounter for adjustment and management of vascular access device
CPT/HCPCS: 36591; 80053; 84439; 84443; 85025

== ENCOUNTER 2020-07-27 02:40 | Outpatient (RCR) | payer MEDICARE, SELFPAY ==
[2020-07-06 09:14] LABS: Abs Immature Grans 0.02 10^3/uL (0.0-0.06); Absolute Basophil Count 0.03 10^3/uL (0.0-0.2); Absolute Eosinophil Count 0.14 10^3/uL (0.0-0.7); Absolute Lymphocyte Count 1.42 10^3/uL (1.2-3.4); Absolute Monocyte Count 0.56 10^3/uL (0.1-0.8); Basophils % 0.5; Eosinophils % 2.4; HCT 40.9 % (36.0-46.0); Immature Grans % 0.3; Lymphocytes % 24.2; MCH 31.6 pg (27.0-33.0); MCHC 31.8 % (32.0-36.0); MCV 99.5 fL (80-95); MPV 10.1 fL (8.0-11.0); Monocytes % 9.5; Neutrophils % 63.1; Nucleated RBC 0 %; Platelet Count 294 10^3/uL (130-400); RBC 4.11 10^6/uL (3.93-5.22); RDW 13.4 % (11.7-14.6); RDW-SD 50.1 fL; WBC 5.87 10^3/uL (4.4-10.8)
[2020-07-06] MEDS: Normal Saline Flush 10 ML SYR IVP (09:24)
[2020-07-06 09:36] LABS: ALT 12 U/L (14-59); AST 15 U/L (15-37); Alkaline Phosphatase 57 U/L (46-116); Anion Gap 9.5 mmol/L (3-11); BUN 8 mg/dL (7-18); Bilirubin, Total 0.4 mg/dL (0.2-1.0); CO2 25.5 mmol/L (21.0-32.0); CREATININE 0.8 mg/dL (0.55-1.02); Calcium 9.2 mg/dL (8.5-10.1); Chloride 108 mmol/L (98-107); Glucose 98 mg/dL (74-106); Potassium 3.6 mmol/L (3.5-5.1); Sodium 143 mmol/L (136-145); TSH 6.57 uIU/mL (0.36-3.74); Total Protein 6.3 g/dL (6.4-8.2)
[2020-07-27] MEDS: Normal Saline Flush 10 ML SYR IVP (08:36)
[2020-07-27 08:49] LABS: Abs Immature Grans 0.03 10^3/uL (0.0-0.06); Absolute Basophil Count 0.03 10^3/uL (0.0-0.2); Absolute Eosinophil Count 0.12 10^3/uL (0.0-0.7); Absolute Lymphocyte Count 1.27 10^3/uL (1.2-3.4); Absolute Monocyte Count 0.63 10^3/uL (0.1-0.8); Absolute Neutrophil Count 4.36 10^3/uL (1.2-6.7); Basophils % 0.5; Eosinophils % 1.9; HCT 40.7 % (36.0-46.0); HGB 12.9 g/dL (11.2-15.7); Immature Grans % 0.5; Lymphocytes % 19.7; MCH 31.3 pg (27.0-33.0); MCHC 31.7 % (32.0-36.0); MCV 98.8 fL (80-95); MPV 10.1 fL (8.0-11.0); Monocytes % 9.8; Neutrophils % 67.6; Nucleated RBC 0 %; Platelet Count 339 10^3/uL (130-400); RBC 4.12 10^6/uL (3.93-5.22); RDW 13.1 % (11.7-14.6); RDW-SD 47.6 fL; WBC 6.44 10^3/uL (4.4-10.8)
[2020-07-27 09:14] LABS: ALT 17 U/L (14-59); AST 11 U/L (15-37); Albumin 3.2 g/dL (3.4-5.0); Alkaline Phosphatase 59 U/L (46-116); Anion Gap 8.4 mmol/L (3-11); BUN 17 mg/dL (7-18); Bilirubin, Total 0.5 mg/dL (0.2-1.0); CO2 27.6 mmol/L (21.0-32.0); CREATININE 0.7 mg/dL (0.55-1.02); Calcium 9.2 mg/dL (8.5-10.1); Chloride 105 mmol/L (98-107); Glucose 125 mg/dL (74-106); Potassium 3.8 mmol/L (3.5-5.1); Sodium 141 mmol/L (136-145); TSH 4.35 uIU/mL (0.36-3.74); Total Protein 6.7 g/dL (6.4-8.2)
== END 2020-07-30 23:59 | disposition home or self-care (01) ==
LOC: INF 02:40
PROVIDERS: PCP Nurse Practitioner; Visit Provider Internal Medicine Hematology & Oncology
DX: C34.2 Malignant neoplasm of middle lobe, bronchus or lung (principal); E03.2 Hypothyroidism due to medicaments and other exogenous substances; Z45.2 Encounter for adjustment and management of vascular access device
CPT/HCPCS: 36591; 80053; 84439; 84443; 85025

== ENCOUNTER 2020-08-17 02:07 | Outpatient (RCR) | payer MEDICARE, SELFPAY ==
[2020-08-17] MEDS: Normal Saline Flush 10 ML SYR IVP (07:48)
[2020-08-17 07:52] LABS: Abs Immature Grans 0.14 10^3/uL (0.0-0.06); Absolute Basophil Count 0.01 10^3/uL (0.0-0.2); Absolute Lymphocyte Count 0.59 10^3/uL (1.2-3.4); Absolute Monocyte Count 0.46 10^3/uL (0.1-0.8); Basophils % 0.1; HCT 42.9 % (36.0-46.0); HGB 14.3 g/dL (11.2-15.7); Immature Grans % 1.2; Lymphocytes % 4.9; MCH 31.8 pg (27.0-33.0); MCHC 33.3 % (32.0-36.0); MCV 95.3 fL (80-95); MPV 10.5 fL (8.0-11.0); Monocytes % 3.8; Nucleated RBC 0 %; Platelet Count 246 10^3/uL (130-400); RDW 14.7 % (11.7-14.6); RDW-SD 50.1 fL; WBC 12.07 10^3/uL (4.4-10.8)
[2020-08-17 07:53] LABS: Absolute Neutrophil Count 10.86 10^3/uL (1.2-6.7)
[2020-08-17 08:14] LABS: ALT 43 U/L (14-59); AST 11 U/L (15-37); Alkaline Phosphatase 43 U/L (46-116); Anion Gap 8.7 mmol/L (3-11); BUN 33 mg/dL (7-18); Bilirubin, Total 0.7 mg/dL (0.2-1.0); CO2 26.3 mmol/L (21.0-32.0); CREATININE 0.8 mg/dL (0.55-1.02); Calcium 8.5 mg/dL (8.5-10.1); Chloride 104 mmol/L (98-107); Glucose 148 mg/dL (74-106); Sodium 139 mmol/L (136-145); Total Protein 6.2 g/dL (6.4-8.2)
[2020-08-17 09:28] LABS: FREE T4 0.67 ng/dL (0.76-1.46); TSH 0.97 uIU/mL (0.36-3.74)
== END 2020-08-30 23:59 | disposition home or self-care (01) ==
LOC: INF 02:07
PROVIDERS: PCP Nurse Practitioner; Visit Provider Internal Medicine Hematology & Oncology
DX: C34.2 Malignant neoplasm of middle lobe, bronchus or lung (principal); E03.2 Hypothyroidism due to medicaments and other exogenous substances; Z45.2 Encounter for adjustment and management of vascular access device
CPT/HCPCS: 36591; 80053; 84439; 84443; 85025

== ENCOUNTER 2020-09-28 01:43 | Outpatient (RCR) | payer MEDICARE, SELFPAY ==
[2020-09-07] MEDS: Normal Saline Flush 10 ML SYR IVP (07:43)
[2020-09-07 08:08] LABS: Abs Immature Grans 0.34 10^3/uL (0.0-0.06); Absolute Basophil Count 0.03 10^3/uL (0.0-0.2); Absolute Eosinophil Count 0.01 10^3/uL (0.0-0.7); Absolute Lymphocyte Count 1.44 10^3/uL (1.2-3.4); Absolute Monocyte Count 0.55 10^3/uL (0.1-0.8); Absolute Neutrophil Count 4.82 10^3/uL (1.2-6.7); Basophils % 0.4; Eosinophils % 0.1; HCT 43.2 % (36.0-46.0); HGB 14.2 g/dL (11.2-15.7); Immature Grans % 4.7; MCHC 32.9 % (32.0-36.0); MCV 100.5 fL (80-95); MPV 9.6 fL (8.0-11.0); Monocytes % 7.6; Neutrophils % 67.2; Nucleated RBC 0 %; Platelet Count 242 10^3/uL (130-400); RDW-SD 62.6 fL; WBC 7.19 10^3/uL (4.4-10.8)
[2020-09-07 08:33] LABS: ALT 67 U/L (14-59); AST 17 U/L (15-37); Albumin 3.1 g/dL (3.4-5.0); Alkaline Phosphatase 50 U/L (46-116); Anion Gap 6.1 mmol/L (3-11); BUN 22 mg/dL (7-18); Bilirubin, Total 0.5 mg/dL (0.2-1.0); CO2 28.9 mmol/L (21.0-32.0); CREATININE 0.8 mg/dL (0.55-1.02); Calcium 7.7 mg/dL (8.5-10.1); Chloride 106 mmol/L (98-107); FREE T4 0.84 ng/dL (0.76-1.46); Glucose 81 mg/dL (74-106); Potassium 3.6 mmol/L (3.5-5.1); Sodium 141 mmol/L (136-145); Total Protein 6.2 g/dL (6.4-8.2)
[2020-09-28] MEDS: Normal Saline Flush 10 ML SYR IVP (07:26)
[2020-09-28 07:33] LABS: Abs Immature Grans 0.36 10^3/uL (0.0-0.06); Absolute Basophil Count 0.04 10^3/uL (0.0-0.2); Absolute Lymphocyte Count 1.52 10^3/uL (1.2-3.4); Absolute Monocyte Count 0.77 10^3/uL (0.1-0.8); Basophils % 0.3; HGB 13.5 g/dL (11.2-15.7); Immature Grans % 2.9; Lymphocytes % 12.4; MCH 32.7 pg (27.0-33.0); MCHC 32.9 % (32.0-36.0); MCV 99.3 fL (80-95); MPV 10.3 fL (8.0-11.0); Monocytes % 6.3; Neutrophils % 78.1; Nucleated RBC 0 %; Platelet Count 298 10^3/uL (130-400); RBC 4.13 10^6/uL (3.93-5.22); RDW 16.2 % (11.7-14.6); RDW-SD 59.8 fL; WBC 12.22 10^3/uL (4.4-10.8)
[2020-09-28 07:34] LABS: Absolute Neutrophil Count 9.54 10^3/uL (1.2-6.7)
[2020-09-28 08:02] LABS: ALT 37 U/L (14-59); AST 9 U/L (15-37); Albumin 2.9 g/dL (3.4-5.0); Alkaline Phosphatase 61 U/L (46-116); Anion Gap 9.4 mmol/L (3-11); BUN 25 mg/dL (7-18); Bilirubin, Total 0.4 mg/dL (0.2-1.0); CO2 28.6 mmol/L (21.0-32.0); CREATININE 0.9 mg/dL (0.55-1.02); Calcium 9.4 mg/dL (8.5-10.1); Chloride 105 mmol/L (98-107); Glucose 97 mg/dL (74-106); Potassium 3.8 mmol/L (3.5-5.1); Sodium 143 mmol/L (136-145); TSH 2.09 uIU/mL (0.36-3.74); Total Protein 6.5 g/dL (6.4-8.2)
== END 2020-09-29 23:59 | disposition home or self-care (01) ==
LOC: INF 01:43
PROVIDERS: PCP Nurse Practitioner; Visit Provider Internal Medicine Hematology & Oncology
DX: C34.2 Malignant neoplasm of middle lobe, bronchus or lung (principal); E03.2 Hypothyroidism due to medicaments and other exogenous substances
CPT/HCPCS: 36591; 80053; 84439; 84443; 85025

== ENCOUNTER 2020-10-09 09:16 | Emergency (ER) | payer MEDICARE, SELFPAY ==
[2020-10-09 09:25] VITALS: BP 125/79; PULSE 97; RESP 16; TEMP 36.1; O2SAT 98
--- NOTE | 2020-10-09 09:34 | ED.GENADUL_ITS ---
Discharge Plan Disposition Patient Disposition: HOME Condition: Stable Discharge Details Clinical Impression: Fracture of rib of left side, Lung nodule Primary Care Provider: Clara Shipman ED Provider: Whitney Mcqueen Home Meds and New Rx's Prescriptions: Continued ondansetron HCl 8 mg tablet 8 mg PO Q8H RF: 0 nystatin 100,000 unit/gram powder 1 applic topical TID RF: 0 prochlorperazine maleate 10 mg tablet 10 mg PO Q6H PRNRF: 0 dexamethasone 4 mg tablet 4 mg PO DAILY RF: 0 multivitamin [Daily Multi-Vitamin] 1 EACH tablet 1 ea PO DAILY RF: 0 levetiracetam [Roweepra] 500 MG tablet 500 mg PO BID RF: 0 lamotrigine 25 MG tablet 50 mg PO BID RF: 0 tumeric RF: 0 docusate sodium [Colace] 100 MG capsule 500 mg PO DAILY PRNRF: 0 cranberry 400 MG capsule 500 mg PO BID RF: 0 cholecalciferol (vitamin D3) [Vitamin D3] 2,000 UNIT capsule 2,000 unit PO DAILY RF: 0 magnesium oxide 400 MG capsule 500 mg PO BID RF: 0 Probiotic 1 EACH capsule, sprinkle 1 cap PO DAILY RF: 0 lidocaine [Lidoderm] 1 PATCH patch 1 patch Topical Q24H Qty: 4 RF: 0 esomeprazole magnesium [Nexium] 20 mg Capsule,Delayed Release(Dr/Ec) 20 mg PO DAILY RF: 0 meclizine 25 mg tablet 25 mg PO DAILY RF: 0 acetaminophen 500 mg Tablet 500 mg PO Q4H PRN PRNQty: 90 RF: 0 ascorbate calcium (vitamin C) 500 MG tablet 500 mg PO DAILY Qty: 0 RF: 0 gabapentin 300 mg capsule 300 mg PO QHS Qty: 30 RF: 0 celecoxib 100 mg capsule 100 mg PO BID Qty: 60 RF: 0 Discharge Instructions Instructions: Rib Fracture (ED) Additional Instructions: Use lidocaine patches and incentive spirometer as discussed at home. Return to the ED for any increase shortness of breath, increased pain not relieved by Tylenol, fever or productive cough. Follow up with primary care provider in 3-5 days. Return to ED sooner if any worsening or concerns. Increase oral fluids. Please take Tylenol or Ibuprofen with food every 4-6 hours as needed for pain and swelling. Referrals: Clara Shipman [Primary Care Provider] - Medical Decision Making 70-year-old female presents to the ER chief complaint of left posterior rib pain status post a mechanical fall approximately 45 minutes prior to arrival. Patient states that she was in the bathroom and turned around lost her balance fell back hitting her back on the toilet. Denies hitting her head no loss of consciousness. She is complaining of posterior left rib cage tenderness no midline CT or L-spine tenderness. Lungs are clear to auscultation bilaterally. She took 2 Tylenol prior to arrival. She has a past medical history of stage IV lung cancer, lytic bone lesion, colitis, anemia. She is alert and oriented upon arrival. X-ray rib series and lidocaine patch ordered at this time. Exam(s) XR RIBS LT W PA LAT CHEST EXAM: XR RIBS LT W PA LAT CHEST CLINICAL HISTORY: Fall, Posterior rib pain TECHNIQUE: 2D digital imaging was performed. COMPARISON: CR XR CHEST 2V PA LATERAL from 03/08/2019 FINDINGS: The right-sided Port-A-Cath is again noted be looped with its distal tip in the upper SVC, unchanged. Heart size is normal. Mediastinum is not widened. Bilateral pulmonary hyperinflation noted. There is nodular infiltrate in the left upper lobe now evident, this measuring 1.5 x 1.0 cm. Concerning for neoplasm. There is also healing fracture of the left 6 rib, not previously present. Very subtle suggestions of additional nondisplaced fractures in the left 5th and 6th ribs. Plate and screws and bone graft material in the proximal left humerus again noted. There is blunting of left costophrenic angle indicating small amount of pleural fluid. Also increased markings in the right lower lobe posterior basal segment. Also evident is a 1.8 by 1.6 cm nodular density in the lower right lung infrahilar region. Increased density in the right 8th rib is noted, possibly metastatic. Incidentally noted is a large peripherally calcified structure in the right side of the abdomen which is probably a large gallstone. IMPRESSION: 1. Healing fracture left 6th rib. Very subtle suggestion of nondisplaced fractures also evident in the 5th and 6th left ribs. 2. Left lung upper lobe new nodule. Also nodule right infrahilar region. Chest CT scan recommended. 3. Other findings as above including what is possibly a large calcified gallstone in the right-side of the abdomen. Discussed x-ray findings with patient all their questions were answered to the best my ability. They do verbalize understanding. They do have lidocaine patches and incentive spirometer at home instructed on use. Discussed with return instructions, verbalized understanding. HPI General Mode of arrival: ambulatory . Date/Time Provider Initiated Documentation: 10/09/20 09:18 . Limitations to Documentation: no limitations . Information obtained by: patient, family and RN notes reviewed . HPI Narrative: 70-year-old female presents to the ER chief complaint of left posterior rib pain status post a mechanical fall approximately 45 minutes prior to arrival. Patient states that she was in the bathroom and turned around lost her balance fell back hitting her back on the toilet. Denies hitting her head no loss of consciousness. She is complaining of posterior left rib cage tenderness no midline CT or L-spine tenderness. Lungs are clear to auscultation bilaterally. She took 2 Tylenol prior to arrival. She has a past medical history of stage IV lung cancer, lytic bone lesion, colitis, anemia. She is alert and oriented upon arrival. Related Data Home Medications Medication Instructions Recorded Confirmed docusate sodium [Colace] 500 mg PO DAILY PRN 05/17/16 10/09/20 Probiotic 1 cap PO DAILY 05/10/17 10/09/20 cholecalciferol (vitamin D3) 2,000 unit PO DAILY 05/10/17 10/09/20 [Vitamin D3] cranberry 500 mg PO BID 05/10/17 10/09/20 magnesium oxide 500 mg PO BID 05/10/17 10/09/20 Tumeric 11/11/17 05/22/20 lamotrigine 50 mg PO BID 11/11/17 10/09/20 levetiracetam [Roweepra] 500 mg PO BID 11/11/17 10/09/20 multivitamin [Daily Multi-Vitamin] 1 ea PO DAILY 11/11/17 10/09/20 lidocaine [Lidoderm] 1 patch TOPICAL Q24H #4 patch 08/06/19 10/09/20 dexamethasone 4 mg tablet 4 mg PO DAILY 03/14/20 10/09/20 esomeprazole magnesium [Nexium] 20 mg PO DAILY 03/19/20 10/09/20 meclizine 25 mg PO DAILY 03/19/20 10/09/20 acetaminophen 500 mg PO Q4H PRN PRN #90 tab 03/27/20 10/09/20 ascorbate calcium (vitamin C) 500 mg PO DAILY #0 tab 03/27/20 10/09/20 celecoxib 100 mg PO BID #60 cap 03/27/20 10/09/20 gabapentin 300 mg PO QHS #30 cap 03/27/20 10/09/20 nystatin 100,000 unit/gram topical 1 applic TOPICAL TID 06/30/20 10/09/20 powder ondansetron HCl 8 mg tablet 8 mg PO Q8H 06/30/20 10/09/20 prochlorperazine maleate 10 mg 10 mg PO Q6H PRN 06/30/20 10/09/20 tablet Previous Rx's Medication Instructions Recorded lidocaine [Lidoderm] 1 patch TOPICAL Q24H #4 patch 08/06/19 acetaminophen 500 mg PO Q4H PRN PRN #90 tab 03/27/20 ascorbate calcium (vitamin C) 500 mg PO DAILY #0 tab 03/27/20 celecoxib 100 mg PO BID #60 cap 03/27/20 gabapentin 300 mg PO QHS #30 cap 03/27/20 Allergies Allergy/AdvReac Type Severity Reaction Status Date / Time codeine [Codeine] AdvReac Intermediate Nausea Verified 10/09/20 09:28 fentanyl AdvReac Intermediate [place]/Vomi Verified 10/09/20 09:28 ting oxycodone AdvReac Intermediate Nausea Unverified 10/09/20 09:28 tramadol AdvReac Intermediate delerium Verified 10/09/20 09:28 General Stated Complaint: Nk/Back Pain VIVEK: 3 Review of Systems All systems reviewed & are unremarkable except as noted in HPI and below Musculoskeletal Musculoskeletal: Reports back pain (Left posterior rib pain) COUNTS INCLUDE 234 BEDS AT THE [facility] Medical History Adventitious breath sounds Anxiety associated with cancer diagnosis Ataxic gait has heel lift in right shoe Bone 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 ca axial skeleton, ribs, pelvis Cancer related pain Colitis Dizziness DNI (do not intubate) DNR (do not resuscitate) Essential hypertension Ex-smoker Goals of care, counseling/discussion History of lung cancer History of ovarian cancer History of pulmonary embolism History of radiation therapy Hyperlipidemia Hypokalemia Immunotherapy Infectious gastroenteritis and colitis Lung cancer Medical marijuana use helps with her appetite Neuropathy due to chemotherapeutic drug Odynophagia Palliative care patient Physical deconditioning restarting PT 09/20 POLST (Physician Orders for Life-Sustaining Treatment) DNR/DNI 03/21/20 Prerenal azotemia Seizure disorder Seizures Stage 4 lung cancer 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 Mother , from COPD End stage COPD Other Diabetes Heart disease Social History Smoking/Tobacco Use Status: Former Tobacco Use Tobacco: How many years used: 40 Smoking risk assessment performed?: Yes Alcohol Intake: never Drug use: Daily Substance use type: marijuana Details: daily medical marijuana Caregiver/Support person: Yes Household members: spouse Housing: house Number of Children: 2 number of grandchildren: 4 Communication Needs: Corrective Lenses Education Level: high school Do you need help understanding health information?: Rarely current occupation: retired Pets and animals: Yes What is your relationship status?: How often do you talk on the phone with friends or family?: three or more times per week How often do you get together with friends or relatives?: once per week Panel score (0-1 are the most socially isolated patients): 2 What type of physical activity do you participate in: assisted ambulation and resistance training Duration: 15-30 minutes/day Frequency: daily Agree to transfusion: Yes Seatbelt use: always Working smoke detector in home: Yes Fire extinguisher in home: Yes Do you feel safe at home: Yes Do you feel safe in your relationship?: Yes Additional Social history: Very close and loving relationship with spouse, Melvin. Bhavani surprised about her cancer recurrence in 08/19. Thought her remission would last years. Now back on immunotherapy for the rest of her life. Anxious. Wants her cancer to go away. Discussed cancer as a chronic disease. To be managed rather than cured. Understands this more and more. Trying to rebuild her strength an regain her weight. Weight up to 125 from 111. They are going out to restaurants and going for rides, now that they are both vaccinated. Exam Narrative Exam Narrative: Constitutional: Alert and oriented x3. Appears stated age. Normal body habitus. Head: Normocephalic, no signs of trauma. Eyes: Pupils PERRLA, Red reflex noted, EOM's intact. Eyelids symmetrical without lesions, discharge, or swelling. ENT: Bilateral TM's WNL, External ear normal to inspection, no mastoid TTP, swelling, or erythema, Nasal turbinates WNL, no nasal discharge. Normal dentition, Posterior pharynx WNL, no exudate. Chest: RRR, Normal S1, S2, distal pulses intact. Tenderness to left posterior rib cage. No obvious deformity or step-off. Resp: Lungs clear to auscultation bilaterally, no wheezes, rales, or rhonchi. Musculoskeletal: Normal gait, 5/5 strength to all four extremities. Tenderness to left paraspinous rib cage, no abrasions, no ecchymosis. Skin: No suspicious rashes or lesions. Capillary refill less than 2 sec. Neurologic: Cranial nerves II-XII intact. Alert and oriented x 3. DTR's intact. Hematologic/Lymphatic: No ecchymosis, no lymphadenopathy. Course Vital Signs Vital signs: Vital Signs Temperature 36.1 C L 10/09/20 09:25 Pulse 97 H 10/09/20 09:25 Respiratory Rate 16 10/09/20 09:25 Blood Pressure 125/79 10/09/20 09:25 Pulse Oximetry 98 10/09/20 09:25 Temperature 36.1 C L 10/09/20 09:25 Temperature Source Skin 10/09/20 09:25 Pulse 97 H 10/09/20 09:25 Respiratory Rate 16 10/09/20 09:25 Respiratory Effort Non-Labored 10/09/20 09:25 Blood Pressure 125/79 10/09/20 09:25 Blood Pressure Position Sitting 10/09/20 09:25 Pulse Oximetry 98 10/09/20 09:25 Oxygen Delivery Method Room Air 10/09/20 09:25 Oxygen Flow Rate 0 10/09/20 09:25 Pain Level 5 10/09/20 09:25
[2020-10-09] MEDS: Lidocaine 5% Patch 1 PATCH TP (09:43)
--- NOTE | 2020-10-09 09:54 | DI.RAD_ITS ---
Exam(s) XR RIBS LT W PA LAT CHEST EXAM: XR RIBS LT W PA LAT CHEST CLINICAL HISTORY: Fall, Posterior rib pain TECHNIQUE: 2D digital imaging was performed. COMPARISON: CR XR CHEST 2V PA LATERAL from 03/08/2019 FINDINGS: The right-sided Port-A-Cath is again noted be looped with its distal tip in the upper SVC, unchanged. Heart size is normal. Mediastinum is not widened. Bilateral pulmonary hyperinflation noted. There is nodular infiltrate in the left upper lobe now evident, this measuring 1.5 x 1.0 cm. Concern ing for neoplasm. There is also healing fracture of the left 6 rib, not previously present. Very sawant btle suggestions of additional nondisplaced fractures in the left 5th and 6th ribs. Plate and screws and bone graft material in the proximal left humerus again noted. There is blunting of left costoph renic angle indicating small amount of pleural fluid. Also increased markings in the right lower lob e posterior basal segment. Also evident is a 1.8 by 1.6 cm nodular density in the lower right lung i nfrahilar region. Increased density in the right 8th rib is noted, possibly metastatic. Incidentally noted is a large peripherally calcified structure in the right side of the abdomen which is probably a large gallstone. IMPRESSION: 1. Healing fracture left 6th rib. Very subtle suggestion of nondisplaced fractures also evident in t he 5th and 6th left ribs. 2. Left lung upper lobe new nodule. Also nodule right infrahilar region. Chest CT scan recommended. 3. Other findings as above including what is possibly a large calcified gallstone in the right-side of the abdomen. DATA REPOSITORY: RADIATION DOSE DELIVERED:
== END 2020-10-09 10:44 | disposition home or self-care (01) ==
PROVIDERS: Emergency Provider Registered Nurse Emergency; PCP Nurse Practitioner
DX: S22.32XA Fracture of one rib, left side, initial encounter for closed fracture (principal); W18.39XA Other fall on same level, initial encounter; R91.1 Solitary pulmonary nodule
CPT/HCPCS: 99283; 71046; 71100

== ENCOUNTER 2020-10-19 02:51 | Outpatient (RCR) | payer MEDICARE, SELFPAY ==
[2020-10-19 07:54] LABS: Absolute Basophil Count 0.03 10^3/uL (0.0-0.2); Absolute Eosinophil Count 0.06 10^3/uL (0.0-0.7); Absolute Lymphocyte Count 1.42 10^3/uL (1.2-3.4); Absolute Monocyte Count 0.52 10^3/uL (0.1-0.8); Absolute Neutrophil Count 3.61 10^3/uL (1.2-6.7); Basophils % 0.5; HCT 41.5 % (36.0-46.0); HGB 13.3 g/dL (11.2-15.7); Immature Grans % 1.7; Lymphocytes % 24.7; MCH 32.4 pg (27.0-33.0); MPV 9.7 fL (8.0-11.0); Monocytes % 9.1; Nucleated RBC 0 %; Platelet Count 291 10^3/uL (130-400); RBC 4.11 10^6/uL (3.93-5.22); RDW 16.2 % (11.7-14.6); RDW-SD 60.5 fL; WBC 5.74 10^3/uL (4.4-10.8)
[2020-10-19] MEDS: Normal Saline Flush 10 ML SYR IVP (08:00)
[2020-10-19 08:21] LABS: ALT 17 U/L (14-59); AST 10 U/L (15-37); Alkaline Phosphatase 92 U/L (46-116); Anion Gap 7.9 mmol/L (3-11); BUN 18 mg/dL (7-18); Bilirubin, Total 0.3 mg/dL (0.2-1.0); CO2 28.1 mmol/L (21.0-32.0); Calcium 9.3 mg/dL (8.5-10.1); Chloride 107 mmol/L (98-107); FREE T4 1.04 ng/dL (0.76-1.46); Glucose 86 mg/dL (74-106); Potassium 3.7 mmol/L (3.5-5.1); Sodium 143 mmol/L (136-145); Total Protein 6.5 g/dL (6.4-8.2)
== END 2020-10-30 23:59 | disposition home or self-care (01) ==
LOC: INF 02:51
PROVIDERS: PCP Nurse Practitioner; Visit Provider Internal Medicine Hematology & Oncology
DX: E03.2 Hypothyroidism due to medicaments and other exogenous substances (principal); C34.2 Malignant neoplasm of middle lobe, bronchus or lung; Z45.2 Encounter for adjustment and management of vascular access device
CPT/HCPCS: 36591; 80053; 84439; 84443; 85025

== ENCOUNTER 2020-11-03 04:06 | Outpatient (CLI) | payer MEDICARE, SELFPAY ==
[2020-11-03] MEDS: Omnipaque 350 MG/ML 100 ML BTL IJ (08:37)
[2020-11-03] MEDS: Normal Saline - Diluent 50 ML VIAL IV (08:39)
[2020-11-03] MEDS: Normal Saline Flush 10 ML SYR IVP (08:39)
--- NOTE | 2020-11-03 08:39 | DI.CT_ITS ---
Exam(s) CT CHEST W EXAM: CT CHEST W CLINICAL HISTORY: LUNG CA METASTATIC TO BONE, C34.90,C79.51,S/P TREATMENT TECHNIQUE: Imaging Protocol: Axial computed tomography images with coronal and sagittal reformatted images were created and reviewed CONTRAST MATERIAL: Intravenous: Omnipaque 350 Contrast volume:70 mL. COMPARISON: CT CT CHEST W from 10/23/[address] CHEST/ABD/PEL W from 08/06/[address] CHEST/ABD/PEL W from 08/06/2019 FINDINGS: Tracheobronchial tree: Patent where visualized. Mediastinum and Michelle: Stable mediastinal lymph nodes. Pulmonary parenchyma: There has been resolution of the left lingular infiltrate. The right middle lo be mass measures 2.9 x 1.9 cm this compares with 2.3 x 2.8 cm on the prior examination. No new pulmo nary nodules are identified. The infiltrate in the right lung base has resolved. There is minimal p leural thickening or scarring along the right hemidiaphragm. There is a persistent small right pleur al effusion. Mild centrilobular emphysematous changes are seen in the lungs. Pleura: Persistent small right pleural effusion. No left pleural effusion. No pneumothorax. Heart: The heart is not dilated. Mild coronary artery calcification. No significant pericardial effu mari. Aorta: Thoracic aorta non-dilated. Atherosclerosis. Upper abdomen: Renal cysts. Stable tiny hypodensity in the superior aspect of the liver. Lymph nodes: Stable mediastinal lymph nodes. Bones: Artifact from the sideplate and screws in the proximal left humerus are again noted. There ar e multiple old left rib fractures. There are now multiple sclerotic areas in several right ribs, sca pulae and the L1 vertebral body. Thyroid: Multiple thyroid nodules are again noted. An Cgszca-A-Uqkd catheter is present. Soft tissues: Unremarkable. IMPRESSION: 1. Right middle lobe mass measures 2.9 x 1.9 cm compared with 2.8 x 2.3 cm. 2. No new pulmonary nodules. 3. Progressive osseous metastatic disease. Bone scan may be considered for further evaluation. RADIATION DOSE DELIVERED: 353.38mGy.cm Total DLP DATA REPOSITORY: All CT scans at this facility are submitted to the National Radiology Data Registry (NRDR) Dose Index Registry (DIR) with the [employer] (ACR). RADIATION OPTIMIZATION: All CT scans at this facility use at least one of these dose optimization te chniques: automated exposure control; mA and/or kV adjustment per patient size (includes targeted exa ms where dose is matched to clinical indication); or iterative reconstruction.
== END 2020-11-03 04:26 ==
PROVIDERS: PCP Nurse Practitioner; Visit Provider Internal Medicine Hematology & Oncology
DX: C34.91 Malignant neoplasm of unspecified part of right bronchus or lung (principal); C79.51 Secondary malignant neoplasm of bone
CPT/HCPCS: 96523; 71260; J3490

== ENCOUNTER 2020-11-09 02:29 | Outpatient (RCR) | payer MEDICARE, SELFPAY ==
[2020-11-03] MEDS: Heparin 500 UNITS/5 ML SYRINGE IV (09:03)
[2020-11-03] MEDS: Normal Saline Flush 10 ML SYR IVP (09:03)
[2020-11-09] MEDS: Normal Saline Flush 10 ML SYR IVP (07:39)
[2020-11-09 08:02] LABS: Abs Immature Grans 0.04 10^3/uL (0.0-0.06); Absolute Basophil Count 0.03 10^3/uL (0.0-0.2); Absolute Lymphocyte Count 1.72 10^3/uL (1.2-3.4); Absolute Neutrophil Count 3.56 10^3/uL (1.2-6.7); Basophils % 0.5; Eosinophils % 1.7; HCT 41.6 % (36.0-46.0); HGB 13.3 g/dL (11.2-15.7); Immature Grans % 0.7; Lymphocytes % 28.4; MCH 33.3 pg (27.0-33.0); MPV 9.7 fL (8.0-11.0); Monocytes % 9.9; Neutrophils % 58.8; Nucleated RBC 0 %; Platelet Count 312 10^3/uL (130-400); RDW 16.1 % (11.7-14.6); RDW-SD 62.2 fL; WBC 6.05 10^3/uL (4.4-10.8)
[2020-11-09 08:16] LABS: ALT 13 U/L (14-59); AST 12 U/L (15-37); Albumin 3.1 g/dL (3.4-5.0); Alkaline Phosphatase 63 U/L (46-116); Anion Gap 6.5 mmol/L (3-11); BUN 16 mg/dL (7-18); Bilirubin, Total 0.5 mg/dL (0.2-1.0); CO2 29.5 mmol/L (21.0-32.0); CREATININE 0.8 mg/dL (0.55-1.02); Calcium 9.3 mg/dL (8.5-10.1); Chloride 107 mmol/L (98-107); FREE T4 0.89 ng/dL (0.76-1.46); Glucose 78 mg/dL (74-106); Potassium 3.9 mmol/L (3.5-5.1); Sodium 143 mmol/L (136-145); TSH 14.05 uIU/mL (0.36-3.74); Total Protein 6.3 g/dL (6.4-8.2)
== END 2020-11-29 23:59 | disposition home or self-care (01) ==
LOC: INF 02:29
PROVIDERS: PCP Nurse Practitioner; Visit Provider Internal Medicine Hematology & Oncology
DX: C34.2 Malignant neoplasm of middle lobe, bronchus or lung (principal); Z45.2 Encounter for adjustment and management of vascular access device; E03.2 Hypothyroidism due to medicaments and other exogenous substances
CPT/HCPCS: 36591; 80053; 96523; 84439; 84443; 85025

== ENCOUNTER 2020-11-27 01:32 | Outpatient (CLI) | payer MEDICARE, SELFPAY ==
--- NOTE | 2020-11-27 08:15 | DI.RAD_ITS ---
Exam(s) XR HIP RT COMPLETE AP PELVIS EXAM: XR HIP RT COMPLETE AP PELVIS CLINICAL HISTORY: HIP PAIN, Z98.890. TECHNIQUE: 2D digital imaging was performed. COMPARISON: CR XR HIP RT COMPLETE AP PELVIS from 08/03/2019 FINDINGS: Now a long-stem right hip prosthesis. Stem extends to distal diaphysis. There is a lucent cortical lesion midshaft level of the femur. This is a suspicious appearing lesion. IMPRESSION: DATA REPOSITORY: RADIATION DOSE DELIVERED:
--- NOTE | 2020-11-27 08:15 | DI.RAD_ITS ---
Exam(s) XR FEMUR RT EXAM: XR FEMUR RT CLINICAL HISTORY: HIP PAIN. TECHNIQUE: 2D digital imaging was performed. COMPARISON: No exams were available for comparison FINDINGS: There is right hip prosthesis long stem. Is a lucent cortical lesion almost midshaft level. No acut e fracture nor loosening. No radiographic evidence of osteomyelitis. IMPRESSION: DATA REPOSITORY: RADIATION DOSE DELIVERED:
== END 2020-11-27 01:52 ==
PROVIDERS: PCP Nurse Practitioner; Visit Provider Student in an Organized Health Care Education/Training Program
DX: M25.551 Pain in right hip (principal); Z98.890 Other specified postprocedural states
CPT/HCPCS: 73552; 73502

== ENCOUNTER → 2020-12-11 10:22 | Outpatient (BNVA) | payer MEDICARE, SELFPAY | PROVIDERS: PCP Nurse Practitioner; Referring Provider Nurse Practitioner; Visit Provider Student in an Organized Health Care Education/Training Program | DX: M70.61 Trochanteric bursitis, right hip (principal); M89.8X5 Other specified disorders of bone, thigh | CPT/HCPCS: 20610; 99214; J1040 ==

== ENCOUNTER 2020-12-21 02:53 | Outpatient (RCR) | payer MEDICARE, SELFPAY ==
[2020-11-30 08:16] LABS: Abs Immature Grans 0.05 10^3/uL (0.0-0.06); Absolute Basophil Count 0.02 10^3/uL (0.0-0.2); Absolute Eosinophil Count 0.08 10^3/uL (0.0-0.7); Absolute Lymphocyte Count 1.41 10^3/uL (1.2-3.4); Absolute Monocyte Count 0.64 10^3/uL (0.1-0.8); Absolute Neutrophil Count 3.93 10^3/uL (1.2-6.7); Basophils % 0.3; Eosinophils % 1.3; HCT 39.1 % (36.0-46.0); HGB 12.7 g/dL (11.2-15.7); Immature Grans % 0.8; MCH 33.7 pg (27.0-33.0); MCHC 32.5 % (32.0-36.0); MCV 103.7 fL (80-95); MPV 9.4 fL (8.0-11.0); Monocytes % 10.4; Neutrophils % 64.2; Nucleated RBC 0 %; Platelet Count 310 10^3/uL (130-400); RBC 3.77 10^6/uL (3.93-5.22); RDW 14.6 % (11.7-14.6); WBC 6.13 10^3/uL (4.4-10.8)
[2020-11-30 08:34] LABS: ALT 14 U/L (14-59); AST 9 U/L (15-37); Alkaline Phosphatase 45 U/L (46-116); BUN 18 mg/dL (7-18); Bilirubin, Total 0.4 mg/dL (0.2-1.0); CREATININE 0.9 mg/dL (0.55-1.02); Calcium 9.4 mg/dL (8.5-10.1); Chloride 107 mmol/L (98-107); FREE T4 0.86 ng/dL (0.76-1.46); Glucose 98 mg/dL (74-106); Potassium 3.9 mmol/L (3.5-5.1); Sodium 142 mmol/L (136-145); TSH 2.39 uIU/mL (0.36-3.74); Total Protein 6.2 g/dL (6.4-8.2)
[2020-11-30] MEDS: Normal Saline Flush 10 ML SYR IVP (09:00)
[2020-12-21] MEDS: Normal Saline Flush 10 ML SYR IVP (08:06)
[2020-12-21 08:14] LABS: Abs Immature Grans 0.05 10^3/uL (0.0-0.06); Absolute Basophil Count 0.03 10^3/uL (0.0-0.2); Absolute Eosinophil Count 0.13 10^3/uL (0.0-0.7); Absolute Lymphocyte Count 1.77 10^3/uL (1.2-3.4); Absolute Monocyte Count 0.85 10^3/uL (0.1-0.8); Absolute Neutrophil Count 4.63 10^3/uL (1.2-6.7); Basophils % 0.4; Eosinophils % 1.7; HCT 41.7 % (36.0-46.0); HGB 13.4 g/dL (11.2-15.7); Immature Grans % 0.7; Lymphocytes % 23.7; MCH 33.3 pg (27.0-33.0); MCHC 32.1 % (32.0-36.0); MCV 103.7 fL (80-95); MPV 9.9 fL (8.0-11.0); Monocytes % 11.4; Neutrophils % 62.1; Nucleated RBC 0 %; Platelet Count 331 10^3/uL (130-400); RBC 4.02 10^6/uL (3.93-5.22); RDW 13.2 % (11.7-14.6); RDW-SD 51.6 fL; WBC 7.46 10^3/uL (4.4-10.8)
[2020-12-21 08:37] LABS: ALT 22 U/L (14-59); AST 13 U/L (15-37); Albumin 3.5 g/dL (3.4-5.0); Alkaline Phosphatase 56 U/L (46-116); Anion Gap 8.9 mmol/L (3-11); BUN 22 mg/dL (7-18); Bilirubin, Total 0.5 mg/dL (0.2-1.0); CO2 29.1 mmol/L (21.0-32.0); Calcium 9.9 mg/dL (8.5-10.1); Chloride 104 mmol/L (98-107); FREE T4 0.99 ng/dL (0.76-1.46); Glucose 81 mg/dL (74-106); Potassium 3.9 mmol/L (3.5-5.1); Sodium 142 mmol/L (136-145); TSH 4.88 uIU/mL (0.36-3.74); Total Protein 6.8 g/dL (6.4-8.2)
== END 2020-12-30 23:59 | disposition home or self-care (01) ==
LOC: INF 02:53
PROVIDERS: PCP Nurse Practitioner; Visit Provider Internal Medicine Hematology & Oncology
DX: C34.2 Malignant neoplasm of middle lobe, bronchus or lung (principal); E03.2 Hypothyroidism due to medicaments and other exogenous substances; Z45.2 Encounter for adjustment and management of vascular access device
CPT/HCPCS: 36591; 80053; 84439; 84443; 85025

== ENCOUNTER 2021-01-11 03:46 | Outpatient (RCR) | payer MEDICARE, SELFPAY ==
[2021-01-11] MEDS: Normal Saline Flush 10 ML SYR IVP (09:14)
[2021-01-11 09:23] LABS: Abs Immature Grans 0.02 10^3/uL (0.0-0.06); Absolute Basophil Count 0.03 10^3/uL (0.0-0.2); Absolute Lymphocyte Count 1.52 10^3/uL (1.2-3.4); Absolute Monocyte Count 0.61 10^3/uL (0.1-0.8); Absolute Neutrophil Count 4.31 10^3/uL (1.2-6.7); Basophils % 0.4; HGB 13.3 g/dL (11.2-15.7); Immature Grans % 0.3; Lymphocytes % 22.7; MCH 32.6 pg (27.0-33.0); MCHC 32.4 % (32.0-36.0); MCV 100.5 fL (80-95); Monocytes % 9.1; Neutrophils % 64.5; Nucleated RBC 0 %; Platelet Count 332 10^3/uL (130-400); RBC 4.08 10^6/uL (3.93-5.22); RDW 12.4 % (11.7-14.6); RDW-SD 46.2 fL; WBC 6.69 10^3/uL (4.4-10.8)
[2021-01-11 09:58] LABS: ALT 19 U/L (14-59); AST 15 U/L (15-37); Albumin 3.2 g/dL (3.4-5.0); Alkaline Phosphatase 63 U/L (46-116); BUN 9 mg/dL (7-18); Bilirubin, Total 0.4 mg/dL (0.2-1.0); Calcium 9.5 mg/dL (8.5-10.1); Chloride 107 mmol/L (98-107); FREE T4 1.01 ng/dL (0.76-1.46); Glucose 109 mg/dL (74-106); Potassium 3.9 mmol/L (3.5-5.1); Sodium 141 mmol/L (136-145); TSH 4.67 uIU/mL (0.36-3.74); Total Protein 6.7 g/dL (6.4-8.2)
== END 2021-01-30 23:59 | disposition home or self-care (01) ==
LOC: INF 03:46
PROVIDERS: PCP Nurse Practitioner; Visit Provider Internal Medicine Hematology & Oncology
DX: C34.2 Malignant neoplasm of middle lobe, bronchus or lung (principal); E03.2 Hypothyroidism due to medicaments and other exogenous substances; Z45.2 Encounter for adjustment and management of vascular access device
CPT/HCPCS: 36591; 80053; 84439; 84443; 85025

== ENCOUNTER 2021-01-19 09:03 | Emergency (ER) | payer MEDICARE, SELFPAY ==
[2021-01-19] VITALS (53 sets, daily range): BP systolic 112–135; BP diastolic 60–86; PULSE 63–89; RESP 16–26; TEMP 36.4; O2SAT 94–100
--- NOTE | 2021-01-19 09:00 | RT.EKG_ITS ---
APPROVED REPORT Exam: Resting ECG Reason for Exam: shortness of breath Patient Location: E HR:77 bpm ECG Measurements Heart Rate 77 AXIS ME 120 P -16 QRSd 92 QRS -36 QT 511 T 240 QTc 577 Conclusion Sinus rhythm...normal P axis, V-rate 60- 99 Probable inferior infarct, age indeterminate...Q>35mS, T neg, II III aVF Abnrm T, consider ischemia, anterolateral lds...T <-0.20mV, I aVL V2-V6 Prolonged QT interval...QTc >500mS
--- NOTE | 2021-01-19 09:09 | ED.GENADUL_ITS ---
Discharge Plan Disposition Patient Disposition: AGAINST MEDICAL ADVICE Condition: Serious Discharge Details Clinical Impression: Shortness of breath, Elevated troponin Primary Care Provider: Clara Shipman ED Provider: Jose Hutton Home Meds and New Rx's Prescriptions: New lorazepam 0.5 mg tablet 0.5 mg PO BID PRN (Reason: anxiety) Qty: 20 RF: 0 furosemide [Lasix] 40 mg tablet 40 mg PO DAILY Qty: 14 RF: 0 Continued cyanocobalamin (vitamin B-12) 1,000 mcg tablet 1,000 mcg PO DAILY Qty: 90 RF: 3 pyridoxine (vitamin B6) 100 mg tablet 100 mg PO DAILY Qty: 90 RF: 3 atezolizumab 1,200 mg/20 mL (60 mg/mL) solution 1,200 mg IV Q3W Qty: 20 RF: 0 ibuprofen 200 mg capsule 400 mg PO BID PRN (Reason: pain) Qty: 90 RF: 0 lamotrigine 25 MG tablet 50 mg PO BID RF: 0 tumeric RF: 0 meclizine 25 mg tablet 25 mg PO DAILY Qty: 90 RF: 0 cranberry 400 MG capsule 500 mg PO BID RF: 0 cholecalciferol (vitamin D3) [Vitamin D3] 2,000 UNIT capsule 2,000 unit PO DAILY RF: 0 Probiotic 1 EACH capsule, sprinkle 1 cap PO DAILY RF: 0 lidocaine [Lidoderm] 1 PATCH patch 1 patch Topical Q24H Qty: 4 RF: 0 esomeprazole magnesium [Nexium] 20 mg Capsule,Delayed Release(Dr/Ec) 20 mg PO DAILY RF: 0 acetaminophen 500 mg Tablet 500 mg PO Q4H PRN PRNQty: 90 RF: 0 ascorbate calcium (vitamin C) 500 MG tablet 500 mg PO DAILY Qty: 0 RF: 0 gabapentin 300 mg capsule 300 mg PO QHS Qty: 30 RF: 0 Discharge Instructions Additional Instructions: your blood work showed you have an elevation in your troponin, and this could indicate you have underlying heart disease you need to have an echocardiogram done (an ultrasound of your heart) if you feel more ill, have worsening symptoms or change your mind you can always return to the emergency department Medical Decision Making 70 yo female with hx of lung cancer, anxiety, gerd, who comes in with dyspnea. She states she has had intermittent periods with shortness of breath over the past few weeks that lasts a few minutes. This morning she was walking to the bathroom and she again started to feel short of breath, denies chest pain/pressure. She states the episode lasted longer than it has so called ems. She states she feels improved now though she feels anxious. She denies fevers, cough, n/v. She is speaking in full sentences on exam and does appear anxious. She has clear lungs, soft abdomen, no leg swelling or jvd. Given her history concern for possible PE, will obtain cta. No chest pain or pressure though could present with just dyspnea if she had an nstemi, will obtain troponin. SHe is asking for something for anxiety, will administer low dose ativan pt feels better with ativan, awaiting ct and lab results troponin is 0.74, aspirin ordered, remains chest pain free. She does note yesterday morning she had an hour of vomit that resolved and has none since, doesn't believe she had chest pain with this. Awaiting cta results before heparin ordered as different dosing for acs vs PE. CTA shows large right pleural effusionthat she has had prior per Dr. Bradshaw just larger now, no PE. She remains pain free, heparin ordered. [place] with [place] [facility] [place] stable, spoke with Anastasiya Hadley HEATING AND BLENDING SUPERVISOR for cardiology at [facility] [place] and unfortunately they have no capacity for transfers at this time and can't even place people on a list for transfer as they are so full. Will consult with [facility] to see if they can accept her. She did state they'd recommend adding 300mg plavix as well [facility] is at capacity and not able to take any transfers unless it's a stemi. We tried [facility], [facility], as well as [facility] and none have capacity. Local smaller hospitals don't have echo over the weekend. I did advise patient of this and told her next steps would likely be [place] or [place] ([facility] also at capacity). SHe is choosing to leave against medical advise. She has decision making capacity and understands risks of leaving including and permanent disability and is willing to accept these risks. She is requesting ativan as this helped greatly with her anxiety so will provide this and also furosemide. She understands her diagnosis and that she can always return if she changes her mind. I have placed her on our follow up list to see her pcp amaury if she decides not to return. Differential Diagnosis Differential Diagnosis: PE, pneumonia, nstemi Medical Records Medical records reviewed: Yes I reviewed the patient's medical records. Imaging Data Radiologic Study: Attestation: I personally reviewed and interpreted this imaging study as follows: Imaging: CT Scan Radiologist's impression: per dr. bradshaw, no PE does have a large right pleural effusion which she has had before on prior imaging but larger today Lab Data Lab results reviewed: Yes I reviewed the patient's lab results. ECG Data Attestation: I personally reviewed and interpreted this ECG (s) as follows: Prior ECG tracings: available for review Interpretation: sinus rhythm, rate of 78, no acute st t wave ischemic findings sinus rhythm, rate of 70, no acute st t wave ischemic findings HPI General Mode of arrival: EMS . Date/Time Provider Initiated Documentation: 01/19/21 09:08 . Limitations to Documentation: no limitations . Information obtained by: patient . History of Present Illness 70 year old F presents to the emergency department with the chief complaint of shortness of breath, described as mild, Patient started experiencing this hour(s) (2) and it has been intermittent. No relieving factors improve symptom(s), No exacerbating factors reported . Patient did receive the following treatments prior to arrival, none Related Data Home Medications Medication Instructions Recorded Confirmed Probiotic 1 cap PO DAILY 05/10/17 01/02/21 cholecalciferol (vitamin D3) 2,000 unit PO DAILY 05/10/17 01/02/21 [Vitamin D3] cranberry 500 mg PO BID 05/10/17 01/02/21 Tumeric 11/11/17 01/02/21 lamotrigine 50 mg PO BID 11/11/17 01/02/21 lidocaine [Lidoderm] 1 patch TOPICAL Q24H #4 patch 08/06/19 01/02/21 esomeprazole magnesium [Nexium] 20 mg PO DAILY 03/19/20 01/02/21 acetaminophen 500 mg PO Q4H PRN PRN #90 tab 03/27/20 01/02/21 ascorbate calcium (vitamin C) 500 mg PO DAILY #0 tab 03/27/20 01/02/21 gabapentin 300 mg PO QHS #30 cap 03/27/20 01/02/21 meclizine 25 mg tablet 25 mg PO DAILY #90 tab 12/01/20 01/02/21 atezolizumab 1,200 mg/20 mL (60 1,200 mg IV Q3W #20 ml 01/02/21 01/02/21 mg/mL) intravenous solution cyanocobalamin (vitamin B-12) 1,000 mcg PO DAILY #90 tab 01/02/21 01/02/21 1,000 mcg tablet ibuprofen 200 mg capsule 400 mg PO BID PRN #90 cap 01/02/21 01/02/21 pyridoxine (vitamin B6) 100 mg 100 mg PO DAILY #90 tab 01/02/21 01/02/21 tablet furosemide [Lasix] 40 mg PO DAILY #14 tab 01/19/21 lorazepam 0.5 mg PO BID PRN #20 tab 01/19/21 Previous Rx's Medication Instructions Recorded lidocaine [Lidoderm] 1 patch TOPICAL Q24H #4 patch 08/06/19 acetaminophen 500 mg PO Q4H PRN PRN #90 tab 03/27/20 ascorbate calcium (vitamin C) 500 mg PO DAILY #0 tab 03/27/20 gabapentin 300 mg PO QHS #30 cap 03/27/20 meclizine 25 mg tablet 25 mg PO DAILY #90 tab 12/01/20 atezolizumab 1,200 mg/20 mL (60 1,200 mg IV Q3W #20 ml 01/02/21 mg/mL) intravenous solution cyanocobalamin (vitamin B-12) 1,000 mcg PO DAILY #90 tab 01/02/21 1,000 mcg tablet ibuprofen 200 mg capsule 400 mg PO BID PRN #90 cap 01/02/21 pyridoxine (vitamin B6) 100 mg 100 mg PO DAILY #90 tab 01/02/21 tablet furosemide [Lasix] 40 mg PO DAILY #14 tab 01/19/21 lorazepam 0.5 mg PO BID PRN #20 tab 01/19/21 Allergies Allergy/AdvReac Type Severity Reaction Status Date / Time codeine [Codeine] AdvReac Intermediate Nausea Verified 01/19/21 09:07 fentanyl AdvReac Intermediate [place]/Vomi Verified 01/19/21 09:07 ting oxycodone AdvReac Intermediate Nausea Unverified 01/19/21 09:07 tramadol AdvReac Intermediate delerium Verified 01/19/21 09:07 General Stated Complaint: SOB VIVEK: 3 Review of Systems All systems reviewed & are unremarkable except as noted in HPI and below Constitutional Constitutional: Denies chills, Denies fever(s) and Denies weakness Cardiovascular Cardiovascular: Denies chest pain Respiratory Respiratory: Denies cough Gastrointestinal Gastrointestinal: Denies abdominal pain, Denies nausea and Denies vomiting Musculoskeletal Musculoskeletal: Denies joint swelling Neurologic Neurologic: Denies weakness Psychiatric Psychiatric: Denies depression [facility] Medical History (Updated 01/19/21 @ 14:20 by Jose Hutton MD) All medications reviewed Anxiety associated with cancer diagnosis Ataxic gait has heel lift in right shoe Bone 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 ca axial skeleton, ribs, pelvis Cancer related pain Colitis Dizziness DNI (do not intubate) DNR (do not resuscitate) Essential hypertension Ex-smoker Fall Goals of care, counseling/discussion History of lung cancer History of ovarian cancer History of pulmonary embolism History of radiation therapy Hyperlipidemia Hypokalemia Immunotherapy Infectious gastroenteritis and colitis Lung cancer Medical marijuana use helps with her appetite Neuropathy due to chemotherapeutic drug Odynophagia Palliative care patient Physical deconditioning restarting PT 09/20 POLST (Physician Orders for Life-Sustaining Treatment) DNR/DNI 03/21/20 Prerenal azotemia Seizure disorder Seizures Stage 4 lung cancer 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 Mother , from COPD End stage COPD Other Diabetes Heart disease Social History Smoking/Tobacco Use Status: Former Tobacco Use Tobacco: How many years used: 40 Smoking risk assessment performed?: Yes Alcohol Intake: never Drug use: Daily Substance use type: marijuana Details: daily medical marijuana Caregiver/Support person: Yes Household members: spouse Housing: house Number of Children: 2 number of grandchildren: 4 Communication Needs: Corrective Lenses Education Level: high school Do you need help understanding health information?: Rarely current occupation: retired Pets and animals: Yes What is your relationship status?: How often do you talk on the phone with friends or family?: three or more times per week How often do you get together with friends or relatives?: once per week Panel score (0-1 are the most socially isolated patients): 2 What type of physical activity do you participate in: assisted ambulation and r esistance training Duration: 15-30 minutes/day Frequency: daily Agree to transfusion: Yes Seatbelt use: always Working smoke detector in home: Yes Fire extinguisher in home: Yes Do you feel safe at home: Yes Do you feel safe in your relationship?: Yes Exam Const General: no acute distress Orientation: alert HENMT Head: normal to inspection Ears: external ears normal General nose exam: external nose normal Mouth: moist mucous membranes Eyes General: appearance normal, both eyes and all related structures Neck Neck: normal visual inspection Resp Effort & Inspection: normal respiratory effort and able to speak in complete sentences Cardio Rate: regular rate Skin General skin exam: no rashes or lesions noted Neuro General: patient alert and patient oriented x3 Extrem General: normal to inspection Psych Mental Status: mental status grossly normal Course Vital Signs Vital signs: Vital Signs Temperature 36.4 C L 01/19/21 09:04 Pulse 67 01/19/21 09:04 Respiratory Rate 26 H 01/19/21 09:04 Blood Pressure 118/86 01/19/21 09:04 Pulse Oximetry 99 01/19/21 09:04 Temperature 36.4 C L 01/19/21 09:04 Temperature Source Skin 01/19/21 09:04 Pulse 67 01/19/21 09:04 Respiratory Rate 26 H 01/19/21 09:04 Blood Pressure 118/86 01/19/21 09:04 Blood Pressure Position Sitting 01/19/21 09:04 Pulse Oximetry 99 01/19/21 09:04 Oxygen Delivery Method Nasal Cannula 01/19/21 09:04 Oxygen Flow Rate 2 01/19/21 09:04 Pain Level 2 01/19/21 09:04
--- NOTE | 2021-01-19 09:15 | DI.CT_ITS ---
Exam(s) CT CHEST PE CTA EXAM: CT CHEST PE CTA CLINICAL HISTORY: shortness of breath, lung cancer. TECHNIQUE: Imaging Protocol: Axial CT angiography was performed with multi-slice acquisition and mu lti-planar and/or 3D reconstructions. CONTRAST MATERIAL: Intravenous: Omnipaque 350 Contrast volume:70 mL COMPARISON: CT CT CHEST W from 11/03/2020 FINDINGS: Tracheobronchial tree: Patent where visualized. Pulmonary parenchyma: There is a large right pleural effusion. This is increased in size compared to the examination from 11/03/2020. There is a subjacent infiltrate which may represent atelectasis or pne umonia. There is again seen a right middle lobe mass measuring 2.4 x 2.3 cm. No new pulmonary masses are seen. Pulmonary Arteries: No evidence of filling defect to suggest pulmonary emboli. Mediastinum and Michelle: No dominant adenopathy or fluid collection. Visualized thyroid gland: There is a stable thyroid nodule in the left lobe. Pleura: Please see the above discussion. No pneumothorax. Heart: The heart is not dilated. No coronary artery calcifications are seen. No pericardial effusion. Aorta: Thoracic aorta non-dilated. Mild atherosclerosis. No dissection. Upper abdomen: Unremarkable. Soft tissues: Unremarkable. Bones: Within normal limits for the patient's age. IMPRESSION: 1. No evidence of pulmonary embolism, thoracic aortic dissection or aneurysm. 2. Interval increase in the right pleural effusion which is now large. 3. Stable right middle lobe mass. 4. Results of this exam have been verbally communicated with provider. RADIATION DOSE DELIVERED: 236.25mGy.cm Total DLP DATA REPOSITORY: All CT scans at this facility are submitted to the National Radiology Data Registry (NRDR) Dose Index Registry (DIR) with the [employer] (ACR). RADIATION OPTIMIZATION: All CT scans at this facility use at least one of these dose optimization te chniques: automated exposure control; mA and/or kV adjustment per patient size (includes targeted exa ms where dose is matched to clinical indication); or iterative reconstruction.
[2021-01-19 09:24] LABS: Source Nasal/Nares
[2021-01-19] MEDS: Normal Saline-STERILE FIELD 0.9% 10 ML SYR (09:36)
[2021-01-19 09:37] LABS: Abs Immature Grans 0.03 10^3/uL (0.0-0.06); Absolute Basophil Count 0.03 10^3/uL (0.0-0.2); Absolute Eosinophil Count 0.11 10^3/uL (0.0-0.7); Absolute Lymphocyte Count 1.13 10^3/uL (1.2-3.4); Absolute Neutrophil Count 5.94 10^3/uL (1.2-6.7); Basophils % 0.4; Eosinophils % 1.4; HCT 39.3 % (36.0-46.0); Immature Grans % 0.4; Lymphocytes % 13.9; MCH 32.3 pg (27.0-33.0); MCHC 33.1 % (32.0-36.0); MCV 97.5 fL (80-95); MPV 9.9 fL (8.0-11.0); Monocytes % 11.1; Neutrophils % 72.8; Nucleated RBC 0 %; Platelet Count 363 10^3/uL (130-400); RBC 4.03 10^6/uL (3.93-5.22); RDW 12.1 % (11.7-14.6); RDW-SD 43.8 fL; WBC 8.14 10^3/uL (4.4-10.8)
[2021-01-19 09:38] LABS: BE (Venous) 4 mmol/L (-2-3); HCO3 (Venous) 26 mmol/L (23-28); O2 Sat (Venous) 65 %; TCO2 (Venous) 23 mmol/L (24-29); pCO2 (Venous) 30 mmHg (41-51); pH (Venous) 7.55 (7.31-7.41); pO2 (Venous) 31 mmHg
[2021-01-19 10:03] LABS: ALT 14 U/L (14-59); AST 17 U/L (15-37); Albumin 3.1 g/dL (3.4-5.0); Alkaline Phosphatase 68 U/L (46-116); Anion Gap 11.5 mmol/L (3-11); BUN 10 mg/dL (7-18); Bilirubin, Total 0.6 mg/dL (0.2-1.0); CO2 25.5 mmol/L (21.0-32.0); CREATININE 0.9 mg/dL (0.55-1.02); Calcium 9.2 mg/dL (8.5-10.1); Chloride 104 mmol/L (98-107); Glucose 121 mg/dL (74-106); Magnesium 1.5 mg/dL (1.8-2.4); NT-proBNP 1519 pg/mL (<300); Potassium 3.3 mmol/L (3.5-5.1); Sodium 141 mmol/L (136-145); TSH (W/Ref FT4) 4.65 uIU/mL (0.36-3.74); Total Protein 6.8 g/dL (6.4-8.2)
[2021-01-19 10:04] LABS: Troponin I 0.74 ng/mL (<0.06)
[2021-01-19 10:21] LABS: COVID-19 PCR Negative (Negative)
[2021-01-19 10:22] LABS: FREE T4 1.16 ng/dL (0.76-1.46)
[2021-01-19] MEDS: Potassium Chloride 20 MEQ TABCR 40 MEQ PO (10:25)
[2021-01-19] MEDS: MAGNESIUM SULFATE 2 GM/50 ML BAG IVPB (10:25)
[2021-01-19] MEDS: Aspirin 81 MG CHEW 324 MG CH (10:25)
[2021-01-19] MEDS: LORazepam 2 MG/ML VIAL 0.5 MG IVP (10:26)
[2021-01-19 10:46] LABS: INR 1.1 (0.9-1.1); PTT Activated 26.1 sec (21.0-27.5); Prothrombin Time 10.8 sec (9.3-11.0)
[2021-01-19] MEDS: Omnipaque 350 MG/ML 100 ML BTL 70 ML IJ (11:20)
[2021-01-19] MEDS: Furosemide 40 MG/4 ML VIAL IVP (12:40)
[2021-01-19] MEDS: Clopidogrel 300 MG TAB PO (13:07)
--- NOTE | 2021-01-19 13:30 | RT.EKG_ITS ---
APPROVED REPORT Exam: Resting ECG Reason for Exam: shortness of breath Patient Location: E HR:69 bpm ECG Measurements Heart Rate 69 AXIS [place] 116 P -9 QRSd 86 QRS -37 QT 563 T 209 QTc 603 Conclusion Sinus rhythm...normal P axis, V-rate 60- 99 Inferior infarct, old...Q >35mS, II III aVF Abnrm T, consider ischemia, anterolateral lds...T <-0.20mV, I aVL V2-V6 Prolonged QT interval...QTc >500mS
[2021-01-19] MEDS: Heparin 500 UNITS/5 ML SYRINGE (14:33)
== END 2021-01-19 14:33 | disposition left against medical advice (07) ==
PROVIDERS: Emergency Provider Emergency Medicine; PCP Nurse Practitioner
DX: R06.02 Shortness of breath (principal); R79.89 Other specified abnormal findings of blood chemistry; F41.9 Anxiety disorder, unspecified; Z53.29 Procedure and treatment not carried out because of patient's decision for other reasons
CPT/HCPCS: 36415; 71275; 80053; 82805; 87635; 93005; 96365; 96366; 96367; 96375; 96376; 99285; 83735; 83880; 84439; 84443; 84484; 85025; 85610; 85730; 93010; J1940; J2060; J3490

== ENCOUNTER 2021-01-22 09:35 | Observation (INO) | payer MEDICARE, SELFPAY ==
[2021-01-22] VITALS (25 sets, daily range): BP systolic 95–132; BP diastolic 62–107; PULSE 79–102; RESP 17–29; TEMP 35.5–37.2; O2SAT 94–98
--- NOTE | 2021-01-22 09:30 | RT.EKG_ITS ---
APPROVED REPORT Exam: Resting ECG Reason for Exam: chest pain Patient Location: E HR:91 bpm ECG Measurements Heart Rate 91 AXIS [place] 116 P -22 QRSd 82 QRS -37 QT 426 T 220 QTc 526 Conclusion Sinus rhythm Inferior infarct, old...Q >35mS, II III aVF Abnrm T, anterolateral lds. T wave changes are similar to 01/19/21
--- NOTE | 2021-01-22 09:30 | DI.RAD_ITS ---
Exam(s) XR PORTABLE CHEST AP EXAM: XR PORTABLE CHEST AP CLINICAL HISTORY: SOB, R effusion. TECHNIQUE: 2D digital imaging was performed. COMPARISON: No exams were available for comparison FINDINGS: Heart size is normal. The mediastinum is not widened. Right-sided Port-A-Cath is again noted be somewhat coiled at the junction of the subclavian vein/SVC/ internal jugular vein, this unchanged. Left lung is clear. Multiple healed left-sided rib fractures are again noted. Moderate size right pleural effusion which appears to have slightly increased in size, now extending up the sidewall. There is also a band of infiltrate extending from the right hilum out to the upper lobe pleural surface was not previously present. IMPRESSION: Worsening right hemithoracic findings as described above. DATA REPOSITORY: RADIATION DOSE DELIVERED: All CT scans at this facility use at least one of these dose optimization techniques: automated exposure control; mA and/or kV adjustment per patient size (includes targeted e xams where dose is matched to clinical indication); or iterative reconstruction.
--- NOTE | 2021-01-22 10:06 | ED.GENADUL_ITS ---
Discharge Plan Disposition Patient Disposition: [facility] INPATIENT Condition: Improving Discharge Details Clinical Impression: Acute dehydration, Palliative care patient, Lung cancer Primary Care Provider: Clara Shipman ED Provider: Delfino Vivar Home Meds and New Rx's Prescriptions: No Action cyanocobalamin (vitamin B-12) 1,000 mcg tablet 1,000 mcg PO DAILY Qty: 90 RF: 3 pyridoxine (vitamin B6) 100 mg tablet 100 mg PO DAILY Qty: 90 RF: 3 atezolizumab 1,200 mg/20 mL (60 mg/mL) solution 1,200 mg IV Q3W Qty: 20 RF: 0 ibuprofen 200 mg capsule 400 mg PO BID PRN (Reason: pain) Qty: 90 RF: 0 lamotrigine 25 MG tablet 50 mg PO BID RF: 0 meclizine 25 mg tablet 25 mg PO DAILY Qty: 90 RF: 0 cranberry 400 MG capsule 850 mg PO BID RF: 0 cholecalciferol (vitamin D3) [Vitamin D3] 2,000 UNIT capsule 1,000 unit PO DAILY RF: 0 Probiotic 1 EACH capsule, sprinkle 1 cap PO DAILY RF: 0 gabapentin 100 mg capsule 100 mg PO HS RF: 0 esomeprazole magnesium [Nexium] 20 mg Capsule,Delayed Release(Dr/Ec) 20 mg PO DAILY RF: 0 acetaminophen 500 mg Tablet 500 mg PO Q4H PRN PRNQty: 90 RF: 0 ascorbate calcium (vitamin C) 500 MG tablet 500 mg PO DAILY Qty: 0 RF: 0 lorazepam 0.5 mg tablet 0.5 mg PO BID PRN (Reason: anxiety) Qty: 20 RF: 0 furosemide [Lasix] 40 mg tablet 40 mg PO DAILY Qty: 14 RF: 0 Medical Decision Making This is a 70-year-old female who has metastatic lung cancer, for which she is t aking oral chemotherapy every 3 weeks. She was seen in emergency dept on January 19 with right pleural effusion, persistent right chest mass, elevated troponin. Appropriate transfer/admission was difficult and patient left AGAINST MEDICAL ADVICE. She followed up with primary care this morning with ongoing weakness, shortness of breath, and was referred back to the emergency department. She states she has been taking the recently prescribed furosemide and has had little urine output. She arrives with a blood pressure approx 113/79, oxygenating 95% on room air. She has diminished breath sounds on the right and her EKG shows persistent T wave inversions in the anterolateral leads that are similar to those on January 19, at that time her troponin was elevated to 0.9. Differential diagnosis includes persistent pleural effusion with non-STEMI, CHF, myocardial ischemia, as well as electrolyte abnormalities. Patient was placed on a television news video editor, IV access established, screening laboratories portable chest x-ray obtained. Reviewed with patient that she is DO NOT INTUBATE, states to me she would be shocked but does not want persistent attempts at resuscitation. Today's diagnostic studies note a negative troponin, BNP that is significantly improved and within the normal range, as well as elevated BUN and creatinine. Chest x-ray formal read pending but appears pleural effusion is improving. She may have a urinary tract infection, although nitrates are negative. Consistent with effective but overly volume depleting diuresis, and now the patient appears prerenal. Will advocate for admission with serial cardiac troponins and echocardiogram. Discussed with patient and her . HPI General Mode of arrival: wheelchair . Date/Time Provider Initiated Documentation: 01/22/21 09:35 . Limitations to Documentation: no limitations . Information obtained by: patient and family . History of Present Illness 70 year old F presents to the emergency department with the chief complaint of Shortness of breath and weakness, described as moderate, Quality is described as dull, Patient started experiencing this day(s) and it has been intermittent. Rest improves symptom(s), Movement worsens symptoms . Patient notes chest pain (Left chest pain along the lower ribs), nausea/vomiting, shortness of breath and weakness; denies syncope. Patient did receive the following treatments prior to arrival, none Related Data Home Medications Medication Instructions Recorded Confirmed Probiotic 1 cap PO DAILY 05/10/17 01/22/21 cholecalciferol (vitamin D3) 1,000 unit PO DAILY 05/10/17 01/22/21 [Vitamin D3] cranberry 850 mg PO BID 05/10/17 01/22/21 lamotrigine 50 mg PO BID 11/11/17 01/22/21 esomeprazole magnesium [Nexium] 20 mg PO DAILY 03/19/20 01/22/21 acetaminophen 500 mg PO Q4H PRN PRN #90 tab 03/27/20 01/22/21 ascorbate calcium (vitamin C) 500 mg PO DAILY #0 tab 03/27/20 01/22/21 meclizine 25 mg tablet 25 mg PO DAILY #90 tab 12/01/20 01/22/21 atezolizumab 1,200 mg/20 mL (60 1,200 mg IV Q3W #20 ml 01/02/21 01/02/21 mg/mL) intravenous solution cyanocobalamin (vitamin B-12) 1,000 mcg PO DAILY #90 tab 01/02/21 01/22/21 1,000 mcg tablet ibuprofen 200 mg capsule 400 mg PO BID PRN #90 cap 01/02/21 01/22/21 pyridoxine (vitamin B6) 100 mg 100 mg PO DAILY #90 tab 01/02/21 01/22/21 tablet furosemide [Lasix] 40 mg PO DAILY #14 tab 01/19/21 01/22/21 lorazepam 0.5 mg PO BID PRN #20 tab 01/19/21 01/22/21 gabapentin 100 mg PO HS 01/22/21 01/22/21 Previous Rx's Medication Instructions Recorded acetaminophen 500 mg PO Q4H PRN PRN #90 tab 03/27/20 ascorbate calcium (vitamin C) 500 mg PO DAILY #0 tab 03/27/20 meclizine 25 mg tablet 25 mg PO DAILY #90 tab 12/01/20 atezolizumab 1,200 mg/20 mL (60 1,200 mg IV Q3W #20 ml 01/02/21 mg/mL) intravenous solution cyanocobalamin (vitamin B-12) 1,000 mcg PO DAILY #90 tab 01/02/21 1,000 mcg tablet ibuprofen 200 mg capsule 400 mg PO BID PRN #90 cap 01/02/21 pyridoxine (vitamin B6) 100 mg 100 mg PO DAILY #90 tab 01/02/21 tablet furosemide [Lasix] 40 mg PO DAILY #14 tab 01/19/21 lorazepam 0.5 mg PO BID PRN #20 tab 01/19/21 Allergies Allergy/AdvReac Type Severity Reaction Status Date / Time codeine [Codeine] AdvReac Intermediate Nausea Verified 01/22/21 13:14 fentanyl AdvReac Intermediate [place]/Vomi Verified 01/22/21 13:14 ting oxycodone AdvReac Intermediate Nausea Unverified 01/22/21 13:14 tramadol AdvReac Intermediate delerium Verified 01/22/21 13:14 General Stated Complaint: Chest Pain VIVEK: 2 Review of Systems Narrative: Generalized weakness, worse with ambulation, lightheaded without syncope. No recent illness. 8 systems reviewed and otherwise negative [facility] Medical History All medications reviewed Anxiety associated with cancer diagnosis Ataxic gait has heel lift in right shoe Bone 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 ca axial skeleton, ribs, pelvis Cancer related pain Colitis Dizziness DNI (do not intubate) DNR (do not resuscitate) Essential hypertension Ex-smoker Fall Goals of care, counseling/discussion History of lung cancer History of ovarian cancer History of pulmonary embolism History of radiation therapy Hyperlipidemia Hypokalemia Immunotherapy Infectious gastroenteritis and colitis Lung cancer Medical marijuana use helps with her appetite Neuropathy due to chemotherapeutic drug Odynophagia Palliative care patient Physical deconditioning restarting PT 09/20 POLST (Physician Orders for Life-Sustaining Treatment) DNR/DNI 03/21/20 Prerenal azotemia Seizure disorder Seizures Stage 4 lung cancer 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 Mother , from COPD End stage COPD Other Diabetes Heart disease Social History Smoking/Tobacco Use Status: Former Tobacco Use Tobacco: How many years used: 40 Smoking risk assessment performed?: Yes Alcohol Intake: never Drug use: Daily Substance use type: marijuana Details: daily medical marijuana Caregiver/Support person: Yes Household members: spouse Housing: house Number of Children: 2 number of grandchildren: 4 Communication Needs: Corrective Lenses Education Level: high school Do you need help understanding health information?: Rarely current occupation: retired Pets and animals: Yes What is your relationship status?: How often do you talk on the phone with friends or family?: three or more times per week How often do you get together with friends or relatives?: once per week Panel score (0-1 are the most socially isolated patients): 2 What type of physical activity do you participate in: assisted ambulation and resistance training Duration: 15-30 minutes/day Frequency: daily Agree to transfusion: Yes Seatbelt use: always Working smoke detector in home: Yes Fire extinguisher in home: Yes Do you feel safe at home: Yes Do you feel safe in your relationship?: Yes Exam Narrative Exam Narrative: GEN: awake, alert, oriented 3. Pleasant, well groomed, interactive. HEAD: Normocephalic, atraumatic ENT: Mucous membranes moist, oropharynx unremarkable, External ear exam unremarkable EYES: PERRL, EOMI NECK: Full ROM, no LE, no menigismus CHEST/RESP: Nontender, diminished on the right, clear to auscultation left. Right anterior chest port nontender. CARDIOVASCULAR: RRR, no murmur, rub enedina. 2+ Rad pulse bilateral ABDOMEN: Soft, nontender, no mass. +Bowel sounds EXT: Full ROM, no edema, no rash Neuro: Grossly normal neurologic exam, conversant, interactive. Psych: Speech fluent, thoughts congruent, affect normal Course Vital Signs Vital signs: Vital Signs Temperature 36.3 C L 01/22/21 09:39 Pulse 102 H 01/22/21 09:39 Respiratory Rate 18 01/22/21 09:39 Blood Pressure 132/107 H 01/22/21 09:39 Pulse Oximetry 96 01/22/21 09:39 Temperature 36.3 C L 01/22/21 09:39 Temperature Source Temporal Artery Scan 01/22/21 09:39 Pulse 102 H 01/22/21 09:39 Respiratory Rate 18 01/22/21 09:39 Blood Pressure 132/107 H 01/22/21 09:39 Blood Pressure Position Supine 01/22/21 09:39 Pulse Oximetry 96 01/22/21 09:39 Oxygen Delivery Method Room Air 01/22/21 09:39 Oxygen Flow Rate 0 01/22/21 09:39 Pain Level 8 01/22/21 09:39
[2021-01-22 10:13] LABS: Abs Immature Grans 0.07 10^3/uL (0.0-0.06); Absolute Basophil Count 0.03 10^3/uL (0.0-0.2); Absolute Eosinophil Count 0.17 10^3/uL (0.0-0.7); Absolute Lymphocyte Count 1.04 10^3/uL (1.2-3.4); Absolute Monocyte Count 1.02 10^3/uL (0.1-0.8); Absolute Neutrophil Count 7.12 10^3/uL (1.2-6.7); Basophils % 0.3; Eosinophils % 1.8; HCT 42.9 % (36.0-46.0); HGB 14.2 g/dL (11.2-15.7); Immature Grans % 0.7; MCH 32.5 pg (27.0-33.0); MCHC 33.1 % (32.0-36.0); MCV 98.2 fL (80-95); MPV 9.9 fL (8.0-11.0); Monocytes % 10.8; Neutrophils % 75.4; Nucleated RBC 0 %; Platelet Count 401 10^3/uL (130-400); RBC 4.37 10^6/uL (3.93-5.22); RDW 11.9 % (11.7-14.6); RDW-SD 42.8 fL; WBC 9.45 10^3/uL (4.4-10.8)
[2021-01-22 10:22] LABS: INR 1.1 (0.9-1.1); Prothrombin Time 10.9 sec (9.3-11.0)
[2021-01-22 10:41] LABS: ALT 16 U/L (14-59); AST 17 U/L (15-37); Albumin 3.4 g/dL (3.4-5.0); Alkaline Phosphatase 73 U/L (46-116); Anion Gap 9.6 mmol/L (3-11); BUN 24 mg/dL (7-18); Bilirubin, Total 0.7 mg/dL (0.2-1.0); CO2 29.4 mmol/L (21.0-32.0); CREATININE 1.5 mg/dL (0.55-1.02); Calcium 9.2 mg/dL (8.5-10.1); Chloride 98 mmol/L (98-107); Estimated GFR 34.13 (mL/min/1.73m2); Glucose 142 mg/dL (74-106); Magnesium 1.4 mg/dL (1.8-2.4); NT-proBNP 263 pg/mL (<300); Potassium 3.4 mmol/L (3.5-5.1); Sodium 137 mmol/L (136-145); Total Protein 7.5 g/dL (6.4-8.2); Troponin I < 0.05 ng/mL (<0.06)
[2021-01-22 11:59] LABS: Bilirubin Negative (Negative); Blood Trace-intact (Negative); Clarity Sl Cloudy (Clear); Glucose Negative (Negative); Ketones Negative (Negative); Leukocyte Esterase Moderate (Negative); Nitrite Negative (Negative); Urobilinogen 0.2 EU/dL (Up TO 0.2); pH 5.5 (5-8)
[2021-01-22 12:10] LABS: Bacteria Moderate HPF (Negative); C & S Indicated? Yes; Casts Negative LPF (Negative); Crystals Negative HPF (Negative); Epithelial Cells Few HPF (Negative); Mucus Negative (Negative); Other Cells Rare Renal (Negative); RBC 0-2 HPF (0-2); WBC >50 HPF (0-5)
[2021-01-22 12:28] LABS: Source Nasal/Nares
[2021-01-22] MEDS: MAGNESIUM SULFATE 2 GM/50 ML BAG IVPB (13:01)
[2021-01-22 13:11] LABS: Troponin I < 0.05 ng/mL (<0.06)
[2021-01-22 13:21] LABS: COVID-19 PCR Negative (Negative)
[2021-01-22] MEDS: Lactated Ringers 1,000 ML 75 ML IV (15:41)
--- NOTE | 2021-01-22 16:42 | W.PM.HP.N ---
Date of service: 01/22/21 Time of Service: 16:43 Assessment and Plan Assessment and plan (1) Acute dehydration: Status: Acute Assessment and plan: Recent diuresis for pulmonary edema. Hold lasix today and hydrate with NS at low rate of 75ml/hr. Monitor. (2) POLST (Physician Orders for Life-Sustaining Treatment): Status: Acute Assessment and plan: Cont with her wishes to be DNR/DNI (3) Stage 4 lung cancer: Status: Chronic Assessment and plan: Receives oral chemotx Q3wks. Ongoing discussion with oncology about benefits of further treatments and other options. She is also a palliative care patient and they were consulted. (4) NSTEMI (non-ST elevated myocardial infarction): Status: Acute Assessment and plan: Troponin now normalized. Echocardiogram ordered. History of Present Illness History of Present Illness Chief Complaint: Shortness of breath and weakness Narrative: This is a 70 yo female that has a PMH of Lung cancer, pathologic fx of right femoral neck with repair. She was seen in the ED on 01/19/2021 for SOA and found to have an elevated BNP and troponins of 0.74 > 0.9. She was given lasix. [facility] had no beds, neither did other local hospitals and she did not want to be admitted further away so she left [place]. She was given lasix to take. She presented to the ED on the day of this admission with c/o shortness of breath and weakness. Her BNP had normalized. Troponin negative x 2. Her Chest xray showed the known moderately sized right pleaural effusion that was possibly marginally larger as well as a band of infiltrate on the right. WBC count normal. Afebrile. No cough/sputum, CP/palpitations. On 01/19/2021 during that ED visit a chest CT was negative for pulmonary emboli. It showed an interval increase in the right pleural effusion. The right middle lobe mass was stable in size. Her Creatinine was 1.5; previously. 1.0. She will be admitted for hydration and pulmonary consultation. Unclear of whether the right sided infiltrate is a pneumonia vs a finding related to the lung cancer mass. Review of Systems All systems reviewed & are unremarkable except as noted in HPI and below PFSH Medical History All medications reviewed Anxiety associated with cancer diagnosis Ataxic gait has heel lift in right shoe Bone 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 ca axial skeleton, ribs, pelvis Cancer related pain Colitis Dizziness DNI (do not intubate) DNR (do not resuscitate) Essential hypertension Ex-smoker Fall Goals of care, counseling/discussion History of lung cancer History of ovarian cancer History of pulmonary embolism History of radiation therapy Hyperlipidemia Hypokalemia Immunotherapy Infectious gastroenteritis and colitis Lung cancer Medical marijuana use helps with her appetite Neuropathy due to chemotherapeutic drug Odynophagia Palliative care patient Physical deconditioning restarting PT 09/20 POLST (Physician Orders for Life-Sustaining Treatment) DNR/DNI 03/21/20 Prerenal azotemia Seizure disorder Seizures Stage 4 lung cancer 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 Mother , from COPD End stage COPD Other Diabetes Heart disease Social History Smoking/Tobacco Use Status: Former Tobacco Use Tobacco: How many years used: 40 Smoking risk assessment performed?: Yes Alcohol Intake: never Drug use: Daily Substance use type: marijuana Details: daily medical marijuana Caregiver/Support person: Yes Household members: spouse Housing: house Number of Children: 2 number of grandchildren: 4 Communication Needs: Corrective Lenses Education Level: high school Do you need help understanding health information?: Rarely current occupation: retired Pets and animals: Yes What is your relationship status?: How often do you talk on the phone with friends or family?: three or more times per week How often do you get together with friends or relatives?: once per week Panel score (0-1 are the most socially isolated patients): 2 What type of physical activity do you participate in: assisted ambulation and resistance training Duration: 15-30 minutes/day Frequency: daily Agree to transfusion: Yes Seatbelt use: always Working smoke detector in home: Yes Fire extinguisher in home: Yes Do you feel safe at home: Yes Do you feel safe in your relationship?: Yes Meds Allergies and Home Medications Allergies Allergy/AdvReac Type Severity Reaction Status Date / Time codeine [Codeine] AdvReac Intermediate Nausea Verified 01/22/21 13:14 fentanyl AdvReac Intermediate [place]/Vomi Verified 01/22/21 13:14 ting oxycodone AdvReac Intermediate Nausea Unverified 01/22/21 13:14 tramadol AdvReac Intermediate delerium Verified 01/22/21 13:14 Home Medications Medication Instructions Recorded Confirmed Type Probiotic 1 cap PO DAILY 05/10/17 01/22/21 History cholecalciferol (vitamin D3) 1,000 unit PO DAILY 05/10/17 01/22/21 History [Vitamin D3] cranberry 850 mg PO BID 05/10/17 01/22/21 History lamotrigine 50 mg PO BID 11/11/17 01/22/21 History esomeprazole magnesium [Nexium] 20 mg PO DAILY 03/19/20 01/22/21 History acetaminophen 500 mg PO Q4H PRN PRN #90 tab 03/27/20 01/22/21 Rx ascorbate calcium (vitamin C) 500 mg PO DAILY #0 tab 03/27/20 01/22/21 Rx meclizine 25 mg tablet 25 mg PO DAILY #90 tab 12/01/20 01/22/21 Rx atezolizumab 1,200 mg/20 mL (60 1,200 mg IV Q3W #20 ml 01/02/21 01/02/21 Rx mg/mL) intravenous solution cyanocobalamin (vitamin B-12) 1,000 mcg PO DAILY #90 tab 01/02/21 01/22/21 Rx 1,000 mcg tablet ibuprofen 200 mg capsule 400 mg PO BID PRN #90 cap 01/02/21 01/22/21 Rx pyridoxine (vitamin B6) 100 mg 100 mg PO DAILY #90 tab 01/02/21 01/22/21 Rx tablet furosemide [Lasix] 40 mg PO DAILY #14 tab 01/19/21 01/22/21 Rx lorazepam 0.5 mg PO BID PRN #20 tab 01/19/21 01/22/21 Rx gabapentin 100 mg PO HS 01/22/21 01/22/21 History Exam Const General: cooperative, no acute distress and frail appearing Nutritional Appearance: average body habitus Orientation: oriented x3 Eyes Sclera: sclerae normal Pupils: PERRL Neck Neck: full ROM and no JVD Chest Chest: no tenderness (at right sided port.) Resp Effort & Inspection: normal respiratory effort Auscultation: clear to auscultation bilaterally and diminished lung sounds on the right in the lower lung son Cardio Rate: regular rate Rhythm: regular rhythm Heart Sounds: S1 normal and S2 normal GI Palpation: soft and nontender Auscultation: normal bowel sounds Skin General skin exam: no rashes or lesions noted Extrem General: no pedal edema and no calf tenderness Psych Appearance: grossly normal Mental Status: mental status grossly normal Speech and Movement: speech and movement normal Mood: congruent mood Affect: normal affect Results Labs Result diagrams: 01/22/21 09:55 01/22/21 09:55 Labs: Laboratory Results - last 24 hr 01/22/21 01/22/21 01/22/21 09:55 09:55 09:55 WBC 9.45 RBC 4.37 Hgb 14.2 Hct 42.9 MCV 98.2 H MCH 32.5 MCHC 33.1 RDW 11.9 Plt Count 401 H MPV 9.9 Immature Gran % 0.7 Neutrophils % 75.4 Lymphocytes % 11.0 Monocytes % 10.8 Eosinophils % 1.8 Basophils % 0.3 Nucleated RBC % 0 Absolute Neutrophils 7.12 H Absolute Lymphocytes 1.04 L Absolute Monocytes 1.02 H Absolute Eosinophils 0.17 Absolute Basophils 0.03 PT 10.9 INR 1.1 Sodium 137 Potassium 3.4 L Chloride 98 Carbon Dioxide 29.4 Anion Gap 9.6 BUN 24 H Creatinine 1.5 H Estimated GFR/1.73 m2 34.13 Glucose 142 H Calcium 9.2 Magnesium 1.4 L Total Bilirubin 0.7 AST 17 ALT 16 Alkaline Phosphatase 73 Troponin I < 0.05 NT-Pro-B Natriuret Pep 263 Total Protein 7.5 Albumin 3.4 Urine Color Urine Clarity Urine pH Ur Specific [place] Urine Protein Urine Ketones Urine Blood Urine Nitrite Urine Bilirubin Urine Urobilinogen Ur Leukocyte Esterase Urine RBC Urine WBC Ur Epithelial Cells Urine Crystals Urine Bacteria Urine Casts Urine Mucus Urine Other Ur Culture Indicated? Urine Glucose COVID-19 Source SARS-CoV-2 (PCR) 01/22/21 01/22/21 01/22/21 11:25 12:22 12:38 WBC RBC Hgb Hct MCV MCH MCHC RDW Plt Count MPV Immature Gran % Neutrophils % Lymphocytes % Monocytes % Eosinophils % Basophils % Nucleated RBC % Absolute Neutrophils Absolute Lymphocytes Absolute Monocytes Absolute Eosinophils Absolute Basophils PT INR Sodium Potassium Chloride Carbon Dioxide Anion Gap BUN Creatinine Estimated GFR/1.73 m2 Glucose Calcium Magnesium Total Bilirubin AST ALT Alkaline Phosphatase Troponin I < 0.05 NT-Pro-B Natriuret Pep Total Protein Albumin Urine Color Yellow Urine Clarity Sl Cloudy Urine pH 5.5 Ur Specific [place] 1.020 Urine Protein Negative Urine Ketones Negative Urine Blood Trace-intact H Urine Nitrite Negative Urine Bilirubin Negative Urine Urobilinogen 0.2 Ur Leukocyte Esterase Moderate H Urine RBC 0-2 Urine WBC >50 H Ur Epithelial Cells Few Urine Crystals Negative Urine Bacteria Moderate Urine Casts Negative Urine Mucus Negative Urine Other Rare Renal Ur Culture Indicated? Yes Urine Glucose Negative COVID-19 Source Nasal/Nares SARS-CoV-2 (PCR) Negative Last Vital Signs Temp 35.5 C L 01/22/21 13:40 Pulse 100 H 01/22/21 13:40 Resp 24 01/22/21 13:40 BP 117/78 01/22/21 13:40 Pulse Ox 97 01/22/21 13:40
[2021-01-22] MEDS: Potassium Chloride 20 MEQ TABCR 40 MEQ PO (16:55)
[2021-01-22 17:26] LABS: Troponin I < 0.05 ng/mL (<0.06)
[2021-01-22] MEDS: lamoTRIgine 25 MG TAB 50 MG PO (20:30)
[2021-01-22] MEDS: Diclofenac 1% Gel 100 GM TUBE TP (20:31)
[2021-01-22] MEDS: Gabapentin 300 MG CAP PO (21:31)
[2021-01-22] MEDS: Acetaminophen 325 MG TAB 650 MG PO (23:57)
[2021-01-23] VITALS (9 sets, daily range): BP systolic 101–135; BP diastolic 67–87; PULSE 63–87; RESP 16–20; TEMP 35.6–36.9; O2SAT 94–99
--- NOTE | 2021-01-23 | DI.US_ITS ---
APPROVED REPORT EXAM: Comprehensive 2D, Doppler, and color-flow Echocardiogram Patient Location: In-Patient Room/Bed: [address] Machine Operator: Nimco Espinal RDCS (AE) Indications: NSTEMI, CHF Other Information Study Quality: Adequate. Technically limited study due to rib fracture on left side. Conclusion Normal left ventricular wall thickness and chamber size. Estimated ejection fraction is 55 to 60%. There are no segmental wall motion abnormalities Normal right ventricular size and systolic function Both atria are normal in size The aortic valve is trileaflet and sclerotic without stenosis or regurgitation Mild mitral annular calcification. Trace to mild mitral regurgitation Normal tricuspid valve, mild tricuspid regurgitation. Normal estimated right ventricular systolic pr essure Mildly dilated ascending aorta measuring 3.65 cm Wall motion Left Ventricle The left ventricle is normal size. The left ventricular systolic function is normal. The left ventric ular ejection fraction is within the normal range. There is normal left ventricular wall thickness. T here is normal LV segmental wall motion. There is no ventricular septal defect visualized. LVEF is 55 -60%. Right Ventricle The right ventricle is normal size. The right ventricular systolic function is normal. The RVSP is 26 .9mmHg. Atria The left atrium size is normal. The right atrium size is normal. The interatrial septum is intact wit h no evidence for an atrial septal defect. Aortic Valve The Aortic valve is sclerotic. Aortic valve is trileaflet. There is no aortic valvular stenosis. No a ortic regurgitation is present. Mitral Valve Mild mitral annular calcification. No evidence of mitral valve stenosis. Trace to mild mitral regurgi tation. Tricuspid Valve The tricuspid valve is normal in structure. There is no tricuspid valve stenosis. Mild tricuspid regu rgitation. Pulmonic Valve The pulmonary valve is normal in structure. There is no pulmonic valvular stenosis. There is no pulmo deja valvular regurgitation. Great Vessels The aortic root is normal in size. The ascending aorta is mildly dilated. Aortic arch is normal in ca liber. IVC is normal in size and collapses >50% with inspiration. Pericardium There is trace pericardial effusion. 2D Dimensions IVSD d PLAX 0.92 cm F: 0.6-1.0 LV Vol A2C d MOD 62.8 mL LVPW d PLAX 0.87 cm F: 0.6 - 1.0 LV Vol A4C d MOD 55.2 mL LVID d PLAX 4.55 cm F: 3.8 - 5.2 LA vol/ BSA A4C s A-L 19.2 mL/m2 LVDs 3.20 cm F: 2.2 - 3.5 LA Area A4C s MOD 13.12 cm2 Ao Root d 2.70 cm F: 2.7 - 3.3 LV EF A4C MOD 55.0 % RA Area A4C 8.47 cm2 LV EF A2C MOD 55.3 % RA Vol/ BSA A4C s A-L 11.9 mL/m2 LV EF Biplane MOD 56.0 % Ao Asc Diam d 3.65 cm F: 2.3 - 3.1 SV 33.50 mL LV EF Teichholz 55.9 % SV Index 20.56 mL/m2 LVEF (Duncan's) 56.05 % F: 54 - 74 LV Volume 48.23 mL F: 46 - 106 LV Volume Index 29.58 mL/m2 F: 29 - 61 LV Vol Biplane MOD 59.8 mL FS 29.05 % M-Mode TAPSE 2.03 cm (M/F) >1.7 LV Diastology MV E' medial 0.047 (>0.07 m/s) E/A Ratio 0.8 LV E/e MED 10.40 (<14) MV E Vmax 0.49 (0.4-1.3 m/s) MV E' lateral 0.065 (>0.1 m/s) MV A Vmax 0.60 (0.4-1.3 m/s) LV E/e LAT 7.55 (<14) MV E/A Ratio 0.78 MV E/E' medial 10.45 MV E/E' lateral 7.58 Aortic Valve LVOT Area 3.61 cm2 AoV Area Vmax 2.31 cm2 LVOT Vmax 0.83 m/s AoV Area/ BSA (Vmax) 1.42 cm2/m2 LVOT Mean Jamari. 0.52 m/s MARTINA Mean Jamari. 1.98 cm2 LVOT Peak Grad 2.7 mmHg MARTINA Mean Jamari. Index 1.21 cm2/m2 LVOT Mean Grad 1.3 mmHg LVOT VTI 0.158 m LVOT Diam s 2.10 cm AoV Vmax 1.29 m/s Velocity Ratio 0.64 AoV Mean Jamari. 0.95 m/s AoV Peak Grad 6.7 mmHg LVOT SV 56.92 mL AoV Mean Grad 3.9 mmHg AoV VTI 0.221 m AoV Area VTI 2.58 cm2 AoV Area/ BSA (VTI) 1.58 cm/m2 Mitral Valve MV DT 244 (160-240 msec) MV PHT 71 msec MV Area PHT 3.10 cm2 MV VTI 0.243 m MV Area VTI 2.34 (4.0-6.0 cm2) Pulmonary Valve PV Vmax 0.83 (0.5-1.5 m/s) RVOT Peak Gr. 1.70 mmHg PV Peak Grad 2.8 mmHg RVOT Mean Gr. 0.75 mmHg PV Mean Grad 1.3 mmHg RVOT VTI 0.117 m PV VTI 0.132 m RVOT Vmax 0.65 m/s Tricuspid Valve TR Peak Grad 23.9 mmHg TR Vmax 2.44 m/s RA Pressure 3.00 mmHg RVSP (TR) 26.9 mmHg
[2021-01-23] MEDS: Lactated Ringers 1,000 ML 75 ML IV (04:57)
[2021-01-23] MEDS: lamoTRIgine 25 MG TAB 50 MG PO ×2 (07:58→19:44)
[2021-01-23] MEDS: Aspirin 81 MG CHEW 162 MG PO (07:59)
[2021-01-23] MEDS: Cholecalciferol (Vitamin D3) 1,000 UNIT TAB 2000 UNITS PO (07:59)
[2021-01-23 08:14] LABS: Anion Gap 10.3 mmol/L (3-11); BUN 21 mg/dL (7-18); CO2 28.7 mmol/L (21.0-32.0); Calcium 8.8 mg/dL (8.5-10.1); Chloride 103 mmol/L (98-107); Glucose 101 mg/dL (74-106); Potassium 4.3 mmol/L (3.5-5.1); Sodium 142 mmol/L (136-145)
--- NOTE | 2021-01-23 09:14 | INITIAL_ITS ---
- If Service Date Differs Date of service: 01/23/21 Time of Service: 09:14 Care Management Initial Assess REASON FOR HOSPITALIZATION:: KJ PAST MEDICAL HISTORY/PAST SURGICAL HISTORY:: Medical History. All medications reviewed. Anxiety associated with cancer diagnosis. Ataxic gait. has heel lift in right shoe. Bone metastases. from lung ca. axial skeleton, ribs, pelvis. Cancer related pain. Colitis. Dizziness. DNI (do not intubate). DNR (do not resuscitate). Essential hypertension. Ex-smoker. Fall. Goals of care, counseling/discussion. History of lung cancer. History of ovarian cancer. History of pulmonary embolism. History of radiation therapy. Hyperlipidemia. Hypokalemia. Immunotherapy. Infectious gastroenteritis and colitis. Lung cancer. Medical marijuana use. helps with her appetite. Neuropathy due to chemotherapeutic drug. Odynophagia. Palliative care patient. Physical deconditioning. restarting PT 09/20. POLST (Physician Orders for Life-Sustaining Treatment). DNR/DNI 03/21/20. Prerenal azotemia. Seizure disorder. Seizures. Stage 4 lung cancer. 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 Unintentional weight loss. Urinary retention. Vaccine counseling. Bhavani and spouse Evelio are both fully Covid-19 vaccinated. Vertigo. Weight loss of more than 10% body weight. Surgical History. Abdominal hysterectomy. Appendectomy. Arthroscopy, Shoulder. Colonoscopy - IV Sedation. Colonoscopy - MAC (07/26/16). History of hip surgery. ciro in right femur. Oophrectomy, Left. Reduction mammoplasty PREVIOUS FUNCTIONAL STATUS/SOCIAL/FAMILY SUPPORTS:: Latha lives with her , Melvin in [facility]. They have been for 38 years. Pt retired at age 60 from [employer]. The couple has three children, one of which lives locally. They also have 4 grandchildren who they adore. Pt is very independent, still drives and manages ADLs with her . CURRENT FUNCTIONAL STATUS:: Latha was sitting up in her chair when CM met with her. She was pleasant and engaged in conversation, and became weepy when discussing her 6 year daily with cancer. She reported that the Sr. Merchandise Planner retrieved some fluid from her PE today, and it is being sent out to determine if there is an infection and/or if it is cancerous. She is unsure how long it will take for her to hear results from this, which she is anxious about. CM will discuss this with the provider, and informed Latha that she will hear the results as soon as we have them. She stated that her Oncologist recently told her that she likely had less than 3 years to live, and she told him you don't know me, then. She reported that her is her 'rock' and is very supportive, along with their children. ANGELINA informed her that Dr. oBucher was planning to see her today, which she was very glad about. She stated that she has a great relationship with Dr. Boucher, as she helped her through her mother's time with Hospice. Latha would like to return home when she is medically cleared, and does not anticipate requiring additional services at this time. CM will continue to follow. ADVANCE DIRECTIVES:: [facility] and [place] AD on file. Has patient been provided with info about the portal/API?: Yes Did the patient sign up for the portal?: No CODE STATUS:: DNR/DNI INSURANCE COVERAGE / FINANCIAL ISSUES:: [facility]/ [place] CURRENT HOME/COMMUNITY SERVICES/EQUIPMENT:: No current services. FWW. PRIMARY CARE PHYSICIAN:: Clara Andrea POTENTIAL DISCHARGE NEEDS:: Evaluations for further needs, follow up appointments. PATIENT/FAMILY EDUCATION NEEDS:: Review discharge instructions, discussion of self care needs including ask me three. ANTICIPATED BARRIERS TO DISCHARGE:: None identified at this time. TRANSPORTATION:: Via private vehicle by family. PLAN:: Anticipate Latha will return home when medically cleared. She will be driven home via private vehicle by family. She will follow up with her PCP and discharge plan of care. CM will continue to follow.
[2021-01-23] MEDS: cefTRIAXone 1 GM/50 ML BAG IVPB (10:06)
[2021-01-23] MEDS: Normal Saline 500 ML 30 ML IV (10:07)
[2021-01-23] MEDS: Normal Saline Flush 10 ML SYR IVP (10:07)
--- NOTE | 2021-01-23 10:32 | PAPNONF_PTH ---
PATIENT: Latha Mejía LOC: U#:[id number] AGE/SX: 70/F ROOM: [facility] RE01/22/[address]: Jerry Patrick MD : [id number] BED: A DIS: 01/24/2021 SPEC #: [id number] RECD: 01/23/21 16:47 STATUS: [facility] REQ #: [id number] MICHELLE: 01/23/21 10:[address]: Jerry Patrick DEPT: [facility] Cytology RECD BY: Rachele Driver ENTERED: 01/23/21 16:50 SP TYPE: PAPKODYF PAXTON DR: MD Mila Summers,Clara Rosario Tissues: 1 - BODY FLUID CYTO(NOT S/U/N/EM)[facility] Procedures: BODY FLUID CYTO(NOT SPU/UR/NIP/ENDOM)[facility] Comments: [id number] (<0.25 cc, SENT FRESH & 1 cc IN EDTA PURPLE TOP)
--- NOTE | 2021-01-23 10:50 | W.PM.OP ---
Date of service: 01/23/21 Time of Service: 10:20 Operative Note Operative Note Procedure Description: Thoracentesis Procedure Note Consent: Informed consent was obtained. Risks of the procedure were discussed including: Infection, bleeding, pain, pneumothorax. Procedure Detail A timeout was performed to ensure correct patient site and procedure. At the site was cleaned in the usual sterile fashion with ChloraPrep solution and sterile drapes were utilized. 8 cc of lidocaine was injected for local anesthetic. The thoracentesis catheter was inserted into the pleural space with good pleural fluid return. Upon advancement of the catheter the patient experienced some pain and moved and unfortunately the catheter was dislodged from the pleural space. As this was a diagnostic procedure the decision was made not to repoke and instead send the fluid that was taken for analysis of infection. Findings: 5 cc of cloudy pleural fluid was obtained and sent for analysis. Complications: Patient pain resulting in dislodgment of thoracentesis catheter. Early termination of procedure. Condition: stable A chest x-ray was ordered and pending. Kathi Garcia MD
--- NOTE | 2021-01-23 10:58 | PUCON_ITS ---
General Date Of Service Date of service: 01/23/21 Time of Service: 09:45 Requesting physician: Jerry Patrick Reason for Consult: Lung cancer Assessment and Plan Assessment and plan (1) Shortness of breath: Status: Acute (2) Stage 4 lung cancer: Status: Chronic Qualifiers: Laterality: right Qualified Code(s): C34.91 - Malignant neoplasm of unspecified part of right bronchus or lung (3) Acute dehydration: Status: Acute Assessment and plan: This is a 70-year-old female with stage IV adenocarcinoma on immunotherapy with atezolizumab who presents with shortness of breath and found to be dehydrated. That has since been resolved with some IV fluid resuscitation. On her initial CAT scan from January 19, 2021 when she first presented to the emergency department there is a new moderately sized right sided pleural effusion when compared to her scan in October 2020. Her recent PET scan of this month also demonstrates pleural thickening with PET avidity a only have access to the report and not the image so unable to directly compare. The potential diagnosis of the right-sided pleural effusion would include malignancy, infection, or volume. The patient appears to be euvolemic at this time and does not have any infectious symptoms based on my history. Given the pleural nodularity of her previous scans I am concerned that this is a malignant effusion that has rapidly appeared. In order to rule out infection I performed a thoracentesis today however this was limited due to patient pain and dislodgment of the catheter. A small amount of fluid was sent to the lab to ru le out infection however cytology will not be able to be performed due to the small amount of fluid. If this turns out to be a malignant effusion we will have to assess its rate of collection. It may be that her current regimen is not efficacious enough and a change may be warranted, however this is something that her oncologist Dr. Zaragoza can assess with her. If the effusion continues to grow she may require a permanent catheter such as a Pleurx for home drainage as a palliative solution. Right pleural effusion - diagnostic thoracentesis performed - only a small amount of fluid (see separate procedure note) - f/u pleural fluid studies - will forward my note to her oncologist Stage 4 lung adenocarcinoma - f/u oncology History of Present Illness Narrative: This is a 70-year-old woman with metastatic adenocarcinoma of the lung diagnosed in May 2015. She follows with Dr. Matt Rodrigez from hematology and oncology for this and is currently maintained on atezolizumab. This cancer was incidentally discovered and was unable to be rescected. There were no mutations and no PD-L1 was done. She received chemotherapy starting July 2015 with Alimta and has remained on this drug every 3 weeks since then. She was noted to have progressive disease in August 2019 and underwent radiation therapy. She is known to have a C2 met, T12 met, right femoral head met with radiation completed September 2019. Did receive carboplatinum chemotherapy however this was discontinued after 2 cycles due to an infusion reaction. She also has developed neuropathy due to Abraxane therapy. She currently now has been on single agent atezolizumab since April 2020. Had a chest CT done in October 2020 that did show pleural thickening on the right side which was also present in a CAT scan from August 2019 however it had grown in size. He also had a recent PET scan done at [facility] on 01/09/2021 that showed persistent active malignancy in the right middle lobe mass that seem to be similar in size but had an increase in intensity compared to her last PET scan in July 2020.. There is also active metastasis in the retrosternal and right pericardiac regions as well as persistent active osseous mets with a new lesion in the posterior left acetabulum. The nodular pleural thickening seen on the right hemithorax was also PET avid concerning for pleural metastases. Her most recent CAT scan was from January 19, 2021 that again demonstrates a pleural thickening but with a new pleural effusion. She states she has slight shortness of breath but it was not so bad that she wanted to complain about it. She does not have chest pain. Review of Systems All systems reviewed & are unremarkable except as noted in HPI and below Cardiovascular Cardiovascular: Denies chest pain, Denies chest pain at rest, Denies chest pain with activity, Denies leg edema, Reports dyspnea, Reports dyspnea on exertion, Denies orthopnea and Denies paroxysmal nocturnal dyspnea Respiratory Respiratory: Reports dyspnea and Reports dyspnea on exertion Musculoskeletal Musculoskeletal: Reports back pain, Reports myalgias and Reports arthralgias [facility] Medical History All medications reviewed Anxiety associated with cancer diagnosis Ataxic gait has heel lift in right shoe Bone 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 ca axial skeleton, ribs, pelvis Cancer related pain Colitis Dizziness DNI (do not intubate) DNR (do not resuscitate) Essential hypertension Ex-smoker Fall Goals of care, counseling/discussion History of lung cancer History of ovarian cancer History of pulmonary embolism History of radiation therapy Hyperlipidemia Hypokalemia Immunotherapy Infectious gastroenteritis and colitis Lung cancer Medical marijuana use helps with her appetite Neuropathy due to chemotherapeutic drug Odynophagia Palliative care patient Physical deconditioning restarting PT 09/20 POLST (Physician Orders for Life-Sustaining Treatment) DNR/DNI 03/21/20 Prerenal azotemia Seizure disorder Seizures Stage 4 lung cancer 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 Mother , from COPD End stage COPD Other Diabetes Heart disease Social History Smoking/Tobacco Use Status: Former Tobacco Use Tobacco: How many years used: 40 Smoking risk assessment performed?: Yes Alcohol Intake: never Drug use: Daily Substance use type: marijuana Details: daily medical marijuana Caregiver/Support person: Yes Household members: spouse Housing: house Number of Children: 2 number of grandchildren: 4 Communication Needs: Corrective Lenses Education Level: high school Do you need help understanding health information?: Rarely current occupation: retired Pets and animals: Yes What is your relationship status?: How often do you talk on the phone with friends or family?: three or more times per week How often do you get together with friends or relatives?: once per week Panel score (0-1 are the most socially isolated patients): 2 What type of physical activity do you participate in: assisted ambulation and resistance training Duration: 15-30 minutes/day Frequency: daily Agree to transfusion: Yes Seatbelt use: always Working smoke detector in home: Yes Fire extinguisher in home: Yes Do you feel safe at home: Yes Do you feel safe in your relationship?: Yes Visit Medication and Allergies Active Medications Generic Name Dose Route Start Last Admin Trade Name Freq PRN Reason Stop Dose Admin Acetaminophen 650 mg 01/22/21 12:14 01/22/21 23:57 Acetaminophen 325 Mg Tab PO 650 mg Q4H PRN PRN Administration Aspirin 162 mg 01/23/21 08:30 01/23/21 07:59 Aspirin 81 Mg Chew PO 162 mg DAILY MARTHA Administration Cholecalciferol 2,000 units 01/23/21 08:30 01/23/21 07:59 Cholecalciferol (Vitamin D3) 1,000 Unit Tab PO 2,000 units DAILY MARTHA Administration Diclofenac Sodium 0 gm 01/22/21 16:15 01/22/21 20:31 Diclofenac 1% Gel 100 Gm Tube TP 100 gm QID PRN PRN Administration Dimethicone/Zinc Oxide 0 gm 01/22/21 12:14 Meggan Protect Cream 142 Gm Tube TP PRN PRN Gabapentin 300 mg 01/22/21 22:00 01/22/21 21:31 Gabapentin 300 Mg Cap PO 300 mg HS MARTHA Administration Sodium Chloride 500 mls @ 0 mls/hr 01/22/21 09:43 01/23/21 10:07 Saline 500ml Bag IV 30 mls/hr PRN PRN Administration As Directed Ringer's Solution 1,000 mls @ 75 mls/hr 01/22/21 12:15 01/23/21 04:57 IV 75 mls/hr INFUSION MARTHA Administration IV Miscellaneous Supplies 1 each 01/22/21 09:45 Iv Access IV DIRECTED MARTHA Lamotrigine 50 mg 01/22/21 20:00 01/23/21 07:58 Lamotrigine 25 Mg Tab PO 50 mg BID MARTHA Administration Lorazepam 0.5 mg 01/22/21 12:38 Lorazepam 0.5 Mg Tab PO BID PRN PRN anxiety Sodium Chloride 0 ml 01/22/21 09:43 01/23/21 10:07 Normal Saline Flush 10 Ml Syr IVP 20 ml PRN PRN Administration Allergies codeine [Codeine] Adverse Reaction (Intermediate, Verified 01/22/21 13:14) Nausea fentanyl Adverse Reaction (Intermediate, Verified 01/22/21 13:14) [place]/Vomiting oxycodone Adverse Reaction (Intermediate, Unverified 01/22/21 13:14) Nausea tramadol Adverse Reaction (Intermediate, Verified 01/22/21 13:14) delerium Exam Const General: no acute distress Nutritional Appearance: well nourished [facility] Head: normocephalic Ears: external ears normal and no periauricular adenopathy General nose exam: nasal mucous membranes and turbinates normal Face and sinus: sinuses nontender Mouth: oropharynx normal and moist mucous membranes Teeth and gingiva: dentition normal Eyes General: appearance normal, both eyes and all related structures Pupils: PERRL Neck Neck: normal visual inspection and no lymphadenopathy Chest Chest: normal inspection of the chest Resp Effort & Inspection: normal respiratory effort Auscultation: clear to auscultation bilaterally, diminished lung sounds on the right, no rales, no rhonchi and no wheezes Cardio Rate: regular rate Rhythm: regular rhythm Heart Sounds: S1 normal, S2 normal and no murmurs Pulses: radial pulses present bilaterally GI Inspection: normal to inspection Palpation: soft Skin General skin exam: no rashes or lesions noted Neuro General: patient alert, patient awake and patient oriented x3 Extrem General: no clubbing, cyanosis or edema Psych Mental Status: mental status grossly normal Affect: normal affect Attitude: cooperative Results Last Vital Signs Temp 35.6 C L 01/23/21 08:04 Pulse 72 01/23/21 08:04 Resp 17 01/23/21 08:04 BP 124/84 01/23/21 08:04 Pulse Ox 97 01/23/21 09:58 Labs Result diagrams: 01/22/21 09:55 01/23/21 06:50 Labs: Laboratory Results - last 24 hr 01/22/21 01/22/21 01/22/21 11:25 12:22 12:38 Sodium Potassium Chloride Carbon Dioxide Anion Gap BUN Creatinine Estimated GFR/1.73 m2 Glucose Calcium Magnesium Troponin I < 0.05 Total Protein Urine Color Yellow Urine Clarity Sl Cloudy Urine pH 5.5 Ur Specific [place] 1.020 Urine Protein Negative Urine Ketones Negative Urine Blood Trace-intact H Urine Nitrite Negative Urine Bilirubin Negative Urine Urobilinogen 0.2 Ur Leukocyte Esterase Moderate H Urine RBC 0-2 Urine WBC >50 H Ur Epithelial Cells Few Urine Crystals Negative Urine Bacteria Moderate Urine Casts Negative Urine Mucus Negative Urine Other Rare Renal Ur Culture Indicated? Yes Urine Glucose Negative Fluid Glucose COVID-19 Source Nasal/Nares SARS-CoV-2 (PCR) Negative 01/22/21 01/23/21 01/23/21 16:52 06:50 06:50 Sodium 142 Potassium 4.3 D Chloride 103 Carbon Dioxide 28.7 Anion Gap 10.3 BUN 21 H Creatinine 1.0 D Estimated GFR/1.73 m2 54.50 Glucose 101 Calcium 8.8 Magnesium 2.0 Troponin I < 0.05 Total Protein Urine Color Urine Clarity Urine pH Ur Specific [place] Urine Protein Urine Ketones Urine Blood Urine Nitrite Urine Bilirubin Urine Urobilinogen Ur Leukocyte Esterase Urine RBC Urine WBC Ur Epithelial Cells Urine Crystals Urine Bacteria Urine Casts Urine Mucus Urine Other Ur Culture Indicated? Urine Glucose Fluid Glucose COVID-19 Source SARS-CoV-2 (PCR) 01/23/21 01/23/21 09:59 09:59 Sodium Potassium Chloride Carbon Dioxide Anion Gap BUN Creatinine Estimated GFR/1.73 m2 Glucose Calcium Magnesium Troponin I Total Protein Cancelled Urine Color Urine Clarity Urine pH Ur Specific [place] Urine Protein Urine Ketones Urine Blood Urine Nitrite Urine Bilirubin Urine Urobilinogen Ur Leukocyte Esterase Urine RBC Urine WBC Ur Epithelial Cells Urine Crystals Urine Bacteria Urine Casts Urine Mucus Urine Other Ur Culture Indicated? Urine Glucose Fluid Glucose Cancelled COVID-19 Source SARS-CoV-2 (PCR) Procedures Other Procedure Description/Findings: Diagnostic Thoracentesis - see separate note
[2021-01-23 11:31] LABS: Source Pleural
[2021-01-23 11:35] LABS: Mononuclear Cells 31 %; Polynuclear Cells 68 %
[2021-01-23 11:39] LABS: Other Cells 1 %
--- NOTE | 2021-01-23 13:28 | PGE_ITS ---
Date of Service Date of service: 01/23/21 Time of Service: 13:29 Assessment and Plan Assessment and plan (1) Acute dehydration: Status: Acute Assessment and plan: Recent diuresis for pulmonary edema. Hold lasix today and hydrate with NS at low rate of 75ml/hr. Monitor. Creatinine 1.0 now. Stopped IV fluids. (2) POLST (Physician Orders for Life-Sustaining Treatment): Status: Acute Assessment and plan: Cont with her wishes to be DNR/DNI (3) Stage 4 lung cancer: Status: Chronic Assessment and plan: Receives oral chemotx Q3wks. Ongoing discussion with oncology about benefits of further treatments and other options. She is also a palliative care patient and they were consulted. Qualifiers: Laterality: right Qualified Code(s): C34.91 - Malignant neoplasm of unspecified part of right bronchus or lung (4) NSTEMI (non-ST elevated myocardial infarction): Status: Acute Assessment and plan: Troponin now normalized. Echocardiogram showed EF of 55-60%. Normal LV segmental wall motion. Tr pericardial effusion. (5) Pleural effusion: Status: Acute Assessment and plan: Pulmonary consulted. Dx thoracentesis performed with a small amount of fluid obtained. CT chest in October 2020 showed pleural thickening on right that was present on CT in August 2019, but had increased in size. PET scan at [facility] on 01/09/2021 showed showed the active malignancy in the RML that had increased in intensity but size essentially the same (compared to 07/2020). (6) Anxiety associated with cancer diagnosis: Status: Chronic Assessment and plan: She was recently given Lorazepm in the ED; ).5mg po BID prn panic attack. Endorsed some benefit but did not act readily and it caused excessive drowsiness. Will offer lorazepam 0.25mg po BID prn and see if this is helpful. May need to take scheduled to avoid panic attacks. Subjective Subjective Patient reports: no new complaints, shortness of breath (ongoing BARILLAS; not worsened after thoracentesis) and afebrile; denies nausea and vomiting Exam Const General: cooperative, no acute distress and frail appearing Nutritional Appearance: average body habitus Orientation: oriented x3 Eyes Sclera: sclerae normal Pupils: PERRL Neck Neck: full ROM and no JVD Chest Chest: no tenderness (at right sided port and left lateral rib cage) Resp Effort & Inspection: normal respiratory effort Auscultation: clear to auscultation bilaterally and diminished lung sounds on the right in the lower lung son Cardio Rate: regular rate Rhythm: regular rhythm Heart Sounds: S1 normal and S2 normal GI Palpation: soft and nontender Auscultation: normal bowel sounds Skin General skin exam: no rashes or lesions noted Extrem General: no pedal edema and no calf tenderness Psych Appearance: grossly normal Mental Status: mental status grossly normal Speech and Movement: speech and movement normal Mood: congruent mood Affect: normal affect Objective Last Vital Signs Temp 36.5 C 01/23/21 12:16 Pulse 76 01/23/21 12:16 Resp 20 01/23/21 12:16 BP 135/87 01/23/21 12:16 Pulse Ox 97 01/23/21 12:16 Laboratory Results - last 24 hr 01/22/21 01/22/21 01/23/21 12:22 16:52 06:50 Sodium 142 Potassium 4.3 D Chloride 103 Carbon Dioxide 28.7 Anion Gap 10.3 BUN 21 H Creatinine 1.0 D Estimated GFR/1.73 m2 54.50 Glucose 101 Calcium 8.8 Magnesium Troponin I < 0.05 Total Protein Fluid Source Fluid Color Fluid Clarity Fluid WBC Fld Polynuclear WBCs % Fluid Mononuclear Cell Fluid Other Cells Fluid Glucose SARS-CoV-2 (PCR) Negative 01/23/21 01/23/21 01/23/21 06:50 09:59 09:59 Sodium Potassium Chloride Carbon Dioxide Anion Gap BUN Creatinine Estimated GFR/1.73 m2 Glucose Calcium Magnesium 2.0 Troponin I Total Protein Cancelled Fluid Source Fluid Color Fluid Clarity Fluid WBC Fld Polynuclear WBCs % Fluid Mononuclear Cell Fluid Other Cells Fluid Glucose Cancelled SARS-CoV-2 (PCR) 01/23/21 10:32 Sodium Potassium Chloride Carbon Dioxide Anion Gap BUN Creatinine Estimated GFR/1.73 m2 Glucose Calcium Magnesium Troponin I Total Protein Fluid Source Pleural Fluid Color Yellow Fluid Clarity Fluid WBC Fld Polynuclear WBCs % 68 Fluid Mononuclear Cell 31 Fluid Other Cells 1 Fluid Glucose SARS-CoV-2 (PCR)
[2021-01-23 14:12] LABS: LDH 160 U/L (81-234)
--- NOTE | 2021-01-23 15:08 | DI.RAD_ITS ---
Exam(s) XR PORTABLE CHEST AP EXAM: XR PORTABLE CHEST AP CLINICAL HISTORY: s/p thoracentesis TECHNIQUE: 2D digital imaging was performed. COMPARISON: CR XR RIBS LT W PA LAT CHEST from 10/09/2020 CR XR RIBS LT W PA LAT CHEST from 10/09/[address] CHEST W from 11/03/[address] CHEST W from 11/03/2020 CR XR PORTABLE CHEST AP from 01/22/2021 FINDINGS: There has been continued interval increase in size of the right pleural effusion when compared with t he previous exam. There is minimal blunting at the left costophrenic angle. No focal infiltrate is seen. Left rib fractures are again noted. The right-sided port is unchanged. The heart size is nor mal. IMPRESSION: Mild interval increase in size of right pleural effusion DATA REPOSITORY: RADIATION DOSE DELIVERED:
[2021-01-23] MEDS: Acetaminophen 325 MG TAB 650 MG PO ×2 (15:55→19:43)
--- NOTE | 2021-01-23 19:18 | W.PALLCONSUL ---
Date of service: 01/23/21 Time of Service: 04:18 History of Present Illness History of Present Illness Chief Complaint: shortness of breath, lung cancer Narrative: I met with Genesis, her , in her room. She tells me she was in the ER twice before admission for severe dyspnea; the first time, she was told [facility] had no open beds and she would have to go out of state for care. She did not want to do this so she went home. (She lives less than a mile from the hospital). She was sent back to the ER for persistent dyspnea after going to see her PCP, Clara Askew, [place], the following day. She has tested negative for COVID-19 but she has a new Right pleural effusion, on the side of her lung cancer. It was unclear what was the cause of this effusion, though her lung cancer was highest on the differential list. She has been admitted on observation status. The hospitalist team hoped she would turn around quickly. She is not rebounding as quickly as she'd like. She was evaluated by medical device sales consultant Dr Garcia today, who did a thorancentesis to help reduce the pleural effusion. Unfortunately, for myriad reasons, Dr Garcia was only able to get a small amount of pleural fluid; I spoke to our pathologist techs and they said there was 1.5 ccs of pleural fluid in the tube. The tech thought this was enough to run cytology studies. They asked that I fill out paperwork to allow this to happen; the specimen was sent to [facility] 01/23 by 6:30 pm graphic user interface designer. When I was with Genesis, we called [facility] to let them know what was going on. I spoke to the triage nurse who read me the report from Bhavani's PET scan done on 01/09/21. Unfortunately, Bhavani had not been able to be seen by oncology to discuss these findings yet; she has an appointment with Dr Zaragoza on 02/01/21. The PET scan report said the scan showed progression of her persistent and active RML disease. The primary tumor is similar in size but increased in intensity. She and [address], one R pericardiac and one retrosternal that both increased in size and intensity. She has new pleural thickening in her right lung, as well as a new left acetabulum lesion. Overall, her cancer is progressing. She and Melvin had a lot of questions about prognosis, next plans, etc. I told them I could not answer these questions yet. Hopefully, the pleural effusion specimen collected by Dr Garcia will allow oncology to try other immunotherapy or chemotherapy treatments. Bhavani reports that she likes information not be sugar-coated. She wants to hear what doctors are thinking. She can deal with information. She can't deal with not knowing. Consults Consult date: 01/23/21 Requesting physician: Jerry Patrick Assessment and Plan Assessment and plan (1) Pleural effusion: Status: Acute Assessment and plan: Was small and persistent through her November 03, 2020 CT scan. Then, on 01/19 CT scan, it was described as large. Discussion with Bhavani today about whether she would want a pleurex to be inserted, or if she wants another thorancentesis for comfort/palliation. She wants to have further discussion with oncology and Dr Padilla. SHe is afraid of having the same degree of dyspnea she had prior to admission. Very frightening. (2) Pleural thickening: Status: Chronic Assessment and plan: Had been reported as minimal pleural thickening on her 11/03/20 CT scan. Per oncology, [place] [facility] [place] on [place]09 PET [place]. Could be contributing to generation of effusion. (3) Shortness of breath: Status: Chronic Assessment and plan: Very frightening, understandably, to Bhavani. We discussed using low dose (5 mg) of liquid morphine and low dose (0.5 mg) lorazepam to treat exacerbations. She reported that she has not walked outside of her room since admission and her severe dyspnea came on at home when she walked more than 20 feet. She would like to see if she qualifies for home oxygen. We discussed medicare rules that require an oxygenation level of less than or equal to 88% to qualify. She would like to be evaluated tomorrow for this. (4) Goals of care, counseling/discussion: Status: Acute Assessment and plan: Bhavani would like to gather as much information as possible. She gets more anxious not knowing what is going on. She feels that with Beau's support, she can handle most anything. If there is another cancer-directed treatment available to her, she would like to pursue that. If it is likely that her pleural effusion will persist, she would like to learn more about pleurex. (5) Stage 4 lung cancer: Status: Chronic Assessment and plan: Right sided. Mets to bone and LN primarily. Now 6 years out (almost) since diagnosis. Qualifiers: Laterality: right Qualified Code(s): C34.91 - Malignant neoplasm of unspecified part of right bronchus or lung (6) Anxiety associated with cancer diagnosis: Status: Chronic Assessment and plan: Hates not knowing what is going on with her body. Does better with more information than most patients. (7) Bone metastases: Status: Chronic Assessment and plan: Has a high pain tolerance. Does not use narcotics on a regular basis despite known bone mets. (8) Palliative care patient: Status: Chronic Assessment and plan: I have followed Bhavani since shortly after her cancer diagnosis. Will continue to follow closely. (9) S/P thoracentesis: Status: Acute Assessment and plan: It was after hours when I spoke to lab about the pleural effusion specimen collected by Dr Garcia. Lab reported that they needed a lab slip to accompany the 1.5 ccs for it to be evaluated for cytology, cancer genomics, etc. Lab slip signed. Review of Systems Constitutional Constitutional: Reports fatigue, Reports weakness and Reports weight loss Eyes Eyes: Reports requires corrective lenses ENT Ears, Nose, Mouth, and Throat: Reports dry mouth and Reports disequilibrium Cardiovascular Cardiovascular: Reports dyspnea and Reports dyspnea on exertion Respiratory Respiratory: Reports dyspnea and Reports dyspnea on exertion Gastrointestinal Gastrointestinal: Reports constipation and Reports early satiety Genitourinary Genitourinary: Reports urinary incontinence Musculoskeletal Musculoskeletal: Reports muscle weakness Integumentary/Breasts Skin/Breast: Reports dry skin Neurologic Neurologic: Reports disequilibrium and Reports weakness Psychiatric Psychiatric: Reports anxiety and Reports difficulty concentrating Endocrine Endocrine: Reports fatigue Hematologic/Lymphatic Hematologic/Lymphatic: Reports easy bruising [facility] Medical History (Updated 01/23/21 @ 20:00 by Rhona Boucher MD) All medications reviewed Anxiety associated with cancer diagnosis Ataxic gait has heel lift in right shoe Bone 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 ca axial skeleton, ribs, pelvis Cancer related pain Colitis Dizziness DNI (do not intubate) DNR (do not resuscitate) Essential hypertension Ex-smoker Fall Goals of care, counseling/discussion History of lung cancer History of ovarian cancer History of pulmonary embolism History of radiation therapy Hyperlipidemia Hypokalemia Immunotherapy Infectious gastroenteritis and colitis Lung cancer Medical marijuana use helps with her appetite Neuropathy due to chemotherapeutic drug Odynophagia Palliative care patient Physical deconditioning restarting PT 09/20 Pleural thickening new on 01/09/21 PET scan POLST (Physician Orders for Life-Sustaining Treatment) DNR/DNI 03/21/20 Prerenal azotemia Seizure disorder Seizures Stage 4 lung cancer diagnosed 2015 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 Mother , from COPD End stage COPD Other Diabetes Heart disease Social History (Updated 01/23/21 @ 19:49 by Rhona Boucher MD) Smoking/Tobacco Use Status: Former Tobacco Use Tobacco: How many years used: 40 Smoking risk assessment performed?: Yes Alcohol Intake: never Drug use: Daily Substance use type: marijuana Details: daily medical marijuana Caregiver/Support person: Yes Household members: spouse Housing: house Number of Children: 2 number of grandchildren: 4 Communication Needs: Corrective Lenses Education Level: high school Do you need help understanding health information?: Rarely current occupation: retired Pets and animals: Yes What is your relationship status?: How often do you talk on the phone with friends or family?: three or more times per week How often do you get together with friends or relatives?: once per week Panel score (0-1 are the most socially isolated patients): 2 What type of physical activity do you participate in: assisted ambulation and resistance training Duration: 15-30 minutes/day Frequency: daily Agree to transfusion: Yes Seatbelt use: always Working smoke detector in home: Yes Fire extinguisher in home: Yes Do you feel safe at home: Yes Do you feel safe in your relationship?: Yes Additional Social history: Lives with Evelio in [facility]. Diagnosed initially with lung cancer in 2014. Was in remission until almost 2 years ago, but recurrence not recognized for a few months partially due to COVID-19. Sees Dr Zaragoza for oncology. PET scan done 01/09/21 showed progression. She and Evelio are very close, weather challenges well together. She has a loving and supportive family and group of friends. Lots of social supports. Exam Const General: cooperative, no acute distress and frail appearing Nutritional Appearance: average body habitus Orientation: oriented x3 Eyes Sclera: sclerae normal Pupils: PERRL Neck Neck: full ROM and no JVD Chest Chest: no tenderness (at right sided port and left lateral rib cage) Resp Effort & Inspection: normal respiratory effort Auscultation: clear to auscultation bilaterally and diminished lung sounds on the right in the lower lung son Cardio Rate: regular rate Rhythm: regular rhythm Heart Sounds: S1 normal and S2 normal GI Palpation: soft and nontender Auscultation: normal bowel sounds Skin General skin exam: no rashes or lesions noted Neuro General: patient alert, patient awake and patient oriented x3 Extrem General: no pedal edema and no calf tenderness Psych Appearance: grossly normal Mental Status: mental status grossly normal Speech and Movement: speech and movement normal Mood: anxious mood Affect: anxious affect Attitude: cooperative Thought Content: normal Insight: insight good Judgment: judgment good Results Last Vital Signs Temp 97.9 F 01/23/21 15:25 Pulse 87 01/23/21 15:25 Resp 17 01/23/21 15:25 BP 105/67 01/23/21 15:25 Pulse Ox 97 01/23/21 15:25 Labs Result diagrams: 01/22/21 09:55 01/23/21 06:50 Labs: Laboratory Results - last 24 hr 01/23/21 01/23/21 01/23/21 06:50 06:50 06:50 Sodium 142 Potassium 4.3 D Chloride 103 Carbon Dioxide 28.7 Anion Gap 10.3 BUN 21 H Creatinine 1.0 D Estimated GFR/1.73 m2 54.50 Glucose 101 Calcium 8.8 Magnesium 2.0 Lactate Dehydrogenase 160 Total Protein Fluid Source Fluid Color Fluid Clarity Fluid WBC Fld Polynuclear WBCs % Fluid Mononuclear Cell Fluid Other Cells Fluid Glucose 01/23/21 01/23/21 01/23/21 09:59 09:59 10:32 Sodium Potassium Chloride Carbon Dioxide Anion Gap BUN Creatinine Estimated GFR/1.73 m2 Glucose Calcium Magnesium Lactate Dehydrogenase Total Protein Cancelled Fluid Source Pleural Fluid Color Yellow Fluid Clarity Fluid WBC Fld Polynuclear WBCs % 68 Fluid Mononuclear Cell 31 Fluid Other Cells 1 Fluid Glucose Cancelled
[2021-01-23] MEDS: Gabapentin 300 MG CAP PO (21:42)
[2021-01-24 00:11] VITALS: PULSE 68
[2021-01-24 03:15] VITALS: BP 100/64; PULSE 74; RESP 16; TEMP 36.5; O2SAT 96
[2021-01-24] MEDS: Normal Saline Flush 10 ML SYR IVP ×3 (03:49→14:25)
--- NOTE | 2021-01-24 06:51 | W.PULMPROG ---
General Date Of Service Date of service: 01/24/21 Time of Service: 08:50 Requesting physician: Jerry Patrick Reason for Consult: Lung cancer Subjective 24 Hour Events: Her pleural fluid cell differential came back with 68% polynuclear cells the presence of the mesothelial cells in the sample. The Gram stain did not find any bacteria. Note Note: Latha met with palliative care yesterday discuss goals of her therapy. Dr. Boucher asked for the remaining pleural fluid to be sent for cytology. If this does come back positive that will give us an answer however a negative result will not mean there is no cancerous cells in the fluid due to a very small sample sent matched with a relatively low you build test in general (we typically rule out malignant effusions after 2 large volume pleural fluid analyses are negative for cancerous cells). Exam Const General: no acute distress Nutritional Appearance: well nourished HENMT Head: normocephalic Ears: external ears normal and no periauricular adenopathy General nose exam: nasal mucous membranes and turbinates normal Face and sinus: sinuses nontender Mouth: oropharynx normal and moist mucous membranes Teeth and gingiva: dentition normal Eyes General: appearance normal, both eyes and all related structures Pupils: PERRL Neck Neck: normal visual inspection and no lymphadenopathy Chest Chest: normal inspection of the chest Resp Effort & Inspection: normal respiratory effort Auscultation: clear to auscultation bilaterally, diminished lung sounds on the right, no rales, no rhonchi and no wheezes Cardio Rate: regular rate Rhythm: regular rhythm Heart Sounds: S1 normal, S2 normal and no murmurs Pulses: radial pulses present bilaterally GI Inspection: normal to inspection Palpation: soft Skin General skin exam: no rashes or lesions noted Neuro General: patient alert, patient awake and patient oriented x3 Extrem General: no clubbing, cyanosis or edema Psych Mental Status: mental status grossly normal Affect: normal affect Attitude: cooperative Objective Last Vital Signs Temp 36.5 C 01/24/21 03:15 Pulse 74 01/24/21 03:15 Resp 16 01/24/21 03:15 BP 100/64 01/24/21 03:15 Pulse Ox 96 01/24/21 03:15 Laboratory Results - last 24 hr 01/23/21 01/23/21 01/23/21 06:50 06:50 06:50 Sodium 142 Potassium 4.3 D Chloride 103 Carbon Dioxide 28.7 Anion Gap 10.3 BUN 21 H Creatinine 1.0 D Estimated GFR/1.73 m2 54.50 Glucose 101 Calcium 8.8 Magnesium 2.0 Lactate Dehydrogenase 160 Total Protein Fluid Source Fluid Color Fluid Clarity Fluid WBC Fld Polynuclear WBCs % Fluid Mononuclear Cell Fluid Other Cells Fluid Glucose 01/23/21 01/23/21 01/23/21 09:59 09:59 10:32 Sodium Potassium Chloride Carbon Dioxide Anion Gap BUN Creatinine Estimated GFR/1.73 m2 Glucose Calcium Magnesium Lactate Dehydrogenase Total Protein Cancelled Fluid Source Pleural Fluid Color Yellow Fluid Clarity Fluid WBC Fld Polynuclear WBCs % 68 Fluid Mononuclear Cell 31 Fluid Other Cells 1 Fluid Glucose Cancelled Results Medications Medications: Active Medications Generic Name Dose Route Start Last Admin Trade Name Freq PRN Reason Stop Dose Admin Acetaminophen 650 mg 01/22/21 12:14 01/23/21 19:43 Acetaminophen 325 Mg Tab PO 650 mg Q4H PRN PRN Administration Aspirin 162 mg 01/23/21 08:30 01/23/21 07:59 Aspirin 81 Mg Chew PO 162 mg DAILY MARTHA Administration Cholecalciferol 2,000 units 01/23/21 08:30 01/23/21 07:59 Cholecalciferol (Vitamin D3) 1,000 Unit Tab PO 2,000 units DAILY MARTHA Administration Diclofenac Sodium 0 gm 01/22/21 16:15 01/22/21 20:31 Diclofenac 1% Gel 100 Gm Tube TP 100 gm QID PRN PRN Administration Dimethicone/Zinc Oxide 0 gm 01/22/21 12:14 Meggan Protect Cream 142 Gm Tube TP PRN PRN Gabapentin 300 mg 01/22/21 22:00 01/23/21 21:42 Gabapentin 300 Mg Cap PO 300 mg HS MARTHA Administration Sodium Chloride 500 mls @ 0 mls/hr 01/22/21 09:43 01/23/21 10:07 Saline 500ml Bag IV 30 mls/hr PRN PRN Administration As Directed IV Miscellaneous Supplies 1 each 01/22/21 09:45 Iv Access IV DIRECTED MARTHA Lamotrigine 50 mg 01/22/21 20:00 01/23/21 19:44 Lamotrigine 25 Mg Tab PO 50 mg BID MARTHA Administration Lorazepam 0.25 mg 01/23/21 13:26 Lorazepam 0.5 Mg Tab PO BID PRN PRN anxiety or panic attack Sodium Chloride 0 ml 01/22/21 09:43 01/24/21 03:49 Normal Saline Flush 10 Ml Syr IVP 20 ml PRN PRN Administration Allergies codeine [Codeine] Adverse Reaction (Intermediate, Verified 01/22/21 13:14) Nausea fentanyl Adverse Reaction (Intermediate, Verified 01/22/21 13:14) [place]/Vomiting oxycodone Adverse Reaction (Intermediate, Unverified 01/22/21 13:14) Nausea tramadol Adverse Reaction (Intermediate, Verified 01/22/21 13:14) delerium Labs Result Diagrams: 01/22/21 09:55 01/23/21 06:50 Labs: 01/22/21 11:25 Urine - Reflex from Ua Urine Culture - Preliminary Gram Positive Juanis Gram Positive Juanis,Mixed 01/23/21 10:32 Thoracentesis Body Fluid Culture - Preliminary 01/23/21 10:32 Thoracentesis Gram Stain - Final Laboratory Tests Range/Units 01/22/21 01/22/21 01/22/21 09:55 09:55 09:55 WBC (4.4-10.8) 10^3/uL 9.45 RBC (3.93-5.22) 10^6/uL 4.37 Hgb (11.2-15.7) g/dL 14.2 Hct (36.0-46.0) % 42.9 MCV (80-95) fL 98.2 H MCH (27.0-33.0) pg 32.5 MCHC (32.0-36.0) % 33.1 RDW (11.7-14.6) % 11.9 Plt Count (130-400) 10^3/uL 401 H MPV (8.0-11.0) fL 9.9 Immature Gran % 0.7 Neutrophils % 75.4 Lymphocytes % 11.0 Monocytes % 10.8 Eosinophils % 1.8 Basophils % 0.3 Nucleated RBC % % 0 Absolute Neutrophils (1.2-6.7) 10^3/uL 7.12 H Absolute Lymphocytes (1.2-3.4) 10^3/uL 1.04 L Absolute Monocytes (0.1-0.8) 10^3/uL 1.02 H Absolute Eosinophils (0.0-0.7) 10^3/uL 0.17 Absolute Basophils (0.0-0.2) 10^3/uL 0.03 PT (9.3-11.0) sec 10.9 INR (0.9-1.1) 1.1 Sodium (136-145) mmol/L 137 Potassium (3.5-5.1) mmol/L 3.4 L Chloride (98-107) mmol/L 98 Carbon Dioxide (21.0-32.0) mmol/L 29.4 Anion Gap (3-11) mmol/L 9.6 BUN (7-18) mg/dL 24 H Creatinine (0.55-1.02) mg/dL 1.5 H Estimated GFR/1.73 m2 (mL/min/1.73m2) 34.13 Glucose (74-106) mg/dL 142 H Calcium (8.5-10.1) mg/dL 9.2 Magnesium (1.8-2.4) mg/dL 1.4 L Total Bilirubin (0.2-1.0) mg/dL 0.7 AST (15-37) U/L 17 ALT (14-59) U/L 16 Alkaline Phosphatase (46-116) U/L 73 Lactate Dehydrogenase (81-234) U/L Troponin I (<0.06) ng/mL < 0.05 NT-Pro-B Natriuret Pep (<300) pg/mL 263 Total Protein (6.4-8.2) g/dL 7.5 Albumin (3.4-5.0) g/dL 3.4 Urine Color (Yellow) Urine Clarity (Clear) Urine pH (5-8) Ur Specific [place] (1.005-1.025) Urine Protein (Negative) mg/dL Urine Ketones (Negative) mg/dL Urine Blood (Negative) Urine Nitrite (Negative) Urine Bilirubin (Negative) Urine Urobilinogen (Up TO 0.2) EU/dL Ur Leukocyte Esterase (Negative) Urine RBC (0-2) HPF Urine WBC (0-5) HPF Ur Epithelial Cells (Negative) HPF Urine Crystals (Negative) HPF Urine Bacteria (Negative) HPF Urine Casts (Negative) LPF Urine Mucus (Negative) Urine Other (Negative) Ur Culture Indicated? Urine Glucose (Negative) mg/dL Fluid Source Fluid Color Fluid Clarity Fluid WBC (0) uL Fld Polynuclear WBCs % % Fluid Mononuclear Cell % Fluid Other Cells % Fluid Glucose COVID-19 Source SARS-CoV-2 (PCR) (Negative) Range/Units 01/22/21 01/22/21 01/22/21 11:25 12:22 12:38 WBC (4.4-10.8) 10^3/uL RBC (3.93-5.22) 10^6/uL Hgb (11.2-15.7) g/dL Hct (36.0-46.0) % MCV (80-95) fL MCH (27.0-33.0) pg MCHC (32.0-36.0) % RDW (11.7-14.6) % Plt Count (130-400) 10^3/uL MPV (8.0-11.0) fL Immature Gran % Neutrophils % Lymphocytes % Monocytes % Eosinophils % Basophils % Nucleated RBC % % Absolute Neutrophils (1.2-6.7) 10^3/uL Absolute Lymphocytes (1.2-3.4) 10^3/uL Absolute Monocytes (0.1-0.8) 10^3/uL Absolute Eosinophils (0.0-0.7) 10^3/uL Absolute Basophils (0.0-0.2) 10^3/uL PT (9.3-11.0) sec INR (0.9-1.1) Sodium (136-145) mmol/L Potassium (3.5-5.1) mmol/L Chloride (98-107) mmol/L Carbon Dioxide (21.0-32.0) mmol/L Anion Gap (3-11) mmol/L BUN (7-18) mg/dL Creatinine (0.55-1.02) mg/dL Estimated GFR/1.73 m2 (mL/min/1.73m2) Glucose (74-106) mg/dL Calcium (8.5-10.1) mg/dL Magnesium (1.8-2.4) mg/dL Total Bilirubin (0.2-1.0) mg/dL AST (15-37) U/L ALT (14-59) U/L Alkaline Phosphatase (46-116) U/L Lactate Dehydrogenase (81-234) U/L Troponin I (<0.06) ng/mL < 0.05 NT-Pro-B Natriuret Pep (<300) pg/mL Total Protein (6.4-8.2) g/dL Albumin (3.4-5.0) g/dL Urine Color (Yellow) Yellow Urine Clarity (Clear) Sl Cloudy Urine pH (5-8) 5.5 Ur Specific [place] (1.005-1.025) 1.020 Urine Protein (Negative) mg/dL Negative Urine Ketones (Negative) mg/dL Negative Urine Blood (Negative) Trace-intact H Urine Nitrite (Negative) Negative Urine Bilirubin (Negative) Negative Urine Urobilinogen (Up TO 0.2) EU/dL 0.2 Ur Leukocyte Esterase (Negative) Moderate H Urine RBC (0-2) HPF 0-2 Urine WBC (0-5) HPF >50 H Ur Epithelial Cells (Negative) HPF Few Urine Crystals (Negative) HPF Negative Urine Bacteria (Negative) HPF Moderate Urine Casts (Negative) LPF Negative Urine Mucus (Negative) Negative Urine Other (Negative) Rare Renal Ur Culture Indicated? Yes Urine Glucose (Negative) mg/dL Negative Fluid Source Fluid Color Fluid Clarity Fluid WBC (0) uL Fld Polynuclear WBCs % % Fluid Mononuclear Cell % Fluid Other Cells % Fluid Glucose COVID-19 Source Nasal/Nares SARS-CoV-2 (PCR) (Negative) Negative Range/Units 01/22/21 01/23/21 01/23/21 16:52 06:50 06:50 WBC (4.4-10.8) 10^3/uL RBC (3.93-5.22) 10^6/uL Hgb (11.2-15.7) g/dL Hct (36.0-46.0) % MCV (80-95) fL MCH (27.0-33.0) pg MCHC (32.0-36.0) % RDW (11.7-14.6) % Plt Count (130-400) 10^3/uL MPV (8.0-11.0) fL Immature Gran % Neutrophils % Lymphocytes % Monocytes % Eosinophils % Basophils % Nucleated RBC % % Absolute Neutrophils (1.2-6.7) 10^3/uL Absolute Lymphocytes (1.2-3.4) 10^3/uL Absolute Monocytes (0.1-0.8) 10^3/uL Absolute Eosinophils (0.0-0.7) 10^3/uL Absolute Basophils (0.0-0.2) 10^3/uL PT (9.3-11.0) sec INR (0.9-1.1) Sodium (136-145) mmol/L 142 Potassium (3.5-5.1) mmol/L 4.3 D Chloride (98-107) mmol/L 103 Carbon Dioxide (21.0-32.0) mmol/L 28.7 Anion Gap (3-11) mmol/L 10.3 BUN (7-18) mg/dL 21 H Creatinine (0.55-1.02) mg/dL 1.0 D Estimated GFR/1.73 m2 (mL/min/1.73m2) 54.50 Glucose (74-106) mg/dL 101 Calcium (8.5-10.1) mg/dL 8.8 Magnesium (1.8-2.4) mg/dL 2.0 Total Bilirubin (0.2-1.0) mg/dL AST (15-37) U/L ALT (14-59) U/L Alkaline Phosphatase (46-116) U/L Lactate Dehydrogenase (81-234) U/L Troponin I (<0.06) ng/mL < 0.05 NT-Pro-B Natriuret Pep (<300) pg/mL Total Protein (6.4-8.2) g/dL Albumin (3.4-5.0) g/dL Urine Color (Yellow) Urine Clarity (Clear) Urine pH (5-8) Ur Specific [place] (1.005-1.025) Urine Protein (Negative) mg/dL Urine Ketones (Negative) mg/dL Urine Blood (Negative) Urine Nitrite (Negative) Urine Bilirubin (Negative) Urine Urobilinogen (Up TO 0.2) EU/dL Ur Leukocyte Esterase (Negative) Urine RBC (0-2) HPF Urine WBC (0-5) HPF Ur Epithelial Cells (Negative) HPF Urine Crystals (Negative) HPF Urine Bacteria (Negative) HPF Urine Casts (Negative) LPF Urine Mucus (Negative) Urine Other (Negative) Ur Culture Indicated? Urine Glucose (Negative) mg/dL Fluid Source Fluid Color Fluid Clarity Fluid WBC (0) uL Fld Polynuclear WBCs % % Fluid Mononuclear Cell % Fluid Other Cells % Fluid Glucose COVID-19 Source SARS-CoV-2 (PCR) (Negative) Range/Units 01/23/21 01/23/21 01/23/21 06:50 09:59 09:59 WBC (4.4-10.8) 10^3/uL RBC (3.93-5.22) 10^6/uL Hgb (11.2-15.7) g/dL Hct (36.0-46.0) % MCV (80-95) fL MCH (27.0-33.0) pg MCHC (32.0-36.0) % RDW (11.7-14.6) % Plt Count (130-400) 10^3/uL MPV (8.0-11.0) fL Immature Gran % Neutrophils % Lymphocytes % Monocytes % Eosinophils % Basophils % Nucleated RBC % % Absolute Neutrophils (1.2-6.7) 10^3/uL Absolute Lymphocytes (1.2-3.4) 10^3/uL Absolute Monocytes (0.1-0.8) 10^3/uL Absolute Eosinophils (0.0-0.7) 10^3/uL Absolute Basophils (0.0-0.2) 10^3/uL PT (9.3-11.0) sec INR (0.9-1.1) Sodium (136-145) mmol/L Potassium (3.5-5.1) mmol/L Chloride (98-107) mmol/L Carbon Dioxide (21.0-32.0) mmol/L Anion Gap (3-11) mmol/L BUN (7-18) mg/dL Creatinine (0.55-1.02) mg/dL Estimated GFR/1.73 m2 (mL/min/1.73m2) Glucose (74-106) mg/dL Calcium (8.5-10.1) mg/dL Magnesium (1.8-2.4) mg/dL Total Bilirubin (0.2-1.0) mg/dL AST (15-37) U/L ALT (14-59) U/L Alkaline Phosphatase (46-116) U/L Lactate Dehydrogenase (81-234) U/L 160 Troponin I (<0.06) ng/mL NT-Pro-B Natriuret Pep (<300) pg/mL Total Protein (6.4-8.2) g/dL Cancelled Albumin (3.4-5.0) g/dL Urine Color (Yellow) Urine Clarity (Clear) Urine pH (5-8) Ur Specific [place] (1.005-1.025) Urine Protein (Negative) mg/dL Urine Ketones (Negative) mg/dL Urine Blood (Negative) Urine Nitrite (Negative) Urine Bilirubin (Negative) Urine Urobilinogen (Up TO 0.2) EU/dL Ur Leukocyte Esterase (Negative) Urine RBC (0-2) HPF Urine WBC (0-5) HPF Ur Epithelial Cells (Negative) HPF Urine Crystals (Negative) HPF Urine Bacteria (Negative) HPF Urine Casts (Negative) LPF Urine Mucus (Negative) Urine Other (Negative) Ur Culture Indicated? Urine Glucose (Negative) mg/dL Fluid Source Fluid Color Fluid Clarity Fluid WBC (0) uL Fld Polynuclear WBCs % % Fluid Mononuclear Cell % Fluid Other Cells % Fluid Glucose Cancelled COVID-19 Source SARS-CoV-2 (PCR) (Negative) Range/Units 01/23/21 10:32 WBC (4.4-10.8) 10^3/uL RBC (3.93-5.22) 10^6/uL Hgb (11.2-15.7) g/dL Hct (36.0-46.0) % MCV (80-95) fL MCH (27.0-33.0) pg MCHC (32.0-36.0) % RDW (11.7-14.6) % Plt Count (130-400) 10^3/uL MPV (8.0-11.0) fL Immature Gran % Neutrophils % Lymphocytes % Monocytes % Eosinophils % Basophils % Nucleated RBC % % Absolute Neutrophils (1.2-6.7) 10^3/uL Absolute Lymphocytes (1.2-3.4) 10^3/uL Absolute Monocytes (0.1-0.8) 10^3/uL Absolute Eosinophils (0.0-0.7) 10^3/uL Absolute Basophils (0.0-0.2) 10^3/uL PT (9.3-11.0) sec INR (0.9-1.1) Sodium (136-145) mmol/L Potassium (3.5-5.1) mmol/L Chloride (98-107) mmol/L Carbon Dioxide (21.0-32.0) mmol/L Anion Gap (3-11) mmol/L BUN (7-18) mg/dL Creatinine (0.55-1.02) mg/dL Estimated GFR/1.73 m2 (mL/min/1.73m2) Glucose (74-106) mg/dL Calcium (8.5-10.1) mg/dL Magnesium (1.8-2.4) mg/dL Total Bilirubin (0.2-1.0) mg/dL AST (15-37) U/L ALT (14-59) U/L Alkaline Phosphatase (46-116) U/L Lactate Dehydrogenase (81-234) U/L Troponin I (<0.06) ng/mL NT-Pro-B Natriuret Pep (<300) pg/mL Total Protein (6.4-8.2) g/dL Albumin (3.4-5.0) g/dL Urine Color (Yellow) Urine Clarity (Clear) Urine pH (5-8) Ur Specific [place] (1.005-1.025) Urine Protein (Negative) mg/dL Urine Ketones (Negative) mg/dL Urine Blood (Negative) Urine Nitrite (Negative) Urine Bilirubin (Negative) Urine Urobilinogen (Up TO 0.2) EU/dL Ur Leukocyte Esterase (Negative) Urine RBC (0-2) HPF Urine WBC (0-5) HPF Ur Epithelial Cells (Negative) HPF Urine Crystals (Negative) HPF Urine Bacteria (Negative) HPF Urine Casts (Negative) LPF Urine Mucus (Negative) Urine Other (Negative) Ur Culture Indicated? Urine Glucose (Negative) mg/dL Fluid Source Pleural Fluid Color Yellow Fluid Clarity Fluid WBC (0) uL Fld Polynuclear WBCs % % 68 Fluid Mononuclear Cell % 31 Fluid Other Cells % 1 Fluid Glucose COVID-19 Source SARS-CoV-2 (PCR) (Negative) Assessment and Plan Assessment and plan (1) Shortness of breath: Status: Chronic (2) Stage 4 lung cancer: Status: Chronic Qualifiers: Laterality: right Qualified Code(s): C34.91 - Malignant neoplasm of unspecified part of right bronchus or lung (3) Acute dehydration: Status: Acute Assessment and plan: This is a 70-year-old female with stage IV adenocarcinoma on immunotherapy with atezolizumab who presents with shortness of breath and found to be dehydrated. That has since been resolved with some IV fluid resuscitation. On her initial CAT scan from January 19, 2021 when she first presented to the emergency department there is a new moderately sized right sided pleural effusion when compared to her scan in October 2020. Her recent PET scan of this month also demonstrates pleural thickening with PET avidity a only have access to the report and not the image so unable to directly compare. The potential diagnosis of the right-sided pleural effusion would include malignancy, infection, or volume. The patient appears to be euvolemic at this time and does not have any infectious symptoms based on my history. Given the pleural nodularity of her previous scans I am concerned that this is a malignant effusion that has rapidly appeared. The cell differential is predominantly polynuclear in nature with a negative Gram stain. Dr. Boucher did request for the remaining pleural fluid to be sent for cytology analysis however as above if this is negative it is not that there are no cancer cells present in the pleural fluid as the amount of fluid sent for analysis is quite small, and even large volume thoracentesis for cytology has a relatively low yield. If this turns out to be a malignant effusion we will have to assess its rate of collection. It may be that her current regimen is not efficacious enough and a change may be warranted, however this is something that her oncologist Dr. Zaragoza can assess with her. If the effusion continues to grow she may require a permanent catheter such as a Pleurx for home drainage as a palliative solution. Right pleural effusion - diagnostic thoracentesis performed - only a small amount of fluid (see separate procedure note) - thus far negative for infection based on gram stain - will forward my note to her oncologist - recommend for outpatient therapeutic thoracentesis to be done next week with surgery (my schedule is full) - ambulatory pulse ox Stage 4 lung adenocarcinoma - f/u oncology - palliative care following - recommend home O2 for palliative reasons
[2021-01-24 07:00] VITALS: PULSE 82
[2021-01-24 07:30] VITALS: BP 121/75; PULSE 86; RESP 16; TEMP 36.5; O2SAT 96
[2021-01-24] MEDS: lamoTRIgine 25 MG TAB 50 MG PO (07:55)
[2021-01-24] MEDS: Cholecalciferol (Vitamin D3) 1,000 UNIT TAB 2000 UNITS PO (07:55)
[2021-01-24] MEDS: Aspirin 81 MG CHEW 162 MG PO (07:55)
[2021-01-24] MEDS: Acetaminophen 325 MG TAB 650 MG PO (07:56)
--- NOTE | 2021-01-24 10:57 | NUR.NOTE ---
Nursing Note: Patient has been up with Respiratory for O2 tolerance test Patient was able to walk the big resighini around the nursing station and tolerated fairly Patient at the end sitting in her chair still feeling short of breath but her O2 sats 98
[2021-01-24 11:08] VITALS: PULSE 111; PULSE 83; PULSE 90; RESP 16; RESP 18; RESP 24; O2SAT 91; O2SAT 96; O2SAT 98
[2021-01-24 11:34] VITALS: BP 117/78; PULSE 82; RESP 20; TEMP 36.3; O2SAT 96
--- NOTE | 2021-01-24 13:02 | DSE_ITS ---
Date of service: 01/24/21 Time of Service: 13:02 DS: Diagnosis Discharge Diagnosis (1) Shortness of breath: Status: Chronic (2) Stage 4 lung cancer: Status: Chronic (3) Acute dehydration: Status: Acute Discharge Plan Disposition Patient Disposition: HOME Condition: Stable Discharge Details Reason For Visit: KJ, Lung cancer Admit Date/Time: 01/22/21 12:15 Admit Provider: Jerry Patrick Attending Provider: Jerry Patrick Primary Care Provider: Clara Shipman Hospital Course Hospital Course: This is a 70 yo female that has a PMH of Lung cancer, pathologic fx of right femoral neck with repair. She was seen in the ED on 01/19/2021 for SOA and found to have an elevated BNP and troponins of 0.74 > 0.9. She was given lasix. [facility] had no beds, neither did other local hospitals and she did not want to be admitted further away so she left [facility]. She was given lasix to take. She presented to the ED on the day of this admission with c/o shortness of breath and weakness. Her BNP had normalized. Troponin negative x 2. Her Chest xray showed the known moderately sized right pleaural effusion that was possibly marginally larger as well as a band of infiltrate on the right. WBC count normal. Afebrile. No cough/sputum, CP/palpitations. On 01/19/2021 during that ED visit a chest CT was negative for pulmonary emboli. It showed an interval increase in the right pleural effusion. The right middle lobe mass was stable in size. Her Creatinine was 1.5; previously. 1.0. She will be admitted for hydration and pulmonary consultation. Unclear of whether the right sided infiltrate is a pneumonia vs a finding related to the lung cancer mass. Her PET scan that was taken on 01/09/2021 was reviewed; it showed thickened pleura on the right and increased intensity of the R lung mass. A thoracentesis was performed of the right pleural effusion with little return of fluid. Gram stain of the fluid was negative for organisms. Culture pending. This is most certainly metastatic disease. She has an appt with her oncologist on 02/02/2021 and will discuss whether further treatment is warranted or not. Dr. Boucher with palliative care consulted and will continue to follow her as an outpt. [place] will be scheduled to assist with her anxiety and panic attacks. Dr. Boucher also suggested prn liquid morphine for pain and perception of shortness of breath / BARILLAS. Her walking O2 saturation testing showed that she maintained her O2 saturations at 95%. She will f/u with her oncologist on 02/02 and with palliative per their recommendations. Home Meds and New Rx's Prescriptions: New lorazepam 0.5 mg Tablet 0.25 mg PO BID Qty: 30 RF: 0 morphine 10 mg/5 mL Solution 0.25 - 0.5 mg PO Q1H PRN PRNQty: 20 RF: 0 lorazepam 0.5 mg Tablet 0.25 mg PO BID Qty: 0 RF: 0 morphine 10 mg/5 mL Solution 1 - 2 mg PO Q1H PRNQty: 30 RF: 0 gabapentin 300 mg Capsule 300 mg PO HS Qty: 0 RF: 0 Continued cyanocobalamin (vitamin B-12) 1,000 mcg tablet 1,000 mcg PO DAILY Qty: 90 RF: 3 pyridoxine (vitamin B6) 100 mg tablet 100 mg PO DAILY Qty: 90 RF: 3 atezolizumab 1,200 mg/20 mL (60 mg/mL) solution 1,200 mg IV Q3W Qty: 20 RF: 0 ibuprofen 200 mg capsule 400 mg PO BID PRN (Reason: pain) Qty: 90 RF: 0 lamotrigine 25 MG tablet 50 mg PO BID RF: 0 meclizine 25 mg tablet 25 mg PO DAILY Qty: 90 RF: 0 cranberry 400 MG capsule 850 mg PO BID RF: 0 cholecalciferol (vitamin D3) [Vitamin D3] 2,000 UNIT capsule 1,000 unit PO DAILY RF: 0 Probiotic 1 EACH capsule, sprinkle 1 cap PO DAILY RF: 0 gabapentin 100 mg capsule 100 mg PO HS RF: 0 esomeprazole magnesium [Nexium] 20 mg Capsule,Delayed Release(Dr/Ec) 20 mg PO DAILY RF: 0 acetaminophen 500 mg Tablet 500 mg PO Q4H PRN PRNQty: 90 RF: 0 ascorbate calcium (vitamin C) 500 MG tablet 500 mg PO DAILY Qty: 0 RF: 0 Discontinued lorazepam 0.5 mg tablet 0.5 mg PO BID PRN (Reason: anxiety) Qty: 20 RF: 0 furosemide [Lasix] 40 mg tablet 40 mg PO DAILY Qty: 14 RF: 0 Discharge Instructions Instructions: Acute Kidney Injury (DC), Shortness of Breath (DC) Stand Alone Forms: Nursing Discharge Form Referrals: [facility] [OTHER] - (Lung Cancer. Pleural effusion. Schedule a therapeutic thoracentesis.) Activity:: Activity as Tolerated Equipment/Supplies:: No Equipment Needed Diet:: As Tolerated Discharge Orders Discharge Orders: Discharge Order (Routine); Ordered 01/24/21 Ordered By: Jerry Patrick DS: Summary Time Spent with Patient providing and/or coordinating discharge services: Greater than 30 minutes Status at Discharge Functional status at discharge: independent ambulation Overall status at discharge: patient is not back to baseline Mental Status: mental status grossly normal Speech and Movement: speech and movement normal Mood: congruent mood Affect: normal affect Exam Narrative Exam Narrative: Pt is tearful today. Const General: cooperative and frail appearing Nutritional Appearance: average body habitus Orientation: oriented x3 Eyes Sclera: sclerae normal Pupils: PERRL Neck Neck: full ROM and no JVD Chest Chest: no tenderness (at right sided port and left lateral rib cage) Resp Effort & Inspection: normal respiratory effort Auscultation: clear to auscultation bilaterally and diminished lung sounds on the right in the lower lung son Cardio Rate: regular rate Rhythm: regular rhythm Heart Sounds: S1 normal and S2 normal GI Palpation: soft and nontender Auscultation: normal bowel sounds Skin General skin exam: no rashes or lesions noted Extrem General: no pedal edema and no calf tenderness Psych Appearance: grossly normal Mental Status: mental status grossly normal Speech and Movement: speech and movement normal Mood: congruent mood Affect: normal affect DS: Data Vitals/I&O Vitals and I&O: Vital Signs Temperature 36.3 C L 01/24/21 11:34 Temperature Source Tympanic 01/24/21 11:34 Pulse 82 01/24/21 11:34 Pulse Rhythm Regular 01/24/21 09:39 Pulse 84 01/22/21 12:38 Respiratory Rate 20 01/24/21 11:34 Respiratory Effort Non-Labored 01/24/21 09:39 Respiratory Depth Normal 01/24/21 09:39 Respiratory Pattern Normal 01/24/21 09:39 Blood Pressure 117/78 01/24/21 11:34 Blood Pressure Mean 87 01/22/21 12:38 Blood Pressure Position Supine 01/22/21 09:39 Pulse Oximetry 96 01/24/21 11:34 Oxygen Delivery Method Room Air 01/24/21 11:34 Oxygen Flow Rate 0 01/24/21 11:34 Pain Level 3 01/24/21 11:34 Comment 01/23/21 23:40 Intake & Output 01/23/21 01/24/21 01/24/21 23:59 11:59 23:59 Intake Total 1823.75 / 2818.75 440 / 440 Output Total 850 / 1700 400 / 400 Balance 973.75 / 1118.75 40 / 40 Weight 62.157 kg Intake: IV 563.75 / 1558.75 Oral 1260 / 1260 420 / 420 Output: Urine 850 / 1700 400 / 400 Other: Urine Color Yellow Yellow Urine Appearance Clear Cloudy Sediment Urine Odor Normal Strong Voiding Methods Toilet Toilet Data Completed and Pending Labs on day of discharge: Labs from last 24 hours 01/23/21 01/23/21 10:32 06:50 Lactate Dehydrogenase 160 Path Cons Comment SEE COMMENT Preliminary micro results at discharge 01/22/21 11:25 Urine Culture - Preliminary Urine - Reflex from Ua Gram Positive Juanis Gram Positive Juanis,Mixed 01/23/21 10:32 Body Fluid Culture - Preliminary Thoracentesis [facility] Medical History All medications reviewed Anxiety associated with cancer diagnosis Ataxic gait has heel lift in right shoe Bone 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 ca axial skeleton, ribs, pelvis Cancer related pain Colitis Dizziness DNI (do not intubate) DNR (do not resuscitate) Essential hypertension Ex-smoker Fall Goals of care, counseling/discussion History of lung cancer History of ovarian cancer History of pulmonary embolism History of radiation therapy Hyperlipidemia Hypokalemia Immunotherapy Infectious gastroenteritis and colitis Lung cancer Medical marijuana use helps with her appetite Neuropathy due to chemotherapeutic drug Odynophagia Palliative care patient Physical deconditioning restarting PT 09/20 Pleural thickening new on 01/09/21 PET scan POLST (Physician Orders for Life-Sustaining Treatment) DNR/DNI 03/21/20 Prerenal azotemia Seizure disorder Seizures Stage 4 lung cancer diagnosed 2015 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 Mother , from COPD End stage COPD Other Diabetes Heart disease Social History Smoking/Tobacco Use Status: Former Tobacco Use Tobacco: How many years used: 40 Smoking risk assessment performed?: Yes Alcohol Intake: never Drug use: Daily Substance use type: marijuana Details: daily medical marijuana Caregiver/Support person: Yes Household members: spouse Housing: house Number of Children: 2 number of grandchildren: 4 Communication Needs: Corrective Lenses Education Level: high school Do you need help understanding health information?: Rarely current occupation: retired Pets and animals: Yes What is your relationship status?: How often do you talk on the phone with friends or family?: three or more times per week How often do you get together with friends or relatives?: once per week Panel score (0-1 are the most socially isolated patients): 2 What type of physical activity do you participate in: assisted ambulation and resistance training Duration: 15-30 minutes/day Frequency: daily Agree to transfusion: Yes Seatbelt use: always Working smoke detector in home: Yes Fire extinguisher in home: Yes Do you feel safe at home: Yes Do you feel safe in your relationship?: Yes Additional Social history: Lives with Evelio in [facility]. Diagnosed initially with lung cancer in 2014. Was in remission until almost 2 years ago, but recurrence not recognized for a few months partially due to COVID-19. Sees [address] Zaragoza for oncology. PET scan done 01/09/21 showed progression. She and Evelio are very close, weather challenges well together. She has a loving and supportive family and group of friends. Lots of social supports.
--- NOTE | 2021-01-24 13:59 | CHAPLAIN ---
Bhavani was sitting up in bed when I visited, and was appreciative of the prayer shawl I gave her. Her , Evelio, was with her and planning on taking Bhavani home this afternoon. Bhavani had some fluid drained from her lung. She explained the doctor was not able to drain a lot of fluid because of the thickness of the wall and the thickness of the fluid, Bhavani said. She'll return to the ED and have the procedure there next week some time. Bhavani and Evelio live less than a mile from [facility] and recently got a new puppy. Their two older dogs recently.
[2021-01-24] MEDS: Heparin 500 UNITS/5 ML SYRINGE (14:26)
--- NOTE | 2021-01-24 15:17 | PDOC.CMDIS ---
- If Service Date Differs Date of service: 01/24/21 Time of Service: 15:17 LACE Index Scoring Tool - Questions: Length of Stay (in days): 2 Acuity (Admit via E.D.?): Yes Comorbidities: Previous M.I., Metastatic Solid Tumor E.D. Visits: 4 - Answers: Total Score: 14 Risk of Readmission: High Risk Care Management Discharge Reason for Hospitalization: KJ Discharge Plan: Latha will return home today with no services. Her will drive her home via private vehicle, and will support her with her needs. She will follow up with her oncologist, PCP, Palliative, and discharge plan of care. She is happy to be going home. Patient/Family Education Needs: Review discharge instructions regarding activity levels and medications, discussion of self care needs and goals of care.
--- NOTE | 2021-01-24 16:15 | PCPN_ITS ---
Date of service: 01/24/21 Assessment and Plan Assessment and plan (1) S/P thoracentesis: Status: Acute Assessment and plan: Cytology came back showing no malignant cells, though this seems highly unlikely. This result returned to me after Bhavani had been discharged home. Bhavani is wanting a repeat thorancentesis for comfort; [facility] working on scheduling this. She is also interested in a pleurex when indicated. (2) Pleural thickening: Status: Chronic Assessment and plan: Seen very minimally on CT scan in October; more prominent on PET scan in December. [place] [facility] [place] Could be part of why thorancentesis was not able to draw out a lot of fluid. (3) Pleural effusion: Status: Acute Assessment and plan: Right sided. Large. Persisting. Contributing to her dyspnea. (4) Shortness of breath: Status: Chronic (5) Rib pain: Status: Chronic Assessment and plan: Bilateral. Known mets. Painful on inspiration and with palpation. (6) Hip pain, left: Status: Chronic Assessment and plan: New, due to met in acetabulum. Has had chronic right sided hip pain for a while; had pathologic fracture in right hip that was repaired. (7) Cancer related pain: Status: Acute Assessment and plan: Bhavani is very stoic. You have to pry her assessments of pain out of her. Strongly encouraged her to treat her pain so she can be as engaged and interactive as possible. (8) Bone metastases: Status: Chronic (9) Palliative care patient: Status: Chronic Assessment and plan: Will see her at home next visit. Pall Care to set up. Thanks Subjective Subjective Patient reports: still having pain and shortness of breath Interval history since last seen: I saw Bhavani in her room this am. She did not qualify for home oxygen, as her saturation did not dip to 88% even with ambulation. We discussed her sense of breathlessness. Even when her number is high, she feels air hunger. She was willing to try low dose morphine concentrate to see if this work. She also would like to have a repeat thorancentesis. Dr Patrick referred her to [facility]. I spoke to the office staffperson and she said they would try to set her up for next week. I also told Bhavani I would see her at home in the next 2-3 weeks, after she sees Dr Zaragoza (on 02/01) and after her thorancentesis. She does feel overwhelmed by what is likely her cancer's progression. She wants to go home and be more relaxed. She is willing to try low dose benzodiazepine too to help with dyspnea. Exam Narrative Exam Narrative: Pt is tearful today. Const General: cooperative and frail appearing Nutritional Appearance: average body habitus Orientation: oriented x3 Eyes Sclera: sclerae normal Pupils: PERRL Neck Neck: full ROM and no JVD Chest Chest: no tenderness (at right sided port and left lateral rib cage) Resp Effort & Inspection: normal respiratory effort Auscultation: clear to auscultation bilaterally and diminished lung sounds on the right in the lower lung son Cardio Rate: regular rate Rhythm: regular rhythm Heart Sounds: S1 normal and S2 normal GI Palpation: soft and nontender Auscultation: normal bowel sounds Skin General skin exam: no rashes or lesions noted Extrem General: no pedal edema and no calf tenderness Psych Appearance: grossly normal Mental Status: mental status grossly normal Speech and Movement: speech and movement normal Mood: congruent mood Affect: normal affect Objective Last Vital Signs Temp 97.3 F L 01/24/21 11:34 Pulse 82 01/24/21 11:34 Resp 20 01/24/21 11:34 BP 117/78 01/24/21 11:34 Pulse Ox 96 01/24/21 11:34 Laboratory Results - last 24 hr 01/23/21 10:32 Path Cons Comment SEE COMMENT
== END 2021-01-24 14:47 | disposition home or self-care (01) ==
LOC: ER 13:15 → MS 13:57
PROVIDERS: Student in an Organized Health Care Education/Training Program; Admitting Provider Family Medicine; Emergency Provider Emergency Medicine; PCP Nurse Practitioner; Visit Provider Family Medicine
DX: N17.9 Acute kidney failure, unspecified (principal); J90 Pleural effusion, not elsewhere classified; C34.2 Malignant neoplasm of middle lobe, bronchus or lung; R06.02 Shortness of breath; E86.0 Dehydration; R53.1 Weakness; Z79.899 Other long term (current) drug therapy; F41.8 Other specified anxiety disorders; R26.0 Ataxic gait; Z66 Do not resuscitate; C79.51 Secondary malignant neoplasm of bone; Z85.43 Personal history of malignant neoplasm of ovary; I21.4 Non-ST elevation (NSTEMI) myocardial infarction; Z20.822 Contact with and (suspected) exposure to COVID-19
CPT/HCPCS: 32554; 80048; 80053; 87077; 87635; 93005; 93306; 94618; 96365; 96366; 99285; 71045; 81003; 81015; 81373; 83615; 83735; 83880; 84155; 84484; 85025; 85610; 87070; 87086; 87205; 88104; 89051; 93010; 99217; 99219; 99225; 99284; G0378; J0696

== ENCOUNTER 2021-01-30 09:00 | Day surgery (SDC) | payer MEDICARE, SELFPAY ==
[2021-01-30] VITALS (80 sets, daily range): BP systolic 94–135; BP diastolic 45–77; PULSE 72–94; RESP 11–32; TEMP 36–36.8; O2SAT 95–99
--- NOTE | 2021-01-30 09:09 | W.ED.GENAD ---
Discharge Plan Disposition Patient Disposition: [facility] Condition: Stable Discharge Details Chief Complaint: SOB Clinical Impression: Stage 4 lung cancer, Pleural effusion Primary Care Provider: Clara Shipman ED Provider: Naveen Dove Home Meds and New Rx's Prescriptions: No Action cyanocobalamin (vitamin B-12) 1,000 mcg tablet 1,000 mcg PO DAILY Qty: 90 RF: 3 pyridoxine (vitamin B6) 100 mg tablet 100 mg PO DAILY Qty: 90 RF: 3 atezolizumab 1,200 mg/20 mL (60 mg/mL) solution 1,200 mg IV Q3W Qty: 20 RF: 0 ibuprofen 200 mg capsule 400 mg PO BID PRN (Reason: pain) Qty: 90 RF: 0 lamotrigine 25 MG tablet 50 mg PO BID RF: 0 meclizine 25 mg tablet 25 mg PO DAILY Qty: 90 RF: 0 cranberry 400 MG capsule 850 mg PO BID RF: 0 cholecalciferol (vitamin D3) [Vitamin D3] 2,000 UNIT capsule 1,000 unit PO DAILY RF: 0 Probiotic 1 EACH capsule, sprinkle 1 cap PO DAILY RF: 0 gabapentin 100 mg capsule 100 mg PO HS RF: 0 lorazepam 0.5 mg Tablet 0.25 mg PO BID Qty: 30 RF: 0 morphine 10 mg/5 mL Solution 0.25 - 0.5 mg PO Q1H PRN PRNQty: 20 RF: 0 lorazepam 0.5 mg Tablet 0.25 mg PO BID Qty: 0 RF: 0 morphine 10 mg/5 mL Solution 1 - 2 mg PO Q1H PRNQty: 30 RF: 0 gabapentin 300 mg Capsule 300 mg PO HS Qty: 0 RF: 0 esomeprazole magnesium [Nexium] 20 mg Capsule,Delayed Release(Dr/Ec) 20 mg PO DAILY RF: 0 acetaminophen 500 mg Tablet 500 mg PO Q4H PRN PRNQty: 90 RF: 0 ascorbate calcium (vitamin C) 500 MG tablet 500 mg PO DAILY Qty: 0 RF: 0 Medical Decision Making This is a pleasant but very unfortunate 70-year-old female presenting with her for acute on chronic dyspnea, diagnosed with stage IV lung CA. She would like to pursue hospice care. Given that, we will not pursue medical work-up. We will reach out to Dr. Boucher who is currently her palliative care provider who would likely naturally transition her to hospice. She will come evaluate the patient, in the meantime I will reach out to our surgical service to see if they can provide symptomatic thoracentesis Case discussed with Dr. Lima, she is able to perform thoracentesis today, Covid swab preprocedural has already been ordered. Dr. Boucher evaluated the patient here in the ER, please see her note. Initial, patient will be transition to hospice care but this not want to be admitted as an inpatient. Today she will go to the day surgery unit and have a symptomatic thoracentesis and then subsequently discharged home. She will be transition to hospice and our surgical services will be ordering a Pleurx drain which we do not have present today. Once the drain comes in she will then be set up as an outpatient day procedure to have the drain placed. Patient and are comfortable this plan and have no additional questions or concerns. Patient was given a single dose of her morphine concentrate, 10 mg here in the ER. This documentation was generated using [employer] dictation system, please disregard any oddities of phrase or misspellings. Medical Records Medical records reviewed: Yes I reviewed the patient's medical records. HPI General Mode of arrival: EMS. Date/Time Provider Initiated Documentation: 01/30/21 09:02. Limitations to Documentation: no limitations. Information obtained by: patient. HPI Narrative: This is a 70-year-old female, past medical history of stage IV lung CA, anxiety, hypertension, palliative care patient, scheduled for a thoracentesis tomorrow, presenting to the ER today with her complaining of acute on chronic shortness of breath and diffuse chest pressure. Patient states that she feels as though her pleural effusion is getting larger, simply wants to be comfortable, questions if it could be drained sooner, would like to speak with Dr. Boucher about hospice care. She states I feel like the end is near. She denies headache, fever, productive cough, abdominal pain, nausea, vomiting. Denies any pain or swelling in her legs. Patient did take her morphine this morning but feels anxious and would like some Ativan in the meantime. Patient was seen in our ER on 01-19, left AMA subsequently returned to the ER on 01-20 and admitted, subsequently discharged on the . Is scheduled to see her oncology team in just a few days. Was scheduled to have a Covid test performed today so she could have a thoracentesis tomorrow. Related Data Home Medications Medication Instructions Recorded Confirmed Probiotic 1 cap PO DAILY 05/10/17 01/30/21 cholecalciferol (vitamin D3) 1,000 unit PO DAILY 05/10/17 01/30/21 [Vitamin D3] cranberry 850 mg PO BID 05/10/17 01/30/21 lamotrigine 50 mg PO BID 11/11/17 01/30/21 esomeprazole magnesium [Nexium] 20 mg PO DAILY 03/19/20 01/30/21 acetaminophen 500 mg PO Q4H PRN PRN #90 tab 03/27/20 01/30/21 ascorbate calcium (vitamin C) 500 mg PO DAILY #0 tab 03/27/20 01/30/21 meclizine 25 mg tablet 25 mg PO DAILY #90 tab 12/01/20 01/30/21 atezolizumab 1,200 mg/20 mL (60 1,200 mg IV Q3W #20 ml 01/02/21 01/30/21 mg/mL) intravenous solution cyanocobalamin (vitamin B-12) 1,000 mcg PO DAILY #90 tab 01/02/21 01/30/21 1,000 mcg tablet ibuprofen 200 mg capsule 400 mg PO BID PRN #90 cap 01/02/21 01/30/21 pyridoxine (vitamin B6) 100 mg 100 mg PO DAILY #90 tab 01/02/21 01/30/21 tablet gabapentin 100 mg PO HS 01/22/21 01/30/21 gabapentin 300 mg PO HS #0 cap 01/24/21 01/30/21 lorazepam 0.25 mg PO BID #0 tab 01/24/21 01/30/21 lorazepam 0.25 mg PO BID #30 tab 01/24/21 01/30/21 morphine 0.25 - 0.5 mg PO Q1H PRN PRN #20 ml 01/24/21 01/30/21 morphine 1 - 2 mg PO Q1H PRN #30 ml 01/24/21 Previous Rx's Medication Instructions Recorded acetaminophen 500 mg PO Q4H PRN PRN #90 tab 03/27/20 ascorbate calcium (vitamin C) 500 mg PO DAILY #0 tab 03/27/20 meclizine 25 mg tablet 25 mg PO DAILY #90 tab 12/01/20 atezolizumab 1,200 mg/20 mL (60 1,200 mg IV Q3W #20 ml 01/02/21 mg/mL) intravenous solution cyanocobalamin (vitamin B-12) 1,000 mcg PO DAILY #90 tab 01/02/21 1,000 mcg tablet ibuprofen 200 mg capsule 400 mg PO BID PRN #90 cap 01/02/21 pyridoxine (vitamin B6) 100 mg 100 mg PO DAILY #90 tab 01/02/21 tablet gabapentin 300 mg PO HS #0 cap 01/24/21 lorazepam 0.25 mg PO BID #0 tab 01/24/21 lorazepam 0.25 mg PO BID #30 tab 01/24/21 morphine 0.25 - 0.5 mg PO Q1H PRN PRN #20 ml 01/24/21 morphine 1 - 2 mg PO Q1H PRN #30 ml 01/24/21 Allergies Allergy/AdvReac Type Severity Reaction Status Date / Time codeine [Codeine] AdvReac Intermediate Nausea Verified 01/30/21 09:13 fentanyl AdvReac Intermediate [place]/Vomi Verified 01/30/21 09:13 ting oxycodone AdvReac Intermediate Nausea Unverified 01/30/21 09:13 tramadol AdvReac Intermediate delerium Verified 01/30/21 09:13 General VIVEK: 2 Review of Systems Constitutional Constitutional: Reports fatigue and Denies fever(s) Cardiovascular Cardiovascular: Reports chest pain (Diffuse pressure) and Reports dyspnea Respiratory Respiratory: Reports cough (Dry) and Reports dyspnea Gastrointestinal Gastrointestinal: Denies abdominal pain, Denies nausea and Denies vomiting Genitourinary Genitourinary: Denies dysuria Musculoskeletal Musculoskeletal: Denies back pain Integumentary/Breasts Skin/Breast: Denies rash Psychiatric Psychiatric: Reports anxiety Endocrine Endocrine: Reports fatigue PFSH Medical History All medications reviewed Anxiety associated with cancer diagnosis Ataxic gait has heel lift in right shoe Bone 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 ca axial skeleton, ribs, pelvis Cancer related pain Colitis Dizziness DNI (do not intubate) DNR (do not resuscitate) Essential hypertension Ex-smoker Fall Goals of care, counseling/discussion Hip pain, left bone mets History of lung cancer History of ovarian cancer History of pulmonary embolism History of radiation therapy Hyperlipidemia Hypokalemia Immunotherapy Infectious gastroenteritis and colitis Lung cancer Medical marijuana use helps with her appetite Neuropathy due to chemotherapeutic drug Odynophagia Palliative care patient Physical deconditioning restarting PT 09/20 Pleural thickening POLST (Physician Orders for Life-Sustaining Treatment) DNR/DNI 03/21/20 Prerenal azotemia Rib pain bilateral Seizure disorder Seizures Stage 4 lung cancer diagnosed 2015 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 Mother , from COPD End stage COPD Other Diabetes Heart disease Social History Smoking/Tobacco Use Status: Former Tobacco Use Tobacco: How many years used: 40 Smoking risk assessment performed?: Yes Alcohol Intake: never Drug use: Daily Substance use type: marijuana Details: daily medical marijuana Caregiver/Support person: Yes Household members: spouse Housing: house Number of Children: 2 number of grandchildren: 4 Communication Needs: Corrective Lenses Education Level: high school Do you need help understanding health information?: Rarely current occupation: retired Pets and animals: Yes What is your relationship status?: How often do you talk on the phone with friends or family?: three or more times per week How often do you get together with friends or relatives?: once per week Panel score (0-1 are the most socially isolated patients): 2 What type of physical activity do you participate in: assisted ambulation and resistance training Duration: 15-30 minutes/day Frequency: daily Agree to transfusion: Yes Seatbelt use: always Working smoke detector in home: Yes Fire extinguisher in home: Yes Do you feel safe at home: Yes Do you feel safe in your relationship?: Yes Additional Social history: Lives with Evelio in [facility]. Diagnosed initially with lung cancer in 2014. Was in remission until almost 2 years ago, but recurrence not recognized for a few months partially due to COVID-19. Sees Dr Zaragoza for oncology. PET scan done 01/09/21 showed progression. She and Evelio are very close, weather challenges well together. She has a loving and supportive family and group of friends. Lots of social supports. Exam Const General: cooperative, anxious (Tearful) and ill appearing chronically Orientation: alert and awake [facility] Head: normal to inspection, normocephalic and atraumatic Face and sinus: normal facial exam Mouth: moist mucous membranes Eyes General: appearance normal, both eyes and all related structures Conjunctivae: conjunctivae normal Neck Neck: normal visual inspection, trachea midline and supple Resp Effort & Inspection: able to speak in complete sentences and tachypneic Auscultation: diminished lung sounds bilaterally in the lower lung son (Worse on the right) and rales on the right in the lower lung son Cardio Rate: regular rate Rhythm: regular rhythm GI Palpation: soft and nontender Back/Spine/Pelvis Back: No back tenderness Skin General skin exam: no rashes or lesions noted Neuro General: patient alert, patient awake, moves all extremities and no focal motor deficits Cognition: normal cognition Speech: speech normal Motor: muscle tone normal throughout Sensory Exam: no sensory deficits noted Extrem General: normal to inspection, full ROM, capillary refill normal, no pedal edema and no calf tenderness Psych Appearance: grossly normal Mental Status: mental status grossly normal
[2021-01-30] MEDS: LORazepam 2 MG/ML VIAL 1 MG IVP (09:49)
[2021-01-30] MEDS: Normal Saline-STERILE FIELD 0.9% 10 ML SYR (09:50)
--- NOTE | 2021-01-30 10:49 | NUR.NOTE ---
Nursing Note: Patient reports that her anxiety has eased and that she feels that she can breath better.
[2021-01-30 10:55] LABS: Source Nasal/Nares
--- NOTE | 2021-01-30 12:29 | W.PM.HP.N ---
Date of service: 01/30/21 Time of Service: 12:29 Assessment and Plan Assessment and plan (1) NSTEMI (non-ST elevated myocardial infarction): Status: Acute (2) Stage 4 lung cancer: Status: Chronic Assessment and plan: Patient is here today for shortness of breath. She has a known history of metastatic lung cancer. She requires thoracentesis. Informed consent is obtained explaining risks and benefits of procedure including but not limited to: Bleeding, infection, pneumothorax, prolonged drainage and need for repeat procedure,, and complications from the anesthesia, and other unforetold complications. Qualifiers: Laterality: right Qualified Code(s): C34.91 - Malignant neoplasm of unspecified part of right bronchus or lung (3) Cancer related pain: Status: Acute (4) Anxiety associated with cancer diagnosis: Status: Chronic (5) History of radiation therapy: Status: Acute (6) History of lung cancer: Status: None (7) Bone metastases: Status: Chronic (8) Medical marijuana use: Status: Chronic (9) Pathologic fracture of neck of right femur: Status: Acute Qualifiers: Encounter type: initial encounter Qualified Code(s): M84.451A - Pathological fracture, right femur, initial encounter for fracture (10) Neuropathy due to chemotherapeutic drug: Status: Acute (11) Lytic bone lesion of right femur: Status: Chronic (12) Hypotension: Status: Resolved Qualifiers: Hypotension type: hypotension due to hypovolemia Qualified Code(s): I95.89 - Other hypotension; E86.1 - Hypovolemia (13) Malignant pleural effusion: Status: Acute History of Present Illness Consults Requesting physician: Rhona Boucher Narrative: Patient came into the ER today complaining of shortness of breath. She has a history of metastatic lung cancer on the right chest. She has reaccumulation of pleural fluid. Review of Systems All systems reviewed & are unremarkable except as noted in HPI and below PFSH Medical History All medications reviewed Anxiety associated with cancer diagnosis Ataxic gait has heel lift in right shoe Bone 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 ca axial skeleton, ribs, pelvis Cancer related pain Colitis Dizziness DNI (do not intubate) DNR (do not resuscitate) Essential hypertension Ex-smoker Fall Goals of care, counseling/discussion Hip pain, left bone mets History of lung cancer History of ovarian cancer History of pulmonary embolism History of radiation therapy Hyperlipidemia Hypokalemia Immunotherapy Infectious gastroenteritis and colitis Lung cancer Medical marijuana use helps with her appetite Neuropathy due to chemotherapeutic drug Odynophagia Palliative care patient Physical deconditioning restarting PT 09/20 Pleural thickening POLST (Physician Orders for Life-Sustaining Treatment) DNR/DNI 03/21/20 Prerenal azotemia Rib pain bilateral Seizure disorder Seizures Stage 4 lung cancer diagnosed 2015 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 Mother , from COPD End stage COPD Other Diabetes Heart disease Social History Smoking/Tobacco Use Status: Former Tobacco Use Tobacco: How many years used: 40 Smoking risk assessment performed?: Yes Alcohol Intake: never Drug use: Daily Substance use type: marijuana Details: daily medical marijuana Caregiver/Support person: Yes Household members: spouse Housing: house Number of Children: 2 number of grandchildren: 4 Communication Needs: Corrective Lenses Education Level: high school Do you need help understanding health information?: Rarely current occupation: retired Pets and animals: Yes What is your relationship status?: How often do you talk on the phone with friends or family?: three or more times per week How often do you get together with friends or relatives?: once per week Panel score (0-1 are the most socially isolated patients): 2 What type of physical activity do you participate in: assisted ambulation and resistance training Duration: 15-30 minutes/day Frequency: daily Agree to transfusion: Yes Seatbelt use: always Working smoke detector in home: Yes Fire extinguisher in home: Yes Do you feel safe at home: Yes Do you feel safe in your relationship?: Yes Additional Social history: Lives with Evelio in [facility]. Diagnosed initially with lung cancer in 2014. Was in remission until almost 2 years ago, but recurrence not recognized for a few months partially due to COVID-19. Sees Dr Zaragoza for oncology. PET scan done 01/09/21 showed progression. She and Evelio are very close, weather challenges well together. She has a loving and supportive family and group of friends. Lots of social supports. Meds Allergies and Home Medications Allergies Allergy/AdvReac Type Severity Reaction Status Date / Time codeine [Codeine] AdvReac Intermediate Nausea Verified 01/30/21 09:13 fentanyl AdvReac Intermediate [place]/Vomi Verified 01/30/21 09:13 ting oxycodone AdvReac Intermediate Nausea Unverified 01/30/21 09:13 tramadol AdvReac Intermediate delerium Verified 01/30/21 09:13 Home Medications Medication Instructions Recorded Confirmed Type Probiotic 1 cap PO DAILY 05/10/17 01/30/21 History cholecalciferol (vitamin D3) 1,000 unit PO DAILY 05/10/17 01/30/21 History [Vitamin D3] cranberry 850 mg PO BID 05/10/17 01/30/21 History lamotrigine 50 mg PO BID 11/11/17 01/30/21 History esomeprazole magnesium [Nexium] 20 mg PO DAILY 03/19/20 01/30/21 History acetaminophen 500 mg PO Q4H PRN PRN #90 tab 03/27/20 01/30/21 Rx ascorbate calcium (vitamin C) 500 mg PO DAILY #0 tab 03/27/20 01/30/21 Rx meclizine 25 mg tablet 25 mg PO DAILY #90 tab 12/01/20 01/30/21 Rx atezolizumab 1,200 mg/20 mL (60 1,200 mg IV Q3W #20 ml 01/02/21 01/30/21 Rx mg/mL) intravenous solution cyanocobalamin (vitamin B-12) 1,000 mcg PO DAILY #90 tab 01/02/21 01/30/21 Rx 1,000 mcg tablet ibuprofen 200 mg capsule 400 mg PO BID PRN #90 cap 01/02/21 01/30/21 Rx pyridoxine (vitamin B6) 100 mg 100 mg PO DAILY #90 tab 01/02/21 01/30/21 Rx tablet gabapentin 100 mg PO HS 01/22/21 01/30/21 History gabapentin 300 mg PO HS #0 cap 01/24/21 01/30/21 Rx lorazepam 0.25 mg PO BID #0 tab 01/24/21 01/30/21 Rx lorazepam 0.25 mg PO BID #30 tab 01/24/21 01/30/21 Rx morphine 0.25 - 0.5 mg PO Q1H PRN PRN #20 ml 01/24/21 01/30/21 Rx morphine 1 - 2 mg PO Q1H PRN #30 ml 01/24/21 Rx Exam Resp Effort & Inspection: abnormal respiratory pattern, cough and decreased respiratory effort Other: Minimal breath sounds on the right. Postsurgical changes noted Cardio Rate: regular rate Rhythm: regular rhythm GI Other: no pain Extrem Other: bony mets and severe chronic pain Results Labs Labs: Laboratory Results - last 24 hr 01/30/21 10:55 COVID-19 Source Nasal/Nares Last Vital Signs Temp 36.8 C 01/30/21 09:07 Pulse 75 01/30/21 12:15 Resp 19 01/30/21 12:19 BP 100/48 L 01/30/21 12:15 Pulse Ox 98 01/30/21 12:19
[2021-01-30 12:44] LABS: COVID-19 PCR Negative (Negative)
--- NOTE | 2021-01-30 12:54 | NUR.NOTE ---
1254 report given to Patricia in Day Surgery.
--- NOTE | 2021-01-30 13:07 | W.PALLCONSUL ---
Date of service: 01/30/21 Time of Service: 10:50 History of Present Illness History of Present Illness Chief Complaint: dyspnea, malignant pleural effusion, lung ca Narrative: I was asked by PAUL Jewell from the ER to see Bhavani for pall care. I have worked with Bhavani for almost 6 years, when she was first diagnosed with lung cancer. She was recently hospitalized for her dyspnea and admitted to [facility]. During that admission, (), she had a thorancentesis that did not successfully alleviate her dyspnea due to insufficient fluid extraction. She is back in the ER today with a combination of chest pressure, rib pain and worsening dyspnea. She has been steadily growing weaker at home. She cannot walk even a few feet. She has to sit on her walker seat and have her wheel her into the BR. She feels she's lost all strength. She said she talked to her primary oncologist Dr Zaragoza by phone last . She reported that he did not advise her to have another thorancentesis nor a pleur-ex drain placed, due to fear of pneumothorax and infection. We called and spoke to Dr Zaragoza's primary nurse, Migdalia Ruiz RN who said that Dr Zaragoza does support these steps for patients who are seeking comfort/palliation/hospice. Bhavani said she is exhausted. She doesn't want to keep returning to the ER (today was her 3rd visit in less than 3 weeks). She wants to change her direction of care toward quality, not quantity. Her , who is an excellent and supportive caregiver, defers to her desires and needs entirely. Consults Consult date: 01/30/21 Requesting physician: Naveen Dove Assessment and Plan Assessment and plan (1) Malignant pleural effusion: Status: Acute Assessment and plan: More than 700 ccs successfully drained by Dr Lima in day surgery after my visit in the ER. I went to see Bhavani at her home at the end of the day, about 6 pm, and she was breathing much better. She was not tachypneic. She was not wearing oxygen. She did not look anxious or distressed. The thorancentesis made a huge difference. (2) Encounter for hospice care discussion: Status: Acute Assessment and plan: Based on Bhavani's goals of care, her desire for quality over quantity, her reduced functional status, she has elected to go on hospice. We did discuss her ability to revoke at any time, if she changes her mind re: pursuing more cancer directed treatment. She had some blood drawn as ordered by Dr Zaragoza that has not yet returned; it is possible that this lab work MIGHT open up another treatment possibility for Bhavani. If she regains some functional capacity, she might be open to that. Also, she might, likely will, revoke when a Pleurex drain for her right lung effusion becomes available. This has been planned for FridayFeb 06 (next week) with Dr Lima and her team. Plan for later today is to admit her to hospice once she returns home, so she can get close attention and not have to return to the ER for help managing her severe dyspnea. (3) Hip pain, left: Status: Chronic Assessment and plan: Bone mets. (4) Rib pain: Status: Chronic (5) Shortness of breath: Status: Chronic Assessment and plan: Evelio had been giving Bhavani 10 mg doses of morphine concentrate twice per day for her dypsnea. I encouraged him to give smaller doses more frequently, as the morphine only lasts for 2-4 hrs at a time. He will see how she responds. Also, oxygen has been ordered by the hospice team. (6) History of hip surgery: Status: Chronic Assessment and plan: right leg/hip still painful when her little dog stands on her leg she has a ciro in her femur to help with her pathologic fx in that leg (7) POLST (Physician Orders for Life-Sustaining Treatment): Status: Acute (8) Physical deconditioning: Status: Chronic (9) Stage 4 lung cancer: Status: Chronic Qualifiers: Laterality: right Qualified Code(s): C34.91 - Malignant neoplasm of unspecified part of right bronchus or lung Review of Systems Constitutional Constitutional: Reports fatigue, Reports weakness and Reports weight loss Eyes Eyes: Reports requires corrective lenses ENT Ears, Nose, Mouth, and Throat: Reports dry mouth and Reports disequilibrium Cardiovascular Cardiovascular: Reports dyspnea and Reports dyspnea on exertion Respiratory Respiratory: Reports dyspnea and Reports dyspnea on exertion Gastrointestinal Gastrointestinal: Reports constipation and Reports early satiety Genitourinary Genitourinary: Reports urinary incontinence Musculoskeletal Musculoskeletal: Reports muscle weakness Integumentary/Breasts Skin/Breast: Reports dry skin Neurologic Neurologic: Reports disequilibrium and Reports weakness Psychiatric Psychiatric: Reports anxiety and Reports difficulty concentrating Endocrine Endocrine: Reports fatigue Hematologic/Lymphatic Hematologic/Lymphatic: Reports easy bruising [facility] Medical History (Updated 01/30/21 @ 20:25 by Rhona Boucher MD) All medications reviewed Anxiety associated with cancer diagnosis Ataxic gait has heel lift in right shoe Bone 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 ca axial skeleton, ribs, pelvis Cancer related pain Colitis Dizziness DNI (do not intubate) DNR (do not resuscitate) Encounter for hospice care discussion Essential hypertension Ex-smoker Fall Goals of care, counseling/discussion Hip pain, left bone mets History of lung cancer History of ovarian cancer History of pulmonary embolism History of radiation therapy Hyperlipidemia Hypokalemia Immunotherapy Infectious gastroenteritis and colitis Lung cancer Medical marijuana use helps with her appetite Neuropathy due to chemotherapeutic drug Odynophagia Palliative care patient Physical deconditioning Pleural thickening POLST (Physician Orders for Life-Sustaining Treatment) DNR/DNI 03/21/20 Prerenal azotemia Rib pain bilateral Seizure disorder Seizures Stage 4 lung cancer diagnosed 2014 Tubulovillous adenoma (07/26/16) Unintentional weight loss Urinary retention Vaccine counseling Bhavani and spouse Evelio are both fully Covid-19 vaccinated Vertigo Weight loss of more than 10% body weight Surgical History (Updated 01/30/21 @ 20:25 by Rhona Boucher MD) Abdominal hysterectomy Appendectomy Arthroscopy, Shoulder Colonoscopy - IV Sedation Colonoscopy - MAC (07/26/16) History of hip surgery ciro in right femur pathologic fx Oophrectomy, Left Reduction mammoplasty S/P thoracentesis Family History Grandson Personality disorder Grandson Personality disorder Grandson Severe allergic reaction Daughter Chronic migraine Son No problems noted. Mother , from COPD End stage COPD Other Diabetes Heart disease Social History Smoking/Tobacco Use Status: Former Tobacco Use Tobacco: How many years used: 40 Smoking risk assessment performed?: Yes Alcohol Intake: current Alcohol Intake frequency: holidays/special occasions only Alcohol type: beer and wine Drug use: Daily Substance use type: marijuana Details: daily medical marijuana drops at night Caregiver/Support person: Yes Household members: spouse Housing: house Number of Children: 2 number of grandchildren: 4 Communication Needs: Corrective Lenses Education Level: high school Do you need help understanding health information?: Rarely current occupation: retired Pets and animals: Yes What is your relationship status?: How often do you talk on the phone with friends or family?: three or more times per week How often do you get together with friends or relatives?: once per week Panel score (0-1 are the most socially isolated patients): 2 What type of physical activity do you participate in: assisted ambulation and resistance training Duration: 15-30 minutes/day Frequency: daily Agree to transfusion: Yes Seatbelt use: always Working smoke detector in home: Yes Fire extinguisher in home: Yes Do you feel safe at home: Yes Do you feel safe in your relationship?: Yes Additional Social history: Lives with Evelio in [facility]. Diagnosed initially with lung cancer in 2014. Was in remission until almost 2 years ago, but recurrence not recognized for a few months partially due to COVID-19. Sees Dr Zaragoza for oncology. PET scan done 01/09/21 showed progression. She and Evelio are very close, weather challenges well together. She has a loving and supportive family and group of friends. Lots of social supports. Exam Const General: cooperative and frail appearing Nutritional Appearance: thin Orientation: oriented x3 Eyes Sclera: sclerae normal Pupils: PERRL Neck Neck: full ROM and no JVD Chest Chest: tenderness (at right sided port and left lateral rib cage) Resp Effort & Inspection: not labored, tachypneic and uses accessory muscles Auscultation: breath sounds absent on the right and diminished lung sounds on the right in the lower lung son Cardio Rate: regular rate Rhythm: regular rhythm Heart Sounds: S1 normal and S2 normal GI Palpation: soft and nontender Auscultation: normal bowel sounds Skin General skin exam: no rashes or lesions noted Neuro General: patient alert, patient awake, patient oriented x3 and unable to assess gait Cognition: normal cognition Speech: speech normal Extrem General: no pedal edema and no calf tenderness Psych Appearance: grossly normal Mental Status: mental status grossly normal Speech and Movement: other (limited speech due to breathlessness) Mood: anxious mood Affect: sad and anxious affect Attitude: cooperative Thought Process: normal Insight: insight good Judgment: judgment good Other: Bhavani feels her life is coming close to its end. She has a sense. She would like to live longer, as long as her quality of life is good. Wants care focused on her comfort. Results Last Vital Signs Temp 98.2 F 01/30/21 09:07 Pulse 72 01/30/21 12:45 Resp 22 01/30/21 12:50 BP 94/49 L 01/30/21 12:45 Pulse Ox 98 01/30/21 12:50 Labs Labs: Laboratory Results - last 24 hr 01/29/21 01/30/21 11:42 10:55 COVID-19 Source Cancelled Nasal/Nares SARS-CoV-2 (PCR) Cancelled Negative
--- NOTE | 2021-01-30 14:00 | PAPNONF_PTH ---
PATIENT: Latha Mejía LOC: [facility] U#:[id number] AGE/SX: 70/F ROOM: RE01/30/[address]: Gauri Lima : 1950 BED: DIS: 01/30/2021 SPEC #: [id number] RECD: 01/30/21 17:24 STATUS: NICHELLE REFarnaz #: [id number] MICHELLE: 01/30/21 14:[address]: Gauri Lima DEPT: [facility] Cytology RECD BY: Rachele Driver ENTERED: 01/30/21 17:25 SP TYPE: LUCIO MATTA DR: Clara Shipman Tissues: 1 - BODY FLUID CYTO(NOT S/U/N/EM)[facility] Procedures: BODY FLUID CYTO(NOT SPU/UR/NIP/ENDOM)[facility] IMMUNOPEROXIDASE STAIN CYTOLOGY CELL BLOCK Comments: [id number] (TOTAL VOLUME = 475 ml's, SENT FRESH)
[2021-01-30] MEDS: Sodium Bicarbonate 50 MEQ/50 ML VIAL (14:02)
--- NOTE | 2021-01-30 14:12 | ROE_ITS ---
Date of service: 01/30/21 Time of Service: 14:12 Operative Note Operative Note DATE OF PROCEDURE: 01/30/21 PRE-OP DIAGNOSIS: met lung CA PROCEDURE: R thoro FERMENTOLOGIST: Gloria Garza ANESTHESIA TYPE: Local By Surgeon Refer to Anesthesia Record ESTIMATED BLOOD LOSS: 1 PATHOLOGY: none sent COMPLICATIONS: None Patient was transported to: same day Procedure Description: Pt is here today for thoracentesis for symptoms of shortness of breath. Chest x-ray was reviewed prior to beginning the procedure. Informed consent was obtained explaining risks and benefits of the procedure, including but not limited to bleeding, infection, pneumothorax, recurrence, complications of anesthesia, and other unforetold complications. PROCEDURE: The patient is brought to the procedure room and placed in the seated position. Ultrasound is used to localize the pocket on the left chest. The area is marked and then prepped and draped in the usual sterile fashion using a ChloraPrep scrub solution. 10 cc's of 1% Lidocaine is used to anesthetize the T10 interspace. The small david is made with a #11 blade. The needle and catheter is then inserted over the top of the rib, aspirating as it is inserted. The needle is then removed. The catheter is then hooked up to the Vacutainer system and 700 cc's of straw-colored fluid is evacuated. The catheter is removed; pressure is held. Sterile compression dressing is applied. Portable chest x-ray shows no pneumothorax. Pt is given instructions in wound care, activity, medications, and warning signs: SOB, increasing in pain, chest pain, redness or temperature- if these occur, come to ED.
--- NOTE | 2021-01-30 14:14 | W.PM.DSUDISC ---
Discharge Plan Disposition Patient Disposition: HOME Condition: Stable Discharge Details Reason For Visit: SOB Attending Provider: Gauri Lima Primary Care Provider: Clara Shipman Home Meds and New Rx's Prescriptions: Continued cyanocobalamin (vitamin B-12) 1,000 mcg tablet 1,000 mcg PO DAILY Qty: 90 RF: 3 pyridoxine (vitamin B6) 100 mg tablet 100 mg PO DAILY Qty: 90 RF: 3 atezolizumab 1,200 mg/20 mL (60 mg/mL) solution 1,200 mg IV Q3W Qty: 20 RF: 0 ibuprofen 200 mg capsule 400 mg PO BID PRN (Reason: pain) Qty: 90 RF: 0 lamotrigine 25 MG tablet 50 mg PO BID RF: 0 meclizine 25 mg tablet 25 mg PO DAILY Qty: 90 RF: 0 cranberry 400 MG capsule 850 mg PO BID RF: 0 cholecalciferol (vitamin D3) [Vitamin D3] 2,000 UNIT capsule 1,000 unit PO DAILY RF: 0 Probiotic 1 EACH capsule, sprinkle 1 cap PO DAILY RF: 0 gabapentin 100 mg capsule 100 mg PO HS RF: 0 lorazepam 0.5 mg Tablet 0.25 mg PO BID Qty: 30 RF: 0 morphine 10 mg/5 mL Solution 0.25 - 0.5 mg PO Q1H PRN PRNQty: 20 RF: 0 lorazepam 0.5 mg Tablet 0.25 mg PO BID Qty: 0 RF: 0 morphine 10 mg/5 mL Solution 1 - 2 mg PO Q1H PRNQty: 30 RF: 0 gabapentin 300 mg Capsule 300 mg PO HS Qty: 0 RF: 0 esomeprazole magnesium [Nexium] 20 mg Capsule,Delayed Release(Dr/Ec) 20 mg PO DAILY RF: 0 acetaminophen 500 mg Tablet 500 mg PO Q4H PRN PRNQty: 90 RF: 0 ascorbate calcium (vitamin C) 500 MG tablet 500 mg PO DAILY Qty: 0 RF: 0 Discharge Instructions Additional Instructions: -Insertion of PleuRx/lung drainage catheter next Saturday 01/06. The OR will call w/ the time on 01/05. Hospice will arrange to the vacuum bottles brought to you. Activity:: Activity as Tolerated Remove Dressings/Wound Care:: 24 hours Shower/Bathe:: 24 hours Diet:: As Tolerated DS: Diagnosis Discharge Diagnosis (1) NSTEMI (non-ST elevated myocardial infarction): Status: Acute (2) Stage 4 lung cancer: Status: Chronic (3) Cancer related pain: Status: Acute (4) Anxiety associated with cancer diagnosis: Status: Chronic (5) History of radiation therapy: Status: Acute (6) History of lung cancer: Status: None (7) Bone metastases: Status: Chronic (8) Medical marijuana use: Status: Chronic (9) Pathologic fracture of neck of right femur: Status: Acute (10) Neuropathy due to chemotherapeutic drug: Status: Acute (11) Lytic bone lesion of right femur: Status: Chronic (12) Hypotension: Status: Resolved (13) Malignant pleural effusion: Status: Acute
--- NOTE | 2021-01-30 14:30 | DI.RAD_ITS ---
Exam(s) XR PORTABLE CHEST AP EXAM: XR PORTABLE CHEST AP CLINICAL HISTORY: s/p thoro TECHNIQUE: 2D digital imaging was performed. COMPARISON: No exams were available for comparison FINDINGS: MEDIASTINUM: Normal. HEART: Normal. PULMONARY VASCULATURE: Normal. LUNGS: Clear. PLEURAL SPACE: There does appear to be a decrease in the size of the right pleural effusion. No pneu mothorax. BONE:Within normal limits for the patient's age. Old healed left rib fractures. OTHER FINDINGS:There has been no change in appearance of the right Chnaoi-Z-Mqvr catheter. IMPRESSION: Decrease in size of right pleural effusion. No pneumothorax. DATA REPOSITORY: RADIATION DOSE DELIVERED:
[2021-01-30] MEDS: Heparin 500 UNITS/5 ML SYRINGE IVP (15:03)
== END 2021-01-30 15:20 | disposition home or self-care (01) ==
LOC: ER 12:23 → SUR 13:00
PROVIDERS: Emergency Provider Physician Assistant; PCP Nurse Practitioner; Visit Provider Surgery
PROC: 0W9B3ZZ Drainage of Left Pleural Cavity, Percutaneous Approach (ICD-10-PCS; CPT 32554; principal; 2021-01-30 11:30)
DX: C34.92 Malignant neoplasm of unspecified part of left bronchus or lung (principal); J90 Pleural effusion, not elsewhere classified
CPT/HCPCS: 32554; 87635; 96374; 99285; 71045; 88104; 88305; 88361; 99283; J2060

== ENCOUNTER 2021-02-02 03:35 | Outpatient (CLI) | payer MEDICARE, SELFPAY ==
[2021-02-02 11:23] LABS: Source Nasal/Nares
[2021-02-02 13:49] LABS: COVID-19 PCR Negative (Negative)
== END 2021-02-02 03:36 | disposition home or self-care (01) ==
LOC: LBO 03:35
PROVIDERS: PCP Nurse Practitioner; Visit Provider Surgery
DX: Z20.822 Contact with and (suspected) exposure to COVID-19 (principal); Z01.818 Encounter for other preprocedural examination
CPT/HCPCS: 87635

== ENCOUNTER 2021-02-06 09:55 | Day surgery (SDC) | payer MEDICARE, SELFPAY ==
[2021-02-06 10:23] VITALS: BP 134/67; PULSE 91; RESP 24; TEMP 36.2; O2SAT 95
[2021-02-06] MEDS: Lactated Ringers 1,000 ML 80 ML IV (10:54)
[2021-02-06] MEDS: Normal Saline Flush 10 ML SYR IV ×2 (10:55→15:13)
--- NOTE | 2021-02-06 11:11 | W.ANESPRE ---
General Info Date of Service Date Performed: 02/06/21 Height: 5 ft 4 in Weight: 57.3 kg Body Mass Index (BMI): 21.7 Surgical Procedure: Operation Date: 02/06/21 11:10 Proposed Procedures Side Surgeon p right pleural catheter placement Right Gauri Lima, DO Actual Procedures Side Surgeon p Pleural Catheter Placement Right Gauri Lima, DO Pre-Op Diagnosis Post-Op Diagnosis LUNG CANCER Meds Allergies and Home Medications Allergies Allergy/AdvReac Type Severity Reaction Status Date / Time codeine [Codeine] AdvReac Intermediate Nausea Verified 02/02/21 11:18 fentanyl AdvReac Intermediate [place]/Vomi Verified 02/02/21 11:18 ting oxycodone AdvReac Intermediate Nausea Unverified 02/02/21 11:18 tramadol AdvReac Intermediate delerium Verified 02/02/21 11:18 Home Medication Medication Instructions Recorded Probiotic 1 cap PO DAILY 05/10/17 cholecalciferol (vitamin D3) 1,000 unit PO DAILY 05/10/17 [Vitamin D3] cranberry 850 mg PO BID 05/10/17 lamotrigine 50 mg PO BID 11/11/17 esomeprazole magnesium [Nexium] 20 mg PO DAILY 03/19/20 acetaminophen 500 mg PO Q4H PRN PRN #90 tab 03/27/20 ascorbate calcium (vitamin C) 500 mg PO DAILY #0 tab 03/27/20 meclizine 25 mg tablet 25 mg PO DAILY #90 tab 12/01/20 atezolizumab 1,200 mg/20 mL (60 1,200 mg IV Q3W #20 ml 01/02/21 mg/mL) intravenous solution cyanocobalamin (vitamin B-12) 1,000 mcg PO DAILY #90 tab 01/02/21 1,000 mcg tablet ibuprofen 200 mg capsule 400 mg PO BID PRN #90 cap 01/02/21 pyridoxine (vitamin B6) 100 mg 100 mg PO DAILY #90 tab 01/02/21 tablet gabapentin 100 mg PO HS 01/22/21 lorazepam 0.25 mg PO BID #30 tab 01/24/21 morphine 0.25 - 0.5 mg PO Q1H PRN PRN #20 ml 01/24/21 morphine 1 - 2 mg PO Q1H PRN #30 ml 01/24/21 Current Visit Medications: Current Medications Generic Name Dose Route Start Last Admin Trade Name Freq PRN Reason Stop Dose Admin Heparin Sodium (Porcine) 500 units 02/06/21 11:30 Heparin 500 Units/5 Ml Syringe IVP .PER PROTOCOL MARTHA Cefazolin Sodium/Dextrose 1 gm in 50 mls @ 100 mls/hr 02/06/21 06:00 Ancef Duplex IVPB 02/06/21 23:59 PREOP MARTHA Ringer's Solution 1,000 mls @ 80 mls/hr 02/06/21 06:00 02/06/21 10:54 IV 03/04/21 23:59 80 mls/hr INFUSION MARTHA Administration IV Miscellaneous Supplies 1 each 02/06/21 06:00 Iv Access IV 03/04/21 23:59 DIRECTED MARTHA Sodium Chloride 0 ml 02/06/21 06:00 02/06/21 10:55 Normal Saline Flush 10 Ml Syr IV 03/04/21 23:59 10 ml PRN PRN Administration Sodium Chloride 0 ml 02/06/21 06:00 Normal Saline 10 Ml Vial IJ 03/04/21 23:59 DIRECTED PRN Sterile Water 0 ml 02/06/21 06:00 Water,Injection,Sterile 10 Ml Vial IJ 03/04/21 23:59 DIRECTED PRN PFSH Active Problems Active Problems: Problem Status Onset Code Encounter for hospice care discussion Z71.89 Malignant pleural effusion J91.0 Hip pain, left M25.552 Rib pain R07.81 S/P thoracentesis Z98.890 Pleural thickening Pleural effusion J90 Shortness of breath R06.02 All medications reviewed Fall W19.XXXA Greater trochanteric bursitis of right hip M70.61 Fracture of rib of left side S22.32XA Lung nodule R91.1 History of hip surgery Z98.890 Ataxic gait R26.0 Vaccine counseling Z71.89 Anemia D64.9 Hypocalcemia E83.51 Goals of care, counseling/discussion Z71.89 DNI (do not intubate) Z78.9 DNR (do not resuscitate) Z66 POLST (Physician Orders for Life-Sustaining Treatment) Z78.9 Hypotension I95.9 DVT prophylaxis Z29.9 Constipation K59.00 Lytic bone lesion of right femur M89.9 Pathologic fracture of neck of right femur M84.451A 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, T45.1X5A Immunotherapy Z29.8 Weight loss of more than 10% body weight R63.4 Physical deconditioning R53.81 Seizure disorder G40.909 Stage 4 lung cancer C34.90 Cancer related pain G89.3 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 Unintentional weight loss R63.4 History of radiation therapy Z92.3 Odynophagia R13.10 Bone metastases C79.51 Medical marijuana use Z79.899 Ex-smoker Z87.891 Vertigo R42 Lung cancer C34.90 Palliative care patient Z51.5 Tubulovillous adenoma 07/26/16 D36.9 Colitis K52.9 Infectious gastroenteritis and colitis A09 Medical History Medical History All medications reviewed Anxiety associated with cancer diagnosis Ataxic gait has heel lift in right shoe Bone 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 ca axial skeleton, ribs, pelvis Cancer related pain Colitis Dizziness DNI (do not intubate) DNR (do not resuscitate) Encounter for hospice care discussion Essential hypertension Ex-smoker Fall Goals of care, counseling/discussion Hip pain, left bone mets History of lung cancer History of ovarian cancer History of pulmonary embolism History of radiation therapy Hyperlipidemia Hypokalemia Immunotherapy Infectious gastroenteritis and colitis Lung cancer Medical marijuana use helps with her appetite Neuropathy due to chemotherapeutic drug Odynophagia Palliative care patient Physical deconditioning Pleural thickening POLST (Physician Orders for Life-Sustaining Treatment) DNR/DNI 03/21/20 Prerenal azotemia Rib pain bilateral Seizure disorder Seizures Stage 4 lung cancer diagnosed 2015 Tubulovillous adenoma (07/26/16) Unintentional weight loss Urinary retention Vaccine counseling Bhavani and spouse Evelio are both fully Covid-19 vaccinated Vertigo Weight loss of more than 10% body weight Surgical History Surgical History Abdominal hysterectomy Appendectomy Arthroscopy, Shoulder Colonoscopy - IV Sedation Colonoscopy - MAC (07/26/16) History of hip surgery ciro in right femur pathologic fx Oophrectomy, Left Reduction mammoplasty S/P thoracentesis Tobacco Smoking/Tobacco Use Status: Former Tobacco Use Tobacco: How many years used: 40 Alcohol Alcohol Intake: current Alcohol intake frequency: holidays/special occasions only Alcohol type: beer and wine Substance Use Substance use: Daily Substance use type: marijuana Details: daily medical marijuana drops at night Vital Signs and Lab Results Vital Signs Most Recent Vital Signs in EMR: Most Recent Vital Signs Temp Pulse Resp BP Pulse Ox 36.2 C L 91 H 24 134/67 95 02/06/21 10:23 02/06/21 10:23 02/06/21 10:23 02/06/21 10:23 02/06/21 10:23 Lab Results Blood Type / Crossmatch: No Data to Display Complete Blood Count: White Blood Count 9.45 10^3/uL (4.4-10.8) 01/22/21 09:55 01/22/21 Red Blood Count 4.37 10^6/uL (3.93-5.22) 01/22/21 09:55 01/22/21 Hemoglobin 14.2 g/dL (11.2-15.7) 01/22/21 09:55 01/22/21 Hematocrit 42.9 % (36.0-46.0) 01/22/21 09:55 01/22/21 Platelet Count 401 10^3/uL (130-400) H 01/22/21 09:55 01/22/21 Complete Metabolic Panel: Sodium Level 142 mmol/L (136-145) 01/23/21 06:50 01/23/21 Potassium Level 4.3 mmol/L (3.5-5.1) 01/23/21 06:50 01/23/21 Chloride Level 103 mmol/L (98-107) 01/23/21 06:50 01/23/21 Carbon Dioxide Level 28.7 mmol/L (21.0-32.0) 01/23/21 06:50 01/23/21 Blood Urea Nitrogen 21 mg/dL (7-18) H 01/23/21 06:50 01/23/21 Creatinine 1.0 mg/dL (0.55-1.02) 01/23/21 06:50 01/23/21 Estimated GFR/1.73 m2 54.50 (mL/min/1.73m2) 01/23/21 06:50 01/23/21 Magnesium Level 2.0 mg/dL (1.8-2.4) 01/23/21 06:50 01/23/21 Calcium Level 8.8 mg/dL (8.5-10.1) 01/23/21 06:50 01/23/21 Albumin 3.4 g/dL (3.4-5.0) 01/22/21 09:55 01/22/21 Glucose Level 101 mg/dL (74-106) 01/23/21 06:50 01/23/21 Liver Function Panel: Alanine Aminotransferase (ALT/SGPT) 16 U/L (14-59) 01/22/21 09:55 01/22/21 Aspartate Amino Transf (AST/SGOT) 17 U/L (15-37) 01/22/21 09:55 01/22/21 Coagulation Panel: INR International Normalized Ratio 1.1 (0.9-1.1) 01/22/21 09:55 01/22/21 Prothrombin Time 10.9 sec (9.3-11.0) 01/22/21 09:55 01/22/21 Activated Partial Thromboplast Time 26.1 sec (21.0-27.5) 01/19/21 10:15 01/19/21 Cardiac Panel: Troponin I < 0.05 ng/mL (<0.06) 01/22/21 16:52 01/22/21 RB-Asg-E-Type Natriuretic Peptide 263 pg/mL (<300) 01/22/21 09:55 01/22/21 Arterial Blood Gas: No Data to Display Venous Blood Gas: Venous Blood pH 7.55 (7.31-7.41) H 01/19/21 09:28 01/19/21 Venous Blood Partial Pressure O2 31 mmHg 01/19/21 09:28 01/19/21 Venous Blood Partial Pressure CO2 30 mmHg (41-51) L 01/19/21 09:28 01/19/21 Venous Blood Oxygen Saturation 65 % 01/19/21 09:28 01/19/21 Venous Blood HCO3 26 mmol/L (23-28) 01/19/21 09:28 01/19/21 Venous Blood Base Excess 4 mmol/L (-2-3) H 01/19/21 09:28 01/19/21 Venous Blood Total Carbon Dioxide 23 mmol/L (24-29) L 01/19/21 09:28 01/19/21 Pancreas Panel: No Data to Display Thyroid Panel: Thyroid Stimulating Hormone (TSH) 4.65 uIU/mL (0.36-3.74) H 01/19/21 09:28 01/19/21 Infectious Disease: Coronavirus (COVID-19)(PCR) Negative (Negative) 02/02/21 09:09 02/02/21 Coronavirus 2019 Source Nasal/Nares 02/02/21 09:09 02/02/21 Blood Cultures: No Data to Display Toxicology Panel: No Data to Display Imaging and Studies Imaging and Studies EKG Summary: 01/22/21: Conclusion Sinus rhythm Inferior infarct, old...Q >35mS, II III aVF Abnrm T, anterolateral lds. T wave changes are similar to 01/19/21 Echocardiogram Summary: 01/23/21: Conclusion Normal left ventricular wall thickness and chamber size. Estimated ejection fraction is 55 to 60%. There are no segmental wall motion abnormalities Normal right ventricular size and systolic function Both atria are normal in size The aortic valve is trileaflet and sclerotic without stenosis or regurgitation Mild mitral annular calcification. Trace to mild mitral regurgitation Normal tricuspid valve, mild tricuspid regurgitation. Normal estimated right ventricular systolic pressure Mildly dilated ascending aorta measuring 3.65 cm Anesthesia Assessment and Plan Anesthesia History Personal History: No History of Anesthesia Complications Family History: No Family History of Anesthesia Complications Exercise Tolerance Exercise Tolerance: Metabolic Equivalents<4 Pertinent Negatives Pertinent Negatives: No Symptoms of GERD Cardiac & Pulmonary Exam Cardiac Exam: Normal S1/S2 Heart Sounds Pulmonary Exam: Other Cardiac and Pulmonary Comment:: Bilateral base crackles, upper lobes clear Airway Exam Known Difficult Airway: No Mallampati Class: 1 Mouth Opening: Normal (> 3cm) Thyromental Distance: Greater than 3 cm Neck Range of Motion: Full ROM Neck Circumference: Normal Teeth Condition: Normal Dentition (Healthy bottom teeth) and Removable Dentures/Plates Upper ASA Classification ASA Score: ASA 4 Emergency Case?: No NPO Status NPO Status: NPO Clears >2 hours, Solids >8 hours Anesthesia Plan Resuscitation Status: DNR/DNI Suspended During Perioperative Period (Discussed for a period of 48/hours if reversible cause) Anesthesia Technique: MAC Anesthesia Airway Planned: Natural Airway Monitors Used: Standard Monitors
[2021-02-06 11:14] VITALS: BMI 21.7
[2021-02-06] MEDS: ceFAZolin 1 GM/50 ML BAG IVPB (11:36)
[2021-02-06] MEDS: Bupivacaine LIPOSOME/PF 133 MG/10 ML VIAL IJ (12:21)
[2021-02-06] MEDS: Bupivacaine 0.25% Pres-Free 30 ML VIAL (12:21)
[2021-02-06 12:32] VITALS: BP 126/73; PULSE 64; RESP 24; TEMP 36; O2SAT 96
--- NOTE | 2021-02-06 12:45 | W.PM.OP ---
Date of service: 02/06/21 Time of Service: 12:45 Operative Note Operative Note DATE OF PROCEDURE: 02/06/21 PRE-OP DIAGNOSIS: stage 4 lung cancer POST-OP DIAGNOSIS: same PROCEDURE: right Pleurx catheter Refer to Anesthesia Record
--- NOTE | 2021-02-06 12:46 | W.PM.DSUDISC ---
Discharge Plan Disposition Patient Disposition: HOME Condition: Good Discharge Details Reason For Visit: right Pleurx cath placement Attending Provider: Gauri Lima Primary Care Provider: Clara Shipman Home Meds and New Rx's Prescriptions: No Action cyanocobalamin (vitamin B-12) 1,000 mcg tablet 1,000 mcg PO DAILY Qty: 90 RF: 3 pyridoxine (vitamin B6) 100 mg tablet 100 mg PO DAILY Qty: 90 RF: 3 atezolizumab 1,200 mg/20 mL (60 mg/mL) solution 1,200 mg IV Q3W Qty: 20 RF: 0 ibuprofen 200 mg capsule 400 mg PO BID PRN (Reason: pain) Qty: 90 RF: 0 lamotrigine 25 MG tablet 50 mg PO BID RF: 0 meclizine 25 mg tablet 25 mg PO DAILY Qty: 90 RF: 0 cranberry 400 MG capsule 850 mg PO BID RF: 0 cholecalciferol (vitamin D3) [Vitamin D3] 2,000 UNIT capsule 1,000 unit PO DAILY RF: 0 Probiotic 1 EACH capsule, sprinkle 1 cap PO DAILY RF: 0 gabapentin 100 mg capsule 100 mg PO HS RF: 0 lorazepam 0.5 mg Tablet 0.25 mg PO BID Qty: 30 RF: 0 morphine 10 mg/5 mL Solution 0.25 - 0.5 mg PO Q1H PRN PRNQty: 20 RF: 0 morphine 10 mg/5 mL Solution 1 - 2 mg PO Q1H PRNQty: 30 RF: 0 esomeprazole magnesium [Nexium] 20 mg Capsule,Delayed Release(Dr/Ec) 20 mg PO DAILY RF: 0 acetaminophen 500 mg Tablet 500 mg PO Q4H PRN PRNQty: 90 RF: 0 ascorbate calcium (vitamin C) 500 MG tablet 500 mg PO DAILY Qty: 0 RF: 0 Discharge Instructions Additional Instructions: ice tylenol and morphine for pain bottles are ordered home RN to assist w/ dressing changes and teach fluid removal Activity:: Activity as Tolerated Remove Dressings/Wound Care:: 48 hours Shower/Bathe:: 48 hours Diet:: As Tolerated Discharge Orders Discharge Orders: Discharge Order (Routine); Ordered 02/06/21 Ordered By: Gauri Lima DS: Diagnosis Discharge Diagnosis (1) Malignant pleural effusion: Status: Acute (2) Hip pain, left: Status: Chronic (3) Rib pain: Status: Chronic (4) Stage 4 lung cancer: Status: Chronic (5) Cancer related pain: Status: Acute
--- NOTE | 2021-02-06 13:02 | DI.RAD_ITS ---
Exam(s) XR PORTABLE CHEST AP EXAM: XR PORTABLE CHEST AP CLINICAL HISTORY: line placement TECHNIQUE: 2D digital imaging was performed. COMPARISON: CT CT CHEST PE CTA from 01/19/2021 CR XR PORTABLE CHEST AP from 01/30/2021 FINDINGS: The heart size is normal. There is been no change in the position of the port over the right chest w ith tip in the right SVC. There are old bilateral rib fractures. There is a catheter projecting at the right lung base. There is no pneumothorax. A rounded density is again noted at the right lung b ase. No pneumothorax l. chronic fibrotic changes. No visible effusion. IMPRESSION: Apparent placement of chest tube at the right lung base since the previous exam. No pneumothorax or visible effusion. DATA REPOSITORY: RADIATION DOSE DELIVERED:
[2021-02-06] MEDS: MORPHine 4 MG/ML SYR 2 MG IVP (13:07)
[2021-02-06] MEDS: ACETAMINOPHEN 1,000 MG/100 ML BTL 400 MG IVPB (13:08)
--- NOTE | 2021-02-06 13:08 | W.ANESPOSTOP ---
Postoperative Evaluation Date, Time and Location Date Performed: 02/06/21 Time Performed: 13:09 Patient Location: Day Surgery Unit Vital Signs Most Recent Imported Vital Signs: Most Recent Vital Signs Temp Pulse Resp BP Pulse Ox 36 C L 64 24 126/73 96 02/06/21 12:32 02/06/21 12:32 02/06/21 12:32 02/06/21 12:32 02/06/21 12:32 Pain Score Most Recent Pain Score: Most Recent Pain Score Pain Level 9 02/06/21 12:32 Assessment Mental Status: Awake (Alert & Oriented to Patient Baseline) Airway and Respiratory Function: Patent airway with normal (patient baseline) respiratory exam Cardiovascular Function: Hemodynamically Stable Hydration Status: Adequately Hydrated Nausea & Vomiting: No Nausea or Vomiting Pain: Pain is Moderate or Severe Postoperative Pain Management: Other (Surgeon aware and managing) Peripheral Nerve Block: Patient did not receive a nerve block
[2021-02-06 13:14] VITALS: BP 126/37; PULSE 70; RESP 20; TEMP 36
[2021-02-06 14:17] VITALS: BP 126/71; PULSE 71; RESP 24; O2SAT 95
[2021-02-06] MEDS: Heparin 500 UNITS/5 ML SYRINGE IVP (15:13)
== END 2021-02-06 15:50 | disposition home or self-care (01) ==
PROVIDERS: PCP Nurse Practitioner; Visit Provider Surgery
PROC: (CPT 32554; principal; 2021-02-06 11:00)
DX: J91.0 Malignant pleural effusion (principal); C34.91 Malignant neoplasm of unspecified part of right bronchus or lung
CPT/HCPCS: 32554; 71045; J0131; J0690; J2250; J2270; J2405